=== PATIENT | male | born 1935 | race Caucasian/White ===

== ENCOUNTER → 2018-03-22 13:51 | Outpatient (CLI) | payer MEDICARE, OTHER, SELFPAY ==
[2018-03-22 14:25] LABS: Add Manual Diff / Slide Review NO; Basophils Percent Auto 1.1 % (0-2); Eosinophils Percent Auto 3.2 % (2-4); Hemoglobin 15.8 g/dL (13.5-17.5); Lymphocytes Percent Auto 27.4 % (25-40); Mean Corpuscular HGB Conc 34.3 % (30-36); Mean Corpuscular Hemoglobin 32.5 PG (26-34); Mean Corpuscular Volume 94.8 fL (80-100); Monocytes Percent Auto 9.5 % (3-14); Neutrophils Absolute Auto 3200 /uL (3000-5900); Neutrophils Percent Auto 58.8 % (50-75); Platelet Count 198 X10^3/uL (150-400); Red Blood Cell Count 4.85 X10^6/uL (4.5-5.9); Red Cell Distribution Width 13.9 % (11.6-14.8); White Blood Cell Count 5.5 X10^3/uL (4.5-11.0)
[2018-03-22 15:23] LABS: Alanine Aminotransferase 32 IU/L (21-72); Albumin 3.8 g/dL (3.5-5.0); Albumin Globulin Ratio 1.4 (1.0-2.8); Alkaline Phosphatase 75 U/L (38-126); Aspartate Aminotransferase 25 IU/L (17-59); Bilirubin Total 0.5 mg/dL (0.2-1.3); Blood Urea Nitrogen 16 mg/dL (9-20); Carbon Dioxide 29 mmol/L (22-32); Chloride 101 mmol/L (98-107); Estimated Glomerular Filt Rate > 60.0 mL/min (>60); Globulin 2.8 g/dL (1.7-4.1); Glucose 108 mg/dL (80-110); HEMOLYSIS < 15 (0-50); Potassium 4.4 mmol/L (3.4-5.1); Sodium 140 mmol/L (137-145); Total Protein 6.6 g/dL (6.3-8.2)
[2018-03-25 13:36] LABS: Erythropoietin 12.5 mIU/mL (2.6-18.5)
== END ==
PROVIDERS: Family Provider Family Medicine; PCP Family Medicine; Visit Provider Nurse Practitioner Gerontology
DX: D75.1 Secondary polycythemia (principal)
CPT/HCPCS: 36415; 80053; 82668; 85025

== ENCOUNTER → 2018-03-30 12:50 | Outpatient (CLI) | payer MEDICARE, OTHER, SELFPAY ==
[2018-03-30 13:34] LABS: 585 Gram Check PASS; Amount Collected in g 585 GRAM; Dizziness NO; Postdiastolic BP 85; Postsystolic BP 131; Prediastolic 86; Presystolic 141; Pulse 67; Site of phlebotomy LEFT AC; Swelling NO; Therapeutic Phleb Comment NO COMMENT; Zero Check Sebra Scale PASS
== END ==
PROVIDERS: Family Provider Family Medicine; PCP Family Medicine; Visit Provider Internal Medicine Hematology & Oncology
DX: D75.1 Secondary polycythemia (principal)
CPT/HCPCS: 99195

== ENCOUNTER → 2018-04-23 10:45 | Outpatient (CLI) | payer MEDICARE, OTHER, SELFPAY ==
[2018-04-23 11:10] LABS: Add Manual Diff / Slide Review NO; Basophils Percent Auto 0.8 % (0-2); Eosinophils Percent Auto 3.3 % (2-4); Hematocrit 44.8 % (41-53); Hemoglobin 15.4 g/dL (13.5-17.5); Lymphocytes Percent Auto 31.6 % (25-40); Mean Corpuscular HGB Conc 34.4 % (30-36); Mean Corpuscular Hemoglobin 32.4 PG (26-34); Mean Corpuscular Volume 94.4 fL (80-100); Monocytes Percent Auto 12.7 % (3-14); Neutrophils Absolute Auto 2700 /uL (3000-5900); Neutrophils Percent Auto 51.6 % (50-75); Platelet Count 217 X10^3/uL (150-400); Red Blood Cell Count 4.75 X10^6/uL (4.5-5.9); Red Cell Distribution Width 13.6 % (11.6-14.8); White Blood Cell Count 5.2 X10^3/uL (4.5-11.0)
--- NOTE | 2018-04-23 13:23 | PC.NURSE ---
Pre visit labs stable. Next MD appt on 04/26
== END ==
PROVIDERS: Family Provider Family Medicine; PCP Family Medicine; Visit Provider Internal Medicine Hematology & Oncology
DX: C61 Malignant neoplasm of prostate (principal)
CPT/HCPCS: 36415; 85025

== ENCOUNTER → 2018-05-28 09:52 | Outpatient (CLI) | payer MEDICARE, OTHER, SELFPAY ==
[2018-05-28 10:23] LABS: 585 Gram Check PASS; Prediastolic 93; Presystolic 158; Pulse 65; Temperature 65; Zero Check Sebra Scale PASS
[2018-05-28 10:24] LABS: Amount Collected in g 585 GRAM; Dizziness NO; Postdiastolic BP 91; Postsystolic BP 132; Site of phlebotomy LEFT AC; Swelling NO; Therapeutic Phleb Comment NO COMMENT
== END ==
PROVIDERS: PCP Family Medicine; Visit Provider Nurse Practitioner Gerontology
DX: D75.1 Secondary polycythemia (principal)
CPT/HCPCS: 99195

== ENCOUNTER → 2018-06-17 14:19 | Outpatient (CLI) | payer MEDICARE, OTHER, SELFPAY ==
[2018-06-17 14:58] LABS: Add Manual Diff / Slide Review NO; Basophils Percent Auto 0.7 % (0-2); Eosinophils Percent Auto 2.3 % (2-4); Hematocrit 42.5 % (41-53); Hemoglobin 14.1 g/dL (13.5-17.5); Lymphocytes Percent Auto 27.2 % (25-40); Mean Corpuscular HGB Conc 33.2 % (30-36); Mean Corpuscular Volume 93.3 fL (80-100); Monocytes Percent Auto 9.4 % (3-14); Neutrophils Absolute Auto 3300 /uL (1500-7000); Neutrophils Percent Auto 60.4 % (50-75); Platelet Count 226 X10^3/uL (150-400); Red Blood Cell Count 4.56 X10^6/uL (4.5-5.9); Red Cell Distribution Width 13.4 % (11.6-14.8); White Blood Cell Count 5.4 X10^3/uL (4.5-11.0)
[2018-06-17 15:24] LABS: Lactate Dehydrogenase 480 U/L (313-618)
[2018-06-17 15:56] LABS: Carcinoembryonic Antigen 1.6 ng/mL (0.1-3.0)
[2018-06-17 16:08] LABS: Prostate Specific Antigen < 0.064 ng/mL (0.10-4.00)
== END ==
PROVIDERS: Family Provider Family Medicine; PCP Family Medicine; Visit Provider Nurse Practitioner Gerontology
DX: D75.1 Secondary polycythemia (principal); C91.11 Chronic lymphocytic leukemia of B-cell type in remission; Z85.46 Personal history of malignant neoplasm of prostate; Z85.038 Personal history of other malignant neoplasm of large intestine; Z14.8 Genetic carrier of other disease
CPT/HCPCS: 36415; 82378; 83615; 84153; 84403; 85025

== ENCOUNTER → 2018-07-20 12:42 | Outpatient (CLI) | payer MEDICARE, OTHER, SELFPAY ==
[2018-07-20 13:14] LABS: 585 Gram Check PASS; Amount Collected in g 585 GRAM; Postdiastolic BP 85; Postsystolic BP 134; Prediastolic 149; Pulse 75; Site of phlebotomy RIGHT AC; Temperature 88; Zero Check Sebra Scale PASS
[2018-07-20 13:15] LABS: Dizziness NO; Swelling NO; Therapeutic Phleb Comment NO COMMENT
== END ==
PROVIDERS: Family Provider Family Medicine; PCP Family Medicine; Visit Provider Internal Medicine Hematology & Oncology
DX: D75.1 Secondary polycythemia (principal)
CPT/HCPCS: 36415; 99195

== ENCOUNTER → 2018-09-08 16:00 | Outpatient (CLI) | payer MEDICARE, OTHER, SELFPAY | PROVIDERS: Family Provider Family Medicine; PCP Family Medicine; Visit Provider Internal Medicine Hematology & Oncology | DX: D75.1 Secondary polycythemia (principal) | CPT/HCPCS: 36415; 80053; 82378; 85025 ==

== ENCOUNTER → 2018-11-09 15:11 | Outpatient (CLI) | payer MEDICARE, OTHER, SELFPAY ==
[2018-11-09 16:17] LABS: Add Manual Diff / Slide Review NO; Basophils Absolute Auto 0 /uL (0-100); Basophils Percent Auto 0.7 % (0-2); Eosinophils Absolute Auto 200 /uL (0-450); Hematocrit 41.1 % (41-53); Hemoglobin 13.7 g/dL (13.5-17.5); Lymphocytes Absolute Auto 1600 /uL (1100-4500); Lymphocytes Percent Auto 35.3 % (25-40); Mean Corpuscular HGB Conc 33.3 % (30-36); Mean Corpuscular Hemoglobin 28.1 PG (26-34); Mean Corpuscular Volume 84.5 fL (80-100); Monocytes Absolute Auto 600 /uL (0-900); Monocytes Percent Auto 13.5 % (3-14); Neutrophils Absolute Auto 2100 /uL (1500-7000); Neutrophils Percent Auto 46.5 % (50-75); Platelet Count 230 X10^3/uL (150-400); Red Blood Cell Count 4.87 X10^6/uL (4.5-5.9); Red Cell Distribution Width 16.1 % (11.6-14.8); White Blood Cell Count 4.5 X10^3/uL (4.5-11.0)
[2018-11-09 16:43] LABS: Alanine Aminotransferase 30 IU/L (21-72); Albumin 3.9 g/dL (3.5-5.0); Albumin Globulin Ratio 1.4 (1.0-2.8); Alkaline Phosphatase 76 U/L (38-126); Aspartate Aminotransferase 28 IU/L (17-59); BUN Creatinine Ratio 17.5 (6-22); Bilirubin Total 0.6 mg/dL (0.2-1.3); Blood Urea Nitrogen 14 mg/dL (9-20); Calcium 9.5 mg/dL (8.4-10.2); Carbon Dioxide 28 mmol/L (22-32); Chloride 101 mmol/L (98-107); Cholesterol 178 mg/dL (140-199); Estimated Glomerular Filt Rate > 60.0 mL/min (>60); Globulin 2.8 g/dL (1.7-4.1); Glucose 76 mg/dL (80-110); HDL Cholesterol 66 mg/dL (40-60); HEMOLYSIS < 15 (0-50); LDL Cholesterol Calculated 97 mg/dL (<100); Potassium 4.3 mmol/L (3.4-5.1); Sodium 137 mmol/L (137-145); Total Protein 6.7 g/dL (6.3-8.2); Triglycerides 73 mg/dL (35-150)
[2018-11-09 17:14] LABS: Thyroid Stimulating Hormone 1.99 uIU/mL (0.47-4.68)
== END ==
PROVIDERS: Family Provider Family Medicine; PCP Family Medicine; Visit Provider Family Medicine
DX: D64.9 Anemia, unspecified (principal); R53.83 Other fatigue; Z51.81 Encounter for therapeutic drug level monitoring
CPT/HCPCS: 36415; 80053; 80061; 84443; 85025

== ENCOUNTER → 2018-11-15 16:58 | Outpatient (CLI) | payer MEDICARE, OTHER, SELFPAY ==
--- NOTE | 2018-11-15 17:02 | DI.MRI.S_ITS ---
PROCEDURE: MR HEAD/BRAIN WO CON INDICATIONS: Gait abnormality,Bilateral hand tremor, fatigue TECHNIQUE: Non-contrast axial T1 spin echo, axial T2 fast spin echo, sagittal and axial FLAIR, coronal T2 fast spin echo, axial gradient echo, axial diffusion and ADC through the brain. COMPARISON: None. FINDINGS: Image quality: Excellent. CSF spaces: Ventricles appear symmetric in size and shape. Basal cisterns are patent. No extra-axial fluid collections. Brain: No intracranial bleeds or mass effects. There is cerebral volume loss for age. There are relatively prominent periventricular and deep white matter chronic small vessel ischemic changes. Brainstem appears normal. Diffusion-weighted images show no acute ischemic insults. No chronic ischemic insults. Normal intravascular flow voids are present. Skull and face: Calvarial bone marrow is normal in signal. Orbits are normal. Note is made of bilateral lens replacements. Sinuses: Mild to moderate fluid can be seen within the left mastoid air cells. No significant abnormal right mastoid air cell fluid can be seen. No significant paranasal sinus disease is seen. IMPRESSION: Relatively prominent chronic small vessel ischemic change is seen. Age-appropriate brain parenchymal volume loss is seen. No findings of acute or subacute infarction can be seen. Dictated by: Ernesto Jiang M.D. on 11/15/2018 at 17:27 Approved by: Ernesto Jiang M.D. on 11/15/2018 at 17:28
== END ==
PROVIDERS: PCP Family Medicine; Visit Provider Family Medicine
DX: R25.1 Tremor, unspecified (principal); R26.9 Unspecified abnormalities of gait and mobility; R53.83 Other fatigue
CPT/HCPCS: 70551

== ENCOUNTER → 2018-12-31 10:49 | Outpatient (CLI) | payer MEDICARE, OTHER, SELFPAY ==
[2018-12-31 11:14] LABS: Add Manual Diff / Slide Review NO; Basophils Absolute Auto 0 /uL (0-100); Basophils Percent Auto 1.2 % (0-2); Eosinophils Absolute Auto 100 /uL (0-450); Eosinophils Percent Auto 3.1 % (2-4); Hematocrit 44.2 % (41-53); Hemoglobin 14.6 g/dL (13.5-17.5); Lymphocytes Absolute Auto 1400 /uL (1100-4500); Mean Corpuscular HGB Conc 33.1 % (30-36); Mean Corpuscular Hemoglobin 28.4 PG (26-34); Mean Corpuscular Volume 85.9 fL (80-100); Monocytes Absolute Auto 600 /uL (0-900); Monocytes Percent Auto 14.5 % (3-14); Neutrophils Absolute Auto 2000 /uL (1500-7000); Neutrophils Percent Auto 47.2 % (50-75); Platelet Count 214 X10^3/uL (150-400); Red Blood Cell Count 5.14 X10^6/uL (4.5-5.9); White Blood Cell Count 4.1 X10^3/uL (4.5-11.0)
[2018-12-31 11:31] LABS: Alanine Aminotransferase 23 IU/L (21-72); Albumin 4.2 g/dL (3.5-5.0); Albumin Globulin Ratio 1.3 (1.0-2.8); Alkaline Phosphatase 72 U/L (38-126); Aspartate Aminotransferase 29 IU/L (17-59); BUN Creatinine Ratio 15.7 (6-22); Bilirubin Total 0.7 mg/dL (0.2-1.3); Blood Urea Nitrogen 11 mg/dL (9-20); Calcium 9.3 mg/dL (8.4-10.2); Carbon Dioxide 29 mmol/L (22-32); Chloride 102 mmol/L (98-107); Estimated Glomerular Filt Rate > 60.0 mL/min (>60); Globulin 3.2 g/dL (1.7-4.1); Glucose 80 mg/dL (80-110); HEMOLYSIS < 15 (0-50); Potassium 4.2 mmol/L (3.4-5.1); Sodium 138 mmol/L (137-145); Total Protein 7.4 g/dL (6.3-8.2)
[2018-12-31 12:00] LABS: HEMOLYSIS < 15 (0-50); Iron 70 ug/dL (49-181)
[2018-12-31 12:02] LABS: Carcinoembryonic Antigen 2.1 ng/mL (0.1-3.0)
[2018-12-31 12:06] LABS: Ferritin 11.2 ng/mL (17.9-464)
[2018-12-31 12:11] LABS: Percent Iron Saturation 17 % (20-50); Total Iron Binding Capacity 423 ug/dL (261-462); Transferrin 334 mg/dL (206-381)
== END ==
PROVIDERS: PCP Family Medicine; Visit Provider Internal Medicine Hematology & Oncology
DX: C91.90 Lymphoid leukemia, unspecified not having achieved remission (principal)
CPT/HCPCS: 36415; 80053; 82378; 82728; 83540; 83550; 85025

== ENCOUNTER 2019-01-18 15:30 | Outpatient (RCR) | payer MEDICARE, OTHER, SELFPAY ==
--- NOTE | 2018-12-13 10:32 | ST.OPIE ---
Provider Information Visit Care Team Role Provider Type Thao Preciado DO Attending Provider Physician Primary Care Provider Specialty: Family Practice Address: [address] [place] [address], [id number] Email: [email or web address] Speech-Language Pathology Initial Evaluation NETWORK ASSOCIATE Clinical Swallow Evaluation Start: 12/08/18 18:12 Freq: Status: Active Protocol: Document 12/07/18 18:15 DEE (Rec: 12/08/18 18:41 DEE [email or web address]) Clinical Swallow Evaluation Session Time Visit Start Time 15:30 Visit Stop Time 16:20 Total Visit Minutes 50 Visit Information Visit Number Initial Evaluation Plan of Care Dates 12/07/18 - 03/09/19 Insurance Information Medicare Referral Referring Physician Dr. Preciado Reason for Referral Dysphagia, Dysphonia; Tx recommended by NETWORK ASSOCIATE during swallow screening Setting Assessment Location Outpatient Care Visit Type Note Type Initial Evaluation Next Note Type Next Note Type Treatment Note Patient Information Identification Type Name ID Card History 83-yr-old male with complaints of coughing with swallowing ( solids greater than liquids) for ~1 yr, voice changes and increased mumbling (per spouse report) over the last 6 -9 mos with no obvious etiology. The pt attended an [facility] Community Swallow Screening and was recommended by attending NETWORK ASSOCIATE for swallow and voice evaluations and treatment. The pt has an extensive history of multiple cancers. Medical records indicate a referral to Neurology is in place. Subjective Observations The pt arrived on time and provided case history. He stated that to manage dysphagia symptoms he slows down when he eats, and this seems to help a great deal. He noted during the evaluation that dry crumbly textures tend to give him the most trouble. Evaluation Liquids Trialed Thin Solids Trialed Puree Mechanical Soft Regular Administration Type Cup Single Sip Cup Consecutive Sips Self-Feeding Oral Impairment WFL Oral Strategies Upright at 90 degrees Oral Phase Comments Oral Peripheral Exam: Mild- moderate lingual tremor noted with movement. Mildly reduced lingual strenth observed. Pt has complete, natural dentition in excellent condition for age. All features were symmetrical. Soft palate elevation upon phonation. ROM and coordination of structures WNL . Oral Phase: WFL Pharyngeal Impairment Mildly Impaired Pharyngeal Strategies Sitting Upright (90 deg) Small Bites and Sips Pharyngeal Phase Comments Throat clearing x1 with applesauce; mild throat clearing and strong cough observed with soft cookie. No overt s/sx of aspiration with thin liquid and with peaches. Findings Dysphagia Type Mild Pharyngeal Dysphagia Rehabilitation Potential Good Impressions Pt presents with mild pharyngeal dysphagia characterized by occasional throat clearing with variety of textures and strong cough with dry, crumbly textures. Pt did report after evaluation that dry crumbly textures such as nuts frequently produce coughing. These symptoms indicate reduced airway protection likely resulting from impaired strength, coordination and/or ROM of swallow musculature. The pt also exhibits Parkinsonian-like symptoms including tremors, reduced facial expression, and quiet, monotone voice. Referral to Neurology is in place, per medical records, which is also recommended by this NETWORK ASSOCIATE. If neurological impairment is present, it also likely contributes to response time/ ability of musculature impacting swallow function and safety. Diet Recommendations Liquids Order Thin Diet Order Regular Medication Recommendations As Tolerated Comments Avoid dry, crumbly textures. Aspiration Precautions Recommended Precautions Upright at 90 Degrees Small Bites/Sips Additional Precautions Moisten foods; avoid dry, crumbly textures. Treatment Plan Placement Recommendations after Home Discharge Outpatient Therapy Appropriate for Therapy Yes Therapy Recommendations Ongoing assessment and education/training in aspiration risks/precautions, compensatory swallow strategies, diet modifications to reduce aspiration risk, and swallow exercises to increase strength, coordination and ROM of swallow musculature to increase airway protection and decrease aspiration risk and discomfort with swallow. Dysphagia Goals The pt will use compensatory swallow strategies independently in 90% of opportunities to reduce risk of aspiration. The pt will verbalized understanding of and independently employ modifications to diet texture as needed (e.g., add moisture to dry foods) in 90% of opportunities to reduce riskof aspiration and increase comfort with oral intake. The pt will perform swallow exercises with min v/v cues and 90% accuracy to increase strength, coordination and ROM of swallow musculature to increase airway protection and decrease aspiration risk. NETWORK ASSOCIATE Follow Up 1x/wk for 6 weeks; Voice evaluation + tx as indicated. Referrals/Other Recommended Referrals Neurology
--- NOTE | 2018-12-14 17:27 | ST.OPIE ---
Provider Information Visit Care Team Role Provider Type Thao Preciado DO Attending Provider Physician Primary Care Provider Specialty: Family Practice Address: [address] [place] [address], [id number] Email: [email or web address] Speech-Language Pathology Initial Evaluation NEW CAR SALESPERSON Clinical Swallow Evaluation Start: 12/08/18 18:12 Freq: Status: Active Protocol: Document 12/07/18 18:15 DEE (Rec: 12/08/18 18:41 DEE [email or web address]) Clinical Swallow Evaluation Session Time Visit Start Time 15:30 Visit Stop Time 16:20 Total Visit Minutes 50 Visit Information Visit Number Initial Evaluation Plan of Care Dates 12/07/18 - 03/09/19 Insurance Information Medicare Referral Referring Physician Dr. Preciado Reason for Referral Dysphagia, Dysphonia; Tx recommended by NEW CAR SALESPERSON during swallow screening Setting Assessment Location Outpatient Care Visit Type Note Type Initial Evaluation Next Note Type Next Note Type Treatment Note Patient Information Identification Type Name ID Card History 83-yr-old male with complaints of coughing with swallowing ( solids greater than liquids) for ~1 yr, voice changes and increased mumbling (per spouse report) over the last 6 -9 mos with no obvious etiology. The pt attended an [facility] Community Swallow Screening and was recommended by attending NEW CAR SALESPERSON for swallow and voice evaluations and treatment. The pt has an extensive history of multiple cancers. Medical records indicate a referral to Neurology is in place. Subjective Observations The pt arrived on time and provided case history. He stated that to manage dysphagia symptoms he slows down when he eats, and this seems to help a great deal. He noted during the evaluation that dry crumbly textures tend to give him the most trouble. Evaluation Liquids Trialed Thin Solids Trialed Puree Mechanical Soft Regular Administration Type Cup Single Sip Cup Consecutive Sips Self-Feeding Oral Impairment WFL Oral Strategies Upright at 90 degrees Oral Phase Comments Oral Peripheral Exam: Mild- moderate lingual tremor noted with movement. Mildly reduced lingual strenth observed. Pt has complete, natural dentition in excellent condition for age. All features were symmetrical. Soft palate elevation upon phonation. ROM and coordination of structures WNL . Oral Phase: WFL Pharyngeal Impairment Mildly Impaired Pharyngeal Strategies Sitting Upright (90 deg) Small Bites and Sips Pharyngeal Phase Comments Throat clearing x1 with applesauce; mild throat clearing and strong cough observed with soft cookie. No overt s/sx of aspiration with thin liquid and with peaches. Findings Dysphagia Type Mild Pharyngeal Dysphagia Rehabilitation Potential Good Impressions Pt presents with mild pharyngeal dysphagia characterized by occasional throat clearing with variety of textures and strong cough with dry, crumbly textures. Pt did report after evaluation that dry crumbly textures such as nuts frequently produce coughing. These symptoms indicate reduced airway protection likely resulting from impaired strength, coordination and/or ROM of swallow musculature. The pt also exhibits Parkinsonian-like symptoms including tremors, reduced facial expression, and quiet, monotone voice. Referral to Neurology is in place, per medical records, which is also recommended by this NEW CAR SALESPERSON. If neurological impairment is present, it also likely contributes to response time/ ability of musculature impacting swallow function and safety. Diet Recommendations Liquids Order Thin Diet Order Regular Medication Recommendations As Tolerated Comments Avoid dry, crumbly textures. Aspiration Precautions Recommended Precautions Upright at 90 Degrees Small Bites/Sips Additional Precautions Moisten foods; avoid dry, crumbly textures. Treatment Plan Placement Recommendations after Home Discharge Outpatient Therapy Appropriate for Therapy Yes Therapy Recommendations Ongoing assessment and education/training in aspiration risks/precautions, compensatory swallow strategies, diet modifications to reduce aspiration risk, and swallow exercises to increase strength, coordination and ROM of swallow musculature to increase airway protection and decrease aspiration risk and discomfort with swallow. Dysphagia Goals The pt will use compensatory swallow strategies independently in 90% of opportunities to reduce risk of aspiration. The pt will verbalized understanding of and independently employ modifications to diet texture as needed (e.g., add moisture to dry foods) in 90% of opportunities to reduce riskof aspiration and increase comfort with oral intake. The pt will perform swallow exercises with min v/v cues and 90% accuracy to increase strength, coordination and ROM of swallow musculature to increase airway protection and decrease aspiration risk. NEW CAR SALESPERSON Follow Up 1x/wk for 6 weeks; Voice evaluation + tx as indicated. Referrals/Other Recommended Referrals Neurology NEW CAR SALESPERSON Voice Resonance Evaluation Start: 12/14/18 16:31 Freq: Status: Active Protocol: Document 12/14/18 16:31 DEE (Rec: 12/14/18 16:57 DEE [email or web address]) Voice and Resonance Assessment Visit Information Visit Number 1 Plan of Care Dates 12/07/18 - 03/09/19 Insurance Information Medicare Next Note Type Next Note Type Treatment Note Referral Reason for Referral Reduced vocal loudness Setting Setting Outpatient Care Patient History General Information 83-yr-old male with complaints of coughing with swallowing ( solids greater than liquids) for ~1 yr, voice changes and increased mumbling (per spouse report) over the last 6 -9 mos with no obvious etiology. The pt attended an [facility] Community Swallow Screening and was recommended by attending NEW CAR SALESPERSON for swallow and voice evaluations and treatment. The pt has an extensive history of multiple cancers. Medical records indicate a referral to Neurology is in place. 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 Inconsistent vocal stability perceived over duration of task. Jitter/Shimmer Norms: Jitter (Less than or equal to 1.040% - Frequency) Norms: Shimmer (Less than or equal to 3.810% - Amplitude) Jitter WNL Shimmer WNL Breath Support Breath Support At Rest Mixed Breath Support Sustained Phonation Mixed Breath Support Conversation Mixed Breath Support Conversation Comment No SOB observed. Reduced vocal loudness/strength Speaks on Room Air Yes Voice Pitch Range Norms: Women (100-300 Hz) Men (70-250 Hz) Fundamental Frequency Norms: Women (Mean: 225 Hz; Range: 155-334 Hz) Men ( Mean: 128 Hz; Range: 85-196 Hz) Voice Pitch Normal Voice Loudness Mildly Soft/Quiet Voice Phonatory-based Quality Breathy Weak Fundamental Frequency 167 Intensity Avg 65 dB in conversation ( Normal = 65-75 dB) Paradoxical Vocal Fold Movement No Indications Resonance Nasal Resonance Normal Therapeutic Techniques Therapy Tactics Increase Loudness Findings Findings Mild-Moderate Impairment Voice/Resonance Assessment Assessment Pt presents with mild-moderate vocal impairment characterized by breathiness and reduced vocal loudness, impacting his ability to be heard and understood by others , particularly his who is hard of hearing. Remi is able to increase vocal loudness to WNL over a 10-sec trial of sustained phonation. His speech is 100% intelligible to this listener who has unimpaired hearing. He would benefit from voice therapy targeting vocal loudness, which will increase breath support for both speech and swallow as well as speech intelligibility for a greater variety of conversation partners. Prognosis Rehabilitation Potential Excellent - Recommendations Treatment Recommended Yes Treatment Frequency/Duration 1x/wk for ~8 wks Placement Recommendation Home Therapy Recommendations Complete voice evaluation. Train pt in exercises to improve vocal quality, increase vocal loudness and speech intelligibility. Short Term Goals The pt will sustain phonation for 20 sec with an average of 70 dB or greater x3 trials to increase breath support for voice and swallow. The pt will perform pitch range exercises independently in 80% of opportunities to increase hyolaryngeal elevation for improved voice and swallow. The pt will read sentences of moderate length with average loudness >67 dB across 20 sentences to increase vocal loudness and speech intelligibility for conversational tasks. Shelter Goals The pt will produce avg conversational loudness of 67 dB or greater across 10 minutes of conversation. The pt will demonstrate consistent and independent compliance with HEP to improve vocal quality and speech intelligibility for functional conversational tasks. The pt will report greater satisfaction with voice and improved ability to communicate with others to improve/maintain relationships and quality of life. Patient/Caregiver Education Patient/Family Education Described results of evaluation Patient Understanding
--- NOTE | 2018-12-14 17:27 | ST.OPTN ---
Care Team Visit Care Team Role Provider Type Thao Preciado DO Attending Provider Physician Primary Care Provider Address: [address] [place] [address], [id number] SUPERVISOR SUNGLASSES Treatment Note SUPERVISOR SUNGLASSES Treatment Note Start: 12/14/18 16:31 Freq: Status: Active Protocol: Document 12/14/18 16:31 DEE (Rec: 12/14/18 16:57 DEE [email or web address]) Speech Pathology Treatment Note Session Time Visit Start Time 15:30 Visit Stop Time 16:20 Total Visit Minutes 50 Visit Information Visit Number 07/08 Plan of Care Dates 12/07/18 - 03/09/19 Insurance Information Medicare Setting Treatment Setting Outpatient Care Visit Type Note Type Treatment Note Next Note Type Next Note Type Treatment Note General Information General Information 83-yr-old male with complaints of coughing with swallowing ( solids greater than liquids) for ~1 yr, voice changes and increased mumbling (per spouse report) over the last 6 -9 mos with no obvious etiology. The pt attended an [facility] Community Swallow Screening and was recommended by attending SUPERVISOR SUNGLASSES for swallow and voice evaluations and treatment. The pt has an extensive history of multiple cancers. Medical records indicate a referral to Neurology is in place. Subjective Observations/Patient Presentation Pt arrived on time and reported completing swallow exercises (Alem, base of tongue) x20 reps 2x/day and improved swallow, including ability to eat dry cookies without coughing and reduced residual/sticking sensation in throat. He expressed desire to strengthen his voice. His , who is hard of hearing, complains that he mumbles, which he doesn't feel he does. However, he agreed that his voice has gotten weaker over the last ~1.5 yrs. 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 About 1.5 yrs ago he stopped exercising regularly d/t getting winded very easily and tiring out quickly. Only this week has he attempted to re-initiate regular exercise and would like to increase his breath support for this. Chief Complaint(s) Speech Swallowing Voice Rehab Expectation/Goals: Patient Goals Improve swallow, strengthen voice Patient Knowledge/Awareness of SUPERVISOR SUNGLASSES Role Excellent in Treatment Objective Short Term Goals Dysphagia: 1. The pt will use compensatory swallow strategies independently in 90 % of opportunities to reduce risk of aspiration. 2. The pt will verbalized understanding of and independently employ modifications to diet texture as needed (e.g., add moisture to dry foods) in 90% of opportunities to reduce riskof aspiration and increase comfort with oral intake. Voice: 1. The pt will sustain phonation for 20 sec with an average of 70 dB or greater x3 trials to increase breath support for voice and swallow. 2. The pt will perform pitch range exercises independently in 80% of opportunities to increase hyolaryngeal elevation for improved voice and swallow. 3. The pt will read sentences of moderate length with average loudness >67 dB across 20 sentences to increase vocal loudness and speech intelligibility for conversational tasks. [facility] Goals Dysphagia: 1. The pt will tolerate regular diet texture and thin liquids without overt s/sx of aspiration. 2. The pt will demonstrate consistent compliance with HEP to meet/maintain goals of tx. Voice: 1. The pt will produce avg conversational loudness of 67 dB or greater across 10 minutes of conversation. 2.The pt will demonstrate consistent and independent compliance with HEP to improve vocal quality and speech intelligibility for functional conversational tasks. 3. The pt will report greater satisfaction with voice and improved ability to communicate with others to improve/maintain relationships and quality of life. Treatment Activities Pt completed Alem maneuver independently with significant lingual protrusion. Trained pt in Davey, effortful swallow, sustained phonation, and vocal pitch exercises (the latter two with increased vocal loudness). Initiated voice evaluation. Educated pt RE LSVT-Loud therapy. Remi is currently his 's primary caregiver, which prohibits him from participating in such an intensive therapy program. Written information was provided for his review, as this is a treatment that may benefit him at another time when his schedule may allow. Assessment Patient Response to Treatment Excellent Rehab Potential Excellent Impairments Identified Dysphagia Speech Intelligibility Vocal Quality Other Additional Impairments Identified Essential Tremor Progress Towards Goals Excellent Progress Assessment of Overall Progress Improving Assessment of Improvement Remi reports notable improvement in swallow comfort and ability, which has allowed him to resume eating some foods which he had recently been avoiding. He is compliant with HEP and quickly learned new exercises introduced today. He presents with reduced vocal loudness and would benefit from exercises to increase breath support for speech and swallow. Reviewed with Patient Goals Progress Being Made Home Exercise Program Patient/Caregiver Understanding Excellent Plan Treatment Emphasis Next Session Complete voice evaluation and continue voice exercise training. Therapeutic Contents Client Education Home Exercise Program Intelligibility Swallowing/Feeding Voice Training Provided Patient/Caregiver Instruction Home Exercise Program Plan of Care Questions/Concerns Therapy Recommendations Continue with Current Program
--- NOTE | 2018-12-28 17:04 | ST.OPIE ---
Provider Information Visit Care Team Role Provider Type Thao Preciado DO Attending Provider Physician Primary Care Provider Specialty: Family Practice Address: [address] [place] [address], [id number] Email: [email or web address] Speech-Language Pathology Initial Evaluation ONLINE JOURNALIST Clinical Swallow Evaluation Start: 12/08/18 18:12 Freq: Status: Active Protocol: Document 12/07/18 18:15 DEE (Rec: 12/08/18 18:41 DEE [email or web address]) Clinical Swallow Evaluation Session Time Visit Start Time 15:30 Visit Stop Time 16:20 Total Visit Minutes 50 Visit Information Visit Number Initial Evaluation Plan of Care Dates 12/07/18 - 03/09/19 Insurance Information Medicare Referral Referring Physician Dr. Preciado Reason for Referral Dysphagia, Dysphonia; Tx recommended by ONLINE JOURNALIST during swallow screening Setting Assessment Location Outpatient Care Visit Type Note Type Initial Evaluation Next Note Type Next Note Type Treatment Note Patient Information Identification Type Name ID Card History 83-yr-old male with complaints of coughing with swallowing ( solids greater than liquids) for ~1 yr, voice changes and increased mumbling (per spouse report) over the last 6 -9 mos with no obvious etiology. The pt attended an [facility] Swallow Screening and was recommended by attending ONLINE JOURNALIST for swallow and voice evaluations and treatment. The pt has an extensive history of multiple cancers. Medical records indicate a referral to Neurology is in place. Subjective Observations The pt arrived on time and provided case history. He stated that to manage dysphagia symptoms he slows down when he eats, and this seems to help a great deal. He noted during the evaluation that dry crumbly textures tend to give him the most trouble. Evaluation Liquids Trialed Thin Solids Trialed Puree Mechanical Soft Regular Administration Type Cup Single Sip Cup Consecutive Sips Self-Feeding Oral Impairment WFL Oral Strategies Upright at 90 degrees Oral Phase Comments Oral Peripheral Exam: Mild- moderate lingual tremor noted with movement. Mildly reduced lingual strenth observed. Pt has complete, natural dentition in excellent condition for age. All features were symmetrical. Soft palate elevation upon phonation. ROM and coordination of structures WNL . Oral Phase: WFL Pharyngeal Impairment Mildly Impaired Pharyngeal Strategies Sitting Upright (90 deg) Small Bites and Sips Pharyngeal Phase Comments Throat clearing x1 with applesauce; mild throat clearing and strong cough observed with soft cookie. No overt s/sx of aspiration with thin liquid and with peaches. Findings Dysphagia Type Mild Pharyngeal Dysphagia Rehabilitation Potential Good Impressions Pt presents with mild pharyngeal dysphagia characterized by occasional throat clearing with variety of textures and strong cough with dry, crumbly textures. Pt did report after evaluation that dry crumbly textures such as nuts frequently produce coughing. These symptoms indicate reduced airway protection likely resulting from impaired strength, coordination and/or ROM of swallow musculature. The pt also exhibits Parkinsonian-like symptoms including tremors, reduced facial expression, and quiet, monotone voice. Referral to Neurology is in place, per medical records, which is also recommended by this ONLINE JOURNALIST. If neurological impairment is present, it also likely contributes to response time/ ability of musculature impacting swallow function and safety. Diet Recommendations Liquids Order Thin Diet Order Regular Medication Recommendations As Tolerated Comments Avoid dry, crumbly textures. Aspiration Precautions Recommended Precautions Upright at 90 Degrees Small Bites/Sips Additional Precautions Moisten foods; avoid dry, crumbly textures. Treatment Plan Placement Recommendations after Home Discharge Outpatient Therapy Appropriate for Therapy Yes Therapy Recommendations Ongoing assessment and education/training in aspiration risks/precautions, compensatory swallow strategies, diet modifications to reduce aspiration risk, and swallow exercises to increase strength, coordination and ROM of swallow musculature to increase airway protection and decrease aspiration risk and discomfort with swallow. Dysphagia Goals The pt will use compensatory swallow strategies independently in 90% of opportunities to reduce risk of aspiration. The pt will verbalized understanding of and independently employ modifications to diet texture as needed (e.g., add moisture to dry foods) in 90% of opportunities to reduce riskof aspiration and increase comfort with oral intake. The pt will perform swallow exercises with min v/v cues and 90% accuracy to increase strength, coordination and ROM of swallow musculature to increase airway protection and decrease aspiration risk. ONLINE JOURNALIST Follow Up 1x/wk for 6 weeks; Voice evaluation + tx as indicated. Referrals/Other Recommended Referrals Neurology ONLINE JOURNALIST Voice Resonance Evaluation Start: 12/14/18 16:31 Freq: Status: Active Protocol: Document 12/28/18 15:54 DEE (Rec: 12/28/18 17:03 DEE [email or web address]) Voice and Resonance Assessment Visit Information Visit Number 3 Plan of Care Dates 12/07/18 - 03/09/19 Insurance Information Medicare Next Note Type Next Note Type Treatment Note Referral Referring Physician Dr. Preciado Setting Setting Outpatient Care - Laryngeal Performance S/Z Ratio S/Z Ratio WNL (0.4071; 23/57 sec) Functional for Speech Yes Reduced Laryngeal Function Relative to No Respiration Voice Handicap Index Function Subtotal 8 WFL Physical Subtotal 20 Moderate-Severe Emotional Subtotal 4 WFL Total Score 32 Severity Moderate (31-60) VHI Comments Some responses impacted by spouse's hearing impairment CAPE-V Overall Severity 59% Moderate-Severe Roughness 21% Mild Breathiness 8% Minimal Strain 0% WNL Pitch 33% Mild-Moderate (monotone) Loudness 65% Moderate-Severe (reduced; 58-65 dB in conversation) Normal Resonance? Yes Additional Features Pitch Instability Other Features Observed Reduced facial expression, unwavering eye contact Maximum Phonation Time MPT Norms: Women (15-25) Men (25-35) Loudness (50-60 dB); Speaking Rate: Oral Reading of Sentences (190 Words Per Minute); Oral Reading of Paragraphs (160-170 WPM); Speaking Rate in Conversation (150-250 WPM) Maximum Phonation Time 35.3 sec @ 57 dB Maximum Phonation Time Adequate for Speech Unstable Pitch Maximum Phonation Time Comments Reduced to 28.4 sec @ 65 dB Jitter/Shimmer Norms: Jitter (Less than or equal to 1.040% - Frequency) Norms: Shimmer (Less than or equal to 3.810% - Amplitude) Jitter 0.96% (WFL) during MPT task Shimmer 4.53% (impaired) during MPT task Pitch [place] Pitch [place] WNL Pitch [place] Comments 104-326 Hz - Recommendations Short Term Goals Dysphagia: 1. The pt will use compensatory swallow strategies independently in 90 % of opportunities to reduce risk of aspiration. 2. The pt will verbalized understanding of and independently employ modifications to diet texture as needed (e.g., add moisture to dry foods) in 90% of opportunities to reduce riskof aspiration and increase comfort with oral intake. Voice: 1. The pt will sustain phonation for 20 sec with an average of 70 dB or greater x3 trials to increase breath support for voice and swallow. 2. The pt will perform pitch range exercises independently in 80% of opportunities to increase hyolaryngeal elevation for improved voice and swallow. 3. The pt will read sentences of moderate length with average loudness >67 dB across 20 sentences to increase vocal loudness and speech intelligibility for conversational tasks. Shift Superintendent Goals Dysphagia: 1. The pt will tolerate regular diet texture and thin liquids without overt s/sx of aspiration. 2. The pt will demonstrate consistent compliance with HEP to meet/maintain goals of tx. Voice: 1. The pt will produce avg conversational loudness of 67 dB or greater across 10 minutes of conversation. 2.The pt will demonstrate consistent and independent compliance with HEP to improve vocal quality and speech intelligibility for functional conversational tasks. 3. The pt will report greater satisfaction with voice and improved ability to communicate with others to improve/maintain relationships and quality of life. Vocally Abusive Behavior Behavior Rating Alcohol Consumption Frequently [place] Talking Never Arguing (peers/siblings/other) Infrequently Athletic Activity Yelling Never Mouth Breathing Occasionally Caffeine Use Occasionally Calling from Distance Infrequently Cheerleading Participation Never Coughing/Sneezing Loudly Never Crying Never Use of Dairy Products Always Environmental Irritant Exposure Not currently. 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 Use of Inhalants Never Laughing Hard/Abusively Occasionally Singing Abusively Never Participation In Plays Never Smoking Never Excessive Talking Never Making Animal /Toy Noises Never Yelling/Screaming Never
--- NOTE | 2018-12-28 17:04 | ST.OPTN ---
Care Team Visit Care Team Role Provider Type Thao Preciado DO Attending Provider Physician Primary Care Provider Address: [address] [place] [address], [id number] MEAT INSPECTOR Treatment Note MEAT INSPECTOR Treatment Note Start: 12/14/18 16:31 Freq: Status: Active Protocol: Document 12/28/18 15:54 DEE (Rec: 12/28/18 17:03 DEE [email or web address]) Speech Pathology Treatment Note Session Time Visit Start Time 15:32 Visit Stop Time 16:16 Total Visit Minutes 46 Visit Information Visit Number 09/05 Plan of Care Dates 12/07/18 - 03/09/19 Insurance Information Medicare Setting Treatment Setting Outpatient Care Visit Type Note Type Treatment Note Next Note Type Next Note Type Treatment Note General Information General Information 83-yr-old male with complaints of coughing with swallowing ( solids greater than liquids) for ~1 yr, voice changes and increased mumbling (per spouse report) over the last 6 -9 mos with no obvious etiology. The pt attended an [facility] Swallow Screening and was recommended by attending MEAT INSPECTOR for swallow and voice evaluations and treatment. The pt has an extensive history of multiple cancers. Medical records indicate a referral to Neurology is in place. Subjective Observations/Patient Presentation The pt arrived on time. He reported much improvement with swallow and that his has commented on less frequent coughing. He is able to eat dry, crumbly foods with less frequency of difficulty and has been compliant with swallow exercises. He reported less compliance with voice exercises d/t forgetting about them. Chief Complaint(s) Swallowing Voice Rehab Expectation/Goals: Patient Goals Improve swallow and vocal quality Patient Knowledge/Awareness of MEAT INSPECTOR Role Excellent in Treatment Objective Short Term Goals Dysphagia: 1. The pt will use compensatory swallow strategies independently in 90 % of opportunities to reduce risk of aspiration. 2. The pt will verbalized understanding of and independently employ modifications to diet texture as needed (e.g., add moisture to dry foods) in 90% of opportunities to reduce riskof aspiration and increase comfort with oral intake. Voice: 1. The pt will sustain phonation for 20 sec with an average of 70 dB or greater x3 trials to increase breath support for voice and swallow. 2. The pt will perform pitch range exercises independently in 80% of opportunities to increase hyolaryngeal elevation for improved voice and swallow. 3. The pt will read sentences of moderate length with average loudness >67 dB across 20 sentences to increase vocal loudness and speech intelligibility for conversational tasks. Instrumentation Technician Goals Dysphagia: 1. The pt will tolerate regular diet texture and thin liquids without overt s/sx of aspiration. 2. The pt will demonstrate consistent compliance with HEP to meet/maintain goals of tx. Voice: 1. The pt will produce avg conversational loudness of 67 dB or greater across 10 minutes of conversation. 2.The pt will demonstrate consistent and independent compliance with HEP to improve vocal quality and speech intelligibility for functional conversational tasks. 3. The pt will report greater satisfaction with voice and improved ability to communicate with others to improve/maintain relationships and quality of life. Treatment Activities Voice analysis was continued in today's session. See Voice Assessment Note for details. Re-educated pt on HEP tasks for voice. Encouraged him to continue swallow exercises, which he verbalized intending to do. Assessment Patient Response to Treatment Excellent Rehab Potential Good Impairments Identified Dysarthria Vocal Quality Progress Towards Goals Excellent Progress Comment Progressing well with swallow Assessment of Overall Progress Improving Assessment of Improvement Much improvement reported by pt with regard to swallow. He has been compliant with exercises x2/day. Pt continues with reduced vocal loudness impacting his ability to be heard and understood by others, particularly his who is [place]. He exhibited much improved MPT following completion of s/z ratio task; will reinforce this with increased loudness. Per VHI, greatest impact is on pt's physical efforts to make himself heard. He reports vocal fatigue late in the day with aphonic episodes in speech and with HEP tasks. Reviewed with Patient Goals Progress Being Made Home Exercise Program Patient/Caregiver Understanding Excellent Plan Treatment Emphasis Next Session Voice exercises Therapeutic Contents Client Education Home Exercise Program Intelligibility Swallowing/Feeding Voice Training Provided Patient/Caregiver Instruction Home Exercise Program Plan of Care Questions/Concerns Therapy Recommendations Continue with Current Program
--- NOTE | 2019-01-04 16:44 | ST.OPTN ---
Care Team Visit Care Team Role Provider Type Thao Preciado DO Attending Provider Physician Primary Care Provider Address: [address] [place] [address], [id number] METAL OR WOOD BLOCKER Treatment Note METAL OR WOOD BLOCKER Treatment Note Start: 12/14/18 16:31 Freq: Status: Active Protocol: Document 01/04/19 16:38 DEE (Rec: 01/04/19 16:44 DEE [email or web address]) Speech Pathology Treatment Note Session Time Visit Start Time 15:30 Visit Stop Time 16:15 Total Visit Minutes 45 Visit Information Visit Number 10/06 Plan of Care Dates 12/07/18 - 03/09/19 Insurance Information Medicare Setting Treatment Setting Outpatient Care Visit Type Note Type Treatment Note Next Note Type Next Note Type Treatment Note General Information General Information 83-yr-old male with complaints of coughing with swallowing ( solids greater than liquids) for ~1 yr, voice changes and increased mumbling (per spouse report) over the last 6 -9 mos with no obvious etiology. The pt attended an [facility] Swallow Screening and was recommended by attending METAL OR WOOD BLOCKER for swallow and voice evaluations and treatment. The pt has an extensive history of multiple cancers. Medical records indicate a referral to Neurology is in place. Subjective Observations/Patient Presentation The pt arrived on time. No new complaints. Chief Complaint(s) Swallowing Voice Rehab Expectation/Goals: Patient Goals Improve swallow and vocal quality Patient Knowledge/Awareness of METAL OR WOOD BLOCKER Role Excellent in Treatment Objective Short Term Goals Dysphagia: 1. The pt will use compensatory swallow strategies independently in 90 % of opportunities to reduce risk of aspiration. 2. The pt will verbalized understanding of and independently employ modifications to diet texture as needed (e.g., add moisture to dry foods) in 90% of opportunities to reduce riskof aspiration and increase comfort with oral intake. Voice: 1. The pt will sustain phonation for 20 sec with an average of 70 dB or greater x3 trials to increase breath support for voice and swallow. 2. The pt will perform pitch range exercises independently in 80% of opportunities to increase hyolaryngeal elevation for improved voice and swallow. 3. The pt will read sentences of moderate length with average loudness at 70 dB or greater across 20 sentences to increase vocal loudness and speech intelligibility for conversational tasks. Detention Goals Dysphagia: 1. The pt will tolerate regular diet texture and thin liquids without overt s/sx of aspiration. 2. The pt will demonstrate consistent compliance with HEP to meet/maintain goals of tx. Voice: 1. The pt will produce avg conversational loudness of 70 dB or greater across 10 minutes of conversation. 2.The pt will demonstrate consistent and independent compliance with HEP to improve vocal quality and speech intelligibility for functional conversational tasks. 3. The pt will report greater satisfaction with voice and improved ability to communicate with others to improve/maintain relationships and quality of life. Treatment Activities Continued training pt in voice exercises. Pt verbalized understanding. Education provided RE communicating with people with hearing loss in order to increase the pt's speech intelligibility with his who is hard of hearing. Educated also on subsystems of voice, particularly breath support for speech and loudness. Pt verbalized understanding. Initiated development of functional phrases list for therapeutic tasks. Pt generated 8 sentences he says to his most/every day. Reading of functional phrases: Avg 72 dB Conversation: Avg 66 dB Skilled feedback provided. Assessment Patient Response to Treatment Excellent Rehab Potential Good Impairments Identified Dysarthria Vocal Quality Progress Towards Goals Excellent Progress Comment Progressing well with swallow Assessment of Overall Progress Improving Assessment of Improvement Much improvement reported by pt with regard to swallow. He has been compliant with exercises x2/day. Pt continues with reduced vocal loudness impacting his ability to be heard and understood by others, particularly his who is [place]. He exhibited much improved MPT following completion of s/z ratio task; will reinforce this with increased loudness. Per VHI, greatest impact is on pt's physical efforts to make himself heard. He reports vocal fatigue late in the day with aphonic episodes in speech and with HEP tasks. Reviewed with Patient Goals Progress Being Made Home Exercise Program Patient/Caregiver Understanding Excellent Plan Treatment Emphasis Next Session Voice exercises Therapeutic Contents Client Education Home Exercise Program Intelligibility Swallowing/Feeding Voice Training Provided Patient/Caregiver Instruction Home Exercise Program Plan of Care Questions/Concerns Therapy Recommendations Continue with Current Program
--- NOTE | 2019-01-11 18:15 | ST.OPTN ---
Care Team Visit Care Team Role Provider Type Thao Preciado DO Attending Provider Physician Primary Care Provider Address: [address] [place] [address], [id number] CHEMICAL PROCESS EQUIPMENT OPERATOR Treatment Note CHEMICAL PROCESS EQUIPMENT OPERATOR Treatment Note Start: 12/14/18 16:31 Freq: Status: Active Protocol: Document 01/11/19 17:56 DEE (Rec: 01/11/19 18:15 DEE [email or web address]) Speech Pathology Treatment Note Session Time Visit Start Time 15:35 Visit Stop Time 16:20 Total Visit Minutes 45 Visit Information Visit Number 11/05 Plan of Care Dates 12/07/18 - 03/09/19 Insurance Information Medicare Setting Treatment Setting Outpatient Care Visit Type Note Type Treatment Note Next Note Type Next Note Type Treatment Note General Information General Information 83-yr-old male with complaints of coughing with swallowing ( solids greater than liquids) for ~1 yr, voice changes and increased mumbling (per spouse report) over the last 6 -9 mos with no obvious etiology. The pt attended an [facility] Swallow Screening and was recommended by attending CHEMICAL PROCESS EQUIPMENT OPERATOR for swallow and voice evaluations and treatment. The pt has an extensive history of multiple cancers. Medical records indicate a referral to Neurology is in place. Subjective Observations/Patient Presentation The pt arrived on time. No new complaints. Reported mild discomfort with throat clearing after eating fish coated with Pank[place] today at lunch. Otherwise, no swallow complaints. Pt reported increasing intensity of swallow exercises and ability to now eat foods he was not previously able to eat, most significantly dry and crumbly foods. He reported increased awareness of vocal loudness and carryover of increased loudness in conversations with especially. Chief Complaint(s) Swallowing Voice Rehab Expectation/Goals: Patient Goals Improve swallow and vocal quality Patient Knowledge/Awareness of CHEMICAL PROCESS EQUIPMENT OPERATOR Role Excellent in Treatment Objective Short Term Goals Dysphagia: 1. The pt will use compensatory swallow strategies independently in 90 % of opportunities to reduce risk of aspiration. GOAL MET 2. The pt will verbalized understanding of and independently employ modifications to diet texture as needed (e.g., add moisture to dry foods) in 90% of opportunities to reduce riskof aspiration and increase comfort with oral intake. GOAL MET Voice: 1. The pt will sustain phonation for 20 sec with an average of 70 dB or greater x3 trials to increase breath support for voice and swallow. 2. The pt will perform pitch range exercises independently in 80% of opportunities to increase hyolaryngeal elevation for improved voice and swallow. 3. The pt will read sentences of moderate length with average loudness at 70 dB or greater across 20 sentences to increase vocal loudness and speech intelligibility for conversational tasks. Mcc Goals Dysphagia: 1. The pt will tolerate regular diet texture and thin liquids without overt s/sx of aspiration. GOAL MET 2. The pt will demonstrate consistent compliance with HEP to meet/maintain goals of tx. GOAL MET Voice: 1. The pt will produce avg conversational loudness of 70 dB or greater across 10 minutes of conversation. 2.The pt will demonstrate consistent and independent compliance with HEP to improve vocal quality and speech intelligibility for functional conversational tasks. 3. The pt will report greater satisfaction with voice and improved ability to communicate with others to improve/maintain relationships and quality of life. Treatment Activities Assessed pt's swallow function /safety with trials of thin liquid, diced fruit and dry jia cracker. Pt tolerated all without overt s/sx of aspiration and no complaints of problems or discomfort. Goals for dysphagia are met. Pt performed sustained phonation, MPT=30.5 with intermittent hoarseness and occasional pitch breaks; avg loudness 74 dB. Skilled feedback and training provided targeting laryngeal relaxation and increased breath support to reduce hoarseness and maintain constant phonation. Pt performed yawn/sigh followed by sustained phonation with improved vocal quality with mod verbal feedback and instruction from CHEMICAL PROCESS EQUIPMENT OPERATOR. Pt read grandfather passage x2 targeting loudness and articulation he felt would be adequate for his to hear and understand him. Avg loudness was 69 dB with both trials. Pt perceived first trial as loud enough for but not adequately enunciated. Improved enunciation demonstrated on 2nd trial. Assessment Patient Response to Treatment Excellent Rehab Potential Good Impairments Identified Dysarthria Vocal Quality Progress Towards Goals Excellent Progress Comment Progressing well with swallow Assessment of Overall Progress Improving Assessment of Improvement Dysphagia goals met. Pt safely tolerating regular texture, thin liquids. Pt continues to make good progress with vocal exercises and is increasing awareness of loudness of voice and increasing loudness in structured tasks. Decline in loudness in conversational speech as compared to structured tasks, but also improving. Recommend pt read aloud to his in order to calibrate self to necessary loudness and articulatory effort to increase likelihood of carryover. Pt in agreement. Reviewed with Patient Goals Progress Being Made Home Exercise Program Patient/Caregiver Understanding Excellent Plan Treatment Emphasis Next Session Voice exercises Therapeutic Contents Client Education Home Exercise Program Intelligibility Swallowing/Feeding Voice Training Provided Patient/Caregiver Instruction Home Exercise Program Plan of Care Questions/Concerns Therapy Recommendations Continue with Current Program
--- NOTE | 2019-01-18 17:16 | ST.OPDS ---
Care Team Visit Care Team Role Provider Type Thao Preciado DO Attending Provider Physician Primary Care Provider Address: [address] [place] [address], [id number] HOT ROLL LAMINATOR Treatment Note HOT ROLL LAMINATOR Treatment Note Start: 12/14/18 16:31 Freq: Status: Active Protocol: Document 01/18/19 15:37 DEE (Rec: 01/18/19 17:16 DEE [email or web address]) Speech Pathology Treatment Note Session Time Visit Start Time 15:35 Visit Stop Time 16:20 Total Visit Minutes 45 Visit Information Visit Number 11/05 Plan of Care Dates 12/07/18 - 03/09/19 Insurance Information Medicare Setting Treatment Setting Outpatient Care Visit Type Note Type Discharge Summary Next Note Type Next Note Type Treatment Note General Information General Information 83-yr-old male with complaints of coughing with swallowing ( solids greater than liquids) for ~1 yr, voice changes and increased mumbling (per spouse report) over the last 6 -9 mos with no obvious etiology. The pt attended an [facility] Swallow Screening and was recommended by attending HOT ROLL LAMINATOR for swallow and voice evaluations and treatment. The pt has an extensive history of multiple cancers. Medical records indicate a referral to Neurology is in place. Subjective Observations/Patient Presentation The pt arrived on time. No new complaints. He reported consistent increased safety and comfort with swallow and tolerance of regular texture and thin liquids. He also reported good progress with increasing loudness in conversations, particularly with his , and feeling that increased loudness is beginning to become habitual. I have to tools. I just need to keep using them until it becomes habit. He expressed readiness for discharge from skilled intervention. Chief Complaint(s) Swallowing Voice Rehab Expectation/Goals: Patient Goals Improve swallow and vocal quality Patient Knowledge/Awareness of HOT ROLL LAMINATOR Role Excellent in Treatment Objective Short Term Goals Dysphagia: 1. The pt will use compensatory swallow strategies independently in 90 % of opportunities to reduce risk of aspiration. GOAL MET 2. The pt will verbalized understanding of and independently employ modifications to diet texture as needed (e.g., add moisture to dry foods) in 90% of opportunities to reduce riskof aspiration and increase comfort with oral intake. GOAL MET Voice: 1. The pt will sustain phonation for 20 sec with an average of 70 dB or greater x3 trials to increase breath support for voice and swallow. GOAL MET 2. The pt will perform pitch range exercises independently in 80% of opportunities to increase hyolaryngeal elevation for improved voice and swallow. GOAL MET 3. The pt will read sentences of moderate length with average loudness at 70 dB or greater across 20 sentences to increase vocal loudness and speech intelligibility for conversational tasks. GOAL MET Bait Man Goals Dysphagia: 1. The pt will tolerate regular diet texture and thin liquids without overt s/sx of aspiration. GOAL MET 2. The pt will demonstrate consistent compliance with HEP to meet/maintain goals of tx. GOAL MET Voice: 1. The pt will produce avg conversational loudness of 70 dB or greater across 10 minutes of conversation. GOAL NOT MET: 66 dB across 5 min conversation 2.The pt will demonstrate consistent and independent compliance with HEP to improve vocal quality and speech intelligibility for functional conversational tasks. GOAL MET 3. The pt will report greater satisfaction with voice and improved ability to communicate with others to improve/maintain relationships and quality of life. GOAL MET Treatment Activities Pt completed vocal exercises. MPT = 32.42 sec (exceeding normal limits) @ avg 78 dB. Sustained phonation for 20 sec or greater x3 trials. Pitch range: 116-352 Hz (WNL). Pt read poems of short and moderate length maintaining averages of 71-72 dB across 3 poems. Average conversational loudness = 66 dB, increased to 70 with verbal prompt but not sustained. Pt completed VHI perceptual rating scale: Overall Score: 23 Minimal Impact (decreased from 32 Mild Impact at SOC); Functional Subscale: 7 Minimal Impact (decreased from 8 [Min -Mild] Impact at SOC); Physical Subscale: 14 Mild Impact (decreased from 20 [Mod -Severe] at SOC); and Emotional Subscale: 2 Minimal (decreased from 4 [Minimal Impact] at SOC). Assessed pt's vocal quality via CAPE-V: Overall Severity: 39% Mild-Mod (59% Mod at SOC); Roughness: 12% Mild (21% mild at SOC); Breathiness: 7% Mild (8% Mild at SOC); Strain: 0% (0% at SOC); Pitch: 22% Mild ( 33% Mild-Mod at SOC); Loudness : 24% Mild (33% Mild-Mod at SOC). Assessment Patient Response to Treatment Excellent Rehab Potential Good Impairments Identified Dysarthria Vocal Quality Progress Towards Goals Excellent Progress Comment Progressing well with swallow Assessment of Overall Progress Improving Assessment of Improvement The pt has made excellent progress over the course of treatment and has been very compliant and consistent with his HEP. He has met all dysphagia goals and all but one voice goal. He demonstrates and verbalizes understanding of treatment tasks and is able to perform all independently. Given his excellent compliance during treatment and his motivation, it is anticipated he will continue with HEP and maintain or continue to improve function after discharge. The pt states that he feels equipped to continue to use/ improve vocal loudness to be better heard and understood by others and to be discharged from skilled intervention at this time. HOT ROLL LAMINATOR is in agreement . Reviewed with Patient Goals Progress Being Made Home Exercise Program Patient/Caregiver Understanding Excellent Plan Treatment Emphasis Next Session Voice exercises Therapeutic Contents Client Education Home Exercise Program Intelligibility Swallowing/Feeding Voice Training Provided Patient/Caregiver Instruction Home Exercise Program Plan of Care Questions/Concerns Therapy Recommendations Continue with Current Program Discharge to Home Exercise Program
== END 2019-01-20 10:15 | disposition home or self-care (01) ==
LOC: SP 15:30
PROVIDERS: PCP Family Medicine; Visit Provider Family Medicine
DX: R13.10 Dysphagia, unspecified (principal)
CPT/HCPCS: 92507; 92520; 92524; 92526; 92610

== ENCOUNTER → 2019-05-12 14:10 | Outpatient (CLI) | payer MEDICARE, OTHER, SELFPAY ==
[2019-05-12 16:14] LABS: Vitamin B12 Reflex MMA if <400 560 pg/mL (239-931)
== END ==
PROVIDERS: Family Provider Family Medicine; PCP Family Medicine; Visit Provider Psychiatry & Neurology Neurology
DX: R13.10 Dysphagia, unspecified (principal); G20 Parkinson's disease
CPT/HCPCS: 36415; 82607; 83519; 86255

== ENCOUNTER 2019-07-21 10:00 | Outpatient (RCR) | payer MEDICARE, OTHER, SELFPAY ==
--- NOTE | 2019-06-27 16:05 | PT.OIE ---
Current Diagnoses Parkinson's disease (06/27/19) Other abnormalities of gait and mobility (06/27/19) Past Medical History (Last Reviewed 11/05/18 @ 18:13 by Thao Preciado DO) Cataracts, bilateral (Resolved ~2009) Chickenpox (Resolved) CLL (chronic lymphocytic leukemia) (Resolved 2004) Colon polyps (Resolved 2011) Colorectal cancer (Resolved ~01/2012) Diverticular disease (Chronic 2014) Erythrocytosis (Chronic) GERD (gastroesophageal reflux disease) (Chronic) Hearing loss (Chronic Unknown) Hemorrhoids (Chronic 2014) History of nephrolithiasis (Resolved ~1996) Hyperlipemia (Chronic) Hyperlipemia (Chronic) Lymphoma (Deleted 2004) Malaria (Resolved ~1939) Measles (Resolved) Meningitis (Resolved) Mumps (Resolved 1951) Obstructive sleep apnea (Chronic ~01/2016) Osteoarthritis (Chronic) Polio (Resolved 1951) Prostate cancer (Resolved ~2003) PTSD (post-traumatic stress disorder) (Chronic 1967) Rotator cuff tear, right (Resolved ~2008) Skin cancer (Resolved) Urinary incontinence (Chronic 2008) Past Surgical History (Last Reviewed 03/23/18 @ 11:52 by Thao Preciado DO) History of tonsillectomy Hx of biopsy (Resolved ~2004) Hx of cataract surgery (Resolved 2009) Hx of colectomy (Resolved ~01/2012) Hx of rotator cuff surgery (Resolved 02/2009) Status post radical cystoprostatectomy (2003) Visit Care Team Role Provider Type Thao Preciado DO Family Provider Physician Primary Care Provider Specialty: Family Practice Address: [address] [place] [address], [address], [id number] Email: [email or web address] Keri Jaramillo MD Attending Provider Non-Staff Specialty: Neurology Address: [address] [place] [address], [id number] Email: Physical Therapy Initial Evaluation PT-OP-A Visit Information Start: 06/27/19 08:13 Freq: Status: Active Protocol: Document 06/27/19 10:00 AMB (Rec: 06/27/19 14:27 AMB [email or web address]) Out-Patient Physical Therapy Visit Information Visit Information Visit Type Initial Evaluation Visit Start Time 10:00 Visit Stop Time 11:00 Total Visit Minutes 60 Visit Number 1 PT-OP-B Current Condition Start: 06/27/19 08:13 Freq: Status: Active Protocol: Document 06/27/19 10:00 AMB (Rec: 06/27/19 14:27 AMB [email or web address]) Current Condition History of Current Condition Onset Date 3 years ago Current Complaints recent Parkinson's diagnosis History of Current Condition Bill states he was diagnosed with essential tremor about 3 years ago. He noticed a year ago that it was getting more and more difficult to swallow, type, and handwrite letters. A few months ago he saw a neurologist for the first time and was diagnosed with Parkinson's and has been taking carbidopa/levodopa and noticed a significant improvement in symptoms. He states that it still requires concentration to grape picker his feet and swing his arms with gait, and that he still tries to avoid handwriting and typing due to the tremor and micrographia. He is right hand dominant and is unsure what hand the tremor started in, but from observation it is currently worse on the right. He has previously seen speech therapy for his swallow . 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 He is concerned about making time for a lot of exercises due to taking care of his , although he has made time for his swallow exercises. They live in a 2 story home with bedrooms upstairs, 2 steps to enter. Prior Functional Status Baseline Function- ADL's Independent Baseline Function- Mobility Independent Current Functional Impairments (Reported) Functional Limitations- ADL's Difficulty dressing (buttons) diffiulty writing and typing. Functional Limitations- Mobility/Gait Takes concentration to grape picker feet, slow gait, pt denies any falls in last year. Personal Factors Other Personal Factors That May Effect Personal history of Agent Therapy/Recovery [place] exposure. Previous history of colon, prostate, skin cancer and lymphoma. Pt denies chemotherapy for any of those. 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 PTSD from [place]. PT-OP-D Balance Start: 06/27/19 08:13 Freq: Status: Active Protocol: Document 06/27/19 10:00 AMB (Rec: 06/27/19 15:26 AMB [email or web address]) Balance Tests Semi-Tandem Standing Semi-Tandem Standing Balance 30 sec + increased ankle sway with head turn but no LOB Other Other Balance Tests Performed NBOS- 20 sec plus with EC- ankle sway increased in beginning but then found balance PT-OP-E Functional Tests Start: 06/27/19 08:13 Freq: Status: Active Protocol: Document 06/27/19 10:00 AMB (Rec: 06/27/19 14:31 AMB [email or web address]) Functional Tests 6 Minute Walk Test Distance 1112 Device Used none Comments lack of armswing 10 Meter Walk Test Distance 7 sec fast, 8 sec self selected pace Device Used none Five Times Sit to Stand Test Score 15 seconds Comments light use of UEs, chair in private room PT-OP-G Mobility & Gait Start: 06/27/19 08:13 Freq: Status: Active Protocol: Document 06/27/19 10:00 AMB (Rec: 06/27/19 15:26 AMB [email or web address]) OP Mobility Evaluation Transfers Sit to Stand Generally prefers to use UE support OP Gait Assessment Comments Gait Comments Decreased trunk rotation, lack of arm swing, shortened step length PT-OP-H Neuro Start: 06/27/19 08:13 Freq: Status: Active Protocol: Document 06/27/19 10:00 AMB (Rec: 06/27/19 15:26 AMB [email or web address]) Coordination Evaluation Upper Extremity Tests Right Pronation/Supination Test Normal Performance Lower Extremity Tests Foot Tapping Test Normal Performance PT-OP-J Posture/Palpation/Skin Start: 06/27/19 08:13 Freq: Status: Active Protocol: Document 06/27/19 10:00 AMB (Rec: 06/27/19 15:26 AMB [email or web address]) Posture Evaluation Comments Posture Comments hips flexed and flat lumbar spine in standing. Posterior pelvic tilt and forward shoulder posture in seated. PT-OP-K Range of Motion Start: 06/27/19 08:13 Freq: Status: Active Protocol: Document 06/27/19 10:00 AMB (Rec: 06/27/19 15:26 AMB [email or web address]) Shoulder Goniometric Range of Motion Shoulder Right Active Testing Position Standing Flexion 115 Left Active Testing Position Standing Flexion 130 PT-OP-Q Treatments Start: 06/27/19 08:13 Freq: Status: Active Protocol: Document 06/27/19 10:00 AMB (Rec: 06/27/19 16:05 AMB [email or web address]) Gait Training Gait Activity 1 Device Used none Level of Assistance SBA Surface smooth/firm Distance/Duration 8 min Treatment Focus trunk rotation, foot clearance PT-OP-T Assessment and Plan Start: 06/27/19 08:13 Freq: Status: Active Protocol: Document 06/27/19 10:00 AMB (Rec: 06/27/19 16:05 AMB [email or web address]) Physical Therapy Assessment Rehab Potential Rehabilitation Potential Excellent Evaluation Complexity Number of Personal Factors/Comorbidities 3 or More Number of Body Systems Impaired 4 or More Clinical Presentation at Evaluation Stable Impairments Impairments Functional Activities,Gait, Posture,ROM,Transfers Goals Two Impairment Fine motor ability Short Term Goal (STG) Remi will decrease the time it takes him to button and unbutton his wrist cuff button from 17 seconds to 13 seconds or less. STG Duration 2 weeks Nursing Home Goal (LTG) Remi will type an email in less than 5 minutes with decreased incidence of double chun hitting. LTG Duration 4 weeks One Impairment Gait Short Term Goal (STG) Remi will improve his 10MWT fast speed from 1.42m/s to 2m/ s. STG Duration 2 weeks Nursing Home Goal (LTG) Remi will improve his 6MWT from 1112 to 1381 feet with good arm swing and foot clearance. LTG Duration 4 weeks Assessment Summary Assessment Remi attends physical therapy with a recent Parkinson's disease diagnosis with bradykinesia, R handed resting tremor, and shuffling gait. His 6 minute walk test, 10 meter walk test, and 5x sit to stand test were all below age /gender norms. He has also stopped writing and typing, and has difficulty donning clothes, reaching above his head, and buttoning buttons. He will benefit from [facility] physical therapy so that he can begin an exercise program and work to progressivley challenge his gait, fine motor , and functional activities. Physical Therapy Plan Frequency and Duration Frequency of Treatment 4x/Week Duration of Treatment 4 weeks Plan of Care Start Date 06/27/19 Plan of Care End Date 07/25/19 Therapeutic Interventions Therapeutic Interventions Balance Training,Gait Training ,Home Exercise Program,Manual Therapy,Neuromuscular Re- education,Self-Care/Home Management,Therapeutic Activities,Therapeutic Exercises Next Visit Focus/Plan Next Note Type Treatment Note Next Visit Plan Begin [facility] therapy, review functional activities chart
--- NOTE | 2019-06-27 16:07 | PT.OPPOC ---
Current Diagnoses Parkinson's disease (06/27/19) Other abnormalities of gait and mobility (06/27/19) Visit Care Team Role Provider Type Thao Preciado DO Family Provider Physician Primary Care Provider Specialty: Family Practice Address: [address] [place] [address], [facility] [address], [place], [address] Email: [email or web address] Keri Jaramillo MD Attending Provider Non-Staff Specialty: Neurology Address: [address] [place] [address], [phone] Email: Plan Of Care PT-OP-T Assessment and Plan Start: 06/27/19 08:13 Freq: Status: Active Protocol: Document 06/27/19 10:00 AMB (Rec: 06/27/19 16:05 AMB [email or web address]) Physical Therapy Assessment Rehab Potential Rehabilitation Potential Excellent Evaluation Complexity Number of Personal Factors/Comorbidities 3 or More Number of Body Systems Impaired 4 or More Clinical Presentation at Evaluation Stable Impairments Impairments Functional Activities,Gait, Posture,ROM,Transfers Goals Two Impairment Fine motor ability Short Term Goal (STG) Remi will decrease the time it takes him to button and unbutton his wrist cuff button from 17 seconds to 13 seconds or less. STG Duration 2 weeks Nursing Home Goal (LTG) Remi will type an email in less than 5 minutes with decreased incidence of double chun hitting. LTG Duration 4 weeks One Impairment Gait Short Term Goal (STG) Remi will improve his 10MWT fast speed from 1.42m/s to 2m/ s. STG Duration 2 weeks Nursing Home Goal (LTG) Remi will improve his 6MWT from 1112 to 1381 feet with good arm swing and foot clearance. LTG Duration 4 weeks Assessment Summary Assessment Remi attends physical therapy with a recent Parkinson's disease diagnosis with bradykinesia, R handed resting tremor, and shuffling gait. His 6 minute walk test, 10 meter walk test, and 5x sit to stand test were all below age /gender norms. He has also stopped writing and typing, and has difficulty donning clothes, reaching above his head, and buttoning buttons. He will benefit from [facility] physical therapy so that he can begin an exercise program and work to progressively challenge his gait, fine motor , and functional activities. Physical Therapy Plan Frequency and Duration Frequency of Treatment 4x/Week Duration of Treatment 4 weeks Plan of Care Start Date 06/27/19 Plan of Care End Date 07/25/19 Therapeutic Interventions Therapeutic Interventions Balance Training,Gait Training ,Home Exercise Program,Manual Therapy,Neuromuscular Re- education,Self-Care/Home Management,Therapeutic Activities,Therapeutic Exercises Next Visit Focus/Plan Next Note Type Treatment Note Next Visit Plan Begin [facility] therapy, review functional activities chart Plan of Care Dates Plan of Care Start Date 06/27/19 Plan of Care End Date 07/25/19
--- NOTE | 2019-06-28 12:29 | PT.OTN ---
Current Diagnoses Parkinson's disease (06/28/19) Other abnormalities of gait and mobility (06/28/19) Physical Therapy Treatment Note PT-OP-A Visit Information Start: 06/27/19 08:13 Freq: Status: Active Protocol: Document 06/28/19 10:00 AMB (Rec: 06/28/19 12:29 AMB [email or web address]) Out-Patient Physical Therapy Visit Information Visit Information Visit Type Treatment Note Visit Start Time 10:00 Visit Stop Time 11:00 Total Visit Minutes 60 Visit Number 2 PT-OP-B Current Condition Start: 06/27/19 08:13 Freq: Status: Active Protocol: Document 06/27/19 10:00 AMB (Rec: 06/27/19 14:27 AMB [email or web address]) Current Condition History of Current Condition Onset Date 3 years ago Current Complaints recent Parkinson's diagnosis History of Current Condition Bill states he was diagnosed with essential tremor about 3 years ago. He noticed a year ago that it was getting more and more difficult to swallow, type, and handwrite letters. A few months ago he saw a neurologist for the first time and was diagnosed with Parkinson's and has been taking carbidopa/levodopa and noticed a significant improvement in symptoms. 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 He is right hand dominant and is unsure what hand the tremor started in, but from observation it is currently worse on the right. He has previously seen speech therapy for his swallow . 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 He is concerned about making time for a lot of exercises due to taking care of his , although he has made time for his swallow exercises. They live in a 2 story home with bedrooms upstairs, 2 steps to enter. Prior Functional Status Baseline Function- ADL's Independent Baseline Function- Mobility Independent Current Functional Impairments (Reported) Functional Limitations- ADL's Difficulty dressing (buttons) diffiulty writing and typing. 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 Personal Factors Other Personal Factors That May Effect Personal history of Agent Therapy/Recovery [place] exposure. Previous history of colon, prostate, skin cancer and lymphoma. Pt denies chemotherapy for any of those. 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 PTSD from [place]. PT-OP-C Subjective Start: 06/27/19 08:13 Freq: Status: Active Protocol: Document 06/28/19 10:00 AMB (Rec: 06/28/19 12:29 AMB [email or web address]) OP-PT Subjective Patient Comments Patient Comments Pt states he is doing well, he returns with his functional activity sheet filled out. PT-OP-D Balance Start: 06/27/19 08:13 Freq: Status: Active Protocol: Document 06/27/19 10:00 AMB (Rec: 06/27/19 15:26 AMB [email or web address]) Balance Tests Semi-Tandem Standing Semi-Tandem Standing Balance 30 sec + increased ankle sway with head turn but no LOB Other Other Balance Tests Performed NBOS- 20 sec plus with EC- ankle sway increased in beginning but then found balance PT-OP-E Functional Tests Start: 06/27/19 08:13 Freq: Status: Active Protocol: Document 06/27/19 10:00 AMB (Rec: 06/27/19 14:31 AMB [email or web address]) Functional Tests 6 Minute Walk Test Distance 1112 Device Used none Comments lack of armswing 10 Meter Walk Test Distance 7 sec fast, 8 sec self selected pace Device Used none Five Times Sit to Stand Test Score 15 seconds Comments light use of UEs, chair in private room PT-OP-G Mobility & Gait Start: 06/27/19 08:13 Freq: Status: Active Protocol: Document 06/27/19 10:00 AMB (Rec: 06/27/19 15:26 AMB [email or web address]) OP Mobility Evaluation Transfers Sit to Stand Generally prefers to use UE support OP Gait Assessment Comments Gait Comments Decreased trunk rotation, lack of arm swing, shortened step length PT-OP-H Neuro Start: 06/27/19 08:13 Freq: Status: Active Protocol: Document 06/27/19 10:00 AMB (Rec: 06/27/19 15:26 AMB [email or web address]) Coordination Evaluation Upper Extremity Tests Right Pronation/Supination Test Normal Performance Lower Extremity Tests Foot Tapping Test Normal Performance PT-OP-J Posture/Palpation/Skin Start: 06/27/19 08:13 Freq: Status: Active Protocol: Document 06/27/19 10:00 AMB (Rec: 06/27/19 15:26 AMB [email or web address]) Posture Evaluation Comments Posture Comments hips flexed and flat lumbar spine in standing. Posterior pelvic tilt and forward shoulder posture in seated. PT-OP-K Range of Motion Start: 06/27/19 08:13 Freq: Status: Active Protocol: Document 06/27/19 10:00 AMB (Rec: 06/27/19 15:26 AMB [email or web address]) Shoulder Goniometric Range of Motion Shoulder Right Active Testing Position Standing Flexion 115 Left Active Testing Position Standing Flexion 130 PT-OP-Q Treatments Start: 06/27/19 08:13 Freq: Status: Active Protocol: Document 06/28/19 10:00 AMB (Rec: 06/28/19 12:29 AMB [email or web address]) Therapeutic Exercises Standing Exercises 6 Standing Exercise Name sit to stand Reps/Minutes 10 Comments 20 mat table, no UE support 5 Standing Exercise Name Rock and reach sideways Reps/Minutes 10 Comments modified 4 Standing Exercise Name Rock and reach forward Reps/Minutes 10 3 Standing Exercise Name Backward step Reps/Minutes 10 Comments with UE support 2 Standing Exercise Name Sidestep Reps/Minutes 10 Comments no Ue support 1 Standing Exercise Name Forward step Reps/Minutes 10 Comments with UE support Therapeutic Activity Therapeutic Activity 2 Name typing Comments pt tends to hit the wrong chun, and then keep finger on the chun too long, gets frustrated 1 Name handwriting Comments focus on BIG, with using wrist , forearm support, finger flicks Gait Training Gait Activity 1 Device Used none Level of Assistance SBA Surface smooth/firm Distance/Duration 5 min Treatment Focus trunk rotation, foot clearance Comments better arm swing today PT-OP-T Assessment and Plan Start: 06/27/19 08:13 Freq: Status: Active Protocol: Document 06/28/19 10:00 AMB (Rec: 06/28/19 12:29 AMB [email or web address]) Physical Therapy Assessment Assessment Summary Assessment Remi attneds PT with good fine motor goals and did well with exercises, did have him have UE support for first stepping exercises, but then did well without UE support. Did report fatigue, but tolerated well, shoulder stiffness was the biggest limiting factor today. Physical Therapy Plan Next Visit Focus/Plan Next Note Type Treatment Note Next Visit Plan Follow up on typing ( finger fine motor/coordination), continue teaching exercises.
--- NOTE | 2019-06-30 13:38 | PT.OTN ---
Current Diagnoses Parkinson's disease (06/30/19) Other abnormalities of gait and mobility (06/30/19) Physical Therapy Treatment Note PT-OP-A Visit Information Start: 06/27/19 08:13 Freq: Status: Active Protocol: Document 06/30/19 09:59 AMB (Rec: 06/30/19 10:53 AMB [email or web address]) Out-Patient Physical Therapy Visit Information Visit Information Visit Type Treatment Note Visit Start Time 10:00 Visit Stop Time 11:00 Total Visit Minutes 60 Visit Number 3 PT-OP-B Current Condition Start: 06/27/19 08:13 Freq: Status: Active Protocol: Document 06/27/19 10:00 AMB (Rec: 06/27/19 14:27 AMB [email or web address]) Current Condition History of Current Condition Onset Date 3 years ago Current Complaints recent Parkinson's diagnosis History of Current Condition Bill states he was diagnosed with essential tremor about 3 years ago. He noticed a year ago that it was getting more and more difficult to swallow, type, and handwrite letters. A few months ago he saw a neurologist for the first time and was diagnosed with Parkinson's and has been taking carbidopa/levodopa and noticed a significant improvement in symptoms. 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 He is right hand dominant and is unsure what hand the tremor started in, but from observation it is currently worse on the right. He has previously seen speech therapy for his swallow . 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 He is concerned about making time for a lot of exercises due to taking care of his , although he has made time for his swallow exercises. They live in a 2 story home with bedrooms upstairs, 2 steps to enter. Prior Functional Status Baseline Function- ADL's Independent Baseline Function- Mobility Independent Current Functional Impairments (Reported) Functional Limitations- ADL's Difficulty dressing (buttons) diffiulty writing and typing. Functional Limitations- Mobility/Gait Takes concentration to last picker feet, slow gait, pt denies any falls in last year. Personal Factors Other Personal Factors That May Effect Personal history of Agent Therapy/Recovery [place] exposure. Previous history of colon, prostate, skin cancer and lymphoma. Pt denies chemotherapy for any of those. 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 PTSD from [place]. PT-OP-C Subjective Start: 06/27/19 08:13 Freq: Status: Active Protocol: Document 06/30/19 09:59 AMB (Rec: 06/30/19 10:53 AMB [email or web address]) OP-PT Subjective Patient Comments Patient Comments Pt states he did well with his homework. PT-OP-D Balance Start: 06/27/19 08:13 Freq: Status: Active Protocol: Document 06/27/19 10:00 AMB (Rec: 06/27/19 15:26 AMB [email or web address]) Balance Tests Semi-Tandem Standing Semi-Tandem Standing Balance 30 sec + increased ankle sway with head turn but no LOB Other Other Balance Tests Performed NBOS- 20 sec plus with EC- ankle sway increased in beginning but then found balance PT-OP-E Functional Tests Start: 06/27/19 08:13 Freq: Status: Active Protocol: Document 06/27/19 10:00 AMB (Rec: 06/27/19 14:31 AMB [email or web address]) Functional Tests 6 Minute Walk Test Distance 1112 Device Used none Comments lack of armswing 10 Meter Walk Test Distance 7 sec fast, 8 sec self selected pace Device Used none Five Times Sit to Stand Test Score 15 seconds Comments light use of UEs, chair in private room PT-OP-G Mobility & Gait Start: 06/27/19 08:13 Freq: Status: Active Protocol: Document 06/27/19 10:00 AMB (Rec: 06/27/19 15:26 AMB [email or web address]) OP Mobility Evaluation Transfers Sit to Stand Generally prefers to use UE support OP Gait Assessment Comments Gait Comments Decreased trunk rotation, lack of arm swing, shortened step length PT-OP-H Neuro Start: 06/27/19 08:13 Freq: Status: Active Protocol: Document 06/27/19 10:00 AMB (Rec: 06/27/19 15:26 AMB [email or web address]) Coordination Evaluation Upper Extremity Tests Right Pronation/Supination Test Normal Performance Lower Extremity Tests Foot Tapping Test Normal Performance PT-OP-J Posture/Palpation/Skin Start: 06/27/19 08:13 Freq: Status: Active Protocol: Document 06/27/19 10:00 AMB (Rec: 06/27/19 15:26 AMB [email or web address]) Posture Evaluation Comments Posture Comments hips flexed and flat lumbar spine in standing. Posterior pelvic tilt and forward shoulder posture in seated. PT-OP-K Range of Motion Start: 06/27/19 08:13 Freq: Status: Active Protocol: Document 06/27/19 10:00 AMB (Rec: 06/27/19 15:26 AMB [email or web address]) Shoulder Goniometric Range of Motion Shoulder Right Active Testing Position Standing Flexion 115 Left Active Testing Position Standing Flexion 130 PT-OP-Q Treatments Start: 06/27/19 08:13 Freq: Status: Active Protocol: Document 06/30/19 10:00 AMB (Rec: 06/30/19 13:37 AMB [email or web address]) Therapeutic Exercises Sitting Exercises 2 Sitting Exercise Name side to side Reps/Minutes 8 1 Sitting Exercise Name floor to ceiling Reps/Minutes 8 Standing Exercises 6 Standing Exercise Name sit to stand Reps/Minutes 10 Comments 20 mat table, no UE support 5 Standing Exercise Name Rock and reach sideways Reps/Minutes 10 Comments no UE support 4 Standing Exercise Name Rock and reach forward Reps/Minutes 10 3 Standing Exercise Name Backward step Reps/Minutes 10 Comments no UE support 2 Standing Exercise Name Sidestep Reps/Minutes 10 Comments no Ue support 1 Standing Exercise Name Forward step Reps/Minutes 10 Comments with UE support Therapeutic Activity Therapeutic Activity 4 Name cuff buttoning Reps/Minutes 10 3 Name screw tightening/loosening Comments to promote fine motor coordination Gait Training Gait Activity 1 Device Used none Level of Assistance SBA Surface smooth/firm Distance/Duration 5 min Treatment Focus trunk rotation, foot clearance Comments better arm swing today PT-OP-T Assessment and Plan Start: 06/27/19 08:13 Freq: Status: Active Protocol: Document 06/30/19 10:00 AMB (Rec: 06/30/19 13:37 AMB [email or web address]) Physical Therapy Assessment Assessment Summary Assessment Pt did well without UE support with his exercises today. Buttoning continues to be challenging. Physical Therapy Plan Frequency and Duration Frequency of Treatment 4x/Week Duration of Treatment 4 weeks Plan of Care Start Date 06/27/19 Plan of Care End Date 07/25/19 Therapeutic Interventions Therapeutic Interventions Balance Training,Gait Training ,Home Exercise Program,Manual Therapy,Neuromuscular Re- education,Self-Care/Home Management,Therapeutic Activities,Therapeutic Exercises Next Visit Focus/Plan Next Note Type Treatment Note Next Visit Plan Follow up on typing ( finger fine motor/coordination), continue teaching exercises.
--- NOTE | 2019-07-01 12:22 | PT.OTN ---
Current Diagnoses Parkinson's disease (07/01/19) Other abnormalities of gait and mobility (07/01/19) Physical Therapy Treatment Note PT-OP-A Visit Information Start: 06/27/19 08:13 Freq: Status: Active Protocol: Document 07/01/19 10:00 AMB (Rec: 07/03/19 12:22 AMB [email or web address]) Out-Patient Physical Therapy Visit Information Visit Information Visit Type Treatment Note Visit Start Time 10:00 Visit Stop Time 11:00 Total Visit Minutes 60 Visit Number 4 PT-OP-B Current Condition Start: 06/27/19 08:13 Freq: Status: Active Protocol: Document 06/27/19 10:00 AMB (Rec: 06/27/19 14:27 AMB [email or web address]) Current Condition History of Current Condition Onset Date 3 years ago Current Complaints recent Parkinson's diagnosis History of Current Condition Bill states he was diagnosed with essential tremor about 3 years ago. He noticed a year ago that it was getting more and more difficult to swallow, type, and handwrite letters. A few months ago he saw a neurologist for the first time and was diagnosed with Parkinson's and has been taking carbidopa/levodopa and noticed a significant improvement in symptoms. 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 He is right hand dominant and is unsure what hand the tremor started in, but from observation it is currently worse on the right. He has previously seen speech therapy for his swallow . 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 He is concerned about making time for a lot of exercises due to taking care of his , although he has made time for his swallow exercises. They live in a 2 story home with bedrooms upstairs, 2 steps to enter. Prior Functional Status Baseline Function- ADL's Independent Baseline Function- Mobility Independent Current Functional Impairments (Reported) Functional Limitations- ADL's Difficulty dressing (buttons) diffiulty writing and typing. 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 Personal Factors Other Personal Factors That May Effect Personal history of Agent Therapy/Recovery [place] exposure. Previous history of colon, prostate, skin cancer and lymphoma. Pt denies chemotherapy for any of those. 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 PTSD from [place]. PT-OP-C Subjective Start: 06/27/19 08:13 Freq: Status: Active Protocol: Document 07/01/19 10:00 AMB (Rec: 07/03/19 12:22 AMB [email or web address]) OP-PT Subjective Patient Comments Patient Comments Pt states buttoning and handwriting are getting easier . He has been practicing his signature. PT-OP-D Balance Start: 06/27/19 08:13 Freq: Status: Active Protocol: Document 06/27/19 10:00 AMB (Rec: 06/27/19 15:26 AMB [email or web address]) Balance Tests Semi-Tandem Standing Semi-Tandem Standing Balance 30 sec + increased ankle sway with head turn but no LOB Other Other Balance Tests Performed NBOS- 20 sec plus with EC- ankle sway increased in beginning but then found balance PT-OP-E Functional Tests Start: 06/27/19 08:13 Freq: Status: Active Protocol: Document 06/27/19 10:00 AMB (Rec: 06/27/19 14:31 AMB [email or web address]) Functional Tests 6 Minute Walk Test Distance 1112 Device Used none Comments lack of armswing 10 Meter Walk Test Distance 7 sec fast, 8 sec self selected pace Device Used none Five Times Sit to Stand Test Score 15 seconds Comments light use of UEs, chair in private room PT-OP-G Mobility & Gait Start: 06/27/19 08:13 Freq: Status: Active Protocol: Document 06/27/19 10:00 AMB (Rec: 06/27/19 15:26 AMB [email or web address]) OP Mobility Evaluation Transfers Sit to Stand Generally prefers to use UE support OP Gait Assessment Comments Gait Comments Decreased trunk rotation, lack of arm swing, shortened step length PT-OP-H Neuro Start: 06/27/19 08:13 Freq: Status: Active Protocol: Document 06/27/19 10:00 AMB (Rec: 06/27/19 15:26 AMB [email or web address]) Coordination Evaluation Upper Extremity Tests Right Pronation/Supination Test Normal Performance Lower Extremity Tests Foot Tapping Test Normal Performance PT-OP-J Posture/Palpation/Skin Start: 06/27/19 08:13 Freq: Status: Active Protocol: Document 06/27/19 10:00 AMB (Rec: 06/27/19 15:26 AMB [email or web address]) Posture Evaluation Comments Posture Comments hips flexed and flat lumbar spine in standing. Posterior pelvic tilt and forward shoulder posture in seated. PT-OP-K Range of Motion Start: 06/27/19 08:13 Freq: Status: Active Protocol: Document 06/27/19 10:00 AMB (Rec: 06/27/19 15:26 AMB [email or web address]) Shoulder Goniometric Range of Motion Shoulder Right Active Testing Position Standing Flexion 115 Left Active Testing Position Standing Flexion 130 PT-OP-Q Treatments Start: 06/27/19 08:13 Freq: Status: Active Protocol: Document 07/01/19 10:00 AMB (Rec: 07/03/19 12:22 AMB [email or web address]) Therapeutic Exercises Sitting Exercises 2 Sitting Exercise Name side to side Reps/Minutes 8 1 Sitting Exercise Name floor to ceiling Reps/Minutes 8 Standing Exercises 6 Standing Exercise Name sit to stand Reps/Minutes 10 Comments 20 mat table, no UE support 5 Standing Exercise Name Rock and reach sideways Reps/Minutes 10 Comments no UE support 4 Standing Exercise Name Rock and reach forward Reps/Minutes 10 3 Standing Exercise Name Backward step Reps/Minutes 10 Comments no UE support 2 Standing Exercise Name Sidestep Reps/Minutes 10 Comments no Ue support 1 Standing Exercise Name Forward step Reps/Minutes 10 Comments with UE support Therapeutic Activity Therapeutic Activity 4 Name cuff buttoning Reps/Minutes 10 1 Name handwriting Comments focus on BIG, with using wrist , forearm support, finger flicks Gait Training Gait Activity 1 Device Used none Level of Assistance SBA Surface smooth/firm Distance/Duration 10 min Treatment Focus trunk rotation, foot clearance Comments with distraction of conversation- pt with good retention of BIG walking. Tends to shuffle the most when walking with his .- working on heel toe walking when walking slow. PT-OP-T Assessment and Plan Start: 06/27/19 08:13 Freq: Status: Active Protocol: Document 07/01/19 10:00 AMB (Rec: 07/03/19 12:22 AMB [email or web address]) Physical Therapy Assessment Assessment Summary Assessment Bill did well with exercises today, less need for cueing for maximal amplitude. Physical Therapy Plan Next Visit Focus/Plan Next Note Type Treatment Note Next Visit Plan Continue to progress fine motor coordination, advance balance/strength/ ROM challenge of BIG exercises as tolerated.
--- NOTE | 2019-07-04 16:23 | PT.OTN ---
Current Diagnoses Parkinson's disease (07/04/19) Other abnormalities of gait and mobility (07/04/19) Physical Therapy Treatment Note PT-OP-A Visit Information Start: 06/27/19 08:13 Freq: Status: Active Protocol: Document 07/04/19 10:00 AMB (Rec: 07/04/19 16:23 AMB [email or web address]) Out-Patient Physical Therapy Visit Information Visit Information Visit Type Treatment Note Visit Start Time 10:00 Visit Stop Time 11:00 Total Visit Minutes 60 Visit Number 5 PT-OP-B Current Condition Start: 06/27/19 08:13 Freq: Status: Active Protocol: Document 06/27/19 10:00 AMB (Rec: 06/27/19 14:27 AMB [email or web address]) Current Condition History of Current Condition Onset Date 3 years ago Current Complaints recent Parkinson's diagnosis History of Current Condition Bill states he was diagnosed with essential tremor about 3 years ago. He noticed a year ago that it was getting more and more difficult to swallow, type, and handwrite letters. A few months ago he saw a neurologist for the first time and was diagnosed with Parkinson's and has been taking carbidopa/levodopa and noticed a significant improvement in symptoms. He states that it still requires concentration to pecan picker his feet and swing his arms with gait, and that he still tries to avoid handwriting and typing due to the tremor and micrographia. He is right hand dominant and is unsure what hand the tremor started in, but from observation it is currently worse on the right. He has previously seen speech therapy for his swallow . 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 He is concerned about making time for a lot of exercises due to taking care of his , although he has made time for his swallow exercises. They live in a 2 story home with bedrooms upstairs, 2 steps to enter. Prior Functional Status Baseline Function- ADL's Independent Baseline Function- Mobility Independent Current Functional Impairments (Reported) Functional Limitations- ADL's Difficulty dressing (buttons) diffiulty writing and typing. Functional Limitations- Mobility/Gait Takes concentration to pecan picker feet, slow gait, pt denies any falls in last year. 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 Previous history of colon, prostate, skin cancer and lymphoma. Pt denies chemotherapy for any of those. 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 PTSD from [place]. PT-OP-C Subjective Start: 06/27/19 08:13 Freq: Status: Active Protocol: Document 07/04/19 10:00 AMB (Rec: 07/04/19 16:23 AMB [email or web address]) OP-PT Subjective Patient Comments Patient Comments Pt is pretty low energy today. He states he had a busy weekend, but not especially busy with anything in particular. PT-OP-D Balance Start: 06/27/19 08:13 Freq: Status: Active Protocol: Document 06/27/19 10:00 AMB (Rec: 06/27/19 15:26 AMB [email or web address]) Balance Tests Semi-Tandem Standing Semi-Tandem Standing Balance 30 sec + increased ankle sway with head turn but no LOB Other Other Balance Tests Performed NBOS- 20 sec plus with EC- ankle sway increased in beginning but then found balance PT-OP-E Functional Tests Start: 06/27/19 08:13 Freq: Status: Active Protocol: Document 06/27/19 10:00 AMB (Rec: 06/27/19 14:31 AMB [email or web address]) Functional Tests 6 Minute Walk Test Distance 1112 Device Used none Comments lack of armswing 10 Meter Walk Test Distance 7 sec fast, 8 sec self selected pace Device Used none Five Times Sit to Stand Test Score 15 seconds Comments light use of UEs, chair in private room PT-OP-G Mobility & Gait Start: 06/27/19 08:13 Freq: Status: Active Protocol: Document 06/27/19 10:00 AMB (Rec: 06/27/19 15:26 AMB [email or web address]) OP Mobility Evaluation Transfers Sit to Stand Generally prefers to use UE support OP Gait Assessment Comments Gait Comments Decreased trunk rotation, lack of arm swing, shortened step length PT-OP-H Neuro Start: 06/27/19 08:13 Freq: Status: Active Protocol: Document 06/27/19 10:00 AMB (Rec: 06/27/19 15:26 AMB [email or web address]) Coordination Evaluation Upper Extremity Tests Right Pronation/Supination Test Normal Performance Lower Extremity Tests Foot Tapping Test Normal Performance PT-OP-J Posture/Palpation/Skin Start: 06/27/19 08:13 Freq: Status: Active Protocol: Document 06/27/19 10:00 AMB (Rec: 06/27/19 15:26 AMB [email or web address]) Posture Evaluation Comments Posture Comments hips flexed and flat lumbar spine in standing. Posterior pelvic tilt and forward shoulder posture in seated. PT-OP-K Range of Motion Start: 06/27/19 08:13 Freq: Status: Active Protocol: Document 06/27/19 10:00 AMB (Rec: 06/27/19 15:26 AMB [email or web address]) Shoulder Goniometric Range of Motion Shoulder Right Active Testing Position Standing Flexion 115 Left Active Testing Position Standing Flexion 130 PT-OP-Q Treatments Start: 06/27/19 08:13 Freq: Status: Active Protocol: Document 07/04/19 10:00 AMB (Rec: 07/04/19 16:23 AMB [email or web address]) Therapeutic Exercises Sitting Exercises 2 Sitting Exercise Name side to side Reps/Minutes 8 Comments vc to straighten back leg 1 Sitting Exercise Name floor to ceiling Reps/Minutes 8 Standing Exercises 6 Standing Exercise Name sit to stand Reps/Minutes 10 Comments blue airex mat, 20 mat table, no UE support 5 Standing Exercise Name Rock and reach sideways Reps/Minutes 10 Comments no UE support 4 Standing Exercise Name Rock and reach forward Reps/Minutes 10 3 Standing Exercise Name Backward step Reps/Minutes 10 Comments no UE support 2 Standing Exercise Name Sidestep Reps/Minutes 10 Comments no Ue support 1 Standing Exercise Name Forward step Reps/Minutes 10 Comments with UE support Therapeutic Activity Therapeutic Activity 4 Name cuff buttoning Reps/Minutes 10 Comments vc big push 1 Name handwriting Comments focus on BIG, with using wrist , forearm support, finger flicks Gait Training Gait Activity 1 Device Used none Level of Assistance SBA Surface smooth/firm Distance/Duration 10 min Treatment Focus trunk rotation, foot clearance Comments with distraction of conversation- pt with good retention of BIG walking. Tends to shuffle the most when walking with his .- working on heel toe walking when walking slow. PT-OP-T Assessment and Plan Start: 06/27/19 08:13 Freq: Status: Active Protocol: Document 07/04/19 10:00 AMB (Rec: 07/04/19 16:23 AMB [email or web address]) Physical Therapy Assessment Assessment Summary Assessment Bill did well today, so plan to progress to alternating exercises tomorrow. Could consider weights but will have to consider shoulder pain with that. Physical Therapy Plan Frequency and Duration Frequency of Treatment 4x/Week Duration of Treatment 4 weeks Plan of Care Start Date 06/27/19 Plan of Care End Date 07/25/19 Therapeutic Interventions Therapeutic Interventions Balance Training,Gait Training ,Home Exercise Program,Manual Therapy,Neuromuscular Re- education,Self-Care/Home Management,Therapeutic Activities,Therapeutic Exercises Next Visit Focus/Plan Next Note Type Treatment Note Next Visit Plan Continue to progress fine motor coordination, advance balance/strength/ ROM challenge of BIG exercises as tolerated.
--- NOTE | 2019-07-05 16:33 | PT.OTN ---
Current Diagnoses Parkinson's disease (07/05/19) Other abnormalities of gait and mobility (07/05/19) Physical Therapy Treatment Note PT-OP-A Visit Information Start: 06/27/19 08:13 Freq: Status: Active Protocol: Document 07/05/19 10:00 AMB (Rec: 07/05/19 15:51 AMB [email or web address]) Out-Patient Physical Therapy Visit Information Visit Information Visit Type Treatment Note Visit Start Time 10:00 Visit Stop Time 11:00 Total Visit Minutes 60 Visit Number 6 PT-OP-B Current Condition Start: 06/27/19 08:13 Freq: Status: Active Protocol: Document 06/27/19 10:00 AMB (Rec: 06/27/19 14:27 AMB [email or web address]) Current Condition History of Current Condition Onset Date 3 years ago Current Complaints recent Parkinson's diagnosis History of Current Condition Bill states he was diagnosed with essential tremor about 3 years ago. He noticed a year ago that it was getting more and more difficult to swallow, type, and handwrite letters. A few months ago he saw a neurologist for the first time and was diagnosed with Parkinson's and has been taking carbidopa/levodopa and noticed a significant improvement in symptoms. He states that it still requires concentration to brick picker his feet and swing his arms with gait, and that he still tries to avoid handwriting and typing due to the tremor and micrographia. He is right hand dominant and is unsure what hand the tremor started in, but from observation it is currently worse on the right. He has previously seen speech therapy for his swallow . 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 He is concerned about making time for a lot of exercises due to taking care of his , although he has made time for his swallow exercises. They live in a 2 story home with bedrooms upstairs, 2 steps to enter. Prior Functional Status Baseline Function- ADL's Independent Baseline Function- Mobility Independent Current Functional Impairments (Reported) Functional Limitations- ADL's Difficulty dressing (buttons) diffiulty writing and typing. Functional Limitations- Mobility/Gait Takes concentration to brick picker feet, slow gait, pt denies any falls in last year. Personal Factors Other Personal Factors That May Effect Personal history of Agent Therapy/Recovery [place] exposure. Previous history of colon, prostate, skin cancer and lymphoma. Pt denies chemotherapy for any of those. 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 PTSD from [place]. PT-OP-C Subjective Start: 06/27/19 08:13 Freq: Status: Active Protocol: Document 07/05/19 10:00 AMB (Rec: 07/05/19 15:51 AMB [email or web address]) OP-PT Subjective Patient Comments Patient Comments Pt is feeling better today. He has been able to do his exercises, but has noticed that he takes a lot of steps when turning in the kitchen as opposed to turning quickly like he used to. PT-OP-D Balance Start: 06/27/19 08:13 Freq: Status: Active Protocol: Document 06/27/19 10:00 AMB (Rec: 06/27/19 15:26 AMB [email or web address]) Balance Tests Semi-Tandem Standing Semi-Tandem Standing Balance 30 sec + increased ankle sway with head turn but no LOB Other Other Balance Tests Performed NBOS- 20 sec plus with EC- ankle sway increased in beginning but then found balance PT-OP-E Functional Tests Start: 06/27/19 08:13 Freq: Status: Active Protocol: Document 06/27/19 10:00 AMB (Rec: 06/27/19 14:31 AMB [email or web address]) Functional Tests 6 Minute Walk Test Distance 1112 Device Used none Comments lack of armswing 10 Meter Walk Test Distance 7 sec fast, 8 sec self selected pace Device Used none Five Times Sit to Stand Test Score 15 seconds Comments light use of UEs, chair in private room PT-OP-G Mobility & Gait Start: 06/27/19 08:13 Freq: Status: Active Protocol: Document 06/27/19 10:00 AMB (Rec: 06/27/19 15:26 AMB [email or web address]) OP Mobility Evaluation Transfers Sit to Stand Generally prefers to use UE support OP Gait Assessment Comments Gait Comments Decreased trunk rotation, lack of arm swing, shortened step length PT-OP-H Neuro Start: 06/27/19 08:13 Freq: Status: Active Protocol: Document 06/27/19 10:00 AMB (Rec: 06/27/19 15:26 AMB [email or web address]) Coordination Evaluation Upper Extremity Tests Right Pronation/Supination Test Normal Performance Lower Extremity Tests Foot Tapping Test Normal Performance PT-OP-J Posture/Palpation/Skin Start: 06/27/19 08:13 Freq: Status: Active Protocol: Document 06/27/19 10:00 AMB (Rec: 06/27/19 15:26 AMB [email or web address]) Posture Evaluation Comments Posture Comments hips flexed and flat lumbar spine in standing. Posterior pelvic tilt and forward shoulder posture in seated. PT-OP-K Range of Motion Start: 06/27/19 08:13 Freq: Status: Active Protocol: Document 06/27/19 10:00 AMB (Rec: 06/27/19 15:26 AMB [email or web address]) Shoulder Goniometric Range of Motion Shoulder Right Active Testing Position Standing Flexion 115 Left Active Testing Position Standing Flexion 130 PT-OP-Q Treatments Start: 06/27/19 08:13 Freq: Status: Active Protocol: Document 07/05/19 10:00 AMB (Rec: 07/05/19 15:51 AMB [email or web address]) Therapeutic Exercises Sitting Exercises 2 Sitting Exercise Name side to side Reps/Minutes 8 Comments vc to straighten back leg 1 Sitting Exercise Name floor to ceiling Reps/Minutes 8 Standing Exercises 6 Standing Exercise Name sit to stand Reps/Minutes 10 Comments blue airex mat, 20 mat table, no UE support 5 Standing Exercise Name Rock and reach sideways Reps/Minutes 12 Comments no UE support 4 Standing Exercise Name Rock and reach forward Reps/Minutes 12 3 Standing Exercise Name Backward step Reps/Minutes 10 Comments no UE support, alternating 2 Standing Exercise Name Sidestep Reps/Minutes 10 Comments no Ue support, alternating 1 Standing Exercise Name Forward step Reps/Minutes 10 Comments with UE support, alternating Therapeutic Activity Therapeutic Activity 4 Name cuff buttoning Reps/Minutes 10 Comments vc big push 1 Name handwriting Comments focus on BIG, with using wrist , forearm support, finger flicks. Signature and concentric circles Gait Training Gait Activity 3 Description stairs Device Used 1 rail Distance/Duration 2 flights ascend and descend Comments alternating steps 2 Description walking with turning Device Used none Comments worked on pivot turn and taking less steps to turn. Pt wears slippers on hardwood floor, so was concerned about slipping at home with pivot turn. 1 Device Used none Level of Assistance SBA Surface smooth/firm Distance/Duration 10 min Treatment Focus trunk rotation, foot clearance Comments with distraction of conversation- pt with good retention of BIG walking. Tends to shuffle the most when walking with his .- working on heel toe walking when walking slow. PT-OP-T Assessment and Plan Start: 06/27/19 08:13 Freq: Status: Active Protocol: Document 07/05/19 16:29 AMB (Rec: 07/05/19 16:30 AMB [email or web address]) Physical Therapy Assessment Assessment Summary Assessment Bill is doing well with fine motor, walking with turns is more challenging. Physical Therapy Plan Next Visit Focus/Plan Next Note Type Treatment Note Next Visit Plan Continue to progress fine motor coordination, advance balance/strength/ ROM challenge of BIG exercises as tolerated.
--- NOTE | 2019-07-06 16:45 | PT.OTN ---
Current Diagnoses Parkinson's disease (07/06/19) Other abnormalities of gait and mobility (07/06/19) Physical Therapy Treatment Note PT-OP-A Visit Information Start: 06/27/19 08:13 Freq: Status: Active Protocol: Document 07/06/19 10:00 AMB (Rec: 07/06/19 16:45 AMB [email or web address]) Out-Patient Physical Therapy Visit Information Visit Information Visit Type Treatment Note Visit Start Time 10:00 Visit Stop Time 11:00 Total Visit Minutes 60 Visit Number 7 PT-OP-B Current Condition Start: 06/27/19 08:13 Freq: Status: Active Protocol: Document 06/27/19 10:00 AMB (Rec: 06/27/19 14:27 AMB [email or web address]) Current Condition History of Current Condition Onset Date 3 years ago Current Complaints recent Parkinson's diagnosis History of Current Condition Bill states he was diagnosed with essential tremor about 3 years ago. He noticed a year ago that it was getting more and more difficult to swallow, type, and handwrite letters. A few months ago he saw a neurologist for the first time and was diagnosed with Parkinson's and has been taking carbidopa/levodopa and noticed a significant improvement in symptoms. He states that it still requires concentration to olive picker his feet and swing his arms with gait, and that he still tries to avoid handwriting and typing due to the tremor and micrographia. He is right hand dominant and is unsure what hand the tremor started in, but from observation it is currently worse on the right. He has previously seen speech therapy for his swallow . 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 He is concerned about making time for a lot of exercises due to taking care of his , although he has made time for his swallow exercises. They live in a 2 story home with bedrooms upstairs, 2 steps to enter. Prior Functional Status Baseline Function- ADL's Independent Baseline Function- Mobility Independent Current Functional Impairments (Reported) Functional Limitations- ADL's Difficulty dressing (buttons) diffiulty writing and typing. Functional Limitations- Mobility/Gait Takes concentration to olive picker feet, slow gait, pt denies any falls in last year. 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 Previous history of colon, prostate, skin cancer and lymphoma. Pt denies chemotherapy for any of those. 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 PTSD from [place]. PT-OP-C Subjective Start: 06/27/19 08:13 Freq: Status: Active Protocol: Document 07/06/19 10:00 AMB (Rec: 07/06/19 16:45 AMB [email or web address]) OP-PT Subjective Patient Comments Patient Comments Pt continues to be tired but did well today with gait activities, feels awkward with turns but did them well. PT-OP-D Balance Start: 06/27/19 08:13 Freq: Status: Active Protocol: Document 06/27/19 10:00 AMB (Rec: 06/27/19 15:26 AMB [email or web address]) Balance Tests Semi-Tandem Standing Semi-Tandem Standing Balance 30 sec + increased ankle sway with head turn but no LOB Other Other Balance Tests Performed NBOS- 20 sec plus with EC- ankle sway increased in beginning but then found balance PT-OP-E Functional Tests Start: 06/27/19 08:13 Freq: Status: Active Protocol: Document 06/27/19 10:00 AMB (Rec: 06/27/19 14:31 AMB [email or web address]) Functional Tests 6 Minute Walk Test Distance 1112 Device Used none Comments lack of armswing 10 Meter Walk Test Distance 7 sec fast, 8 sec self selected pace Device Used none Five Times Sit to Stand Test Score 15 seconds Comments light use of UEs, chair in private room PT-OP-G Mobility & Gait Start: 06/27/19 08:13 Freq: Status: Active Protocol: Document 06/27/19 10:00 AMB (Rec: 06/27/19 15:26 AMB [email or web address]) OP Mobility Evaluation Transfers Sit to Stand Generally prefers to use UE support OP Gait Assessment Comments Gait Comments Decreased trunk rotation, lack of arm swing, shortened step length PT-OP-H Neuro Start: 06/27/19 08:13 Freq: Status: Active Protocol: Document 06/27/19 10:00 AMB (Rec: 06/27/19 15:26 AMB [email or web address]) Coordination Evaluation Upper Extremity Tests Right Pronation/Supination Test Normal Performance Lower Extremity Tests Foot Tapping Test Normal Performance PT-OP-J Posture/Palpation/Skin Start: 06/27/19 08:13 Freq: Status: Active Protocol: Document 06/27/19 10:00 AMB (Rec: 06/27/19 15:26 AMB [email or web address]) Posture Evaluation Comments Posture Comments hips flexed and flat lumbar spine in standing. Posterior pelvic tilt and forward shoulder posture in seated. PT-OP-K Range of Motion Start: 06/27/19 08:13 Freq: Status: Active Protocol: Document 06/27/19 10:00 AMB (Rec: 06/27/19 15:26 AMB [email or web address]) Shoulder Goniometric Range of Motion Shoulder Right Active Testing Position Standing Flexion 115 Left Active Testing Position Standing Flexion 130 PT-OP-Q Treatments Start: 06/27/19 08:13 Freq: Status: Active Protocol: Document 07/06/19 10:00 AMB (Rec: 07/06/19 16:45 AMB [email or web address]) Therapeutic Exercises Sitting Exercises 2 Sitting Exercise Name side to side Reps/Minutes 8 Comments vc to straighten back leg 1 Sitting Exercise Name floor to ceiling Reps/Minutes 8 Standing Exercises 6 Standing Exercise Name sit to stand Reps/Minutes 10 Comments blue airex mat, 20 mat table, no UE support 5 Standing Exercise Name Rock and reach sideways Reps/Minutes 12 Comments no UE support 4 Standing Exercise Name Rock and reach forward Reps/Minutes 12 3 Standing Exercise Name Backward step Reps/Minutes 10 Comments no UE support, alternating 2 Standing Exercise Name Sidestep Reps/Minutes 10 Comments no Ue support, alternating 1 Standing Exercise Name Forward step Reps/Minutes 10 Comments with UE support, alternating Gait Training Gait Activity 2 Description walking with turning Device Used none Comments worked on pivot turn and taking less steps to turn. Also increased to walking around cones and over hurdles. 1 Device Used none Level of Assistance SBA Surface smooth/firm Distance/Duration 5 min Treatment Focus trunk rotation, foot clearance Comments with distraction of conversation- pt with good retention of BIG walking. Tends to shuffle the most when walking with his .- working on heel toe walking when walking slow. PT-OP-T Assessment and Plan Start: 06/27/19 08:13 Freq: Status: Active Protocol: Document 07/06/19 10:00 AMB (Rec: 07/06/19 16:45 AMB [email or web address]) Physical Therapy Assessment Assessment Summary Assessment Continue to encourage big walking when able to, walking with his reinforces shuffling gait pattern. Physical Therapy Plan Next Visit Focus/Plan Next Note Type Treatment Note Next Visit Plan Continue to progress fine motor coordination, advance balance/strength/ ROM challenge of BIG exercises as tolerated.
--- NOTE | 2019-07-07 12:00 | PT.OPPN ---
Current Diagnoses Parkinson's disease (07/11/19) Other abnormalities of gait and mobility (07/11/19) Physical Therapy Progress Note PT-OP-A Visit Information Start: 06/27/19 08:13 Freq: Status: Active Protocol: Document 07/07/19 10:00 AMB (Rec: 07/10/19 12:25 AMB [email or web address]) Out-Patient Physical Therapy Visit Information Visit Information Visit Type Progress Note Visit Start Time 10:00 Visit Stop Time 11:00 Total Visit Minutes 60 Visit Number 8 PT-OP-B Current Condition Start: 06/27/19 08:13 Freq: Status: Active Protocol: Document 06/27/19 10:00 AMB (Rec: 06/27/19 14:27 AMB [email or web address]) Current Condition History of Current Condition Onset Date 3 years ago Current Complaints recent Parkinson's diagnosis History of Current Condition Bill states he was diagnosed with essential tremor about 3 years ago. He noticed a year ago that it was getting more and more difficult to swallow, type, and handwrite letters. A few months ago he saw a neurologist for the first time and was diagnosed with Parkinson's and has been taking carbidopa/levodopa and noticed a significant improvement in symptoms. He states that it still requires concentration to hand picker his feet and swing his arms with gait, and that he still tries to avoid handwriting and typing due to the tremor and micrographia. He is right hand dominant and is unsure what hand the tremor started in, but from observation it is currently worse on the right. He has previously seen speech therapy for his swallow . 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 He is concerned about making time for a lot of exercises due to taking care of his , although he has made time for his swallow exercises. They live in a 2 story home with bedrooms upstairs, 2 steps to enter. Prior Functional Status Baseline Function- ADL's Independent Baseline Function- Mobility Independent Current Functional Impairments (Reported) Functional Limitations- ADL's Difficulty dressing (buttons) diffiulty writing and typing. Functional Limitations- Mobility/Gait Takes concentration to hand picker feet, slow gait, pt denies any falls in last year. 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 Previous history of colon, prostate, skin cancer and lymphoma. Pt denies chemotherapy for any of those. 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 PTSD from [place]. PT-OP-C Subjective Start: 06/27/19 08:13 Freq: Status: Active Protocol: Document 07/07/19 10:00 AMB (Rec: 07/10/19 12:25 AMB [email or web address]) OP-PT Subjective Patient Comments Patient Comments Overall Remi is noticing his walking improving. He feels that his gardening is difficult more due to decreased energy level than anything else. PT-OP-D Balance Start: 06/27/19 08:13 Freq: Status: Active Protocol: Document 06/27/19 10:00 AMB (Rec: 06/27/19 15:26 AMB [email or web address]) Balance Tests Semi-Tandem Standing Semi-Tandem Standing Balance 30 sec + increased ankle sway with head turn but no LOB Other Other Balance Tests Performed NBOS- 20 sec plus with EC- ankle sway increased in beginning but then found balance PT-OP-E Functional Tests Start: 06/27/19 08:13 Freq: Status: Active Protocol: Document 07/07/19 10:00 AMB (Rec: 07/12/19 07:19 AMB [email or web address]) Functional Tests 6 Minute Walk Test Distance 1573 Device Used none 10 Meter Walk Test Distance 5 sec fast, 6 sec self selected pace Five Times Sit to Stand Test Score 14 sec Comments no UE PT-OP-G Mobility & Gait Start: 06/27/19 08:13 Freq: Status: Active Protocol: Document 06/27/19 10:00 AMB (Rec: 06/27/19 15:26 AMB [email or web address]) OP Mobility Evaluation Transfers Sit to Stand Generally prefers to use UE support OP Gait Assessment Comments Gait Comments Decreased trunk rotation, lack of arm swing, shortened step length PT-OP-H Neuro Start: 06/27/19 08:13 Freq: Status: Active Protocol: Document 06/27/19 10:00 AMB (Rec: 06/27/19 15:26 AMB [email or web address]) Coordination Evaluation Upper Extremity Tests Right Pronation/Supination Test Normal Performance Lower Extremity Tests Foot Tapping Test Normal Performance PT-OP-J Posture/Palpation/Skin Start: 06/27/19 08:13 Freq: Status: Active Protocol: Document 06/27/19 10:00 AMB (Rec: 06/27/19 15:26 AMB [email or web address]) Posture Evaluation Comments Posture Comments hips flexed and flat lumbar spine in standing. Posterior pelvic tilt and forward shoulder posture in seated. PT-OP-K Range of Motion Start: 06/27/19 08:13 Freq: Status: Active Protocol: Document 06/27/19 10:00 AMB (Rec: 06/27/19 15:26 AMB [email or web address]) Shoulder Goniometric Range of Motion Shoulder Measured in Degrees Right Active Testing Position Standing Flexion 115 Left Active Testing Position Standing Flexion 130 PT-OP-T Assessment and Plan Start: 06/27/19 08:13 Freq: Status: Active Protocol: Document 07/07/19 10:00 AMB (Rec: 07/10/19 12:25 AMB [email or web address]) Physical Therapy Assessment Goals Two Impairment Fine motor ability Short Term Goal (STG) Remi will decrease the time it takes him to button and unbutton his wrist cuff button from 17 seconds to 13 seconds or less. STG Duration 2 weeks Snf Goal (LTG) Remi will type an email in less than 5 minutes with decreased incidence of double chun hitting. LTG Duration 4 weeks One Impairment Gait Short Term Goal (STG) Remi will improve his 10MWT fast speed from 1.42m/s to 2m/ s. STG Duration 2 weeks Study Director Goal (LTG) Remi will improve his 6MWT from 1112 to 1381 feet with good arm swing and foot clearance. LTG Duration MET Assessment Summary Assessment Remi improved his 6 minute walk test considerably today. He showed good big walking, and good arm swing throughout, with slight decrease due to fatigue last 1-2 minutes. Physical Therapy Plan Next Visit Focus/Plan Next Note Type Treatment Note Next Visit Plan Continue to progress fine motor coordination, advance balance/strength/ ROM challenge of BIG exercises as tolerated.
--- NOTE | 2019-07-07 12:25 | PT.OTN ---
Current Diagnoses Parkinson's disease (07/07/19) Other abnormalities of gait and mobility (07/07/19) Physical Therapy Treatment Note PT-OP-A Visit Information Start: 06/27/19 08:13 Freq: Status: Active Protocol: Document 07/07/19 10:00 AMB (Rec: 07/10/19 12:25 AMB [email or web address]) Out-Patient Physical Therapy Visit Information Visit Information Visit Type Progress Note Visit Start Time 10:00 Visit Stop Time 11:00 Total Visit Minutes 60 Visit Number 8 PT-OP-B Current Condition Start: 06/27/19 08:13 Freq: Status: Active Protocol: Document 06/27/19 10:00 AMB (Rec: 06/27/19 14:27 AMB [email or web address]) Current Condition History of Current Condition Onset Date 3 years ago Current Complaints recent Parkinson's diagnosis History of Current Condition Bill states he was diagnosed with essential tremor about 3 years ago. He noticed a year ago that it was getting more and more difficult to swallow, type, and handwrite letters. A few months ago he saw a neurologist for the first time and was diagnosed with Parkinson's and has been taking carbidopa/levodopa and noticed a significant improvement in symptoms. He states that it still requires concentration to vegetable picker his feet and swing his arms with gait, and that he still tries to avoid handwriting and typing due to the tremor and micrographia. He is right hand dominant and is unsure what hand the tremor started in, but from observation it is currently worse on the right. He has previously seen speech therapy for his swallow . 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 He is concerned about making time for a lot of exercises due to taking care of his , although he has made time for his swallow exercises. They live in a 2 story home with bedrooms upstairs, 2 steps to enter. Prior Functional Status Baseline Function- ADL's Independent Baseline Function- Mobility Independent Current Functional Impairments (Reported) Functional Limitations- ADL's Difficulty dressing (buttons) diffiulty writing and typing. Functional Limitations- Mobility/Gait Takes concentration to vegetable picker feet, slow gait, pt denies any falls in last year. 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 Previous history of colon, prostate, skin cancer and lymphoma. Pt denies chemotherapy for any of those. 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 PTSD from [place]. PT-OP-C Subjective Start: 06/27/19 08:13 Freq: Status: Active Protocol: Document 07/07/19 10:00 AMB (Rec: 07/10/19 12:25 AMB [email or web address]) OP-PT Subjective Patient Comments Patient Comments Overall Remi is noticing his walking improving. He feels that his gardening is difficult more due to decreased energy level than anything else. PT-OP-D Balance Start: 06/27/19 08:13 Freq: Status: Active Protocol: Document 06/27/19 10:00 AMB (Rec: 06/27/19 15:26 AMB [email or web address]) Balance Tests Semi-Tandem Standing Semi-Tandem Standing Balance 30 sec + increased ankle sway with head turn but no LOB Other Other Balance Tests Performed NBOS- 20 sec plus with EC- ankle sway increased in beginning but then found balance PT-OP-E Functional Tests Start: 06/27/19 08:13 Freq: Status: Active Protocol: Document 06/27/19 10:00 AMB (Rec: 06/27/19 14:31 AMB [email or web address]) Functional Tests 6 Minute Walk Test Distance 1112 Device Used none Comments lack of armswing 10 Meter Walk Test Distance 7 sec fast, 8 sec self selected pace Device Used none Five Times Sit to Stand Test Score 15 seconds Comments light use of UEs, chair in private room PT-OP-G Mobility & Gait Start: 06/27/19 08:13 Freq: Status: Active Protocol: Document 06/27/19 10:00 AMB (Rec: 06/27/19 15:26 AMB [email or web address]) OP Mobility Evaluation Transfers Sit to Stand Generally prefers to use UE support OP Gait Assessment Comments Gait Comments Decreased trunk rotation, lack of arm swing, shortened step length PT-OP-H Neuro Start: 06/27/19 08:13 Freq: Status: Active Protocol: Document 06/27/19 10:00 AMB (Rec: 06/27/19 15:26 AMB [email or web address]) Coordination Evaluation Upper Extremity Tests Right Pronation/Supination Test Normal Performance Lower Extremity Tests Foot Tapping Test Normal Performance PT-OP-J Posture/Palpation/Skin Start: 06/27/19 08:13 Freq: Status: Active Protocol: Document 06/27/19 10:00 AMB (Rec: 06/27/19 15:26 AMB [email or web address]) Posture Evaluation Comments Posture Comments hips flexed and flat lumbar spine in standing. Posterior pelvic tilt and forward shoulder posture in seated. PT-OP-K Range of Motion Start: 06/27/19 08:13 Freq: Status: Active Protocol: Document 06/27/19 10:00 AMB (Rec: 06/27/19 15:26 AMB [email or web address]) Shoulder Goniometric Range of Motion Shoulder Right Active Testing Position Standing Flexion 115 Left Active Testing Position Standing Flexion 130 PT-OP-Q Treatments Start: 06/27/19 08:13 Freq: Status: Active Protocol: Document 07/07/19 10:00 AMB (Rec: 07/10/19 12:25 AMB [email or web address]) Therapeutic Exercises Sitting Exercises 2 Sitting Exercise Name side to side Reps/Minutes 8 Comments vc to straighten back leg 1 Sitting Exercise Name floor to ceiling Reps/Minutes 8 Standing Exercises 6 Standing Exercise Name sit to stand Reps/Minutes 10 5 Standing Exercise Name Rock and reach sideways Reps/Minutes 12 Comments no UE support 4 Standing Exercise Name Rock and reach forward Reps/Minutes 12 3 Standing Exercise Name Backward step Reps/Minutes 10 Comments no UE support, alternating 2 Standing Exercise Name Sidestep Reps/Minutes 10 Comments no Ue support, alternating 1 Standing Exercise Name Forward step Reps/Minutes 10 Comments with UE support, alternating Therapeutic Activity Therapeutic Activity 4 Name cuff buttoning Reps/Minutes 10 Comments vc big push Gait Training Gait Activity 2 Description walking with turning Device Used none Comments worked on pivot turn and taking less steps to turn. Also increased to walking around cones and over hurdles. 1 Device Used none Level of Assistance SBA Surface smooth/firm Distance/Duration 6 min Treatment Focus trunk rotation, foot clearance Comments Tends to shuffle the most when walking with his .- working on heel toe walking when walking slow. PT-OP-T Assessment and Plan Start: 06/27/19 08:13 Freq: Status: Active Protocol: Document 07/07/19 10:00 AMB (Rec: 07/10/19 12:25 AMB [email or web address]) Physical Therapy Assessment Goals Two Impairment Fine motor ability Short Term Goal (STG) Bill will decrease the time it takes him to button and unbutton his wrist cuff button from 17 seconds to 13 seconds or less. STG Duration 2 weeks Chcf Goal (LTG) Remi will type an email in less than 5 minutes with decreased incidence of double chun hitting. LTG Duration 4 weeks One Impairment Gait Short Term Goal (STG) Remi will improve his 10MWT fast speed from 1.42m/s to 2m/ s. STG Duration 2 weeks Chcf Goal (LTG) Remi will improve his 6MWT from 1112 to 1381 feet with good arm swing and foot clearance. LTG Duration MET Assessment Summary Assessment Remi improved his 6 minute walk test considerably today. He showed good big walking, and good arm swing throughout, with slight decrease due to fatigue last 1-2 minutes. Physical Therapy Plan Next Visit Focus/Plan Next Note Type Treatment Note Next Visit Plan Continue to progress fine motor coordination, advance balance/strength/ ROM challenge of BIG exercises as tolerated.
--- NOTE | 2019-07-11 12:00 | PT.OTN ---
Current Diagnoses Parkinson's disease (07/11/19) Other abnormalities of gait and mobility (07/11/19) Physical Therapy Treatment Note PT-OP-A Visit Information Start: 06/27/19 08:13 Freq: Status: Active Protocol: Document 07/11/19 10:00 AMB (Rec: 07/12/19 07:30 AMB [email or web address]) Out-Patient Physical Therapy Visit Information Visit Information Visit Type Treatment Note Visit Note 07/08 Visit Start Time 10:00 Visit Stop Time 11:00 Total Visit Minutes 60 Visit Number 9 PT-OP-B Current Condition Start: 06/27/19 08:13 Freq: Status: Active Protocol: Document 06/27/19 10:00 AMB (Rec: 06/27/19 14:27 AMB [email or web address]) Current Condition History of Current Condition Onset Date 3 years ago Current Complaints recent Parkinson's diagnosis History of Current Condition Bill states he was diagnosed with essential tremor about 3 years ago. He noticed a year ago that it was getting more and more difficult to swallow, type, and handwrite letters. A few months ago he saw a neurologist for the first time and was diagnosed with Parkinson's and has been taking carbidopa/levodopa and noticed a significant improvement in symptoms. He states that it still requires concentration to citrus picker his feet and swing his arms with gait, and that he still tries to avoid handwriting and typing due to the tremor and micrographia. He is right hand dominant and is unsure what hand the tremor started in, but from observation it is currently worse on the right. He has previously seen speech therapy for his swallow . 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 He is concerned about making time for a lot of exercises due to taking care of his , although he has made time for his swallow exercises. They live in a 2 story home with bedrooms upstairs, 2 steps to enter. Prior Functional Status Baseline Function- ADL's Independent Baseline Function- Mobility Independent Current Functional Impairments (Reported) Functional Limitations- ADL's Difficulty dressing (buttons) diffiulty writing and typing. Functional Limitations- Mobility/Gait Takes concentration to citrus picker feet, slow gait, pt denies any falls in last year. 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 Previous history of colon, prostate, skin cancer and lymphoma. Pt denies chemotherapy for any of those. 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 PTSD from [place]. PT-OP-C Subjective Start: 06/27/19 08:13 Freq: Status: Active Protocol: Document 07/11/19 10:00 AMB (Rec: 07/12/19 07:54 AMB [id number]) OP-PT Subjective Patient Comments Patient Comments Remi was busy over the weekend with his . PT-OP-D Balance Start: 06/27/19 08:13 Freq: Status: Active Protocol: Document 06/27/19 10:00 AMB (Rec: 06/27/19 15:26 AMB [email or web address]) Balance Tests Semi-Tandem Standing Semi-Tandem Standing Balance 30 sec + increased ankle sway with head turn but no LOB Other Other Balance Tests Performed NBOS- 20 sec plus with EC- ankle sway increased in beginning but then found balance PT-OP-E Functional Tests Start: 06/27/19 08:13 Freq: Status: Active Protocol: Document 07/07/19 10:00 AMB (Rec: 07/12/19 07:19 AMB [email or web address]) Functional Tests 6 Minute Walk Test Distance 1573 Device Used none 10 Meter Walk Test Distance 5 sec fast, 6 sec self selected pace Five Times Sit to Stand Test Score 14 sec Comments no UE PT-OP-G Mobility & Gait Start: 06/27/19 08:13 Freq: Status: Active Protocol: Document 06/27/19 10:00 AMB (Rec: 06/27/19 15:26 AMB [email or web address]) OP Mobility Evaluation Transfers Sit to Stand Generally prefers to use UE support OP Gait Assessment Comments Gait Comments Decreased trunk rotation, lack of arm swing, shortened step length PT-OP-H Neuro Start: 06/27/19 08:13 Freq: Status: Active Protocol: Document 06/27/19 10:00 AMB (Rec: 06/27/19 15:26 AMB [email or web address]) Coordination Evaluation Upper Extremity Tests Right Pronation/Supination Test Normal Performance Lower Extremity Tests Foot Tapping Test Normal Performance PT-OP-J Posture/Palpation/Skin Start: 06/27/19 08:13 Freq: Status: Active Protocol: Document 06/27/19 10:00 AMB (Rec: 06/27/19 15:26 AMB [email or web address]) Posture Evaluation Comments Posture Comments hips flexed and flat lumbar spine in standing. Posterior pelvic tilt and forward shoulder posture in seated. PT-OP-K Range of Motion Start: 06/27/19 08:13 Freq: Status: Active Protocol: Document 06/27/19 10:00 AMB (Rec: 06/27/19 15:26 AMB [email or web address]) Shoulder Goniometric Range of Motion Shoulder Right Active Testing Position Standing Flexion 115 Left Active Testing Position Standing Flexion 130 PT-OP-Q Treatments Start: 06/27/19 08:13 Freq: Status: Active Protocol: Document 07/11/19 10:00 AMB (Rec: 07/12/19 07:54 AMB [id number]) Therapeutic Exercises Sitting Exercises 2 Sitting Exercise Name side to side Resistance 1# wrist weight Reps/Minutes 8 Comments vc to straighten back leg 1 Sitting Exercise Name floor to ceiling Reps/Minutes 8 Standing Exercises 6 Standing Exercise Name sit to stand Reps/Minutes 10 Comments blue airex mat, 20 mat table 5 Standing Exercise Name Rock and reach sideways Reps/Minutes 12 Comments no UE support 4 Standing Exercise Name Rock and reach forward Reps/Minutes 12 3 Standing Exercise Name Backward step Reps/Minutes 10 Comments no UE support, alternating 2 Standing Exercise Name Sidestep Resistance 1# wrist weight Reps/Minutes 10 Comments no Ue support, alternating 1 Standing Exercise Name Forward step Resistance 1# wrist weight Reps/Minutes 10 Comments with UE support, alternating Therapeutic Activity Therapeutic Activity 3 Name typing Reps/Minutes 10 min Comments with rest breaks for finger flicks, hand stretches Gait Training Gait Activity 3 Description stairs Device Used 1 rail Distance/Duration 4, 6 stairs Comments alternating steps 1 Device Used none Level of Assistance SBA Surface smooth/firm Distance/Duration 6 min Treatment Focus trunk rotation, foot clearance Comments Tends to shuffle the most when walking with his .- working on heel toe walking when walking slow. PT-OP-T Assessment and Plan Start: 06/27/19 08:13 Freq: Status: Active Protocol: Document 07/11/19 10:00 AMB (Rec: 07/12/19 07:54 AMB [id number]) Physical Therapy Assessment Assessment Summary Assessment Bill did better with typing today, with a better keyboard. Instructed him to continue practice, as it will be more difficult to get back to if he avoids it. Physical Therapy Plan Next Visit Focus/Plan Next Note Type Treatment Note Next Visit Plan Continue to progress fine motor coordination, advance balance/strength/ ROM challenge of BIG exercises as tolerated.
--- NOTE | 2019-07-12 13:24 | PT.OTN ---
Current Diagnoses Parkinson's disease (07/12/19) Other abnormalities of gait and mobility (07/12/19) Physical Therapy Treatment Note PT-OP-A Visit Information Start: 06/27/19 08:13 Freq: Status: Active Protocol: Document 07/12/19 10:00 AMB (Rec: 07/12/19 12:24 AMB [email or web address]) Out-Patient Physical Therapy Visit Information Visit Information Visit Type Treatment Note Visit Note 08/08 Visit Start Time 10:00 Visit Stop Time 11:00 Total Visit Minutes 60 Visit Number 10 PT-OP-B Current Condition Start: 06/27/19 08:13 Freq: Status: Active Protocol: Document 06/27/19 10:00 AMB (Rec: 06/27/19 14:27 AMB [email or web address]) Current Condition History of Current Condition Onset Date 3 years ago Current Complaints recent Parkinson's diagnosis History of Current Condition Bill states he was diagnosed with essential tremor about 3 years ago. He noticed a year ago that it was getting more and more difficult to swallow, type, and handwrite letters. A few months ago he saw a neurologist for the first time and was diagnosed with Parkinson's and has been taking carbidopa/levodopa and noticed a significant improvement in symptoms. He states that it still requires concentration to pear picker his feet and swing his arms with gait, and that he still tries to avoid handwriting and typing due to the tremor and micrographia. He is right hand dominant and is unsure what hand the tremor started in, but from observation it is currently worse on the right. He has previously seen speech therapy for his swallow . 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 He is concerned about making time for a lot of exercises due to taking care of his , although he has made time for his swallow exercises. They live in a 2 story home with bedrooms upstairs, 2 steps to enter. Prior Functional Status Baseline Function- ADL's Independent Baseline Function- Mobility Independent Current Functional Impairments (Reported) Functional Limitations- ADL's Difficulty dressing (buttons) diffiulty writing and typing. Functional Limitations- Mobility/Gait Takes concentration to pear picker feet, slow gait, pt denies any falls in last year. 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 Previous history of colon, prostate, skin cancer and lymphoma. Pt denies chemotherapy for any of those. 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 PTSD from [place]. PT-OP-C Subjective Start: 06/27/19 08:13 Freq: Status: Active Protocol: Document 07/12/19 10:00 AMB (Rec: 07/12/19 12:24 AMB [id number]) OP-PT Subjective Patient Comments Patient Comments Remi reports no problem walking through the parking lot today it had about 1/2 of snow. PT-OP-D Balance Start: 06/27/19 08:13 Freq: Status: Active Protocol: Document 06/27/19 10:00 AMB (Rec: 06/27/19 15:26 AMB [email or web address]) Balance Tests Semi-Tandem Standing Semi-Tandem Standing Balance 30 sec + increased ankle sway with head turn but no LOB Other Other Balance Tests Performed NBOS- 20 sec plus with EC- ankle sway increased in beginning but then found balance PT-OP-E Functional Tests Start: 06/27/19 08:13 Freq: Status: Active Protocol: Document 07/07/19 10:00 AMB (Rec: 07/12/19 07:19 AMB [email or web address]) Functional Tests 6 Minute Walk Test Distance 1573 Device Used none 10 Meter Walk Test Distance 5 sec fast, 6 sec self selected pace Five Times Sit to Stand Test Score 14 sec Comments no UE PT-OP-G Mobility & Gait Start: 06/27/19 08:13 Freq: Status: Active Protocol: Document 06/27/19 10:00 AMB (Rec: 06/27/19 15:26 AMB [email or web address]) OP Mobility Evaluation Transfers Sit to Stand Generally prefers to use UE support OP Gait Assessment Comments Gait Comments Decreased trunk rotation, lack of arm swing, shortened step length PT-OP-H Neuro Start: 06/27/19 08:13 Freq: Status: Active Protocol: Document 06/27/19 10:00 AMB (Rec: 06/27/19 15:26 AMB [email or web address]) Coordination Evaluation Upper Extremity Tests Right Pronation/Supination Test Normal Performance Lower Extremity Tests Foot Tapping Test Normal Performance PT-OP-J Posture/Palpation/Skin Start: 06/27/19 08:13 Freq: Status: Active Protocol: Document 06/27/19 10:00 AMB (Rec: 06/27/19 15:26 AMB [email or web address]) Posture Evaluation Comments Posture Comments hips flexed and flat lumbar spine in standing. Posterior pelvic tilt and forward shoulder posture in seated. PT-OP-K Range of Motion Start: 06/27/19 08:13 Freq: Status: Active Protocol: Document 06/27/19 10:00 AMB (Rec: 06/27/19 15:26 AMB [email or web address]) Shoulder Goniometric Range of Motion Shoulder Right Active Testing Position Standing Flexion 115 Left Active Testing Position Standing Flexion 130 PT-OP-Q Treatments Start: 06/27/19 08:13 Freq: Status: Active Protocol: Document 07/12/19 10:00 AMB (Rec: 07/12/19 13:23 AMB [email or web address]) Therapeutic Exercises Sitting Exercises 2 Sitting Exercise Name side to side Resistance 1# wrist weight Reps/Minutes 8 Comments vc to straighten back leg 1 Sitting Exercise Name floor to ceiling Reps/Minutes 8 Standing Exercises 6 Standing Exercise Name sit to stand Reps/Minutes 10 Comments blue airex mat, 20 mat table 5 Standing Exercise Name Rock and reach sideways Reps/Minutes 12 Comments no UE support 4 Standing Exercise Name Rock and reach forward Resistance 1# wrist weight Reps/Minutes 12 3 Standing Exercise Name Backward step Resistance 1# wrist weight Reps/Minutes 10 Comments no UE support, alternating 2 Standing Exercise Name Sidestep Resistance 1# wrist weight Reps/Minutes 10 Comments no Ue support, alternating 1 Standing Exercise Name Forward step Resistance 1# wrist weight Reps/Minutes 10 Comments with UE support, alternating Therapeutic Activity Therapeutic Activity 2 Name signing name, writing long hand Comments Towards end of sentence, micrographia, but otherwise very legible. Gait Training Gait Activity 2 Description walking with turning Device Used none Comments worked on pivot turn and taking less steps to turn. Also increased to walking around cones and over hurdles. 1 Device Used none Level of Assistance SBA Surface smooth/firm Distance/Duration 6 min Treatment Focus trunk rotation, foot clearance Comments Tends to shuffle the most when walking with his .- working on heel toe walking when walking slow. PT-OP-T Assessment and Plan Start: 06/27/19 08:13 Freq: Status: Active Protocol: Document 07/12/19 10:00 AMB (Rec: 07/12/19 12:24 AMB [id number]) Physical Therapy Assessment Assessment Summary Assessment Bill did well with writing today, walking over uneven terrain (hurdles) went well. Physical Therapy Plan Next Visit Focus/Plan Next Note Type Treatment Note Next Visit Plan Continue to progress fine motor coordination, advance balance/strength/ ROM challenge of BIG exercises as tolerated.
--- NOTE | 2019-07-14 13:29 | PT.OTN ---
Current Diagnoses Parkinson's disease (07/14/19) Other abnormalities of gait and mobility (07/14/19) Physical Therapy Treatment Note PT-OP-A Visit Information Start: 06/27/19 08:13 Freq: Status: Active Protocol: Document 07/14/19 11:00 AMB (Rec: 07/14/19 13:28 AMB [email or web address]) Out-Patient Physical Therapy Visit Information Visit Information Visit Type Treatment Note Visit Note 09/05 Visit Start Time 11:00 Visit Stop Time 12:00 Total Visit Minutes 60 Visit Number 11 PT-OP-B Current Condition Start: 06/27/19 08:13 Freq: Status: Active Protocol: Document 06/27/19 10:00 AMB (Rec: 06/27/19 14:27 AMB [email or web address]) Current Condition History of Current Condition Onset Date 3 years ago Current Complaints recent Parkinson's diagnosis History of Current Condition Bill states he was diagnosed with essential tremor about 3 years ago. He noticed a year ago that it was getting more and more difficult to swallow, type, and handwrite letters. A few months ago he saw a neurologist for the first time and was diagnosed with Parkinson's and has been taking carbidopa/levodopa and noticed a significant improvement in symptoms. 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 He is right hand dominant and is unsure what hand the tremor started in, but from observation it is currently worse on the right. He has previously seen speech therapy for his swallow . 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 He is concerned about making time for a lot of exercises due to taking care of his , although he has made time for his swallow exercises. They live in a 2 story home with bedrooms upstairs, 2 steps to enter. Prior Functional Status Baseline Function- ADL's Independent Baseline Function- Mobility Independent Current Functional Impairments (Reported) Functional Limitations- ADL's Difficulty dressing (buttons) diffiulty writing and typing. 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 Personal Factors Other Personal Factors That May Effect Personal history of Agent Therapy/Recovery [place] exposure. Previous history of colon, prostate, skin cancer and lymphoma. Pt denies chemotherapy for any of those. 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 PTSD from [place]. PT-OP-C Subjective Start: 06/27/19 08:13 Freq: Status: Active Protocol: Document 07/14/19 11:00 AMB (Rec: 07/14/19 13:28 AMB [email or web address]) OP-PT Subjective Patient Comments Patient Comments Remi partially shoveled his driveway yesterday, said he did ok with that, fatigue isn' t too bad today. PT-OP-D Balance Start: 06/27/19 08:13 Freq: Status: Active Protocol: Document 06/27/19 10:00 AMB (Rec: 06/27/19 15:26 AMB [email or web address]) Balance Tests Semi-Tandem Standing Semi-Tandem Standing Balance 30 sec + increased ankle sway with head turn but no LOB Other Other Balance Tests Performed NBOS- 20 sec plus with EC- ankle sway increased in beginning but then found balance PT-OP-E Functional Tests Start: 06/27/19 08:13 Freq: Status: Active Protocol: Document 07/07/19 10:00 AMB (Rec: 07/12/19 07:19 AMB [email or web address]) Functional Tests 6 Minute Walk Test Distance 1573 Device Used none 10 Meter Walk Test Distance 5 sec fast, 6 sec self selected pace Five Times Sit to Stand Test Score 14 sec Comments no UE PT-OP-G Mobility & Gait Start: 06/27/19 08:13 Freq: Status: Active Protocol: Document 06/27/19 10:00 AMB (Rec: 06/27/19 15:26 AMB [email or web address]) OP Mobility Evaluation Transfers Sit to Stand Generally prefers to use UE support OP Gait Assessment Comments Gait Comments Decreased trunk rotation, lack of arm swing, shortened step length PT-OP-H Neuro Start: 06/27/19 08:13 Freq: Status: Active Protocol: Document 06/27/19 10:00 AMB (Rec: 06/27/19 15:26 AMB [email or web address]) Coordination Evaluation Upper Extremity Tests Right Pronation/Supination Test Normal Performance Lower Extremity Tests Foot Tapping Test Normal Performance PT-OP-J Posture/Palpation/Skin Start: 06/27/19 08:13 Freq: Status: Active Protocol: Document 06/27/19 10:00 AMB (Rec: 06/27/19 15:26 AMB [email or web address]) Posture Evaluation Comments Posture Comments hips flexed and flat lumbar spine in standing. Posterior pelvic tilt and forward shoulder posture in seated. PT-OP-K Range of Motion Start: 06/27/19 08:13 Freq: Status: Active Protocol: Document 06/27/19 10:00 AMB (Rec: 06/27/19 15:26 AMB [email or web address]) Shoulder Goniometric Range of Motion Shoulder Right Active Testing Position Standing Flexion 115 Left Active Testing Position Standing Flexion 130 PT-OP-Q Treatments Start: 06/27/19 08:13 Freq: Status: Active Protocol: Document 07/14/19 11:00 AMB (Rec: 07/14/19 13:28 AMB [email or web address]) Therapeutic Exercises Sitting Exercises 2 Sitting Exercise Name side to side Resistance 1# wrist weight Reps/Minutes 8 Comments vc to straighten back leg 1 Sitting Exercise Name floor to ceiling Reps/Minutes 8 Standing Exercises 5 Standing Exercise Name Rock and reach sideways Reps/Minutes 12 Comments no UE support 4 Standing Exercise Name Rock and reach forward Resistance 1# wrist weight Reps/Minutes 12 Comments on blue mat for uneven 3 Standing Exercise Name Backward step Resistance 1# wrist weight Reps/Minutes 10 Comments on blue mat for uneven 2 Standing Exercise Name Sidestep Resistance 1# wrist weight Reps/Minutes 10 Comments on blue mat for uneven 1 Standing Exercise Name Forward step Resistance 1# wrist weight Reps/Minutes 10 Comments on blue mat for uneven Therapeutic Activity Therapeutic Activity 4 Name cuff buttoning Reps/Minutes 10 Comments vc big push 1 Name lifting weight overhead Reps/Minutes 3# on uneven surface Comments Shuttle balance and blue foam to make reaching overhead to put dishes away more challenging Gait Training Gait Activity 5 Description walking over hurdles, foam Comments emphasize hip flex/knees up 1 Device Used none Level of Assistance SBA Surface smooth/firm Distance/Duration 6 min Treatment Focus trunk rotation, foot clearance Comments Counting backwards by 7s from 100 did show decreased arm swing. PT-OP-T Assessment and Plan Start: 06/27/19 08:13 Freq: Status: Active Protocol: Document 07/14/19 11:00 AMB (Rec: 07/14/19 13:28 AMB [email or web address]) Physical Therapy Assessment Assessment Summary Assessment Still challenged by buttoning, unbuttoning cuffs- intermittent success. Uneven terrain challenges going well, pt more challenged by math than conversation, and BIG walking did decline. Physical Therapy Plan Next Visit Focus/Plan Next Note Type Treatment Note Next Visit Plan Continue to progress fine motor coordination, advance balance/strength/ ROM challenge of BIG exercises as tolerated.
--- NOTE | 2019-07-15 15:14 | PT.OTN ---
Current Diagnoses Parkinson's disease (07/15/19) Other abnormalities of gait and mobility (07/15/19) Physical Therapy Treatment Note PT-OP-A Visit Information Start: 06/27/19 08:13 Freq: Status: Active Protocol: Document 07/15/19 11:00 AMB (Rec: 07/15/19 15:11 AMB [email or web address]) Out-Patient Physical Therapy Visit Information Visit Information Visit Type Treatment Note Visit Note 10/06 Visit Start Time 11:00 Visit Stop Time 12:00 Total Visit Minutes 60 Visit Number 12 PT-OP-B Current Condition Start: 06/27/19 08:13 Freq: Status: Active Protocol: Document 06/27/19 10:00 AMB (Rec: 06/27/19 14:27 AMB [email or web address]) Current Condition History of Current Condition Onset Date 3 years ago Current Complaints recent Parkinson's diagnosis History of Current Condition Bill states he was diagnosed with essential tremor about 3 years ago. He noticed a year ago that it was getting more and more difficult to swallow, type, and handwrite letters. A few months ago he saw a neurologist for the first time and was diagnosed with Parkinson's and has been taking carbidopa/levodopa and noticed a significant improvement in symptoms. 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 He is right hand dominant and is unsure what hand the tremor started in, but from observation it is currently worse on the right. He has previously seen speech therapy for his swallow . 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 He is concerned about making time for a lot of exercises due to taking care of his , although he has made time for his swallow exercises. They live in a 2 story home with bedrooms upstairs, 2 steps to enter. Prior Functional Status Baseline Function- ADL's Independent Baseline Function- Mobility Independent Current Functional Impairments (Reported) Functional Limitations- ADL's Difficulty dressing (buttons) diffiulty writing and typing. 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 Previous history of colon, prostate, skin cancer and lymphoma. Pt denies chemotherapy for any of those. 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 PTSD from [place]. PT-OP-C Subjective Start: 06/27/19 08:13 Freq: Status: Active Protocol: Document 07/15/19 11:00 AMB (Rec: 07/15/19 15:11 AMB [email or web address]) OP-PT Subjective Patient Comments Patient Comments Remi is fatigued again today. PT-OP-D Balance Start: 06/27/19 08:13 Freq: Status: Active Protocol: Document 06/27/19 10:00 AMB (Rec: 06/27/19 15:26 AMB [email or web address]) Balance Tests Semi-Tandem Standing Semi-Tandem Standing Balance 30 sec + increased ankle sway with head turn but no LOB Other Other Balance Tests Performed NBOS- 20 sec plus with EC- ankle sway increased in beginning but then found balance PT-OP-E Functional Tests Start: 06/27/19 08:13 Freq: Status: Active Protocol: Document 07/07/19 10:00 AMB (Rec: 07/12/19 07:19 AMB [email or web address]) Functional Tests 6 Minute Walk Test Distance 1573 Device Used none 10 Meter Walk Test Distance 5 sec fast, 6 sec self selected pace Five Times Sit to Stand Test Score 14 sec Comments no UE PT-OP-G Mobility & Gait Start: 06/27/19 08:13 Freq: Status: Active Protocol: Document 06/27/19 10:00 AMB (Rec: 06/27/19 15:26 AMB [email or web address]) OP Mobility Evaluation Transfers Sit to Stand Generally prefers to use UE support OP Gait Assessment Comments Gait Comments Decreased trunk rotation, lack of arm swing, shortened step length PT-OP-H Neuro Start: 06/27/19 08:13 Freq: Status: Active Protocol: Document 06/27/19 10:00 AMB (Rec: 06/27/19 15:26 AMB [email or web address]) Coordination Evaluation Upper Extremity Tests Right Pronation/Supination Test Normal Performance Lower Extremity Tests Foot Tapping Test Normal Performance PT-OP-J Posture/Palpation/Skin Start: 06/27/19 08:13 Freq: Status: Active Protocol: Document 06/27/19 10:00 AMB (Rec: 06/27/19 15:26 AMB [email or web address]) Posture Evaluation Comments Posture Comments hips flexed and flat lumbar spine in standing. Posterior pelvic tilt and forward shoulder posture in seated. PT-OP-K Range of Motion Start: 06/27/19 08:13 Freq: Status: Active Protocol: Document 06/27/19 10:00 AMB (Rec: 06/27/19 15:26 AMB [email or web address]) Shoulder Goniometric Range of Motion Shoulder Right Active Testing Position Standing Flexion 115 Left Active Testing Position Standing Flexion 130 PT-OP-Q Treatments Start: 06/27/19 08:13 Freq: Status: Active Protocol: Document 07/15/19 11:00 AMB (Rec: 07/15/19 15:11 AMB [email or web address]) Therapeutic Exercises Sitting Exercises 2 Sitting Exercise Name side to side Reps/Minutes 8 Comments vc to straighten back leg 1 Sitting Exercise Name floor to ceiling Reps/Minutes 8 Standing Exercises 6 Standing Exercise Name sit to stand Reps/Minutes 10 Comments blue mat, 20 table 5 Standing Exercise Name Rock and reach sideways Reps/Minutes 12 ea Comments no UE support 4 Standing Exercise Name Rock and reach forward Resistance 1# wrist weight Reps/Minutes 12 ea Comments on blue mat for uneven 3 Standing Exercise Name Backward step Resistance 1# wrist weight Reps/Minutes 10 ea Comments on blue mat for uneven 2 Standing Exercise Name Sidestep Resistance 1# wrist weight Reps/Minutes 10 ea Comments on blue mat for uneven 1 Standing Exercise Name Forward step Resistance 1# wrist weight Reps/Minutes 10 ea Comments on blue mat for uneven Therapeutic Activity Therapeutic Activity 4 Name cuff buttoning Reps/Minutes 10 Comments vc big push 2 Name signing name, writing long hand Comments Writing check- some micrographia, encouraged stopping and restarting at least once 1 Name lifting weight overhead Reps/Minutes 3# on uneven surface Comments Shuttle balance and blue foam to make reaching overhead to put dishes away more challenging Gait Training Gait Activity 1 Device Used none Level of Assistance SBA Surface smooth/firm Distance/Duration 6 min Treatment Focus trunk rotation, foot clearance Comments Counting backwards by 3s from 100 did show decreased arm swing. PT-OP-T Assessment and Plan Start: 06/27/19 08:13 Freq: Status: Active Protocol: Document 07/15/19 11:00 AMB (Rec: 07/15/19 15:11 AMB [email or web address]) Physical Therapy Assessment Goals Two Impairment Fine motor ability Short Term Goal (STG) Remi will decrease the time it takes him to button and unbutton his wrist cuff button from 17 seconds to 13 seconds or less. STG Duration 2 weeks Skilled Nursing Goal (LTG) Remi will type an email in less than 5 minutes with decreased incidence of double chun hitting. LTG Duration 4 weeks One Impairment Gait Short Term Goal (STG) Remi will improve his 10MWT fast speed from 1.42m/s to 2m/ s. STG Duration 2 weeks Theater Education Teacher Goal (LTG) Remi will improve his 6MWT from 1112 to 1381 feet with good arm swing and foot clearance. LTG Duration MET Assessment Summary Assessment Remi did well with walking with cognitive challenge today . Continued micrographia with extended writing. Physical Therapy Plan Next Visit Focus/Plan Next Note Type Treatment Note Next Visit Plan Continue to progress fine motor coordination, advance balance/strength/ ROM challenge of BIG exercises as tolerated.
--- NOTE | 2019-07-18 15:28 | PT.OTN ---
Current Diagnoses Parkinson's disease (07/18/19) Other abnormalities of gait and mobility (07/18/19) Physical Therapy Treatment Note PT-OP-A Visit Information Start: 06/27/19 08:13 Freq: Status: Active Protocol: Document 07/18/19 10:00 AMB (Rec: 07/18/19 14:39 AMB [id number]) Out-Patient Physical Therapy Visit Information Visit Information Visit Type Treatment Note Visit Note 11/05 Visit Start Time 10:00 Visit Stop Time 11:00 Total Visit Minutes 60 Visit Number 13 PT-OP-B Current Condition Start: 06/27/19 08:13 Freq: Status: Active Protocol: Document 06/27/19 10:00 AMB (Rec: 06/27/19 14:27 AMB [email or web address]) Current Condition History of Current Condition Onset Date 3 years ago Current Complaints recent Parkinson's diagnosis History of Current Condition Bill states he was diagnosed with essential tremor about 3 years ago. He noticed a year ago that it was getting more and more difficult to swallow, type, and handwrite letters. A few months ago he saw a neurologist for the first time and was diagnosed with Parkinson's and has been taking carbidopa/levodopa and noticed a significant improvement in symptoms. He states that it still requires concentration to order picker/assembler his feet and swing his arms with gait, and that he still tries to avoid handwriting and typing due to the tremor and micrographia. He is right hand dominant and is unsure what hand the tremor started in, but from observation it is currently worse on the right. He has previously seen speech therapy for his swallow . 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 He is concerned about making time for a lot of exercises due to taking care of his , although he has made time for his swallow exercises. They live in a 2 story home with bedrooms upstairs, 2 steps to enter. Prior Functional Status Baseline Function- ADL's Independent Baseline Function- Mobility Independent Current Functional Impairments (Reported) Functional Limitations- ADL's Difficulty dressing (buttons) diffiulty writing and typing. Functional Limitations- Mobility/Gait Takes concentration to order picker/assembler feet, slow gait, pt denies any falls in last year. 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 Previous history of colon, prostate, skin cancer and lymphoma. Pt denies chemotherapy for any of those. 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 PTSD from [place]. PT-OP-C Subjective Start: 06/27/19 08:13 Freq: Status: Active Protocol: Document 07/18/19 11:00 AMB (Rec: 07/18/19 15:28 AMB [email or web address]) OP-PT Subjective Patient Comments Patient Comments Pt reports he is fatigued again today, but overall feels like PT has been really helpful. PT-OP-D Balance Start: 06/27/19 08:13 Freq: Status: Active Protocol: Document 06/27/19 10:00 AMB (Rec: 06/27/19 15:26 AMB [email or web address]) Balance Tests Semi-Tandem Standing Semi-Tandem Standing Balance 30 sec + increased ankle sway with head turn but no LOB Other Other Balance Tests Performed NBOS- 20 sec plus with EC- ankle sway increased in beginning but then found balance PT-OP-E Functional Tests Start: 06/27/19 08:13 Freq: Status: Active Protocol: Document 07/07/19 10:00 AMB (Rec: 07/12/19 07:19 AMB [email or web address]) Functional Tests 6 Minute Walk Test Distance 1573 Device Used none 10 Meter Walk Test Distance 5 sec fast, 6 sec self selected pace Five Times Sit to Stand Test Score 14 sec Comments no UE PT-OP-G Mobility & Gait Start: 06/27/19 08:13 Freq: Status: Active Protocol: Document 06/27/19 10:00 AMB (Rec: 06/27/19 15:26 AMB [email or web address]) OP Mobility Evaluation Transfers Sit to Stand Generally prefers to use UE support OP Gait Assessment Comments Gait Comments Decreased trunk rotation, lack of arm swing, shortened step length PT-OP-H Neuro Start: 06/27/19 08:13 Freq: Status: Active Protocol: Document 06/27/19 10:00 AMB (Rec: 06/27/19 15:26 AMB [email or web address]) Coordination Evaluation Upper Extremity Tests Right Pronation/Supination Test Normal Performance Lower Extremity Tests Foot Tapping Test Normal Performance PT-OP-J Posture/Palpation/Skin Start: 06/27/19 08:13 Freq: Status: Active Protocol: Document 06/27/19 10:00 AMB (Rec: 06/27/19 15:26 AMB [email or web address]) Posture Evaluation Comments Posture Comments hips flexed and flat lumbar spine in standing. Posterior pelvic tilt and forward shoulder posture in seated. PT-OP-K Range of Motion Start: 06/27/19 08:13 Freq: Status: Active Protocol: Document 06/27/19 10:00 AMB (Rec: 06/27/19 15:26 AMB [email or web address]) Shoulder Goniometric Range of Motion Shoulder Right Active Testing Position Standing Flexion 115 Left Active Testing Position Standing Flexion 130 PT-OP-Q Treatments Start: 06/27/19 08:13 Freq: Status: Active Protocol: Document 07/18/19 11:00 AMB (Rec: 07/18/19 15:28 AMB [email or web address]) Therapeutic Exercises Sitting Exercises 2 Sitting Exercise Name side to side Reps/Minutes 8 Comments vc to straighten back leg 1 Sitting Exercise Name floor to ceiling Reps/Minutes 8 Standing Exercises 6 Standing Exercise Name sit to stand Reps/Minutes 10 Comments blue mat, 20 table 5 Standing Exercise Name Rock and reach sideways Reps/Minutes 12 ea Comments no UE support 4 Standing Exercise Name Rock and reach forward Resistance 1# wrist weight Reps/Minutes 12 ea Comments on blue mat for uneven 3 Standing Exercise Name Backward step Resistance 1# wrist weight Reps/Minutes 10 ea Comments on blue mat for uneven 2 Standing Exercise Name Sidestep Resistance 1# wrist weight Reps/Minutes 10 ea Comments on blue mat for uneven 1 Standing Exercise Name Forward step Resistance 1# wrist weight Reps/Minutes 10 ea Comments on blue mat for uneven Therapeutic Activity Therapeutic Activity 4 Name cuff buttoning Reps/Minutes 5 Comments vc big push 2 Name signing name, writing long hand Comments smaller lines today, good first two reps, then micrographia at end of last name 1 Name walk and reach with pivot turn Comments cone and then 4# weight to cabinet x3 Gait Training Gait Activity 2 Description walking with turning Device Used none Comments worked on pivot turn and taking less steps to turn. Also increased to walking around cones and over hurdles. 1 Device Used none Level of Assistance SBA Surface smooth/firm Distance/Duration 6 min Treatment Focus trunk rotation, foot clearance Comments Counting backwards by 3s from 100 did show decreased arm swing. PT-OP-T Assessment and Plan Start: 06/27/19 08:13 Freq: Status: Active Protocol: Document 07/18/19 10:00 AMB (Rec: 07/18/19 14:39 AMB [id number]) Physical Therapy Assessment Assessment Summary Assessment Pt was able to button and unbutton both cuffs in 33 seconds and then 20 seconds. Pt did well with gait with cognitive distraction, and putting walking and reaching together. Physical Therapy Plan Next Visit Focus/Plan Next Note Type Treatment Note Next Visit Plan Continue to progress fine motor coordination, advance balance/strength/ ROM challenge of BIG exercises as tolerated.
--- NOTE | 2019-07-19 12:12 | PT.OTN ---
Current Diagnoses Parkinson's disease (07/19/19) Other abnormalities of gait and mobility (07/19/19) Physical Therapy Treatment Note PT-OP-A Visit Information Start: 06/27/19 08:13 Freq: Status: Active Protocol: Document 07/19/19 10:00 AMB (Rec: 07/19/19 11:19 AMB [email or web address]) Out-Patient Physical Therapy Visit Information Visit Information Visit Type Treatment Note Visit Note 12/06 Visit Start Time 10:00 Visit Stop Time 11:00 Total Visit Minutes 60 Visit Number 14 PT-OP-B Current Condition Start: 06/27/19 08:13 Freq: Status: Active Protocol: Document 06/27/19 10:00 AMB (Rec: 06/27/19 14:27 AMB [email or web address]) Current Condition History of Current Condition Onset Date 3 years ago Current Complaints recent Parkinson's diagnosis History of Current Condition Bill states he was diagnosed with essential tremor about 3 years ago. He noticed a year ago that it was getting more and more difficult to swallow, type, and handwrite letters. A few months ago he saw a neurologist for the first time and was diagnosed with Parkinson's and has been taking carbidopa/levodopa and noticed a significant improvement in symptoms. He states that it still requires concentration to roll picker his feet and swing his arms with gait, and that he still tries to avoid handwriting and typing due to the tremor and micrographia. He is right hand dominant and is unsure what hand the tremor started in, but from observation it is currently worse on the right. He has previously seen speech therapy for his swallow . 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 He is concerned about making time for a lot of exercises due to taking care of his , although he has made time for his swallow exercises. They live in a 2 story home with bedrooms upstairs, 2 steps to enter. Prior Functional Status Baseline Function- ADL's Independent Baseline Function- Mobility Independent Current Functional Impairments (Reported) Functional Limitations- ADL's Difficulty dressing (buttons) diffiulty writing and typing. Functional Limitations- Mobility/Gait Takes concentration to roll picker feet, slow gait, pt denies any falls in last year. 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 Previous history of colon, prostate, skin cancer and lymphoma. Pt denies chemotherapy for any of those. 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 PTSD from [place]. PT-OP-C Subjective Start: 06/27/19 08:13 Freq: Status: Active Protocol: Document 07/19/19 10:00 AMB (Rec: 07/19/19 12:10 AMB [id number]) OP-PT Subjective Patient Comments Patient Comments Pt reports he is fatigued today, exercises yesterday went fine. PT-OP-D Balance Start: 06/27/19 08:13 Freq: Status: Active Protocol: Document 06/27/19 10:00 AMB (Rec: 06/27/19 15:26 AMB [email or web address]) Balance Tests Semi-Tandem Standing Semi-Tandem Standing Balance 30 sec + increased ankle sway with head turn but no LOB Other Other Balance Tests Performed NBOS- 20 sec plus with EC- ankle sway increased in beginning but then found balance PT-OP-E Functional Tests Start: 06/27/19 08:13 Freq: Status: Active Protocol: Document 07/07/19 10:00 AMB (Rec: 07/12/19 07:19 AMB [email or web address]) Functional Tests 6 Minute Walk Test Distance 1573 Device Used none 10 Meter Walk Test Distance 5 sec fast, 6 sec self selected pace Five Times Sit to Stand Test Score 14 sec Comments no UE PT-OP-G Mobility & Gait Start: 06/27/19 08:13 Freq: Status: Active Protocol: Document 06/27/19 10:00 AMB (Rec: 06/27/19 15:26 AMB [email or web address]) OP Mobility Evaluation Transfers Sit to Stand Generally prefers to use UE support OP Gait Assessment Comments Gait Comments Decreased trunk rotation, lack of arm swing, shortened step length PT-OP-H Neuro Start: 06/27/19 08:13 Freq: Status: Active Protocol: Document 06/27/19 10:00 AMB (Rec: 06/27/19 15:26 AMB [email or web address]) Coordination Evaluation Upper Extremity Tests Right Pronation/Supination Test Normal Performance Lower Extremity Tests Foot Tapping Test Normal Performance PT-OP-J Posture/Palpation/Skin Start: 06/27/19 08:13 Freq: Status: Active Protocol: Document 06/27/19 10:00 AMB (Rec: 06/27/19 15:26 AMB [email or web address]) Posture Evaluation Comments Posture Comments hips flexed and flat lumbar spine in standing. Posterior pelvic tilt and forward shoulder posture in seated. PT-OP-K Range of Motion Start: 06/27/19 08:13 Freq: Status: Active Protocol: Document 06/27/19 10:00 AMB (Rec: 06/27/19 15:26 AMB [email or web address]) Shoulder Goniometric Range of Motion Shoulder Right Active Testing Position Standing Flexion 115 Left Active Testing Position Standing Flexion 130 PT-OP-Q Treatments Start: 06/27/19 08:13 Freq: Status: Active Protocol: Document 07/19/19 10:00 AMB (Rec: 07/19/19 12:10 AMB [id number]) Therapeutic Exercises Sitting Exercises 2 Sitting Exercise Name side to side Reps/Minutes 8 Comments vc to straighten back leg 1 Sitting Exercise Name floor to ceiling Reps/Minutes 8 Standing Exercises 6 Standing Exercise Name sit to stand Reps/Minutes 10 Comments blue mat, airex on top 20 table 5 Standing Exercise Name Rock and reach sideways Equipment Used 1# wrist weights Reps/Minutes 12 ea Comments no UE support 4 Standing Exercise Name Rock and reach forward Resistance 1# wrist weight Reps/Minutes 12 ea Comments on blue mat for uneven 3 Standing Exercise Name Backward step Resistance 1# wrist weight Reps/Minutes 10 ea Comments on blue mat for uneven 2 Standing Exercise Name Sidestep Resistance 1# wrist weight Reps/Minutes 10 ea Comments on blue mat for uneven 1 Standing Exercise Name Forward step Resistance 1# wrist weight Reps/Minutes 10 ea Comments on blue mat for uneven Therapeutic Activity Therapeutic Activity 4 Name cuff buttoning Reps/Minutes 5 Comments vc big push 1 Name walk and reach with pivot turn Comments cone and then 4# weight to cabinet x3 Gait Training Gait Activity 1 Device Used none Level of Assistance SBA Surface smooth/firm Distance/Duration 6 min Treatment Focus trunk rotation, foot clearance Comments Naming foods by ABCs- difficult but maintained good arm swing PT-OP-T Assessment and Plan Start: 06/27/19 08:13 Freq: Status: Active Protocol: Document 07/19/19 10:00 AMB (Rec: 07/19/19 12:10 AMB [id number]) Physical Therapy Assessment Assessment Summary Assessment Pt with more difficulty with cuff buttoning today. Walking with naming food was much more difficult than counting, but able to maintain BIG walking fairly well. Physical Therapy Plan Next Visit Focus/Plan Next Note Type Treatment Note Next Visit Plan Continue to progress fine motor coordination, advance balance/strength/ ROM challenge of BIG exercises as tolerated.
--- NOTE | 2019-07-20 14:53 | PT.OTN ---
Current Diagnoses Parkinson's disease (07/20/19) Other abnormalities of gait and mobility (07/20/19) Physical Therapy Treatment Note PT-OP-A Visit Information Start: 06/27/19 08:13 Freq: Status: Active Protocol: Document 07/20/19 10:00 AMB (Rec: 07/20/19 11:14 AMB [email or web address]) Out-Patient Physical Therapy Visit Information Visit Information Visit Type Treatment Note Visit Note 01/05 Visit Start Time 10:00 Visit Stop Time 11:00 Total Visit Minutes 60 Visit Number 15 PT-OP-B Current Condition Start: 06/27/19 08:13 Freq: Status: Active Protocol: Document 06/27/19 10:00 AMB (Rec: 06/27/19 14:27 AMB [email or web address]) Current Condition History of Current Condition Onset Date 3 years ago Current Complaints recent Parkinson's diagnosis History of Current Condition Bill states he was diagnosed with essential tremor about 3 years ago. He noticed a year ago that it was getting more and more difficult to swallow, type, and handwrite letters. A few months ago he saw a neurologist for the first time and was diagnosed with Parkinson's and has been taking carbidopa/levodopa and noticed a significant improvement in symptoms. He states that it still requires concentration to picker packer his feet and swing his arms with gait, and that he still tries to avoid handwriting and typing due to the tremor and micrographia. He is right hand dominant and is unsure what hand the tremor started in, but from observation it is currently worse on the right. He has previously seen speech therapy for his swallow . 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 He is concerned about making time for a lot of exercises due to taking care of his , although he has made time for his swallow exercises. They live in a 2 story home with bedrooms upstairs, 2 steps to enter. Prior Functional Status Baseline Function- ADL's Independent Baseline Function- Mobility Independent Current Functional Impairments (Reported) Functional Limitations- ADL's Difficulty dressing (buttons) diffiulty writing and typing. Functional Limitations- Mobility/Gait Takes concentration to picker packer feet, slow gait, pt denies any falls in last year. 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 Previous history of colon, prostate, skin cancer and lymphoma. Pt denies chemotherapy for any of those. 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 PTSD from [place]. PT-OP-C Subjective Start: 06/27/19 08:13 Freq: Status: Active Protocol: Document 07/20/19 10:00 AMB (Rec: 07/20/19 11:14 AMB [email or web address]) OP-PT Subjective Patient Comments Patient Comments Pt states he is ready for d/c tomorrow. Has been noticing significant changes with walking and handwriting. PT-OP-D Balance Start: 06/27/19 08:13 Freq: Status: Active Protocol: Document 06/27/19 10:00 AMB (Rec: 06/27/19 15:26 AMB [email or web address]) Balance Tests Semi-Tandem Standing Semi-Tandem Standing Balance 30 sec + increased ankle sway with head turn but no LOB Other Other Balance Tests Performed NBOS- 20 sec plus with EC- ankle sway increased in beginning but then found balance PT-OP-E Functional Tests Start: 06/27/19 08:13 Freq: Status: Active Protocol: Document 07/20/19 10:00 AMB (Rec: 07/20/19 11:11 AMB [email or web address]) Functional Tests 6 Minute Walk Test Distance 1443 Device Used none 10 Meter Walk Test Distance 5, 6 seconds for fast and then self selected speed Five Times Sit to Stand Test Score 12.5 sec no UE PT-OP-G Mobility & Gait Start: 06/27/19 08:13 Freq: Status: Active Protocol: Document 06/27/19 10:00 AMB (Rec: 06/27/19 15:26 AMB [email or web address]) OP Mobility Evaluation Transfers Sit to Stand Generally prefers to use UE support OP Gait Assessment Comments Gait Comments Decreased trunk rotation, lack of arm swing, shortened step length PT-OP-H Neuro Start: 06/27/19 08:13 Freq: Status: Active Protocol: Document 06/27/19 10:00 AMB (Rec: 06/27/19 15:26 AMB [email or web address]) Coordination Evaluation Upper Extremity Tests Right Pronation/Supination Test Normal Performance Lower Extremity Tests Foot Tapping Test Normal Performance PT-OP-J Posture/Palpation/Skin Start: 06/27/19 08:13 Freq: Status: Active Protocol: Document 06/27/19 10:00 AMB (Rec: 06/27/19 15:26 AMB [email or web address]) Posture Evaluation Comments Posture Comments hips flexed and flat lumbar spine in standing. Posterior pelvic tilt and forward shoulder posture in seated. PT-OP-K Range of Motion Start: 06/27/19 08:13 Freq: Status: Active Protocol: Document 06/27/19 10:00 AMB (Rec: 06/27/19 15:26 AMB [email or web address]) Shoulder Goniometric Range of Motion Shoulder Right Active Testing Position Standing Flexion 115 Left Active Testing Position Standing Flexion 130 PT-OP-Q Treatments Start: 06/27/19 08:13 Freq: Status: Active Protocol: Document 07/20/19 10:00 AMB (Rec: 07/20/19 14:53 AMB [email or web address]) Therapeutic Exercises Sitting Exercises 2 Sitting Exercise Name side to side Reps/Minutes 8 Comments vc to straighten back leg 1 Sitting Exercise Name floor to ceiling Reps/Minutes 8 Standing Exercises 6 Standing Exercise Name sit to stand Reps/Minutes 10 Comments blue mat, airex on top 20 table 5 Standing Exercise Name Rock and reach sideways Equipment Used 1# wrist weights Reps/Minutes 12 ea Comments no UE support 4 Standing Exercise Name Rock and reach forward Resistance 1# wrist weight Reps/Minutes 12 ea Comments on blue mat for uneven 3 Standing Exercise Name Backward step Resistance 1# wrist weight Reps/Minutes 10 ea Comments on blue mat for uneven 2 Standing Exercise Name Sidestep Resistance 1# wrist weight Reps/Minutes 10 ea Comments on blue mat for uneven 1 Standing Exercise Name Forward step Resistance 1# wrist weight Reps/Minutes 10 ea Comments on blue mat for uneven Gait Training Gait Activity 2 Description walking with turning Device Used none Comments worked on pivot turn and taking less steps to turn. Also increased to walking around cones and over hurdles. 1 Device Used none Level of Assistance SBA Surface smooth/firm Distance/Duration 6 min Treatment Focus trunk rotation, foot clearance PT-OP-T Assessment and Plan Start: 06/27/19 08:13 Freq: Status: Active Protocol: Document 07/20/19 10:00 AMB (Rec: 07/20/19 14:53 AMB [email or web address]) Physical Therapy Assessment Assessment Summary Assessment Pt imporved with 5x sit to stand. 6MWT decreased a little bit since midterm, but overall improved since eval. Physical Therapy Plan Next Visit Focus/Plan Next Note Type Treatment Note Next Visit Plan Continue to progress fine motor coordination, advance balance/strength/ ROM challenge of BIG exercises as tolerated.
--- NOTE | 2019-07-21 16:00 | PT.OTN ---
Current Diagnoses Parkinson's disease (07/21/19) Other abnormalities of gait and mobility (07/21/19) Physical Therapy Treatment Note PT-OP-A Visit Information Start: 06/27/19 08:13 Freq: Status: Active Protocol: Document 07/21/19 10:00 AMB (Rec: 07/21/19 12:58 AMB [email or web address]) Out-Patient Physical Therapy Visit Information Visit Information Visit Type Discharge Summary Visit Note 02/05 Visit Start Time 10:00 Visit Stop Time 11:00 Total Visit Minutes 60 Visit Number 16 PT-OP-B Current Condition Start: 06/27/19 08:13 Freq: Status: Active Protocol: Document 06/27/19 10:00 AMB (Rec: 06/27/19 14:27 AMB [email or web address]) Current Condition History of Current Condition Onset Date 3 years ago Current Complaints recent Parkinson's diagnosis History of Current Condition Bill states he was diagnosed with essential tremor about 3 years ago. He noticed a year ago that it was getting more and more difficult to swallow, type, and handwrite letters. A few months ago he saw a neurologist for the first time and was diagnosed with Parkinson's and has been taking carbidopa/levodopa and noticed a significant improvement in symptoms. 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 He is right hand dominant and is unsure what hand the tremor started in, but from observation it is currently worse on the right. He has previously seen speech therapy for his swallow . 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 He is concerned about making time for a lot of exercises due to taking care of his , although he has made time for his swallow exercises. They live in a 2 story home with bedrooms upstairs, 2 steps to enter. Prior Functional Status Baseline Function- ADL's Independent Baseline Function- Mobility Independent Current Functional Impairments (Reported) Functional Limitations- ADL's Difficulty dressing (buttons) diffiulty writing and typing. 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 Personal Factors Other Personal Factors That May Effect Personal history of Agent Therapy/Recovery [place] exposure. Previous history of colon, prostate, skin cancer and lymphoma. Pt denies chemotherapy for any of those. 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 PTSD from [place]. PT-OP-C Subjective Start: 06/27/19 08:13 Freq: Status: Active Protocol: Document 07/21/19 10:00 AMB (Rec: 07/21/19 12:58 AMB [email or web address]) OP-PT Subjective Patient Comments Patient Comments Pt is ready for d/c. He states he does not have any more questions. PT-OP-D Balance Start: 06/27/19 08:13 Freq: Status: Active Protocol: Document 06/27/19 10:00 AMB (Rec: 06/27/19 15:26 AMB [email or web address]) Balance Tests Semi-Tandem Standing Semi-Tandem Standing Balance 30 sec + increased ankle sway with head turn but no LOB Other Other Balance Tests Performed NBOS- 20 sec plus with EC- ankle sway increased in beginning but then found balance PT-OP-E Functional Tests Start: 06/27/19 08:13 Freq: Status: Active Protocol: Document 07/20/19 10:00 AMB (Rec: 07/20/19 11:11 AMB [email or web address]) Functional Tests 6 Minute Walk Test Distance 1443 Device Used none 10 Meter Walk Test Distance 5, 6 seconds for fast and then self selected speed Five Times Sit to Stand Test Score 12.5 sec no UE PT-OP-G Mobility & Gait Start: 06/27/19 08:13 Freq: Status: Active Protocol: Document 06/27/19 10:00 AMB (Rec: 06/27/19 15:26 AMB [email or web address]) OP Mobility Evaluation Transfers Sit to Stand Generally prefers to use UE support OP Gait Assessment Comments Gait Comments Decreased trunk rotation, lack of arm swing, shortened step length PT-OP-H Neuro Start: 06/27/19 08:13 Freq: Status: Active Protocol: Document 06/27/19 10:00 AMB (Rec: 06/27/19 15:26 AMB [email or web address]) Coordination Evaluation Upper Extremity Tests Right Pronation/Supination Test Normal Performance Lower Extremity Tests Foot Tapping Test Normal Performance PT-OP-J Posture/Palpation/Skin Start: 06/27/19 08:13 Freq: Status: Active Protocol: Document 06/27/19 10:00 AMB (Rec: 06/27/19 15:26 AMB [email or web address]) Posture Evaluation Comments Posture Comments hips flexed and flat lumbar spine in standing. Posterior pelvic tilt and forward shoulder posture in seated. PT-OP-K Range of Motion Start: 06/27/19 08:13 Freq: Status: Active Protocol: Document 06/27/19 10:00 AMB (Rec: 06/27/19 15:26 AMB [email or web address]) Shoulder Goniometric Range of Motion Shoulder Right Active Testing Position Standing Flexion 115 Left Active Testing Position Standing Flexion 130 PT-OP-Q Treatments Start: 06/27/19 08:13 Freq: Status: Active Protocol: Document 07/21/19 10:00 AMB (Rec: 07/22/19 08:15 AMB [id number]) Therapeutic Exercises Sitting Exercises 2 Sitting Exercise Name side to side Reps/Minutes 8 Comments vc to straighten back leg 1 Sitting Exercise Name floor to ceiling Reps/Minutes 8 Standing Exercises 6 Standing Exercise Name sit to stand Reps/Minutes 10 Comments blue mat, airex on top 20 table 5 Standing Exercise Name Rock and reach sideways Reps/Minutes 12 ea Comments no UE support 4 Standing Exercise Name Rock and reach forward Reps/Minutes 12 ea Comments on blue mat for uneven 3 Standing Exercise Name Backward step Reps/Minutes 10 ea Comments on blue mat for uneven 2 Standing Exercise Name Sidestep Reps/Minutes 10 ea Comments on blue mat for uneven 1 Standing Exercise Name Forward step Reps/Minutes 10 ea Comments on blue mat for uneven Therapeutic Activity Therapeutic Activity 4 Name cuff buttoning Reps/Minutes 5 Comments vc big push Gait Training Gait Activity 1 Device Used none Level of Assistance SBA Surface smooth/firm Distance/Duration 6 min Treatment Focus trunk rotation, foot clearance Comments conversation- ascend and descend 2 flights of stairs PT-OP-T Assessment and Plan Start: 06/27/19 08:13 Freq: Status: Active Protocol: Document 07/21/19 10:00 AMB (Rec: 07/21/19 12:58 AMB [email or web address]) Physical Therapy Assessment Goals Two Impairment Fine motor ability Short Term Goal (STG) Remi will decrease the time it takes him to button and unbutton his wrist cuff button from 17 seconds to 13 seconds or less. STG Duration Intermittent- sometimes able to sometimes not Genetics Teacher Goal (LTG) Remi will type an email in less than 5 minutes with decreased incidence of double chun hitting. LTG Duration NOT MET One Impairment Gait Short Term Goal (STG) Remi will improve his 10MWT fast speed from 1.42m/s to 2m/ s. STG Duration MET Genetics Teacher Goal (LTG) Remi will improve his 6MWT from 1112 to 1381 feet with good arm swing and foot clearance. LTG Duration MET Assessment Summary Assessment Overall Remi has shown good improvement with his gait and handwriting. Typing remains challenging. Buttoning his cuff can be quick or slow depending on the day. He should be able to continue to progress with his exercise routine that he has been very consistent with. He has shown statistically significant improvement in his gait speed. Physical Therapy Plan Discharge Physical Therapy Discharge Reasons Goals Met Discharge Comments Remi has finished his [employer] program
== END 2019-07-25 09:38 ==
LOC: PHYS 10:00
PROVIDERS: Family Provider Family Medicine; PCP Family Medicine; Visit Provider Psychiatry & Neurology Neurology
DX: G20 Parkinson's disease (principal); R26.89 Other abnormalities of gait and mobility
CPT/HCPCS: 97110; 97116; 97161; 97530

== ENCOUNTER → 2019-08-08 10:40 | Outpatient (CLI) | payer MEDICARE, OTHER, SELFPAY ==
--- NOTE | 2019-08-08 11:58 | DI.CT.S_ITS ---
PROCEDURE: CT SOFT TISSUE NECK W CON INDICATIONS: worsening ymphadenopathy, CLL history TECHNIQUE: After the administration of intravenous contrast, 3.0 mm axial sections acquired from the sella to the aortic arch. Additional oblique axial 3.0 mm sections acquired through the pharynx. 3 mm thick coronal and sagittal reformats were generated. For radiation dose reduction, the following was used: automated exposure control. COMPARISON: None. FINDINGS: Image quality: Excellent. Lymph nodes: No enlarged lymph nodes seen throughout the neck. Vessels: Visualized vasculature appears patent. Neck spaces: The oropharynx, nasopharynx, and pharynx demonstrate no mucosal lesions. The vocal cords, false vocal cords, pyriform sinuses, epiglottis, vallecula, and tongue base all appear normal. Extramucosal spaces appear unremarkable. Glands: The parotid and submandibular glands appear normal. Thyroid gland contains a 1.4 cm hypoattenuating nodule in the right lobe. Miscellaneous: Visualized brain and orbits appear normal. Lung apices appear clear. Superficial soft tissues appear normal. Bones: No suspicious bony lesions. Spine degenerative disc disease and facet arthropathy. Visualized sinuses and mastoids appear unremarkable. IMPRESSION: 1. No lymphadenopathy based on size criteria. 2. No mucosal based masses. 3. 1.4 cm right thyroid nodule. Recommend thyroid ultrasound for definitive characterization. Dictated by: Pat Vargas MD, PhD on 08/08/2019 at 13:22 Approved by: Pat Vargas MD, PhD on 08/08/2019 at 13:25
--- NOTE | 2019-08-08 11:58 | DI.CT.S_ITS ---
PROCEDURE: CT CHEST ABD PEL W CON INDICATIONS: worsening ymphadenopathy, CLL history TECHNIQUE: After the administration of oral and intravenous contrast, 5 mm thick sections acquired from the lung apices to the symphysis. 5 mm coronal and sagittal reformats were performed, with additional 7 mm coronal MIP reformats through the lungs. For radiation dose reduction, the following was used: automated exposure control, adjustment of mA and/or kV according to patient size. COMPARISON: [facility], , CT THORAX/ABDOMEN/PELVIS WITH CONTRAST, 08/22/2004, 11:11. [facility], , CT THORAX/ABDOMEN/PELVIS WITH CONTRAST, 08/27/2005, 12:38. [facility], [place], THORAX WITH CONTRAST, 07/07/2016, 15:23. FINDINGS: Image quality: Excellent. CHEST: Lungs and pleura: Scattered subsegmental atelectasis and/or scarring. No focal consolidation. No pleural effusions or pneumothorax. Central and peripheral airways appear patent and normal in caliber. Mediastinum: Heart size is normal. No pericardial effusion. No mediastinal or hilar adenopathy by size criteria. Thoracic aorta and central pulmonary arteries are normal in size. Esophagus is normal in caliber. No hiatal hernia. Chest wall: No axillary or supraclavicular adenopathy by size criteria. Thyroid gland contains a subcentimeter hyperdense focus in the right lobe which is indeterminate and could be assessed with dedicated thyroid ultrasound. ABDOMEN: Solid organs: Subcapsular hepatic hypodensity measuring 3 mm image 56/6 is too small to characterize and indeterminate Gallbladder grossly unremarkable. Biliary system is non dilated. Pancreas enhances normally. Small hypodensity in the spleen measuring 4 mm on image 58/6 is indeterminate. No splenomegaly No adrenal nodules. Kidneys demonstrate normal size and enhancement, without hydronephrosis. Sub-5 mm presumed left renal cyst, too small to characterize accurately. Peritoneum and bowel: Bowel loops demonstrate normal wall thickness and caliber. Surgical bowel anastomosis present in the right colon. No free fluid or air. Nodes and vessels: No retroperitoneal or mesenteric adenopathy by size criteria. Aorta and inferior vena cava are normal in size. Miscellaneous: No ventral hernias. PELVIS: Genitourinary: Circumferential mild bladder wall thickening, which is age-indeterminate possibly acute or chronic cystitis. Surgical clips seen in the prostate bed. The rectum is grossly unremarkable. Miscellaneous: No inguinal hernias. Mildly enlarged right inguinal lymph node measuring 1.7 x 1.4 cm on image 122/6. No pathologically enlarged left lymphadenopathy identified. Elsewhere in the pelvis no pathologically enlarged lymph nodes seen. Bones: No suspicious bony lesions. No vertebral body compression fractures. Diffuse spondylosis and facet arthropathy. Diffuse osteopenia. IMPRESSION: Mildly enlarged right inguinal lymph node. Elsewhere, no pathologically enlarged lymphadenopathy seen in the chest abdomen and pelvis. Age-indeterminate circumferential bladder wall thickening, consider further evaluation with urinalysis to exclude acute cystitis. Colonic diverticulosis is seen without evidence of acute complication. Additional chronic and incidental findings as above. Dictated by: Erasmo Finnegan M.D. on 08/08/2019 at 15:28 Approved by: Erasmo Finnegan M.D. on 08/08/2019 at 15:53
== END ==
PROVIDERS: Family Provider Family Medicine; PCP Internal Medicine; Referring Provider Internal Medicine Hematology & Oncology; Visit Provider Internal Medicine Hematology & Oncology
DX: C91.10 Chronic lymphocytic leukemia of B-cell type not having achieved remission (principal); R59.0 Localized enlarged lymph nodes; K57.90 Diverticulosis of intestine, part unspecified, without perforation or abscess without bleeding; E04.1 Nontoxic single thyroid nodule; Z98.0 Intestinal bypass and anastomosis status
CPT/HCPCS: 70491; 71260; 74177; Q9967

== ENCOUNTER 2019-09-05 09:50 | Day surgery (SDC) | payer MEDICARE, OTHER, SELFPAY ==
[2019-09-01 12:46] VITALS: BMI 25.7
[2019-09-05] VITALS (8 sets, daily range): BP systolic 99–148; BP diastolic 66–88; PULSE 64–75; RESP 12–16; TEMP 36.2–36.9; O2SAT 97–100; BMI 24.3
--- NOTE | 2019-09-05 | PATH_ITS ---
[facility] Accession Number: [id number] . 01 Material submitted: . PART A: lymph node - RIGHT GROIN LYMPH NODES PART B: groin - RIGHT GROIN LYMPH NODE . 01 Clinical history: . Lymphocytosis and a long history of untreated CLL . 01 Diagnosis: A, B) LYMPH NODES, RIGHT GROIN, EXCISIONAL BIOPSIES: . Benign lymph nodes and adipose tissue with no evidence of involvement by non-Hodgkin or Hodgkin lymphoma ALISON 09/09/2019 1708 Local . 01 Comment: Flow cytometric evaluation performed on a separate portion of the right groin lymph node biopsy submitted in RPMI also identified no immunophenotypically-abnormal lymphoid population ([id number]). . 01 Electronically signed: . Lacie Lopez MD, Pathologist NPI- [id number] . 01 Gross description: . (A) Received in formalin, labeled right groin lymph nodes, are two pieces of adipose tissue (piece #1-3.5 x 2.5 x 1.0 cm; piece #2-3.3 x 2.6 x 1.0 cm). Each piece is received sliced exposing a lymph node (2.0 x 1.7 x 1.0 cm and 1.0 x 0.9 x 0.9 cm, respectively). Each is inked blue, serially sectioned, and entirely submitted in cassettes A1-A4 and A5-A8, respectively. (B) Received in B Plus Fix, labeled right groin lymph node, is a piece of an apparent lymph node (0.6 x 0.6 x 0.5 cm). The apparent resection margin is inked blue. Bisected and entirely submitted in cassette B1. . Per the requisition, also received are two containers with RPMI, which were sent to flow cytometry for analysis. ([id number]) /MRV 09/07/2019 1406 Local . 01 Microscopic: . H/E-stained sections of blocks A1-A8 and B1 reveal portions of benign-appearing lymph node tissue in blocks A1, A2, A7, and B1; very small foci of benign-appearing lymphoid tissue in block A6; and histologically unremarkable adipose tissue in blocks A1-A8. Where present, the lymph node tissue does not appear enlarged, and the patrick architecture remains intact. A few small, well-circumscribed germinal centers are identified in secondary follicles, and other probable primary follicles are also present. No atypical Hodgkin-like cell population is identified. No foci of incipient or geographic necrosis are seen. . IMMUNOHISTOCHEMISTRY: . Given the patient's reported history of lymphocytosis and long-standing history of untreated CLL, select immunohistochemical studies* were performed on block A1 for further exclusion of a B-cell non-Hodgkin lymphoma, with accompanying positive and negative controls. The lymphocytes are a relatively even-mixture of Pax5+ B-cells and CD3+/CD5+ T-cells, with the B-cells predominantly populating the scattered primary and secondary follicles. There is no aberrant coexpression of CD5, CD43, bcl-6, or cyclin D1 on the B-cells. Scattered small germinal centers are appropriately positive for bcl-6, negative for bcl-2, and have relatively high He-58-ymqeuqo proliferative rates. The Zf-86-wclfris proliferative rate among the lymphocytes outside of the germinal centers is very low, approximately 2%. A small subset of IgD+ B-cells are seen in the mantle zone regions and primary follicles. Immunostains for kappa and lambda light chains highlight a small subset of plasma cells in the background, which are polytypic with a kappa:lambda ratio of 1-2:1. . * Technical note: These tests and their performance characteristics have been determined by [employer]. They have not been cleared or approved by the U.S. Food and Drug Administration. The FDA has determined that such clearance or approval is not necessary. These tests are used for clinical purposes, and should not be regarded as investigational or for research. . 01 Pathologist provided ICD-10: R59.9 . 01 CPT . 586003, T64838, Z60595 Performed at: 01 [facility] [address] [facility], [place], [place] [id number] MD Gustavo Arrieta MD Phone: [phone]
[2019-09-05] MEDS: LACTATED RINGERS 1,000 ML 42 ML IV (10:26)
--- NOTE | 2019-09-05 12:51 | PM.PREOP ---
Pre-operative Note Interval Note History & Physical reviewed/Exam performed by Physician: Yes Changes to H&P: No
--- NOTE | 2019-09-05 12:57 | SUR.PREOP ---
Updated patient regarding delay and updated in waiting area. Patient verbalizes understanding and family updated.
[2019-09-05] MEDS: CEFAZOLIN 2 GM/100 ML FROZ.PIGGY IV (13:18)
[2019-09-05] MEDS: BUPIVACAINE 0.5% W/ EPI (PF) 30 ML VIAL INJ (14:04)
--- NOTE | 2019-09-05 14:21 | SUR.OPER ---
Supine on padded OR bed, head on pillow, arms secured on padded arm boards at <90 degrees abduction, legs uncrossed, safety belt at thigh, tape over blanket over lower legs.
--- NOTE | 2019-09-05 14:32 | PM.OP.1 ---
Operative Date/Time/Diagnoses Date of procedure: 09/05/19 Time of procedure: 14:32 Pre-op diagnosis: Adenopathy both groins. History of untreated CLL Post-op diagnosis: same Procedure & Clinicians Procedure: right lymph node groin biopsies Same procedure as scheduled: Yes Indications: diagnostic Surgeon: Tony Cowart Click Yes if Unassisted: Yes Anesthesia Type: General Operative Notes Findings: enlarged but somewhat fatty replaced nodes right groin Closure Type: primary Specimen(s): other ( 2 lymph nodes removed.) Prosthetic devices, grafts, tissues, transplants, or devices: None Estimated Blood Loss (mL): 5 Procedure in detail: the patient was placed supine on the operating table and underwent general LMA anesthesia. He was prepped and draped in the usual fashion. Transverse incision was made overlying the palpable nodes . the incision was carried down to the level the nodes. There were from surrounding structures. Vessels were ligated with 3 0 Vicryl. The remainder of the dissection was accomplished with cautery. The nodes were removed and bisected. They appeared in part to be fatty replaced. There was some nodularity within the node. Specimens were submitted for flow cytometry, permanent section . air dry and alcohol immersed slides were also submitted. The space was closed with interrupted 3 0 Vicryl subcu was closed with interrupted 3 0 Vicryl. The skin was closed running 4 0 Vicryl subcuticular stitch and Steri-Strips. Dressing was applied and the patient was awakened extubated taken recovery room good condition. Complications: none Post-operative Condition: stable Disposition: PACU
--- NOTE | 2019-09-05 15:50 | SUR.PHASEII ---
brought in after picking up meds. Assisted pt to dress, site remains c/d/i. D/c instructions discussed to both. Both voiced an understanding. Yvette latia called and pt and his escorted from unit when pt ready to go and left in stable condition.
== END 2019-09-05 15:54 | disposition home or self-care (01) ==
PROVIDERS: PCP Internal Medicine; Referring Provider Specialist; Visit Provider Specialist
PROC: (CPT 38531; principal; 2019-09-05 11:15)
DX: R59.0 Localized enlarged lymph nodes (principal); Z85.72 Personal history of non-Hodgkin lymphomas; D45 Polycythemia vera; K21.9 Gastro-esophageal reflux disease without esophagitis; G47.33 Obstructive sleep apnea (adult) (pediatric)
CPT/HCPCS: 38531; J0690; J1100; J2250; J2405; J2704; J3010

== ENCOUNTER → 2020-08-28 10:18 | Outpatient (CLI) | payer MEDICARE, OTHER, SELFPAY ==
[2020-08-28 12:27] LABS: COVID19 -Nasal RAPID Negative (Negative)
== END ==
PROVIDERS: PCP Internal Medicine; Visit Provider Specialist
DX: Z20.822 Contact with and (suspected) exposure to COVID-19 (principal)
CPT/HCPCS: 87635; C9803

== ENCOUNTER 2020-08-29 08:09 | Day surgery (SDC) | payer MEDICARE, OTHER, SELFPAY ==
[2020-08-29] VITALS (8 sets, daily range): BP systolic 139–167; BP diastolic 75–101; PULSE 61–74; RESP 8–18; TEMP 36.2–36.8; O2SAT 97–100; BMI 22.9
[2020-08-29] MEDS: LACTATED RINGERS 1,000 ML 42 ML IV ×2 (09:02→11:35)
[2020-08-29] MEDS: ACETAMINOPHEN 325 MG TABLET 975 MG PO (09:40)
--- NOTE | 2020-08-29 09:49 | PM.PREOP ---
Pre-operative Note COVID-19 COVID-19 status: Negative Result date/Date tested (Pos, Neg/Pending): 08/28/20 Interval Note History & Physical reviewed/Exam performed by Physician: Yes Changes to H&P: No
[2020-08-29] MEDS: CEFAZOLIN 2 GM/100 ML FROZ.PIGGY IV (10:01)
--- NOTE | 2020-08-29 10:30 | SUR.OPER ---
Supine on padded OR bed, head on pillow, arms secured on padded arm boards at <90 degrees abduction, legs uncrossed, safety belt at thigh, tape over blanket over lower legs.
[2020-08-29] MEDS: BUPIVACAINE 0.5% (PF) VIAL 30 ML INJ (10:34)
--- NOTE | 2020-08-29 11:59 | P.OP_ITS ---
Operative Date/Time/Diagnoses Date of procedure: 08/29/20 Time of procedure: 11:59 Pre-op diagnosis: Right inguinal hernia reducible Post-op diagnosis: same (Indirect and direct components) Procedure & Clinicians Procedure: Repair right inguinal hernia with plug and patch technique Same procedure as scheduled: Yes Indications: Symptomatic right inguinal hernia. Rather large and difficult to reduce. Surgeon: Tony Cowart Click Yes if Unassisted: Yes Anesthesia Type: General Operative Notes Findings: Large indirect sac with a direct hernia. Closure Type: primary Specimen(s): none sent Prosthetic devices, grafts, tissues, transplants, or devices: Large plug and patch Estimated Blood Loss (mL): 5 Blood products transfused: none Procedure in detail: The patient was placed supine on the operating room table and underwent general LMA anesthesia. He was prepped and draped in the usual fashion. A transverse incision was made overlying the right internal ring and carried down to the level of the external oblique. The external oblique was opened parallel with its fibers through the external ring. The cord structures were elevated. The cremaster was opened proximally and search made for an molly rect sac. There was a very small lipoma of the cord that was removed. There was rather large hernia sac which was tripped open transected after it from cord structures. Pursestring of 2-0 silk was placed to close the defect created. This was placed the level the deep epigastric vessels. The hernia sac was then also tied. Distal portion was removed and the stump allowed to retract. A large plug was placed to the defect created by this hernia and tacked into place with interrupted Ethibond suture. The cremaster was closed over it with a 3-0 Vicryl.. The floor was examined and was found to be somewhat weakened.. A patch was placed across the floor and tacked at the pubic tubercle, the posterior lamella of the anterior rectus sheath, the ilioinguinal ligament, and superior lateral to the cord. The opening was modified as necessary to prevent tight constriction of the cord. Sutures of 0 Tycron were used to secure the mesh. The external oblique was closed with a running 3 0 Polysorb. The subcu was closed with interrupted 3 0 Polysorb. The skin was closed with a running 4 0 Polysorb subcuticular stitch and Steri-Strips. Dressing was applied, the patient was awakened, and the patient was taken to the recovery area in good condition. Complications: none Post-operative Condition: stable Disposition: PACU Plan for aftercare: Follow-up in the office
--- NOTE | 2020-08-29 12:25 | SUR.PHASEII ---
Sitting up in bed, lunch given. Denies pain/nausea, tolerating PO intake well. Pleasant and appreciative.
--- NOTE | 2020-08-29 15:36 | SUR.PHASEII ---
1250 late entry Patient enjoying his lunch, pleasant and comfortable. Hand-off to Elise Mcneill RN - late note -- when the patient was admitted, he was tearful, talked about putting his into long-term care and how much he missed her and had so many changes to adjust to. After talking and interacting with him, he became happier, smiling, etc. At the time of hand-off, he was happy and appreciative for the food and care.
== END 2020-08-29 13:54 | disposition home or self-care (01) ==
PROVIDERS: PCP Internal Medicine; Referring Provider Internal Medicine; Visit Provider Specialist
PROC: (CPT 49505; principal; 2020-08-29 10:15)
DX: K40.90 Unilateral inguinal hernia, without obstruction or gangrene, not specified as recurrent (principal); K21.9 Gastro-esophageal reflux disease without esophagitis; E78.5 Hyperlipidemia, unspecified; G47.33 Obstructive sleep apnea (adult) (pediatric); D45 Polycythemia vera; G20 Parkinson's disease; F43.10 Post-traumatic stress disorder, unspecified
CPT/HCPCS: 49505; C1781; J0690; J1100; J2405; J2704; J3010

== ENCOUNTER → 2020-09-05 17:33 | Outpatient (CLI) | payer MEDICARE, OTHER, SELFPAY ==
[2020-09-05] MEDS: COVID-19 VACC, Ad26(JANSSEN)/PF 0.5 ML IM (17:37)
== END ==
PROVIDERS: PCP Internal Medicine; Visit Provider Internal Medicine
DX: Z23 Encounter for immunization (principal)
CPT/HCPCS: 0031A; 91303

== ENCOUNTER → 2021-11-06 09:19 | Outpatient (CLI) | payer MEDICARE, OTHER, SELFPAY ==
[2021-11-06 11:04] LABS: COVID19 -Nasal RAPID Negative (Negative)
== END ==
PROVIDERS: PCP Internal Medicine; Visit Provider Nurse Practitioner Family
DX: Z20.822 Contact with and (suspected) exposure to COVID-19 (principal)
CPT/HCPCS: 87635

== ENCOUNTER → 2021-12-24 16:27 | Outpatient (CLI) | payer MEDICARE, OTHER, SELFPAY ==
[2021-12-24 17:15] LABS: Add Manual Diff / Slide Review NO; Basophils Absolute Auto 0 /uL (0-100); Basophils Percent Auto 0.5 % (0-2); Eosinophils Absolute Auto 200 /uL (0-450); Eosinophils Percent Auto 4.1 % (2-4); Hematocrit 45.8 % (41-53); Hemoglobin 15.7 g/dL (13.5-17.5); Lymphocytes Absolute Auto 1400 /uL (1100-4500); Lymphocytes Percent Auto 31.4 % (25-40); Mean Corpuscular HGB Conc 34.4 % (30-36); Mean Corpuscular Hemoglobin 33.1 PG (26-34); Mean Corpuscular Volume 96.2 fL (80-100); Monocytes Absolute Auto 400 /uL (0-900); Monocytes Percent Auto 9.7 % (3-14); Neutrophils Absolute Auto 2500 /uL (1500-7000); Neutrophils Percent Auto 54.3 % (50-75); Platelet Count 225 X10^3/uL (150-400); Red Blood Cell Count 4.76 X10^6/uL (4.5-5.9); Red Cell Distribution Width 13.2 % (11.6-14.8); White Blood Cell Count 4.5 X10^3/uL (4.5-11.0)
[2021-12-24 17:27] LABS: Alanine Aminotransferase 16 IU/L (<50); Albumin 4.2 g/dL (3.5-5.0); Albumin Globulin Ratio 1.4 (1.0-2.8); Alkaline Phosphatase 79 U/L (38-126); Aspartate Aminotransferase 32 IU/L (17-59); BUN Creatinine Ratio 16.7 (6-22); Bilirubin Total 0.6 mg/dL (0.2-1.3); Blood Urea Nitrogen 12 mg/dL (9-20); Calcium 8.9 mg/dL (8.4-10.2); Carbon Dioxide 29 mmol/L (22-32); Chloride 102 mmol/L (98-107); Estimated Glomerular Filt Rate > 60 mL/min (>60); Glucose 76 mg/dL (80-110); HEMOLYSIS < 15 (0-50); Potassium 4.4 mmol/L (3.4-5.1); Sodium 134 mmol/L (137-145); Total Protein 7.2 g/dL (6.3-8.2)
[2021-12-24 17:57] LABS: Carcinoembryonic Antigen 2.6 ng/mL (0.1-3.0)
[2021-12-24 18:00] LABS: Prostate Specific Antigen < 0.064 ng/mL (0.10-4.00)
== END ==
PROVIDERS: PCP Internal Medicine; Referring Provider Internal Medicine; Visit Provider Internal Medicine
DX: C61 Malignant neoplasm of prostate (principal); I10 Essential (primary) hypertension; D45 Polycythemia vera
CPT/HCPCS: 36415; 80053; 82378; 84153; 85025

== ENCOUNTER 2022-07-31 11:30 | Outpatient (RCR) | payer MEDICARE, OTHER, SELFPAY ==
--- NOTE | 2022-07-01 13:10 | ST.OPIE ---
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 Quiroga Reason for Referral LOUD for Parkinson's Setting Setting Outpatient Care Patient History Patient History Bill is an 87-year-old male who received a diagnosis of Parkinson's Disease about 4 years ago. He received speech therapy for swallowing difficulties prior to receiving diagnosis of PD. Pt stated his is living at [facility] and he visits her twice a day. He added he is currently living alone in an apartment and has limited social contact at this time. 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 He indicated interest in astronomy, geometry, physics, and history. Previously, pt engaged in a variety of hobbies, including leatherworking, gardening, and building, but stated he does not currently have any hobbies . He is working on selling his house at this time and is busy between that and visiting his . Hearing Hearing Level Hearing Aids Auditory History Pt has significant hearing loss and wears bilateral hearing aids. He stated he hears pretty well with hearing aids, though has difficulty in noisy environments. 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 Oral Motor Assessment Source: [place] [employer] (RYAN). Oral-Motor Eval Completed Yes Oral-Motor Assessment Structures were symmetrical at rest and in motion. Limited ROM in sequencing of smile/ pucker movement, but otherwise tongue, lips, and jaw strength were WNL. Dentition present and WNL; pt stated he has a few implants. Structure and function of oral mechanism appears WNL for the purposes of speech and swallowing. Subjective Subjective Pt arrived on time and ambulated to therapy room independently. He agreed to participate in LOUD assessment , though indicated home practice may be challenging given current demands on time/ schedule. - Laryngeal Performance S/Z Ratio S/Z Ratio 0.49 Voice Handicap Index Function Subtotal 7 Physical Subtotal 8 Emotional Subtotal 1 Total Score 16 Severity Mild (0-30) Maximum Phonation Time MPT Norms: Women (15-25) Men (25-35) Loudness (50-60 dB); Speaking Rate: Oral Reading of Sentences (190 Words Per Minute); Oral Reading of Paragraphs (160-170 WPM); Speaking Rate in Conversation (150-250 WPM) Maximum Phonation Time Avg. 26.6 seconds at avg. 77. 5dB Maximum Phonation Time Adequate for Speech Maximum Phonation Time Comments MPT avg. 26.6 seconds (Range: 11-40.1 seconds), avg. volume 77.5dB (Range: 76-78dB). Pt read with avg. loudness of 76dB and conversational loudness was at 75dB. Pitch Ideal Pitch Ideal WNL Pitch Ideal Comments High pitch avg. 295.5Hz (Range : 288-300Hz) and low pitch avg . 105.75Hz (Range: 101-112Hz) with avg. loudness of 78.25dB (Range: 76-81dB) for high pitch and 74.25dB (Range: 70- 76dB) for low pitch. Voice Pitch Range Norms: Women (100-300 Hz) Men (70-250 Hz) Fundamental Frequency Norms: Women (Mean: 225 Hz; Range: 155-334 Hz) Men ( Mean: 128 Hz; Range: 85-196 Hz) Voice Pitch Normal Voice Loudness Mildly Soft/Quiet Voice Phonatory-based Quality Tremor Resonance Nasal Resonance Normal Oral Resonance Normal Findings Findings Mild Impairment Voice/Resonance Assessment Assessment Pt presents with mild vocal instability and mildly reduced loudness secondary to Parkinson's Disease. His primary concern is stuttering behavior that is confusing his and reduced volume that impacts others' ability to hear him. Recommend speech therapy to increase loudness and intelligibility when communicating wants and needs, especially in emergency situations. Prognosis Rehabilitation Potential Excellent - Recommendations Treatment Recommended Yes Treatment Frequency/Duration LOUD program is 4x per week for 4 weeks of intensive therapy Short Term Goals 1. Pt will demonstrate loudness WNL across a variety of communication settings, whether background noise is present or not. 2. Pt will demonstrate improved vocal quality to increase intelligibility and flow of conversation. Senior Living Goals Pt will demonstrate vocal quality and loudness WNL when compared to same age and circumstance peers upon completion of LOUD program. Patient/Caregiver Education Patient/Family Education Described results of evaluation,Patient Understanding,Patient Demonstration,Patient Needs More Info
--- NOTE | 2022-07-01 13:10 | ST.OPPOC ---
Physical, Occupational & Speech Therapy At [facility] Visit Care Team Role Provider Type Larry Roth MD Family Provider Physician Primary Care Provider Address: [address] [place] [address], [address], [place], [address] Dayday Quiroga MD Attending Provider Non-Staff Referring Provider Address: [address] [place] [address], [id number] Speech Pathology Plan of Care Plan of Care Dates 07/01/2022 - 08/26/[address] Quiroga Patient History Bill is an 87-year-old male who received a diagnosis of Parkinson's Disease about 4 years ago. He received speech therapy for swallowing difficulties prior to receiving diagnosis of PD. Pt stated his is living at [facility] and he visits her twice a day. He added he is currently living alone in an apartment and has limited social contact at this time. 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 He indicated interest in astronomy, geometry, physics, and history. Previously, pt engaged in a variety of hobbies, including leatherworking, gardening, and building, but stated he does not currently have any hobbies. He is working on selling his house at this time and is busy between that and visiting his . Voice/Resonance Findings Mild Impairment Voice/Resonance Assessment Pt presents with mild vocal instability and mildly reduced loudness secondary to Parkinson's Disease. His primary concern is stuttering behavior that is confusing his and reduced volume that impacts others' ability to hear him. Recommend speech therapy to increase loudness and intelligibility when communicating wants and needs, especially in emergency situations. Voice/Resonance Prognosis Excellent Voice/Resonance Yes Recommendations Voice/Resonance Treatment LOUD program is 4x per week for 4 weeks of Frequency intensive therapy Therapy Recommendations Complete voice evaluation. Train pt in exercises to improve vocal quality, increase vocal loudness and speech intelligibility. Solid Recommendations Regular Additional Precautions Moisten foods; avoid dry, crumbly textures. Recommended Referrals Neurology Short Term Goals 1. Pt will demonstrate loudness WNL across a variety of communication settings, whether background noise is present or not. 2. Pt will demonstrate improved vocal quality to increase intelligibility and flow of conversation. 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 Comment: Electronically Signed by: RABIA Jensen 07/01/22 3913 If you are in agreement with this Plan of Care, please return a signed and dated copy. I have reviewed this Plan of Care and certify that the skilled therapy services above are required to meet the patient?s needs. Physician Signature Date Printed Name and Credentials Clinical Instructor Signature Printed Name and Credentials
--- NOTE | 2022-07-07 13:55 | ST.OPTN ---
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 Treatment Note Start: 07/07/22 13:22 Freq: Status: Active Protocol: Document 07/07/22 13:24 ZS (Rec: 07/07/22 13:30 ZS [id number]) Speech Pathology Treatment Note Session Time Visit Start Time 11:30 Visit Stop Time 12:30 Total Visit Minutes 60 Visit Information Visit Number 1 Plan of Care Dates 07/01/2022 - 08/26/2022 Insurance Information Medicare Setting Treatment Setting Outpatient Care Visit Type Note Type Treatment Note Next Note Type Next Note Type Treatment Note General Information Patient History Remi is an 87-year-old male who received a diagnosis of Parkinson's Disease about 4 years ago. He received speech therapy for swallowing difficulties prior to receiving diagnosis of PD. Pt stated his is living at [facility] and he visits her twice a day. He added he is currently living alone in an apartment and has limited social contact at this time. 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 He indicated interest in astronomy, geometry, physics, and history. Previously, pt engaged in a variety of hobbies, including leather-working, gardening, and building, but stated he does not currently have any hobbies . He is working on selling his house at this time and is busy between that and visiting his . Subjective Identification Type Name Identification Reconciled With Medical Record Observations/Patient Presentation Bill arrived on time and ambulated to therapy room independently. He agreed to participate in all therapy activities. Chief Complaint(s) Voice Objective Short Term Goals 1. Pt will demonstrate loudness WNL across a variety of communication settings, whether background noise is present or not. 2. Pt will demonstrate improved vocal quality to increase intelligibility and flow of conversation. [facility] Goals Pt will demonstrate vocal quality and loudness WNL when compared to same age and circumstance peers upon completion of LOUD program. Treatment Activities Completed LOUD exercises: sustained ah, high and low pitch exercises, functional phrases, and reading words/ phrases. Pt had generated additional functional phrases and these were added to typed list. Discussed HEP and provided handouts for home practice. Assessment Patient Response to Treatment Excellent Rehab Potential Excellent Impairments Identified Voice Progress Towards Goals Good Progress Assessment of Overall Progress Improving Assessment of Improvement Sustained ah avg. loudness 82dB (Range: 76-85dB) sustained for an avg 20.91 seconds (Range: 18.8 - 24.1). Provided education regarding maintaining loudness and length of phonation time. Max. pitch avg. 257.6Hz (Range: 245 - 325Hz) with loudness avg . 81.3dB (Range: 80-82dB). Min . pitch avg. 115.7Hz (Range: 110 - 131Hz) with loudness avg . 79.1dB (Range: 78-81dB). Pt read functional phrases with avg. 80.6dB loudness (Range: 79-82dB) and read words/ phrases with avg. 80.8dB loudness (Range: 78-83dB). He benefitted from verbal feedback following trial and verbal model of loud voice. Additionally, pt benefitted from hearing playback of voice to hear volume difference. Reviewed with Patient Goals,Progress Being Made,Home Exercise Program Patient/Caregiver Understanding Excellent Plan Amount of Therapy Recommended 1-2 Months Frequency of Treatment Four Times a Week Length of Session 60 Minutes Therapeutic Contents Home Exercise Program,Voice Training Provided Patient/Caregiver Instruction Home Exercise Program,Plan of Care,Questions/Concerns Therapy Recommendations Continue with Current Program
--- NOTE | 2022-07-08 12:27 | ST.OPTN ---
Visit Care Team Role Provider Type Larry Roth MD Family Provider Physician Primary Care Provider Address: [address] [place] [address], [address], [place], [address] Dayday Quiroga MD Attending Provider Non-Staff Referring Provider Address: [facility] [place], [address] RN X RAY Treatment Note RN X RAY Treatment Note Start: 07/07/22 13:22 Freq: Status: Active Protocol: Document 07/08/22 12:22 ZS (Rec: 07/08/22 12:27 ZS [id number]) Speech Pathology Treatment Note Session Time Visit Start Time 11:30 Visit Stop Time 12:20 Total Visit Minutes 50 Visit Information Visit Number 2 Plan of Care Dates 07/01/2022 - 08/26/2022 Insurance Information Medicare Setting Treatment Setting Outpatient Care Visit Type Note Type Treatment Note Next Note Type Next Note Type Treatment Note General Information Patient History Remi is an 87-year-old male who received a diagnosis of Parkinson's Disease about 4 years ago. He received speech therapy for swallowing difficulties prior to receiving diagnosis of PD. Pt stated his is living at [facility] and he visits her twice a day. He added he is currently living alone in an apartment and has limited social contact at this time. 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 He indicated interest in astronomy, geometry, physics, and history. Previously, pt engaged in a variety of hobbies, including leather-working, gardening, and building, but stated he does not currently have any hobbies . He is working on selling his house at this time and is busy between that and visiting his . Subjective Identification Type Name Identification Reconciled With Medical Record Observations/Patient Presentation Remi arrived on time and ambulated to therapy room independently. He agreed to participate in all therapy activities. Remi reported completing HEP and returned with worksheet and times for each trial recorded. Chief Complaint(s) Voice Objective Short Term Goals 1. Pt will demonstrate loudness WNL across a variety of communication settings, whether background noise is present or not. 2. Pt will demonstrate improved vocal quality to increase intelligibility and flow of conversation. [facility] Goals Pt will demonstrate vocal quality and loudness WNL when compared to same age and circumstance peers upon completion of LOUD program. Treatment Activities Completed LOUD exercises: sustained ah, high and low pitch exercises, functional phrases, and reading words/ phrases. Pt had generated additional functional phrases and these were added to typed list. Discussed HEP and provided handouts for home practice. Assessment Patient Response to Treatment Excellent Rehab Potential Excellent Impairments Identified Voice Progress Towards Goals Good Progress Assessment of Overall Progress Improving Assessment of Improvement Sustained ah avg. loudness 83.4dB (Range: 76-85dB) sustained for an avg 25.9 seconds (Range: 22.1-32.6). Provided education regarding maintaining loudness and length of phonation time. Max. pitch avg. 325.7Hz (Range: 320-335Hz) with loudness avg. 83.5dB (Range: 82-85dB). Min. pitch avg. 116.3Hz (Range: 110 - 124Hz) with loudness avg. 83.6dB (Range: 82-85dB). Pt read functional phrases with avg. 81.8dB loudness (Range: 80-84dB) and read words/ phrases with avg. 82.6dB loudness (Range: 81-84dB). He benefitted from verbal feedback following trial and verbal model of loud voice. Additionally, pt benefitted from hearing playback of voice to hear volume difference. Increase in volume across all tasks in addition to increase in max pitch. Pt observed to decrease volume in conversational speech, with volume around 75dB. Pt reported high effort required to maintain loudness throughout exercises. Reviewed with Patient Goals,Progress Being Made,Home Exercise Program Patient/Caregiver Understanding Excellent Plan Amount of Therapy Recommended 1-2 Months Frequency of Treatment Four Times a Week Length of Session 60 Minutes Therapeutic Contents Home Exercise Program,Voice Training Provided Patient/Caregiver Instruction Home Exercise Program,Plan of Care,Questions/Concerns Therapy Recommendations Continue with Current Program
--- NOTE | 2022-07-09 12:32 | ST.OPTN ---
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 Treatment Note Start: 07/07/22 13:22 Freq: Status: Active Protocol: Document 07/09/22 12:24 ZS (Rec: 07/09/22 12:32 ZS [id number]) Speech Pathology Treatment Note Session Time Visit Start Time 11:30 Visit Stop Time 12:30 Total Visit Minutes 60 Visit Information Visit Number 3 Plan of Care Dates 07/01/2022 - 08/26/2022 Insurance Information Medicare Setting Treatment Setting Outpatient Care Visit Type Note Type Treatment Note Next Note Type Next Note Type Treatment Note General Information Patient History Remi is an 87-year-old male who received a diagnosis of Parkinson's Disease about 4 years ago. He received speech therapy for swallowing difficulties prior to receiving diagnosis of PD. Pt stated his is living at [facility] and he visits her twice a day. He added he is currently living alone in an apartment and has limited social contact at this time. 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 He indicated interest in astronomy, geometry, physics, and history. Previously, pt engaged in a variety of hobbies, including leather-working, gardening, and building, but stated he does not currently have any hobbies . He is working on selling his house at this time and is busy between that and visiting his . Subjective Identification Type Name Identification Reconciled With Medical Record Observations/Patient Presentation Remi arrived on time and ambulated to therapy room independently. He agreed to participate in all therapy activities. Remi reported completing HEP and returned with worksheet and times for each trial recorded. Chief Complaint(s) Voice Objective Short Term Goals 1. Pt will demonstrate loudness WNL across a variety of communication settings, whether background noise is present or not. 2. Pt will demonstrate improved vocal quality to increase intelligibility and flow of conversation. Shelter Goals Pt will demonstrate vocal quality and loudness WNL when compared to same age and circumstance peers upon completion of LOUD program. Treatment Activities Completed LOUD exercises: sustained ah, high and low pitch exercises, functional phrases, and reading words/ phrases. Pt had generated additional functional phrases and these were added to typed list. Discussed HEP and provided handouts for home practice. Assessment Patient Response to Treatment Excellent Rehab Potential Excellent Impairments Identified Voice Progress Towards Goals Good Progress Assessment of Overall Progress Improving Assessment of Improvement Sustained ah avg. loudness 85.2dB (Range: 83-87dB) sustained for an avg 21.3 seconds (Range: 18.4-23.7). Provided education regarding maintaining loudness and length of phonation time. Max. pitch avg. 324Hz (Range: 309- 337Hz) with loudness avg. 84. 8dB (Range: 83-86dB). Min. pitch avg. 110.9Hz (Range: 108 - 119Hz) with loudness avg. 83.5dB (Range: 82-85dB). Pt read functional phrases with avg. 83.6dB loudness (Range: 81-86dB) and read words/ phrases with avg. 83.3dB loudness (Range: 82-84dB). He benefitted from verbal feedback following trial and verbal model of loud voice. Additionally, pt benefitted from hearing playback of voice to hear volume difference. Increase in volume across all tasks in addition to increase in max pitch. Pt observed to decrease volume in conversational speech, with volume around 76dB. Pt reported high effort required to maintain loudness throughout exercises. Significant increase in volume today, which likely contributed to reduced MPT. Pt has demonstrated consistent increase in volume across last 3 sessions. Reviewed with Patient Goals,Progress Being Made,Home Exercise Program Patient/Caregiver Understanding Excellent Plan Amount of Therapy Recommended 1-2 Months Frequency of Treatment Four Times a Week Length of Session 60 Minutes Therapeutic Contents Home Exercise Program,Voice Training Provided Patient/Caregiver Instruction Home Exercise Program,Plan of Care,Questions/Concerns Therapy Recommendations Continue with Current Program
--- NOTE | 2022-07-10 12:46 | ST.OPTN ---
Visit Care Team Role Provider Type Larry Roth MD Family Provider Physician Primary Care Provider Address: [address] [place] [address], [address], [place], [address] Dayday Quiroga MD Attending Provider Non-Staff Referring Provider Address: [facility] [place], [address] ELECTROMECHANICAL ENGINEER Treatment Note ELECTROMECHANICAL ENGINEER Treatment Note Start: 07/07/22 13:22 Freq: Status: Active Protocol: Document 07/10/22 12:25 ZS (Rec: 07/10/22 12:46 ZS [id number]) Speech Pathology Treatment Note Session Time Visit Start Time 11:30 Visit Stop Time 12:20 Total Visit Minutes 50 Visit Information Visit Number 4 Plan of Care Dates 07/01/2022 - 08/26/2022 Insurance Information Medicare Setting Treatment Setting Outpatient Care Visit Type Note Type Treatment Note Next Note Type Next Note Type Treatment Note General Information Patient History Remi is an 87-year-old male who received a diagnosis of Parkinson's Disease about 4 years ago. He received speech therapy for swallowing difficulties prior to receiving diagnosis of PD. Pt stated his is living at [facility] and he visits her twice a day. He added he is currently living alone in an apartment and has limited social contact at this time. 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 He indicated interest in astronomy, geometry, physics, and history. Previously, pt engaged in a variety of hobbies, including leather-working, gardening, and building, but stated he does not currently have any hobbies . He is working on selling his house at this time and is busy between that and visiting his . Subjective Identification Type Name Identification Reconciled With Medical Record Observations/Patient Presentation eRmi arrived on time and ambulated to therapy room independently. He agreed to participate in all therapy activities. Remi reported completing HEP and returned with worksheet and times for each trial recorded. Chief Complaint(s) Voice Objective Short Term Goals 1. Pt will demonstrate loudness WNL across a variety of communication settings, whether background noise is present or not. 2. Pt will demonstrate improved vocal quality to increase intelligibility and flow of conversation. Fdc Goals Pt will demonstrate vocal quality and loudness WNL when compared to same age and circumstance peers upon completion of LOUD program. Treatment Activities Completed LOUD exercises: sustained ah, high and low pitch exercises, functional phrases, and reading words/ phrases. Discussed HEP and provided handouts for home practice. Assessment Patient Response to Treatment Excellent Rehab Potential Excellent Impairments Identified Voice Progress Towards Goals Good Progress Assessment of Overall Progress Improving Assessment of Improvement Sustained ah avg. loudness 85.5dB (Range: 85-87dB) sustained for an avg 24.4 seconds (Range: 21.7-30.3). Provided education regarding maintaining loudness and length of phonation time. Max. pitch avg. 336.4Hz (Range: 325-348Hz) with loudness avg. 85.3dB (Range: 83-87dB). Min. pitch avg. 114.1Hz (Range: 103 - 120Hz) with loudness avg. 83.9dB (Range: 82-85dB). Pt read functional phrases with avg. 85.2dB loudness (Range: 83-86dB) and read words/ phrases with avg. 84.8dB loudness (Range: 84-86dB). He benefitted from verbal feedback following trial and verbal model of loud voice. Increase in volume across all tasks in addition to increase in max pitch. Pt observed to decrease volume in conversational speech, with volume around 75dB. Pt reported high effort required to maintain loudness throughout exercises. Volume consistent with performance in previous session today, though increase noted in MPT. Pt has demonstrated consistent increase in volume across last 4 sessions. Reviewed with Patient Goals,Progress Being Made,Home Exercise Program Patient/Caregiver Understanding Excellent Plan Amount of Therapy Recommended 1-2 Months Frequency of Treatment Four Times a Week Length of Session 60 Minutes Therapeutic Contents Home Exercise Program,Voice Training Provided Patient/Caregiver Instruction Home Exercise Program,Plan of Care,Questions/Concerns Therapy Recommendations Continue with Current Program
--- NOTE | 2022-07-14 14:26 | ST.OPTN ---
Visit Care Team Role Provider Type Larry Roth MD Family Provider Physician Primary Care Provider Address: [address] [place] [address], [address], [place], [address] Dayday Quiroga MD Attending Provider Non-Staff Referring Provider Address: [facility] [place], [address] PROJECT MANAGEMENT INSTRUCTOR Treatment Note PROJECT MANAGEMENT INSTRUCTOR Treatment Note Start: 07/07/22 13:22 Freq: Status: Active Protocol: Document 07/14/22 14:21 ZS (Rec: 07/14/22 14:26 ZS [id number]) Speech Pathology Treatment Note Session Time Visit Start Time 13:30 Visit Stop Time 14:20 Total Visit Minutes 50 Visit Information Visit Number 5 Plan of Care Dates 07/01/2022 - 08/26/2022 Insurance Information Medicare Setting Treatment Setting Outpatient Care Visit Type Note Type Treatment Note Next Note Type Next Note Type Treatment Note General Information Patient History Remi is an 87-year-old male who received a diagnosis of Parkinson's Disease about 4 years ago. He received speech therapy for swallowing difficulties prior to receiving diagnosis of PD. Pt stated his is living at [facility] and he visits her twice a day. He added he is currently living alone in an apartment and has limited social contact at this time. 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 He indicated interest in astronomy, geometry, physics, and history. Previously, pt engaged in a variety of hobbies, including leather-working, gardening, and building, but stated he does not currently have any hobbies . He is working on selling his house at this time and is busy between that and visiting his . Subjective Identification Type Name Identification Reconciled With Medical Record Observations/Patient Presentation Remi arrived on time and ambulated to therapy room independently. He agreed to participate in all therapy activities. Remi reported he did not complete HEP over the weekend as he was exhausted. Chief Complaint(s) Voice Objective Short Term Goals 1. Pt will demonstrate loudness WNL across a variety of communication settings, whether background noise is present or not. 2. Pt will demonstrate improved vocal quality to increase intelligibility and flow of conversation. Psychology Tech Goals Pt will demonstrate vocal quality and loudness WNL when compared to same age and circumstance peers upon completion of LOUD program. Treatment Activities Completed LOUD exercises: sustained ah, high and low pitch exercises, functional phrases, and reading sentences . Discussed HEP and provided handouts for home practice. Assessment Patient Response to Treatment Excellent Rehab Potential Excellent Impairments Identified Voice Progress Towards Goals Good Progress Assessment of Overall Progress Improving Assessment of Improvement Sustained ah avg. loudness 84.9dB (Range: 82-87dB) sustained for an avg 17.84 seconds (Range: 13.2-23.7 seconds). Provided education regarding maintaining loudness and length of phonation time. Max. pitch avg. 340.9Hz ( Range: 332-348Hz) with loudness avg. 82.9dB (Range: 82-84dB). Min. pitch avg. 106. 2Hz (Range: 102-112Hz) with loudness avg. 82.4dB (Range: 81-84dB). Pt read functional phrases with avg. 82.2dB loudness (Range: 80-83dB) and read sentences with avg. 80. 2dB loudness (Range: 79-82dB). He benefitted from verbal feedback following trial and verbal model of loud voice. Decrease in volume across all tasks in addition to decrease in MPT, likely due to lapse in HEP over the weekend and increased fatigue reported by pt today. Pt observed to decrease volume in conversational speech, with volume around 75dB. Pt reported high effort required to maintain loudness throughout exercises. Reviewed with Patient Goals,Progress Being Made,Home Exercise Program Patient/Caregiver Understanding Excellent Plan Amount of Therapy Recommended 1-2 Months Frequency of Treatment Four Times a Week Length of Session 60 Minutes Therapeutic Contents Home Exercise Program,Voice Training Provided Patient/Caregiver Instruction Home Exercise Program,Plan of Care,Questions/Concerns Therapy Recommendations Continue with Current Program
--- NOTE | 2022-07-15 12:27 | ST.OPTN ---
Visit Care Team Role Provider Type Larry Roth MD Family Provider Physician Primary Care Provider Address: [address] [place] [address], [address], [place], [address] Dayday Quiroga MD Attending Provider Non-Staff Referring Provider Address: [facility] [place], [address] GENERAL PURCHASING AGENT Treatment Note GENERAL PURCHASING AGENT Treatment Note Start: 07/07/22 13:22 Freq: Status: Active Protocol: Document 07/15/22 12:21 ZS (Rec: 07/15/22 12:27 ZS [id number]) Speech Pathology Treatment Note Session Time Visit Start Time 11:30 Visit Stop Time 12:20 Total Visit Minutes 50 Visit Information Visit Number 6 Plan of Care Dates 07/01/2022 - 08/26/2022 Insurance Information Medicare Setting Treatment Setting Outpatient Care Visit Type Note Type Treatment Note Next Note Type Next Note Type Treatment Note General Information Patient History Remi is an 87-year-old male who received a diagnosis of Parkinson's Disease about 4 years ago. He received speech therapy for swallowing difficulties prior to receiving diagnosis of PD. Pt stated his is living at [facility] and he visits her twice a day. He added he is currently living alone in an apartment and has limited social contact at this time. 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 He indicated interest in astronomy, geometry, physics, and history. Previously, pt engaged in a variety of hobbies, including leather-working, gardening, and building, but stated he does not currently have any hobbies . He is working on selling his house at this time and is busy between that and visiting his . Subjective Identification Type Name Identification Reconciled With Medical Record Observations/Patient Presentation Remi arrived on time and ambulated to therapy room independently. He agreed to participate in all therapy activities. Remi reported he completed HEP and was less fatigued. Chief Complaint(s) Voice Objective Short Term Goals 1. Pt will demonstrate loudness WNL across a variety of communication settings, whether background noise is present or not. 2. Pt will demonstrate improved vocal quality to increase intelligibility and flow of conversation. Fpc Goals Pt will demonstrate vocal quality and loudness WNL when compared to same age and circumstance peers upon completion of LOUD program. Treatment Activities Completed LOUD exercises: sustained ah, high and low pitch exercises, functional phrases, and reading sentences . Discussed HEP and provided handouts for home practice. Assessment Patient Response to Treatment Excellent Rehab Potential Excellent Impairments Identified Voice Progress Towards Goals Good Progress Assessment of Overall Progress Improving Assessment of Improvement Sustained ah avg. loudness 84.1dB (Range: 82-86dB) sustained for an avg 22.73 seconds (Range: 18.3-27.8 seconds). Provided education regarding maintaining loudness and length of phonation time. Max. pitch avg. 331.3Hz ( Range: 320-342Hz) with loudness avg. 82.1dB (Range: 81-83dB). Min. pitch avg. 102. 3Hz (Range: 99-108Hz) with loudness avg. 80.2dB (Range: 78-83dB). Pt read functional phrases with avg. 82.8dB loudness (Range: 80-85dB) and read sentences with avg. 80. 6dB loudness (Range: 79-81dB). He benefitted from verbal feedback following trial and verbal model of loud voice. Patient maintained volume across all tasks and demonstrated increased duration of MPT. Provided education regarding breath support and sustained phonation and pt expressed understanding. Pt observed to decrease volume in conversational speech, with volume around 75dB. Pt reported reduced effort required to maintain loudness throughout exercises than in previous sessions. Reviewed with Patient Goals,Progress Being Made,Home Exercise Program Patient/Caregiver Understanding Excellent Plan Amount of Therapy Recommended 1-2 Months Frequency of Treatment Four Times a Week Length of Session 60 Minutes Therapeutic Contents Home Exercise Program,Voice Training Provided Patient/Caregiver Instruction Home Exercise Program,Plan of Care,Questions/Concerns Therapy Recommendations Continue with Current Program
--- NOTE | 2022-07-16 12:32 | ST.OPTN ---
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 SYSTEM INSTALLER Treatment Note SECURITY SYSTEM INSTALLER Treatment Note Start: 07/07/22 13:22 Freq: Status: Active Protocol: Document 07/16/22 12:26 ZS (Rec: 07/16/22 12:32 ZS [id number]) Speech Pathology Treatment Note Session Time Visit Start Time 11:30 Visit Stop Time 12:20 Total Visit Minutes 50 Visit Information Visit Number 7 Plan of Care Dates 07/01/2022 - 08/26/2022 Insurance Information Medicare Setting Treatment Setting Outpatient Care Visit Type Note Type Treatment Note Next Note Type Next Note Type Treatment Note General Information Patient History Remi is an 87-year-old male who received a diagnosis of Parkinson's Disease about 4 years ago. He received speech therapy for swallowing difficulties prior to receiving diagnosis of PD. Pt stated his is living at [facility] and he visits her twice a day. He added he is currently living alone in an apartment and has limited social contact at this time. 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 He indicated interest in astronomy, geometry, physics, and history. Previously, pt engaged in a variety of hobbies, including leather working, gardening, and building, but stated he does not currently have any hobbies . He is working on selling his house at this time and is busy between that and visiting his . Subjective Identification Type Name Identification Reconciled With Medical Record Observations/Patient Presentation Remi arrived on time and ambulated to therapy room independently. He agreed to participate in all therapy activities. Remi reported he completed HEP and was less fatigued. Remi added he used his loud voice with minimal effort in dinner conversation last night and has noticed he is using his loud voice more consistently in conversation with his . Chief Complaint(s) Voice Objective Short Term Goals 1. Pt will demonstrate loudness WNL across a variety of communication settings, whether background noise is present or not. 2. Pt will demonstrate improved vocal quality to increase intelligibility and flow of conversation. Jail Goals Pt will demonstrate vocal quality and loudness WNL when compared to same age and circumstance peers upon completion of LOUD program. Treatment Activities Completed LOUD exercises: sustained ah, high and low pitch exercises, functional phrases, and reading sentences . Discussed HEP and provided handouts for home practice. Assessment Patient Response to Treatment Excellent Rehab Potential Excellent Impairments Identified Voice Progress Towards Goals Good Progress Assessment of Overall Progress Improving Assessment of Improvement Sustained ah avg. loudness 83.5dB (Range: 82-85dB) sustained for an avg 20.49 seconds (Range: 17.2-23.8 seconds). Provided education regarding maintaining loudness and length of phonation time. Max. pitch avg. 333.1 Hz ( Range: 327-341Hz) with loudness avg. 82.5dB (Range: 82-83dB). Min. pitch avg. 104. 0Hz (Range: 101-107 Hz) with loudness avg. 81.7dB (Range: 79-83dB). Pt read functional phrases with avg. 84.4dB loudness (Range: 83-85dB) and read sentences with avg. 79. 7dB loudness (Range: 79-81dB). He benefitted from verbal feedback following trial and verbal model of loud voice. Patient maintained volume across all tasks and demonstrated increased volume in reading of functional phrases. Decreased volume noted in sentence reading, though new reading material was presented today, which may contribute to reduced volume. Provided education regarding breath support and sustained phonation and pt expressed understanding. Pt observed to decrease volume in conversational speech, with volume around 76dB, though this increased since previous session. Pt reported reduced effort required to maintain loudness throughout exercises than in previous sessions. Reviewed with Patient Goals,Progress Being Made,Home Exercise Program Patient/Caregiver Understanding Excellent Plan Amount of Therapy Recommended 1-2 Months Frequency of Treatment Four Times a Week Length of Session 60 Minutes Therapeutic Contents Home Exercise Program,Voice Training Provided Patient/Caregiver Instruction Home Exercise Program,Plan of Care,Questions/Concerns Therapy Recommendations Continue with Current Program
--- NOTE | 2022-07-18 14:29 | ST.OPTN ---
Visit Care Team Role Provider Type Larry Roth MD Family Provider Physician Primary Care Provider Address: [address] [place] [address], [address], [place], [address] Dayday Quiroga MD Attending Provider Non-Staff Referring Provider Address: [facility] [place], [address] MANAGER INSTRUMENTATION Treatment Note MANAGER INSTRUMENTATION Treatment Note Start: 07/07/22 13:22 Freq: Status: Active Protocol: Document 07/18/22 13:24 (Rec: 07/18/22 13:39 [id number]) Speech Pathology Treatment Note Session Time Visit Start Time 11:30 Visit Stop Time 12:20 Total Visit Minutes 50 Visit Information Visit Number 8 Plan of Care Dates 07/01/2022 - 08/26/2022 Insurance Information Medicare Setting Treatment Setting Outpatient Care Visit Type Note Type Treatment Note Next Note Type Next Note Type Treatment Note General Information Patient History Remi is an 87-year-old male who received a diagnosis of Parkinson's Disease about 4 years ago. He received speech therapy for swallowing difficulties prior to receiving diagnosis of PD. Pt stated his is living at [facility] and he visits her twice a day. He added he is currently living alone in an apartment and has limited social contact at this time. 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 He indicated interest in astronomy, geometry, physics, and history. Previously, pt engaged in a variety of hobbies, including leather working, gardening, and building, but stated he does not currently have any hobbies . He is working on selling his house at this time and is busy between that and visiting his . Subjective Identification Type Name Identification Reconciled With Medical Record Observations/Patient Presentation Remi arrived on time and ambulated to therapy room independently. He agreed to participate in all therapy activities. Remi reported he completed HEP. During the session, Remi reported feeling more tired than previous sessions and yawned frequently . Remi reported increased automaticity and ease of using his loud voice outside of the clinic. He reported that at a noisy dinner yesterday, he got along quite well and was not asked to repeat himself. Chief Complaint(s) Voice Objective Short Term Goals 1. Pt will demonstrate loudness WNL across a variety of communication settings, whether background noise is present or not. 2. Pt will demonstrate improved vocal quality to increase intelligibility and flow of conversation. Outside Machinist Goals Pt will demonstrate vocal quality and loudness WNL when compared to same age and circumstance peers upon completion of LOUD program. Treatment Activities Completed LOUD exercises: sustained ah, high and low pitch exercises, functional phrases, and reading sentences . Discussed HEP and provided handouts for home practice. Assessment Patient Response to Treatment Excellent Rehab Potential Excellent Impairments Identified Voice Progress Towards Goals Good Progress Assessment of Overall Progress Improving Assessment of Improvement Sustained ah avg. loudness 84.9dB (Range: 81-86dB) sustained for an avg 19.44 seconds (Range: 15.6-23 seconds). Provided education regarding maintaining loudness and length of phonation time. Max. pitch avg. 329.7 Hz ( Range: 318-344Hz) with loudness avg. 81.7dB (Range: 80-85dB). Min. pitch avg. 108. 6 Hz (Range: 93-118 Hz) with loudness avg. 82.3dB (Range: 78-84dB). Pt read functional phrases with avg. 83.6dB loudness (Range: 81-84dB) and read sentences with avg. 79. 2dB loudness (Range: 78-80dB). He benefitted from verbal feedback following trial to maintain/increase his volume. Compared to the previous session, patient demonstrated decreased volume across all tasks, possibly due to fatigue . New reading material were presented today, which may have also contributed to reduced volume during the sentence-reading task. Provided education regarding breath support and sustained phonation and pt expressed understanding. Pt was advised to begin sentence-reading tasks with a familiar functional phrase (e.g., [employer]) in his loud voice to facilitate volume carry- over during home practice. Reviewed with Patient Goals,Progress Being Made,Home Exercise Program Patient/Caregiver Understanding Excellent Plan Amount of Therapy Recommended 1-2 Months Frequency of Treatment Four Times a Week Length of Session 60 Minutes Therapeutic Contents Home Exercise Program,Voice Training Provided Patient/Caregiver Instruction Home Exercise Program,Plan of Care,Questions/Concerns Therapy Recommendations Continue with Current Program
--- NOTE | 2022-07-21 16:27 | ST.OPTN ---
Visit Care Team Role Provider Type Larry Roth MD Family Provider Physician Primary Care Provider Address: [address] [place] [address], [address], [place], [address] Dayday Quiroga MD Attending Provider Non-Staff Referring Provider Address: [facility] [place], [address] SAP DIRECTOR Treatment Note SAP DIRECTOR Treatment Note Start: 07/07/22 13:22 Freq: Status: Active Protocol: Document 07/21/22 16:21 ZS (Rec: 07/21/22 16:27 ZS [id number]) Speech Pathology Treatment Note Session Time Visit Start Time 13:30 Visit Stop Time 14:20 Total Visit Minutes 50 Visit Information Visit Number 9 Plan of Care Dates 07/01/2022 - 08/26/2022 Insurance Information Medicare Setting Treatment Setting Outpatient Care Visit Type Note Type Treatment Note Next Note Type Next Note Type Treatment Note General Information Patient History eRmi is an 87-year-old male who received a diagnosis of Parkinson's Disease about 4 years ago. He received speech therapy for swallowing difficulties prior to receiving diagnosis of PD. Pt stated his is living at [facility] and he visits her twice a day. He added he is currently living alone in an apartment and has limited social contact at this time. 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 He indicated interest in astronomy, geometry, physics, and history. Previously, pt engaged in a variety of hobbies, including leather working, gardening, and building, but stated he does not currently have any hobbies . He is working on selling his house at this time and is busy between that and visiting his . Subjective Identification Type Name Identification Reconciled With Medical Record Observations/Patient Presentation Remi arrived on time and ambulated to therapy room independently. He agreed to participate in all therapy activities. Remi reported he was inconsistent with completion of HEP over the weekend. Remi reported he had two dinners over the weekend in noisy restaurants and while hearing his conversational partners was challenging, he found it required less effort than expected to maintain a loud voice. He added his conversational partners had no trouble hearing him. Chief Complaint(s) Voice Objective Short Term Goals 1. Pt will demonstrate loudness WNL across a variety of communication settings, whether background noise is present or not. 2. Pt will demonstrate improved vocal quality to increase intelligibility and flow of conversation. Chemical Preparer Goals Pt will demonstrate vocal quality and loudness WNL when compared to same age and circumstance peers upon completion of LOUD program. Treatment Activities Completed LOUD exercises: sustained ah, high and low pitch exercises, functional phrases, and reading paragraphs. Discussed HEP and provided handouts for home practice. Assessment Patient Response to Treatment Excellent Rehab Potential Excellent Impairments Identified Voice Progress Towards Goals Good Progress Assessment of Overall Progress Improving Assessment of Improvement Sustained ah avg. loudness 84.7dB (Range: 84-86dB) sustained for an avg 22.51 seconds (Range: 19.2 - 27.4 seconds). Provided education regarding maintaining loudness and length of phonation time. Max. pitch avg. 323.5 Hz ( Range: 310-331Hz) with loudness avg. 82.2dB (Range: 80-84dB). Min. pitch avg. 112 Hz (Range: 99-120 Hz) with loudness avg. 83.1dB (Range: 79-85dB). Pt read functional phrases with avg. 84.2dB loudness (Range: 83-85dB) and read paragraphs with avg. 80. 1dB loudness (Range: 78-81dB). He benefitted from verbal feedback following trial to maintain/increase his volume. Compared to the previous session, patient demonstrated increased volume across all tasks. He benefitted from cues to relax shoulders, open mouth wide, and take a deep breath for increased duration of MPT. Reviewed with Patient Goals,Progress Being Made,Home Exercise Program Patient/Caregiver Understanding Excellent Plan Amount of Therapy Recommended 1-2 Months Frequency of Treatment Four Times a Week Length of Session 60 Minutes Therapeutic Contents Home Exercise Program,Voice Training Provided Patient/Caregiver Instruction Home Exercise Program,Plan of Care,Questions/Concerns Therapy Recommendations Continue with Current Program
--- NOTE | 2022-07-22 14:52 | ST.OPTN ---
Visit Care Team Role Provider Type Larry Roth MD Family Provider Physician Primary Care Provider Address: [address] [place] [address], [address], [place], [address] Dayday Quiroga MD Attending Provider Non-Staff Referring Provider Address: [facility] [place], [address] SENIOR QUALITATIVE RESEARCHER Treatment Note SENIOR QUALITATIVE RESEARCHER Treatment Note Start: 07/07/22 13:22 Freq: Status: Active Protocol: Document 07/22/22 14:45 ZS (Rec: 07/22/22 14:51 ZS [id number]) Speech Pathology Treatment Note Session Time Visit Start Time 11:30 Visit Stop Time 12:30 Total Visit Minutes 60 Visit Information Visit Number 10 Plan of Care Dates 07/01/2022 - 08/26/2022 Insurance Information Medicare Setting Treatment Setting Outpatient Care Visit Type Note Type Progress Note Next Note Type Next Note Type Treatment Note General Information Patient History Remi is an 87-year-old male who received a diagnosis of Parkinson's Disease about 4 years ago. He received speech therapy for swallowing difficulties prior to receiving diagnosis of PD. Pt stated his is living at [facility] and he visits her twice a day. He added he is currently living alone in an apartment and has limited social contact at this time. 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 He indicated interest in astronomy, geometry, physics, and history. Previously, pt engaged in a variety of hobbies, including leather working, gardening, and building, but stated he does not currently have any hobbies . He is working on selling his house at this time and is busy between that and visiting his . Subjective Identification Type Name Identification Reconciled With Medical Record Observations/Patient Presentation Bill arrived on time and ambulated to therapy room independently. He agreed to participate in all therapy activities. Chief Complaint(s) Voice Objective Short Term Goals 1. Pt will demonstrate loudness WNL across a variety of communication settings, whether background noise is present or not. 2. Pt will demonstrate improved vocal quality to increase intelligibility and flow of conversation. Mcc Goals Pt will demonstrate vocal quality and loudness WNL when compared to same age and circumstance peers upon completion of LOUD program. Treatment Activities Completed LOUD exercises: sustained ah, high and low pitch exercises, functional phrases, and reading paragraphs. Discussed HEP and provided handouts for home practice. Assessment Patient Response to Treatment Excellent Rehab Potential Excellent Impairments Identified Voice Progress Towards Goals Excellent Progress Assessment of Overall Progress Improving Assessment of Improvement Sustained ah avg. loudness 85.2dB (Range: 83-87dB) sustained for an avg 20.96 seconds (Range: 18.8-23.3 seconds). Provided education regarding maintaining loudness and length of phonation time. Max. pitch avg. 349.8 Hz ( Range: 342-357Hz) with loudness avg. 84.3dB (Range: 84-85dB). Min. pitch avg. 104. 5 Hz (Range: 100-116 Hz) with loudness avg. 84dB (Range: 82- 86dB). Pt read functional phrases with avg. 84.7dB loudness (Range: 83-86dB) and read paragraphs with avg. 78dB loudness (Range: 77-80dB). He benefitted from verbal feedback following trial to maintain/increase his volume. Compared to the previous session, patient demonstrated increased volume across all tasks, with exception of paragraph reading. He benefitted from cues to relax shoulders, open mouth wide, and take a deep breath for increased duration of MPT. Decrease noted in length of MPT and volume in paragraph reading, which is likely due to increased volume in MPT and increased length of material in paragraph reading. Increase noted in conversational loudness, with avg. loudness of 76dB observed. Pt has demonstrated consistent improvement in volume each week and has reported increased volume with decreased effort across other settings as well. Recommend continued speech therapy in LOUD program for continued improvement in pt's ability to communicate wants and needs, especially in emergency situations. Reviewed with Patient Goals,Progress Being Made,Home Exercise Program Patient/Caregiver Understanding Excellent Plan Amount of Therapy Recommended 1-2 Months Frequency of Treatment Four Times a Week Length of Session 60 Minutes Therapeutic Contents Home Exercise Program,Voice Training Provided Patient/Caregiver Instruction Home Exercise Program,Plan of Care,Questions/Concerns Therapy Recommendations Continue with Current Program
--- NOTE | 2022-07-22 14:52 | ST.OPPOC ---
Physical, Occupational & Speech Therapy At [facility] Visit Care Team Role Provider Type Larry Roth MD Family Provider Physician Primary Care Provider Address: [address] [place] [address], [address], [place], [address] Dayday Quiroga MD Attending Provider Non-Staff Referring Provider Address: [address] [place] [address], [id number] Speech Pathology Plan of Care Plan of Care Dates 07/01/2022 - 08/26/[address] Quiroga Patient History Bill is an 87-year-old male who received a diagnosis of Parkinson's Disease about 4 years ago. He received speech therapy for swallowing difficulties prior to receiving diagnosis of PD. Pt stated his is living at [facility] and he visits her twice a day. He added he is currently living alone in an apartment and has limited social contact at this time. 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 He indicated interest in astronomy, geometry, physics, and history. Previously, pt engaged in a variety of hobbies, including leather working, gardening, and building, but stated he does not currently have any hobbies. He is working on selling his house at this time and is busy between that and visiting his . Impairments Identified Voice Progress Towards Goals Excellent Progress Voice/Resonance Findings Mild Impairment Voice/Resonance Assessment Pt presents with mild vocal instability and mildly reduced loudness secondary to Parkinson's Disease. His primary concern is stuttering behavior that is confusing his and reduced volume that impacts others' ability to hear him. Recommend speech therapy to increase loudness and intelligibility when communicating wants and needs, especially in emergency situations. Voice/Resonance Prognosis Excellent Voice/Resonance Yes Recommendations Voice/Resonance Treatment LOUD program is 4x per week for 4 weeks of Frequency intensive therapy Therapy Recommendations Complete voice evaluation. Train pt in exercises to improve vocal quality, increase vocal loudness and speech intelligibility. Solid Recommendations Regular Additional Precautions Moisten foods; avoid dry, crumbly textures. Recommended Referrals Neurology Short Term Goals 1. Pt will demonstrate loudness WNL across a variety of communication settings, whether background noise is present or not. 2. Pt will demonstrate improved vocal quality to increase intelligibility and flow of conversation. Short Term Goals 1. Pt will demonstrate loudness WNL across a variety of communication settings, whether background noise is present or not. 2. Pt will demonstrate improved vocal quality to increase intelligibility and flow of conversation. Senior Care Goals Pt will demonstrate vocal quality and loudness WNL when compared to same age and circumstance peers upon completion of LOUD program. Comment: Electronically Signed by: RABIA Jensen 07/22/22 3651 If you are in agreement with this Plan of Care, please return a signed and dated copy. I have reviewed this Plan of Care and certify that the skilled therapy services above are required to meet the patient?s needs. Physician Signature Date Printed Name and Credentials Clinical Instructor Signature Printed Name and Credentials
--- NOTE | 2022-07-23 12:22 | ST.OPTN ---
Visit Care Team Role Provider Type Larry Roth MD Family Provider Physician Primary Care Provider Address: [address] [place] [address], [address], [place], [address] Dayday Quiroga MD Attending Provider Non-Staff Referring Provider Address: [facility] [place], [address] EXTERNAL RELATIONS MANAGER Treatment Note EXTERNAL RELATIONS MANAGER Treatment Note Start: 07/07/22 13:22 Freq: Status: Active Protocol: Document 07/23/22 12:13 ZS (Rec: 07/23/22 12:21 ZS [id number]) Speech Pathology Treatment Note Session Time Visit Start Time 11:30 Visit Stop Time 12:15 Total Visit Minutes 45 Visit Information Visit Number 11 Plan of Care Dates 07/01/2022 - 08/26/2022 Insurance Information Medicare Setting Treatment Setting Outpatient Care Visit Type Note Type Treatment Note Next Note Type Next Note Type Treatment Note General Information Patient History Remi is an 87-year-old male who received a diagnosis of Parkinson's Disease about 4 years ago. He received speech therapy for swallowing difficulties prior to receiving diagnosis of PD. Pt stated his is living at [facility] and he visits her twice a day. He added he is currently living alone in an apartment and has limited social contact at this time. 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 He indicated interest in astronomy, geometry, physics, and history. Previously, pt engaged in a variety of hobbies, including leather working, gardening, and building, but stated he does not currently have any hobbies . He is working on selling his house at this time and is busy between that and visiting his . Subjective Identification Type Name Identification Reconciled With Medical Record Observations/Patient Presentation Remi arrived on time and ambulated to therapy room independently. He agreed to participate in all therapy activities. Remi reported completing deep breathing exercises to increase lung capacity for increased MPT. Chief Complaint(s) Voice Objective Short Term Goals 1. Pt will demonstrate loudness WNL across a variety of communication settings, whether background noise is present or not. 2. Pt will demonstrate improved vocal quality to increase intelligibility and flow of conversation. Retirement Goals Pt will demonstrate vocal quality and loudness WNL when compared to same age and circumstance peers upon completion of LOUD program. Treatment Activities Completed LOUD exercises: sustained ah, high and low pitch exercises, functional phrases, and reading paragraphs. Discussed HEP and provided handouts for home practice. Assessment Patient Response to Treatment Excellent Rehab Potential Excellent Impairments Identified Voice Progress Towards Goals Excellent Progress Assessment of Overall Progress Improving Assessment of Improvement Sustained ah avg. loudness 84.2dB (Range: 83-85dB) sustained for an avg 27.21 seconds (Range: 22.2-33 seconds). Provided education regarding maintaining loudness and length of phonation time. Max. pitch avg. 321.8 Hz ( Range: 316-328Hz) with loudness avg. 82.6dB (Range: 81-84dB). Min. pitch avg. 100. 1 Hz (Range: 98-103 Hz) with loudness avg. 82.9dB (Range: 81-86dB). Pt read functional phrases with avg. 84.5dB loudness (Range: 83-85dB) and read paragraphs with avg. 78. 3dB loudness (Range: 77-80dB). He benefitted from verbal feedback following trial to maintain/increase his volume. Compared to the previous session, patient demonstrated decreased volume across all tasks and decreased high pitch . Improved range noted in low pitch and pt maintained vocal quality with lower pitch. Significant increase noted in MPT, which is likely related to pt's deep breathing exercises. He benefitted from cues to relax shoulders, open mouth wide, and take a deep breath for increased duration of MPT. Decreased volume noted during paragraph reading, though pt was noted to maintain high volume in conversational speech as well. Reviewed with Patient Goals,Progress Being Made,Home Exercise Program Patient/Caregiver Understanding Excellent Plan Amount of Therapy Recommended 1-2 Months Frequency of Treatment Four Times a Week Length of Session 60 Minutes Therapeutic Contents Home Exercise Program,Voice Training Provided Patient/Caregiver Instruction Home Exercise Program,Plan of Care,Questions/Concerns Therapy Recommendations Continue with Current Program
--- NOTE | 2022-07-24 12:42 | ST.OPTN ---
Visit Care Team Role Provider Type Larry Roth MD Family Provider Physician Primary Care Provider Address: [address] [place] [address], [address], [place], [address] Dayday Quiroga MD Attending Provider Non-Staff Referring Provider Address: [facility] [place], [address] SURVEILLANCE SENSOR OPERATOR Treatment Note SURVEILLANCE SENSOR OPERATOR Treatment Note Start: 07/07/22 13:22 Freq: Status: Active Protocol: Document 07/24/22 12:28 (Rec: 07/24/22 12:39 [id number]) Speech Pathology Treatment Note Session Time Visit Start Time 11:30 Visit Stop Time 12:20 Total Visit Minutes 45 Visit Information Visit Number 12 Plan of Care Dates 07/01/2022 - 08/26/2022 Insurance Information Medicare Setting Treatment Setting Outpatient Care Visit Type Note Type Treatment Note Next Note Type Next Note Type Treatment Note General Information Patient History Remi is an 87-year-old male who received a diagnosis of Parkinson's Disease about 4 years ago. He received speech therapy for swallowing difficulties prior to receiving diagnosis of PD. Pt stated his is living at [facility] and he visits her twice a day. He added he is currently living alone in an apartment and has limited social contact at this time. 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 He indicated interest in astronomy, geometry, physics, and history. Previously, pt engaged in a variety of hobbies, including leather working, gardening, and building, but stated he does not currently have any hobbies . He is working on selling his house at this time and is busy between that and visiting his . Subjective Identification Type Name Identification Reconciled With Medical Record Observations/Patient Presentation Bill arrived on time and ambulated to therapy room independently. He agreed to participate in all therapy activities. He reported feeling tired and that today wouldn't be as loud. Chief Complaint(s) Voice Objective Short Term Goals 1. Pt will demonstrate loudness WNL across a variety of communication settings, whether background noise is present or not. 2. Pt will demonstrate improved vocal quality to increase intelligibility and flow of conversation. Note Teller Goals Pt will demonstrate vocal quality and loudness WNL when compared to same age and circumstance peers upon completion of LOUD program. Treatment Activities Completed LOUD exercises: sustained ah, high and low pitch exercises, functional phrases, and reading paragraphs. Discussed HEP and provided handouts for home practice. Assessment Patient Response to Treatment Excellent Rehab Potential Excellent Impairments Identified Voice Progress Towards Goals Excellent Progress Assessment of Overall Progress Improving Assessment of Improvement Sustained ah avg. loudness 83.5dB (Range: 81-85dB) sustained for an avg 26.78 seconds (Range: 21.3-32.6 seconds). Provided education regarding maintaining loudness and length of phonation time. Max. pitch avg. 324.6 Hz ( Range: 314-331Hz) with loudness avg. 82dB (Range: 81- 84dB). Min. pitch avg. 102.8 Hz (Range: 98-110 Hz) with loudness avg. 81.3dB (Range: 78-85dB). Pt read functional phrases with avg. 84dB loudness (Range: 81-86dB) and read paragraphs with avg. 77. 2dB loudness (Range: 76-78dB). He benefitted from verbal feedback following trial to maintain/increase his volume. Compared to the previous session, patient demonstrated decreased performance for sustained ah, sustained low pitch, and paragraph reading. He demonstrated improvements in achieving, on average, a sustained higher pitch. Pt maintained vocal quality with both higher and lower pitch. Decreased volume noted during paragraph reading, potentially due to difficulty scanning during reading, though pt was noted to maintain high volume in conversational speech as well. Reviewed with Patient Goals,Progress Being Made,Home Exercise Program Patient/Caregiver Understanding Excellent Plan Amount of Therapy Recommended 1-2 Months Frequency of Treatment Four Times a Week Length of Session 60 Minutes Therapeutic Contents Home Exercise Program,Voice Training Provided Patient/Caregiver Instruction Home Exercise Program,Plan of Care,Questions/Concerns Therapy Recommendations Continue with Current Program
--- NOTE | 2022-07-28 12:29 | ST.OPTN ---
Visit Care Team Role Provider Type Larry Roth MD Family Provider Physician Primary Care Provider Address: [address] [place] [address], [address], [place], [address] Dayday Quiroga MD Attending Provider Non-Staff Referring Provider Address: [facility] [place], [address] ENGINEERING OPERATIONS LEADER Treatment Note ENGINEERING OPERATIONS LEADER Treatment Note Start: 07/07/22 13:22 Freq: Status: Active Protocol: Document 07/28/22 12:22 ZS (Rec: 07/28/22 12:29 ZS [id number]) Speech Pathology Treatment Note Session Time Visit Start Time 11:30 Visit Stop Time 12:20 Total Visit Minutes 50 Visit Information Visit Number 13 Plan of Care Dates 07/01/2022 - 08/26/2022 Insurance Information Medicare Setting Treatment Setting Outpatient Care Visit Type Note Type Treatment Note Next Note Type Next Note Type Treatment Note General Information Patient History Remi is an 87-year-old male who received a diagnosis of Parkinson's Disease about 4 years ago. He received speech therapy for swallowing difficulties prior to receiving diagnosis of PD. Pt stated his is living at [facility] and he visits her twice a day. He added he is currently living alone in an apartment and has limited social contact at this time. 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 He indicated interest in astronomy, geometry, physics, and history. Previously, pt engaged in a variety of hobbies, including leather-working, gardening, and building, but stated he does not currently have any hobbies . He is working on selling his house at this time and is busy between that and visiting his . Subjective Identification Type Name Identification Reconciled With Medical Record Observations/Patient Presentation Remi arrived on time and ambulated to therapy room independently. He agreed to participate in all therapy activities. He reported feeling tired and that he was not as consistent with HEP over the weekend as it was a bummer weekend because he was unable to visit his due to a COVID outbreak at her facility. Chief Complaint(s) Voice Objective Short Term Goals 1. Pt will demonstrate loudness WNL across a variety of communication settings, whether background noise is present or not. 2. Pt will demonstrate improved vocal quality to increase intelligibility and flow of conversation. Final Touch Up Painter Goals Pt will demonstrate vocal quality and loudness WNL when compared to same age and circumstance peers upon completion of LOUD program. Treatment Activities Completed LOUD exercises: sustained ah, high and low pitch exercises, functional phrases, and conversational speech. Discussed HEP and provided handouts for home practice and POC moving forward. Assessment Patient Response to Treatment Excellent Rehab Potential Excellent Impairments Identified Voice Progress Towards Goals Excellent Progress Assessment of Overall Progress Improving Assessment of Improvement Sustained ah avg. loudness 83.2dB (Range: 80-84dB) sustained for an avg 24.86 seconds (Range: 30.5-20.3 seconds). Provided education regarding maintaining loudness and length of phonation time. Max. pitch avg. 350.8 Hz ( Range: 341-362Hz) with loudness avg. 84dB (Range: 83- 85dB). Min. pitch avg. 107.3 Hz (Range: 103-113 Hz) with loudness avg. 81.4dB (Range: 79-84dB). Pt read functional phrases with avg. 84.3dB loudness (Range: 83-85dB) and maintained conversation with avg. 76.4dB loudness (Range: 75-80dB). He benefitted from verbal feedback following trial to maintain/increase his volume. Compared to the previous session, patient demonstrated decreased performance for volume across tasks. Increased high pitch noted today. Pt maintained appropriate conversational volume and reported low effort required for this. Discussed POC moving forward and will incorporate background noise into conversational task at next session. Pt expressed understanding and agreement with HEP. Reviewed with Patient Goals,Progress Being Made,Home Exercise Program Patient/Caregiver Understanding Excellent Plan Amount of Therapy Recommended 1-2 Months Frequency of Treatment Four Times a Week Length of Session 60 Minutes Therapeutic Contents Home Exercise Program,Voice Training Provided Patient/Caregiver Instruction Home Exercise Program,Plan of Care,Questions/Concerns Therapy Recommendations Continue with Current Program
--- NOTE | 2022-07-29 14:19 | ST.OPTN ---
Visit Care Team Role Provider Type Larry Roth MD Family Provider Physician Primary Care Provider Address: [address] [place] [address], [address], [place], [address] Dayday Quiroga MD Attending Provider Non-Staff Referring Provider Address: [facility] [place], [address] TRANSMISSION MECHANIC Treatment Note TRANSMISSION MECHANIC Treatment Note Start: 07/07/22 13:22 Freq: Status: Active Protocol: Document 07/29/22 14:13 ZS (Rec: 07/29/22 14:19 ZS [id number]) Speech Pathology Treatment Note Session Time Visit Start Time 11:30 Visit Stop Time 12:30 Total Visit Minutes 60 Visit Information Visit Number 14 Plan of Care Dates 07/01/2022 - 08/26/2022 Insurance Information Medicare Setting Treatment Setting Outpatient Care Visit Type Note Type Treatment Note Next Note Type Next Note Type Treatment Note General Information Patient History Remi is an 87-year-old male who received a diagnosis of Parkinson's Disease about 4 years ago. He received speech therapy for swallowing difficulties prior to receiving diagnosis of PD. Pt stated his is living at [facility] and he visits her twice a day. He added he is currently living alone in an apartment and has limited social contact at this time. 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 He indicated interest in astronomy, geometry, physics, and history. Previously, pt engaged in a variety of hobbies, including leather-working, gardening, and building, but stated he does not currently have any hobbies . He is working on selling his house at this time and is busy between that and visiting his . Subjective Identification Type Name Identification Reconciled With Medical Record Observations/Patient Presentation Bill arrived on time and ambulated to therapy room independently. He agreed to participate in all therapy activities. He reported not completing his HEP as he fell asleep when he got home. Chief Complaint(s) Voice Objective Short Term Goals 1. Pt will demonstrate loudness WNL across a variety of communication settings, whether background noise is present or not. 2. Pt will demonstrate improved vocal quality to increase intelligibility and flow of conversation. Detention Goals Pt will demonstrate vocal quality and loudness WNL when compared to same age and circumstance peers upon completion of LOUD program. Treatment Activities Completed LOUD exercises: sustained ah, high and low pitch exercises, functional phrases, and conversational speech. Discussed HEP and provided handouts for home practice and POC moving forward. Assessment Patient Response to Treatment Excellent Rehab Potential Excellent Impairments Identified Voice Progress Towards Goals Excellent Progress Assessment of Overall Progress Improving Assessment of Improvement Sustained ah avg. loudness 85.1dB (Range: 83-86dB) sustained for an avg 21.32 seconds (Range: 18.4-26.3 seconds). Provided education regarding maintaining loudness and length of phonation time. Max. pitch avg. 339.7 Hz ( Range: 317-354Hz) with loudness avg. 83.2dB (Range: 82-84dB). Min. pitch avg. 107. 5 Hz (Range: 104-113 Hz) with loudness avg. 82.5dB (Range: 81-84dB). Pt read functional phrases with avg. 85dB loudness (Range: 84-86dB) and maintained conversation with avg. 75.8dB loudness (Range: 75-78dB). Conversational loudness remained appropriate and 100% intelligible, as measured informally by this TRANSMISSION MECHANIC, when background noise was present. He benefitted from verbal feedback following trial to maintain/increase his volume. Compared to the previous session, patient demonstrated consistent performance across tasks with decrease in time for MPT and increase in volume. Discussed POC moving forward and will incorporate background noise into conversational task at next session. Pt expressed understanding and agreement with HEP. Reviewed with Patient Goals,Progress Being Made,Home Exercise Program Patient/Caregiver Understanding Excellent Plan Amount of Therapy Recommended 1-2 Months Frequency of Treatment Four Times a Week Length of Session 60 Minutes Therapeutic Contents Home Exercise Program,Voice Training Provided Patient/Caregiver Instruction Home Exercise Program,Plan of Care,Questions/Concerns Therapy Recommendations Continue with Current Program
--- NOTE | 2022-07-30 13:26 | ST.OPTN ---
Visit Care Team Role Provider Type Larry Roth MD Family Provider Physician Primary Care Provider Address: [address] [place] [address], [address], [place], [address] Dayday Quiroga MD Attending Provider Non-Staff Referring Provider Address: [facility] [place], [address] MOLD SETTER Treatment Note MOLD SETTER Treatment Note Start: 07/07/22 13:22 Freq: Status: Active Protocol: Document 07/30/22 13:21 ZS (Rec: 07/30/22 13:26 ZS [id number]) Speech Pathology Treatment Note Session Time Visit Start Time 11:30 Visit Stop Time 12:30 Total Visit Minutes 60 Visit Information Visit Number 15 Plan of Care Dates 07/01/2022 - 08/26/2022 Insurance Information Medicare Setting Treatment Setting Outpatient Care Visit Type Note Type Treatment Note Next Note Type Next Note Type Discharge Summary General Information Patient History Remi is an 87-year-old male who received a diagnosis of Parkinson's Disease about 4 years ago. He received speech therapy for swallowing difficulties prior to receiving diagnosis of PD. Pt stated his is living at [facility] and he visits her twice a day. He added he is currently living alone in an apartment and has limited social contact at this time. 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 He indicated interest in astronomy, geometry, physics, and history. Previously, pt engaged in a variety of hobbies, including leather-working, gardening, and building, but stated he does not currently have any hobbies . He is working on selling his house at this time and is busy between that and visiting his . Subjective Identification Type Name Identification Reconciled With Medical Record Observations/Patient Presentation Remi arrived on time and ambulated to therapy room independently. He agreed to participate in all therapy activities. He reported completing ah exercises before getting together with friends, but did not complete other HEP. Chief Complaint(s) Voice Objective Short Term Goals 1. Pt will demonstrate loudness WNL across a variety of communication settings, whether background noise is present or not. 2. Pt will demonstrate improved vocal quality to increase intelligibility and flow of conversation. Longterm Goals Pt will demonstrate vocal quality and loudness WNL when compared to same age and circumstance peers upon completion of LOUD program. Treatment Activities Completed LOUD exercises: sustained ah, high and low pitch exercises, functional phrases, and conversational speech. Discussed HEP and provided handouts for home practice and POC moving forward. Assessment Patient Response to Treatment Excellent Rehab Potential Excellent Impairments Identified Voice Progress Towards Goals Excellent Progress Assessment of Overall Progress Improving Assessment of Improvement Sustained ah avg. loudness 84dB (Range: 82-85dB) sustained for an avg 26.19 seconds (Range: 21.7-29.4 seconds). Provided education regarding maintaining loudness and length of phonation time. Max. pitch avg. 336.5 Hz ( Range: 328-344Hz) with loudness avg. 83.7dB (Range: 83-85dB). Min. pitch avg. 94.8 Hz (Range: 91-104 Hz) with loudness avg. 79.3dB (Range: 77-83dB). Pt read functional phrases with avg. 83.8dB loudness (Range: 82-86dB) and maintained conversation with avg. 75.6dB loudness (Range: 75-76dB). Conversational loudness remained appropriate and 100% intelligible, as measured informally by this MOLD SETTER, when background noise was present. He benefitted from verbal feedback following trial to maintain/increase his volume. Compared to the previous session, patient demonstrated consistent performance across tasks with increase in time for MPT and increase in volume. He reported no effort required to maintain loudness of 75-83dB and effort required for volume of 83-86dB. Discussed POC moving forward and will incorporate background noise into conversational task at next session. Pt expressed understanding and agreement with HEP. Reviewed with Patient Goals,Progress Being Made,Home Exercise Program Patient/Caregiver Understanding Excellent Plan Amount of Therapy Recommended 1-2 Months Frequency of Treatment Four Times a Week Length of Session 60 Minutes Therapeutic Contents Home Exercise Program,Voice Training Provided Patient/Caregiver Instruction Home Exercise Program,Plan of Care,Questions/Concerns Therapy Recommendations Continue with Current Program
--- NOTE | 2022-07-31 12:30 | ST.OPDS ---
Visit Care Team Role Provider Type Larry Roth MD Family Provider Physician Primary Care Provider Address: [address] [place] [address], [address], [place], [address] Dayday Quiroga MD Attending Provider Non-Staff Referring Provider Address: [facility] [place], [address] WIRE FRAME LAMP SHADE MAKER Treatment Note WIRE FRAME LAMP SHADE MAKER Treatment Note Start: 07/07/22 13:22 Freq: Status: Active Protocol: Document 07/31/22 12:18 (Rec: 07/31/22 12:33 [id number]) Speech Pathology Treatment Note Session Time Visit Start Time 11:30 Visit Stop Time 12:30 Total Visit Minutes 60 Visit Information Visit Number 15 Plan of Care Dates 07/01/2022 - 08/26/2022 Insurance Information Medicare Setting Treatment Setting Outpatient Care Visit Type Note Type Discharge Summary General Information Patient History Remi is an 87-year-old male who received a diagnosis of Parkinson's Disease about 4 years ago. He received speech therapy for swallowing difficulties prior to receiving diagnosis of PD. Pt stated his is living at [facility] and he visits her twice a day. He added he is currently living alone in an apartment and has limited social contact at this time. 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 He indicated interest in astronomy, geometry, physics, and history. Previously, pt engaged in a variety of hobbies, including leatherworking, gardening, and building, but stated he does not currently have any hobbies . He is working on selling his house at this time and is busy between that and visiting his . Subjective Identification Type Name Identification Reconciled With Medical Record Observations/Patient Presentation Remi arrived on time and ambulated to therapy room independently. He agreed to participate in all therapy activities. He reported completing HEP. Chief Complaint(s) Voice Objective Short Term Goals 1. Pt will demonstrate loudness WNL across a variety of communication settings, whether background noise is present or not. 2. Pt will demonstrate improved vocal quality to increase intelligibility and flow of conversation. Litharge Supervisor Goals Pt will demonstrate vocal quality and loudness WNL when compared to same age and circumstance peers upon completion of LOUD program. Treatment Activities Completed LOUD exercises: sustained ah, high and low pitch exercises, functional phrases, and conversational speech. Discussed HEP to sustain progress made during treatment. Commenced 4 week LOUD program and discharged. Assessment Patient Response to Treatment Excellent Rehab Potential Excellent Impairments Identified Voice Progress Towards Goals Excellent Progress Assessment of Overall Progress Rehabilitated Assessment of Improvement Sustained ah avg. loudness 84.25dB (Range: 83-86dB) sustained for an avg 23.65 seconds (Range: 20.6-29.9 seconds). He demonstrated improvements in avg. volume by a 7dB increase compared to initial eval. Max. pitch avg. 336 Hz (Range: 332-338Hz) with loudness avg. 82.5dB (Range: 82-83dB). Pt demonstrated improvements in high pitch avg . by 41Hz as compared to initial eval. Min. pitch avg. 103.5 Hz (Range: 100-106Hz) with loudness avg. 79dB (Range : 78-81dB). Pt demonstated improvements in low pitch avg. by 2Hz as compared to inital eval. Pt maintained conversation with avg. 73dB loudness (Range: 72-74dB). Pt max loudness ave. during reading 76.75dB (76-77dB). Conversational loudness remained appropriate and 100% intelligible, as measured informally by this WIRE FRAME LAMP SHADE MAKER, when background noise was present. Max ave. /s/ phonation time was 10.42 seconds (8.55-10.38s ). Max ave. /z/ phonation time was 27.2 seconds (24.73-28. 74s). Pt's s/z ratio was 0.38. His s/z ratio at time of evaluation was a 0.49, demonstrating progress from initial eval. Pt demonstrated and reported loudness WNL across a variety of communication settings, whether background noise was present or not. Pt demonstrated improved vocal quality which increased intelligibility and flow of conversation. Pt demonstrated vocal quality loudness WNL when compared to same age and circumstance peers at completed of LOUD program. Compared to the initial evaluation, the pt demonstrated improvement in increasing volume across all tasks and met all short term and senior living goals. Reviewed with Patient Goals,Progress Being Made,Home Exercise Program Patient/Caregiver Understanding Excellent Plan Amount of Therapy Recommended No Further Therapy Frequency of Treatment No Further Therapy Length of Session Other Therapeutic Contents Home Exercise Program,Voice Training Provided Patient/Caregiver Instruction Home Exercise Program,Plan of Care,Questions/Concerns Therapy Recommendations Discharge to Home Exercise Program,Discharge from Speech Therapy Reason for Discharge Met all goals.
== END 2022-08-08 08:53 ==
LOC: SP 11:30
PROVIDERS: Family Provider Internal Medicine; PCP Internal Medicine; Referring Provider Psychiatry & Neurology Neurology; Visit Provider Psychiatry & Neurology Neurology
DX: G20 Parkinson's disease (principal)
CPT/HCPCS: 92507; 92524

== ENCOUNTER → 2022-08-07 10:12 | Outpatient (CLI) | payer MEDICARE, OTHER, SELFPAY ==
--- NOTE | 2022-08-07 10:14 | DI.RAD.S_ITS ---
PROCEDURE: XR HAND RT MIN 3V INDICATIONS: Right hand pain TECHNIQUE: 3 views of the hand(s) acquired. COMPARISON: None. FINDINGS: Bones: No fractures or dislocations. Carpal bones are normally aligned. No suspicious bony lesions. Soft tissues: No suspicious soft tissue calcifications. IMPRESSION: No acute fracture. No osseous lesion. If symptoms and/or clinical suspicion for pathology persist, further assessment with repeat, or advanced imaging (e.g., CT, MRI, or bone scan) may be helpful for further assessment. Dictated by: Marti Gagnon M.D. on 08/07/2022 at 10:58 Transcribed by: ARVIN on 08/07/2022 at 10:58 Approved by: Marti Gagnon M.D. on 08/07/2022 at 16:28
== END ==
PROVIDERS: Family Provider Internal Medicine; PCP Internal Medicine; Referring Provider Nurse Practitioner Family; Visit Provider Nurse Practitioner Family
DX: S69.91XA Unspecified injury of right wrist, hand and finger(s), initial encounter (principal); X58.XXXA Exposure to other specified factors, initial encounter
CPT/HCPCS: 73130

== ENCOUNTER → 2022-09-06 10:59 | Outpatient (CLI) | payer MEDICARE, OTHER, SELFPAY ==
--- NOTE | 2022-09-06 11:04 | DI.RAD.S_ITS ---
PROCEDURE: XR SHOULDER LT MIN 2V INDICATIONS: Fall on left shoulder TECHNIQUE: 3 views of the shoulder were acquired. COMPARISON: [facility], , SHOULDER MINIMUM 2 VIEW LEFT, 08/20/2017, 7:55. FINDINGS: Bones: Nondisplaced fracture of the left distal clavicle. Degenerative changes of the left glenohumeral joint. Soft tissues: No suspicious soft tissue calcifications. IMPRESSION: Nondisplaced fracture of the left distal clavicle. Dictated by: Syd Miranda M.D. on 09/06/2022 at 10:45 Approved by: Syd Miranda M.D. on 09/06/2022 at 10:47
== END ==
PROVIDERS: Family Provider Internal Medicine; PCP Internal Medicine; Referring Provider Physician Assistant; Visit Provider Physician Assistant
DX: S42.035A Nondisplaced fracture of lateral end of left clavicle, initial encounter for closed fracture (principal); M25.512 Pain in left shoulder; W19.XXXA Unspecified fall, initial encounter
CPT/HCPCS: 73030

== ENCOUNTER 2023-04-10 07:44 | Observation (INO) | payer MEDICARE, OTHER, SELFPAY ==
[2023-04-10] VITALS (12 sets, daily range): BP systolic 113–184; BP diastolic 76–100; PULSE 68–99; RESP 14–21; TEMP 36.4–36.6; O2SAT 93–100; BMI 25.1
--- NOTE | 2023-04-10 07:48 | DI.CT.S_ITS ---
PROCEDURE: CT ANGIO HEAD AND NECK INDICATIONS: Left leg weak, dizzy TECHNIQUE: After the administration of intravenous contrast, 1 mm thick sections acquired from the aortic arch through the [place] of [place]. 3-dimensional zhrbofa-njhojanmy-moghcxcjkm (MIP) and/or volume rendering reformats were acquired of the central intracranial vasculature and neck separately. For radiation dose reduction, the following was used: automated exposure control, adjustment of mA and/or kV according to patient size. COMPARISON: None. FINDINGS: Image quality: Diagnostic. BRAIN: See separately dictated CT of the head HEAD CT ANGIOGRAPHY: Anterior circulation: Intracranial internal carotid arteries are normal in size and flow. Mild atherosclerotic vascular calcifications. The flow within the paired anterior cerebral arteries is normal and symmetric. The flow within the middle cerebral arteries is normal and symmetric. The anterior communicating artery is seen. No aneurysms are seen. Posterior circulation: Visualized portions of the vertebral arteries demonstrate normal caliber, and join to form a normal appearing basilar artery. Flow within the posterior cerebral arteries is normal and symmetric. No aneurysms are seen. NECK CT ANGIOGRAPHY: Carotid system: The great vessels demonstrate a conventional anatomy as they arise from the aortic arch. The origins of the common carotid arteries appear patent. The common carotid arteries demonstrate normal caliber and courses. The bifurcation regions are both widely patent. 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 The left internal carotid demonstrate normal calibers and courses. Posterior circulation: The origins of the vertebral arteries both appear widely patent. The more superior extracranial portions of both vertebral arteries also demonstrate normal courses and calibers. They join to form a normal appearing basilar artery. Soft tissues: Visualized neck soft tissues demonstrate no suspicious abnormalities. The thyroid is heterogeneous with a 1.2 cm nodule in the right lobe of the thyroid. Bones: No suspicious bony lesions. Visualized cervical spine appears normally aligned. Degenerative changes of the spine. IMPRESSION: 1. No intracranial large vessel occlusion or hemodynamically significant stenosis. 2. 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 3. Heterogeneous thyroid with 1.2 cm nodule in the right thyroid lobe. Nonurgent thyroid ultrasound could be obtained for further evaluation. Any quantitative measurements of stenosis were performed using NASCET criteria. Dictated by: Tommy Ramsay M.D. on 04/10/2023 at 8:18 Approved by: Tommy Ramsay M.D. on 04/10/2023 at 8:26
--- NOTE | 2023-04-10 07:48 | DI.CT.S_ITS ---
PROCEDURE: CT HEAD/BRAIN WO CON INDICATIONS: Left leg weak, dizzy, NOT TPA CANDIDATE TECHNIQUE: Noncontrast 4.5 mm thick angled axial sections acquired from the foramen magnum to the vertex, with coronal and sagittal reformats. For radiation dose reduction, the following was used: automated exposure control, adjustment of mA and/or kV according to patient size. COMPARISON: None. FINDINGS: Image quality: Excellent. CSF spaces: Basal cisterns are patent. No extra-axial fluid collections. The ventricles are symmetric in size and shape. Brain: No intracranial bleeds or masses. There is cerebral volume loss for age, with resultant ventricular and sulcal prominence. There are periventricular and deep white matter chronic small vessel ischemic changes. There is intracranial internal carotid artery atherosclerosis. Skull and face: Calvarium and visualized facial bones appear intact, without suspicious lesions. Bilateral lens replacements. Otherwise, the orbits are unremarkable. Sinuses: Visualized sinuses and mastoids are clear. IMPRESSION: 1. No acute intracranial abnormalities. 2. Age-related global volume loss and chronic microvascular ischemic changes. Dictated by: Tommy Ramsay M.D. on 04/10/2023 at 8:15 Approved by: Tommy Ramsay M.D. on 04/10/2023 at 8:17
--- NOTE | 2023-04-10 07:50 | ED_ITS ---
HPI - General Adult General Chief complaint: Weakness Stated complaint: Left leg weakness upon waking. Time Seen by Provider: 04/10/23 07:48 History of Present Illness HPI narrative: 87-year-old male nonsmoker with history of GERD, Parkinson's, CLL, colon cancer, prostate cancer presents by EMS from a local assisted living facility and a chief complaint of left leg weakness. He states that he had gone to sleep and what he describes as his normal state of health and upon waking this morning noticed that his left leg was dragging, this was just prior to his arrival here by EMS. He went to bed last evening at 9 or 10, last known normal 9 or 10 last night. He is not activated as a code stroke as he is not a tPA candidate and does not have elevated bearden's score suggesting the need for mechanical intervention. He does state that he had a ground level fall a few days ago and was seen at the walk-in clinic. He was noted to have an abrasion on his hand which was treated, no imaging was thought necessary. He denies any weakness at that time. He denies any back pain, fever or chills nor does he use blood thinners. He is had no loss of control of bowel or bladder Related Data Home Medications Medication Instructions Recorded Confirmed aspirin 81 mg tablet,delayed 81 mg DAILY 01/06/19 04/10/23 release (Aspir-) carbidopa 25 mg-levodopa 100 mg 1 tab PO TID 08/24/20 04/10/23 tablet carbidopa ER 50 mg-levodopa 200 mg 1 tab PO DAILY 08/24/20 04/10/23 tablet,extended release polyethylene glycol 3350 17 17 g PO DAILY 08/29/20 04/10/23 gram/dose oral powder (Miralax) brimonidine 0.025 % eye drops 1 drp ophthalmic (eye) DAILY 04/10/23 04/10/23 Previous Rx's Medication Instructions Recorded omeprazole 20 mg capsule,delayed 20 mg PO QDAY #90 caps 09/15/22 release ezetimibe 10 mg tablet (Zetia) 10 mg PO QDAY #90 tabs 12/04/22 cephalexin 250 mg capsule 250 mg PO TID #21 caps 04/06/23 Allergies Allergy/AdvReac Type Severity Reaction Status Date / Time enoxaparin [From LOVENOX] Allergy Unknown Major Verified 04/10/23 07:58 Bleed after bowel resection Sulfa (Sulfonamide Allergy Unknown Nose Verified 04/10/23 07:58 Antibiotics) turned [SULFA (SULFONAMIDE bright red ANTIBIOTICS)] Review of Systems Review of Systems Narrative: GENERAL: See HPI HEENT: Denies sinus pain, ear pain, sore throat, difficulty swallowing, dizziness. RESPIRATORY: Denies dyspnea, cough, wheezing, hemoptysis, sputum. CARDIOVASCULAR: Denies chest pain, palpitations, orthopnea, edema, GASTROINTESTINAL: Denies nausea, vomiting, abdominal pain, diarrhea, constipation, melena. : Denies dysuria, frequency, incontinence, hematuria, urinary retention. MUSCULOSKELETAL: denies weakness, joint pain, or bony pain SKIN: Denies rash, skin lesions, or other NEUROLOGIC: See HPI PSYCHIATRIC: No concerning psychosocial issues. 12 point review of systems is negative except for those stated above Patient History Medical History Head contusion Abrasion hand Laceration of right hand History of Anabel-Murguia virus infection Depression Right inguinal hernia Polycythemia vera Erythrocytosis Osteoarthritis Meningitis GERD (gastroesophageal reflux disease) Hyperlipemia History of nephrolithiasis (~1996) Obstructive sleep apnea (~01/2016) Rotator cuff tear, right (~2008) PTSD (post-traumatic stress disorder) (1967) Malaria (~1940) Cataracts, bilateral (~2009) Hearing loss (Unknown) Urinary incontinence (2008) Colon polyps (2011) Diverticular disease (2014) Hemorrhoids (2014) Skin cancer Lymphoma (2004) Colorectal cancer (~01/2012) Hyperlipemia CLL (chronic lymphocytic leukemia) (2004) Prostate cancer (~2003) Surgical History S/P inguinal hernia repair (08/29/20) Hx of biopsy (~2004) Hx of rotator cuff surgery (02/2009) Hx of cataract surgery (2009) Hx of colectomy (~01/2012) History of tonsillectomy Status post radical cystoprostatectomy (2003) Family History Father Cancer Mother Stroke Hypertension Daughter Breast cancer Social History marital status: household members: none occupational status: previously employed Smoking Status: Never smoker alcohol intake: current substance use type: does not use Smoking Status: Never smoker alcohol intake frequency: 0-2 drinks per day Substance Use Type: does not use Exam Narrative Exam Narrative: GENERAL: [87] year old patient appears stated age. Well-developed patient, in mild distress. GCS 15 HEAD: Atraumatic. Normocephalic. No obvious contusion, abrasion or laceration, no evidence of depressed skull fracture EYES: Pupils equal round and reactive. No hyphema Extraocular motions intact. No scleral icterus. No injection or drainage. ENT: Nose without bleeding, purulent drainage. Throat without erythema, tonsillar hypertrophy or exudate. Airway patent. NECK: Trachea midline. Non tender CARDIOVASCULAR: Regular rate and rhythm without murmurs, gallops, or rubs. RESPIRATORY: Clear to auscultation. Breath sounds equal bilaterally. No wheezes, rales, or rhonchi. GASTROINTESTINAL: Abdomen soft, non-tender, nondistended. EXTREMITIES: No edema or joint tenderness. Superficial abrasions to left hand, wrapped with dressing from prior visit BACK: Nontender without deformity or crepitance. No flank tenderness. NEURO: AOx3. SKIN: No rash or erythema of visible areas Initial Vital Signs Initial Vital Signs: Vital Signs Pulse Rate 86 04/10/23 07:49 Pulse Oximetry 96 04/10/23 07:49 Scores NIH Stroke Scale Level of Conciousness: Alert, keenly responsive Ask month/age: Answers both questions correctly. Open/close eyes, close hand: Performs both tasks correctly Best gaze horizontal: Normal Visual douglas: No visual loss Facial palsy: Normal symetrical movement Left arm drift: Drifts down, not to bed Right arm drift: No drift for full 10 sec Left leg drift: Drifts down, not to bed Right leg drift: No drift for full 5 sec Limb ataxia: Absent Sensory on face/arms/legs: Mild to moderate sensory loss, can tell touch Best language: No aphasia, normal Dysarthria: Normal Extinction or inattention: No abnormality Total NIH Stroke scale score: 3 Course Orders Ordered: Aspirin (Aspirin Ec 81 Mg Tablet) 81 mg PO DAILY INGRID Atorvastatin Calcium (Atorvastatin 20 Mg Tablet) 20 mg PO BEDTIME INGRID Last Admin: 04/10/23 21:07 Dose: 20 mg Documented By: Carbidopa/Levodopa (Carbidopa-Levodopa Er 50/200 Tablet) 1 each PO BEDTIME [facility] Last Admin: 04/10/23 21:08 Dose: 1 each Documented By: Carbidopa/Levodopa (Carbidopa-Levodopa 25/100 Tablet) 1 each PO 0600,1100,1600 INGRID Last Admin: 04/11/23 05:49 Dose: 1 each Documented By: Ezetimibe (Ezetimibe 10 Mg Tablet) 10 mg PO DAILY [facility] Last Admin: 04/10/23 14:29 Dose: 10 mg Documented By: MAME Naloxone HCl (Naloxone 0.4 Mg/Ml Vial) 0.2 mg IV Q2MIN PRN PRN Reason: Opiate Reversal Brimonidine [Lumify] (0.025 % Drops) 1 drop EYE-BOTH BEDTIME [facility] Last Admin: 04/10/23 21:10 Dose: Not Given Documented By: Pantoprazole Sodium (Pantoprazole Dr 20 Mg Tablet) 20 mg PO 0600 [facility] Last Admin: 04/11/23 05:49 Dose: 20 mg Documented By: Polyethylene Glycol (Polyethylene Glycol 3350 17 Gm Powd.Pack) 17 gm PO DAILY INGRID Discontinued Medications Carbidopa/Levodopa (Carbidopa-Levodopa Er 50/200 Tablet) 1 each PO DAILY INGRID Carbidopa/Levodopa (Carbidopa-Levodopa 25/100 Tablet) 1 each PO TID [facility] Last Admin: 04/10/23 14:29 Dose: 1 each Documented By: MAME Sodium Chloride (Normal Saline 0.9%) 500 mls @ 1,000 mls/hr IV BOLUS ONE Stop: 04/10/23 08:17 Last Infusion: 04/10/23 09:00 Dose: Infused Documented By: Admin: 04/10/23 08:15 Dose: 1,000 mls/hr Documented By: OMAR Vital Signs Vital signs: Vital Signs - 8 hr 04/10/23 07:49 04/10/23 07:51 04/10/23 08:09 Temperature 97.6 F Pulse Rate 86 81 73 Respiratory Rate 16 Blood Pressure 173/100 H Pulse Oximetry 96 95 93 Oxygen Delivery Method Room Air Room Air 04/10/23 08:11 04/10/23 08:11 04/10/23 08:30 Temperature Pulse Rate 71 70 Respiratory Rate 21 Blood Pressure 179/87 H Pulse Oximetry 98 97 Oxygen Delivery Method Room Air 04/10/23 08:31 04/10/23 08:31 Temperature Pulse Rate 69 Respiratory Rate 17 Blood Pressure 168/98 H Pulse Oximetry 97 Oxygen Delivery Method Room Air Medical Decision Making Lab Data 04/10/23 08:00 04/10/23 08:00 Labs: Lab Results 04/10/23 Range/Units 08:00 WBC 4.9 (4.5-11.0) X10^3/uL RBC 4.71 (4.5-5.9) X10^6/uL Hgb 15.1 (13.5-17.5) g/dL Hct 44.3 (41-53) % MCV 94.1 (80-100) fL MCH 32.1 (26-34) PG MCHC 34.1 (30-36) % RDW 13.8 (11.6-14.8) % Plt Count 184 (150-400) X10^3/uL Neut % (Auto) 56.3 (50-75) % Lymph % (Auto) 29.9 (25-40) % [place] % (Auto) 10.7 (3-14) % Eos % (Auto) 2.3 (2-4) % Baso % (Auto) 0.8 (0-2) % Neut # (Auto) 2800 (1388-5574) /uL Lymph # (Auto) 1500 (2658-1223) /uL [place] # (Auto) 500 (0-900) /uL Eos # (Auto) 100 (0-450) /uL Baso # (Auto) 0 (0-100) /uL Sodium 132 L (137-145) mmol/L Potassium 3.9 (3.4-5.1) mmol/L Chloride 100 (98-107) mmol/L Carbon Dioxide 27 (22-32) mmol/L BUN 10 (9-20) mg/dL Creatinine 0.67 (0.66-1.25) mg/dL Estimated GFR > 60 (>60) mL/min BUN/Creatinine Ratio 14.9 (6-22) Glucose 99 (80-110) mg/dL Calcium 9.2 (8.4-10.2) mg/dL Magnesium 2.0 (1.6-2.3) mg/dL Total Bilirubin 0.9 (0.2-1.3) mg/dL AST 26 (17-59) IU/L ALT 7 (<50) IU/L Alkaline Phosphatase 81 (38-126) U/L Total Creatine Kinase 53 L (55-170) U/L Troponin I < 0.012 (0.01-0.034) ng/mL Total Protein 6.6 (6.3-8.2) g/dL Albumin 3.7 (3.5-5.0) g/dL Globulin 2.9 (1.7-4.1) g/dL Albumin/Globulin Ratio 1.3 (1.0-2.8) Urine Dip Bedside Urine Glucose Negative Bedside Urine Bilirubin - Negative Bedside Urine Ketone - Negative Urine Specific [place] 1.01 Bedside Urine Occult Blood - Negative Bedside Urine pH 7.0 Bedside Urine Protein - Negative Bedside Urine Urobilinogen - Negative Bedside Urine Nitrite - Negative Bedside Urine Leukocytes - Negative Esterase Point of care testing: Urine Dip Bedside Urine Glucose Negative Bedside Urine Bilirubin - Negative Bedside Urine Ketone - Negative Urine Specific [place] 1.01 Bedside Urine Occult Blood - Negative Bedside Urine pH 7.0 Bedside Urine Protein - Negative Bedside Urine Urobilinogen - Negative Bedside Urine Nitrite - Negative Bedside Urine Leukocytes - Negative Esterase MDM Narrative Medical decision making narrative: 87 year old patient presents with left leg weakness noted upon waking Multiple etiologies for patient's symptoms considered including, but not limited to: [Stroke versus TIA versus spinal finding versus other] Prior Charts reviewed in our EMR Primary Historian: patient Labs reviewed and interpreted by myself: No significant abnormalities requiring specific or immediate intervention Imaging reviewed: CT of the head without intracranial hemorrhage. 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 Consultations: Discussed with /[facility] stroke. They have reviewed the patient's history and physical exam as well as imaging. There is no intervention necessary for the findings on the CT angiography, they recommend admission for typical stroke workup including an MRI of the brain but would also add a noncontrasted MRI of the spine to rule out any compressive issues in his neck. Also discussed with Dr. Isaac who is happy to admit on behalf of Dr. Roth Discharge Plan Departure Patient Disposition: Admitted As Inpatient Clinical Impression: Stroke Admit Date/Time: 04/10/23 09:13 Admit Provider: Romina Isaac
[2023-04-10 08:08] LABS: Add Manual Diff / Slide Review NO; Basophils Absolute Auto 0 /uL (0-100); Basophils Percent Auto 0.8 % (0-2); Eosinophils Absolute Auto 100 /uL (0-450); Eosinophils Percent Auto 2.3 % (2-4); Hematocrit 44.3 % (41-53); Hemoglobin 15.1 g/dL (13.5-17.5); Lymphocytes Absolute Auto 1500 /uL (1100-4500); Lymphocytes Percent Auto 29.9 % (25-40); Mean Corpuscular HGB Conc 34.1 % (30-36); Mean Corpuscular Hemoglobin 32.1 PG (26-34); Mean Corpuscular Volume 94.1 fL (80-100); Monocytes Absolute Auto 500 /uL (0-900); Monocytes Percent Auto 10.7 % (3-14); Neutrophils Absolute Auto 2800 /uL (1500-7000); Neutrophils Percent Auto 56.3 % (50-75); Platelet Count 184 X10^3/uL (150-400); Red Blood Cell Count 4.71 X10^6/uL (4.5-5.9); Red Cell Distribution Width 13.8 % (11.6-14.8); White Blood Cell Count 4.9 X10^3/uL (4.5-11.0)
[2023-04-10] MEDS: SODIUM CHLORIDE 0.9% 500 ML 1000 ML IV (08:15)
[2023-04-10 08:30] LABS: Alanine Aminotransferase 7 IU/L (<50); Albumin 3.7 g/dL (3.5-5.0); Albumin Globulin Ratio 1.3 (1.0-2.8); Alkaline Phosphatase 81 U/L (38-126); Aspartate Aminotransferase 26 IU/L (17-59); BUN Creatinine Ratio 14.9 (6-22); Bilirubin Total 0.9 mg/dL (0.2-1.3); Blood Urea Nitrogen 10 mg/dL (9-20); Calcium 9.2 mg/dL (8.4-10.2); Carbon Dioxide 27 mmol/L (22-32); Chloride 100 mmol/L (98-107); Creatine Kinase 53 U/L (55-170); Estimated Glomerular Filt Rate > 60 mL/min (>60); Globulin 2.9 g/dL (1.7-4.1); Glucose 99 mg/dL (80-110); HEMOLYSIS < 15 (0-50); Potassium 3.9 mmol/L (3.4-5.1); Sodium 132 mmol/L (137-145); Total Protein 6.6 g/dL (6.3-8.2)
[2023-04-10 08:40] LABS: Troponin I < 0.012 ng/mL (0.01-0.034)
--- NOTE | 2023-04-10 08:41 | PC.NURSE ---
Patient went to bed last night at 2130 feeling normal. This morning he woke up and experienced weakness when trying to ambulate to the bathroom. He states he had to hold onto the thomson to make it, which is not normal for him. See NIH assessment.
--- NOTE | 2023-04-10 09:10 | PC.NURSE ---
Patient was able to stand at bedside with minimal assistance getting out of bed. He feels a little dizzy when standing, and is having a difficult time lifting his left foot off the ground. Pt was able to take 3 steps to sit higher in the bed.
--- NOTE | 2023-04-10 09:22 | DI.ECHO.S_ITS ---
[place] [facility]---------+ [facility] +---------+ : : [address] : : : : [id number] : : : : Phone: [phone]+ Echocardiogram Report + + :Name: SOURAV ALLEN Study Date: 04/10/2023 Height: 70 in : :[facility] ReadingLocation: Weight: 175 lb : : Gender: Male BSA: 2.0 m2 : :: 1935 Age: 87 yrs BP: 171/89 mmHg: :Reason For Study: CVA : :Ordering Physician: YASMINE, : :ADRIANA Performed By: Mireya Pabon : :Referring: ADRIANA UNDERWOOD : + + Interpretation Summary The left ventricle is normal in size and wall thickness. Left ventricular systolic function appears normal without focal wall motion abnormalities. The ejection fraction is estimated to be 60-65%. Diastolic parameters suggest a relaxation abnormality of the left ventricle, consistent with probable normal filling pressures. The right ventricle is normal in size and function. Right ventricular systolic pressure is estimated to be 23 mmHg plus the clinically estimated CVP which cannot be estimated on this exam. The left atrial size is normal. There is no significant valvular heart disease. The aortic root is normal size. Procedure: A two-dimensional transthoracic echocardiogram with color flow and Doppler was performed. The study quality was technically adequate. Comparison is made with the echocardiogram of 11/12/2015. The patient was in sinus rhythm with heart rates between 58-71 bpm during the exam. Left Ventricle: The left ventricle is normal in size and wall thickness. Left ventricular systolic function appears normal without focal wall motion abnormalities. The ejection fraction is estimated to be 60-65%. Diastolic parameters suggest a relaxation abnormality of the left ventricle, consistent with probable normal filling pressures. Right Ventricle: The right ventricle is normal in size and function. Atria: The left atrial size is normal. Right atrial size is normal. There is no Doppler evidence for an interatrial shunt. Mitral Valve: The mitral valve leaflets appear mildly thickened, but open well. There is mild mitral annular calcification. There is trace mitral regurgitation. Aortic Valve: The aortic valve is mildly calcified. There is mild aortic valve sclerosis. There is no aortic valve stenosis. There is trace aortic regurgitation. Tricuspid Valve: The tricuspid valve is normal in structure and function. There is mild tricuspid regurgitation. Right ventricular systolic pressure is estimated to be 23 mmHg plus the clinically estimated CVP which cannot be estimated on this exam. Pulmonic Valve: The pulmonic valve is not well visualized. There is no pulmonic valvular regurgitation. There is no significant valvular heart disease. Great Vessels: The aortic root is normal size. The dimensions of the ascending aorta are normal. The inferior vena cava was not well visualized. Pericardium/ Pleura There is no pericardial effusion. There is no pleural effusion. MMode/2D Measurements & Calculations LVIDd: 4.2 cm LVOT diam: 2.0 cm LVIDs: 2.7 cm Ao root diam: 3.4 cm FS: 37.2 % asc Aorta Diam: 3.4 cm EPSS: 1.1 cm Ao Arch Diam (Prox Trans): 3.2 cm IVSd: 0.70 cm LVPWd: 0.71 cm LV schwartz. diameter/BSA (cm/m^2): 2.1 LV sys. diameter/BSA (cm/m^2): 1.3 LA A2 area: 20.7 cm2 RA long axis: 4.9 cm LA A4 area: 19.5 cm2 RA area: 11.2 cm2 LA length (vol): 5.9 cm RA vol: 21.7 ml LA vol: 58.3 ml RA : 11.0 ml/m2 LA vol index: 29.6 ml/m2 RVD1 (basal): 3.6 cm TAPSE: 2.3 cm Doppler Measurements & Calculations Ao V2 max: 136.0 cm/sec LVOT Max Sg: 107.1 cm/sec Ao V2 mean: 98.1 cm/sec LV V1 max P.6 mmHg Ao max P.4 mmHg LV V1 VTI: 24.5 cm Ao mean P.2 mmHg MICHAEL(I,D): 2.4 cm2 Ao V2 VTI: 31.0 cm MICHAEL(V,D): 2.4 cm2 sev ratio: 0.79 MICHAEL indexed to BSA (cm^2/m^2): 1.2 MV E max sg: 82.0 cm/sec TR max sg: 241.1 cm/sec MV A max sg: 101.5 cm/sec TR max P.2 mmHg MV E/A: 0.81 PA V2 max: 73.4 cm/sec Med Peak E' Sg: 6.3 cm/sec PA V2 mean: 50.0 cm/sec E/E' med: 12.9 PA mean P.1 mmHg Lat Peak E' Sg: 9.0 cm/sec PA pr(Accel): 29.3 mmHg E/E' lat: 9.1 E/e' average: 11.0 MV dec time: 0.24 sec SV(OT): 74.7 ml Reading Physician:12:50 PM
--- NOTE | 2023-04-10 09:22 | DI.MRI.S_ITS ---
PROCEDURE: MR HEAD/BRAIN WO CON INDICATIONS: CVA TECHNIQUE: Non-contrast axial T1 spin echo, axial T2 fast spin echo, sagittal and axial FLAIR, coronal T2 fast spin echo, axial gradient echo, axial diffusion and ADC through the brain. COMPARISON: [facility], , MR HEAD/BRAIN WO CON, 11/15/2018, 17:14. FINDINGS: Image quality: Excellent. CSF spaces: Ventricles appear symmetric in size and shape. Basal cisterns are patent. No extra-axial fluid collections. Brain: No intracranial bleeds or mass effects. There is cerebral volume loss for age. There are prominent periventricular and deep white matter chronic small vessel ischemic changes. Brainstem appears normal. Diffusion-weighted images show no acute ischemic insults. No chronic ischemic insults. Normal intravascular flow voids are present. Skull and face: Calvarial bone marrow is normal in signal. Orbits are normal. Sinuses: Paranasal sinuses are clear. Left mastoid effusion. Right mastoid air cells are clear. IMPRESSION: 1. No acute intracranial abnormalities. Specifically, no acute or subacute infarct. 2. Redemonstration of prominent chronic small vessel ischemic changes. Age-appropriate brain parenchymal volume loss. Dictated by: Tommy Ramsay M.D. on 04/10/2023 at 10:18 Approved by: Tommy Ramsay M.D. on 04/10/2023 at 10:21
--- NOTE | 2023-04-10 10:55 | DI.MRI.S_ITS ---
PROCEDURE: MR CERVICAL SPINE WO CON INDICATIONS: CVA, abnormalities neck CTA TECHNIQUE: Noncontrast sagittal T1 spin echo and T2 fast spin echo, sagittal STIR, foraminal oblique sagittal T2 fast spin echo, and axial gradient echo or T2 fast spin echo through the cervical spine. COMPARISON: [facility], MR, MR HEAD/BRAIN WO CON, 04/10/2023, 9:33. [facility], CT, CT ANGIO HEAD AND NECK, 04/10/2023, 8:01. FINDINGS: Image quality: This examination is limited by involuntary motion artifact. Alignment and Curvature: There is minimal retrolisthesis seen at C2-C3, C3-C4, and C4-C5. There is overall accentuated cervical lordosis. Bone Marrow: Marrow demonstrates normal overall signal. Spinal Cord: Visualized spinal cord has normal size and signal. No cerebellar tonsillar herniation. Paraspinous Soft Tissues: No paravertebral masses. Prevertebral soft tissues are normal in thickness. C2-C3: The disc height is well-preserved. Loss of disc signal is seen at this level. Mild disc osteophyte complex is seen, with a mild central disc protrusion. Mild facet joint hypertrophy is seen. There is moderate right-sided and at least moderate left-sided neural foraminal narrowing. Mild to moderate central canal narrowing is seen, with minimal mass effect upon the ventral spinal cord, as on series 4, image 17. C3-C4: At least moderate loss of disc height and disc signal can be seen at this level. Moderate generalized disc osteophyte complex is seen. There is a central disc osteophyte protrusion. At least moderate facet hypertrophy is seen. Moderate to severe bilateral neural foraminal narrowing is seen. Moderate to severe central canal narrowing is seen, with associated ventral cord flattening. C4-C5: Moderate loss of disc height is seen. Loss of disc signal is seen. At least moderate disc osteophyte complex is seen, which is eccentric to the left. At least moderate facet hypertrophy is seen. Moderate to severe bilateral neural foraminal narrowing can be seen, left worse than right. Moderate central canal narrowing is seen. There is associated mass effect upon the ventral spinal cord. C5-C6: At least moderate loss of disc height and disc signal can be seen. Moderate generalized disc osteophyte complex is seen. There is moderate right-sided and at least moderate left-sided facet hypertrophy. There is moderate to severe bilateral neural foraminal narrowing seen, left worse than right. Mild to moderate central canal narrowing is seen, with minimal mass effect upon the ventral spinal cord. C6-C7: At least moderate loss of disc height and disc signal can be seen at this level. Mild to moderate disc osteophyte complex is seen. Mild to moderate facet hypertrophy is seen at this level. There is moderate right-sided and [id number] left-sided neural foraminal narrowing. Minimal central canal narrowing is seen. C7-T1: Mild loss of disc height is seen. Loss of disc signal is seen. Mild to moderate disc osteophyte complex is seen. Moderate facet joint hypertrophy is seen. There is moderate right-sided and [id number] left-sided neural foraminal narrowing. No central canal narrowing is seen. IMPRESSION: Multiple levels of cervical spine degenerative change can be seen, which are overall worst at C3-C4 and C4-C5. Dictated by: Ernesto Jiang M.D. on 04/10/2023 at 14:58 Approved by: Ernesto Jiang M.D. on 04/10/2023 at 15:03
--- NOTE | 2023-04-10 13:28 | P.HP_ITS ---
History of Present Illness History of Present Illness Date Patient Seen: 04/10/23 Time Patient Seen: 13:28 Chief complaint: Left leg weakness upon waking. Narrative: Pt is an 87yo man with Parkinson's disease, GERD, CLL, hx of colon and prostate cancers who presented with left lower extremity weakness. The pt reports that he was in his usual state of health, ambulating without difficulty, last night. This morning when he woke and got out of bed, he had great difficulty moving both of his legs. His left side seemed worse than the left. He was able drag himself to get dressed by leaning heavily on his cane and holding onto the thomson. The weakness on the right improved, but the left did not. He states that it felt like his leg was cemented to the ground. Using his cane and the wall he was able to get to the front area at [facility] and ask for assistance. He was then brought to the ED for evaluation. His last known well was 9-10pm last night. The pt denies any other focal weakness, including in his upper extremities. He feels that his cognition, language, and speech are intact. He denies any facial droop. He was feeling lightheaded. He denies any recent chest pain, SOB, GI issues. He had previously been feeling well, and was taking his medications without any difficulty. He is currently under a lot of stress. His was living at [facility] and in January. His daughter currently has Stage IV colon cancer, and son-in-law has multiple myeloma. 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 Lab work was unrevealing. Stroke was contacted and did not recommend acute intervention, but inpatient work-up. [facility] Medical History Head contusion Abrasion hand Laceration of right hand History of Anabel-Murguia virus infection Depression Right inguinal hernia Polycythemia vera Erythrocytosis Osteoarthritis Meningitis GERD (gastroesophageal reflux disease) Hyperlipemia History of nephrolithiasis (~1996) Obstructive sleep apnea (~01/2016) Rotator cuff tear, right (~2008) PTSD (post-traumatic stress disorder) (1968) Malaria (~1940) Cataracts, bilateral (~2009) Hearing loss (Unknown) Urinary incontinence (2008) Colon polyps (2011) Diverticular disease (2014) Hemorrhoids (2014) Skin cancer Lymphoma (2005) Colorectal cancer (~01/2012) Hyperlipemia CLL (chronic lymphocytic leukemia) (2004) Prostate cancer (~2003) Surgical History S/P inguinal hernia repair (08/29/20) Hx of biopsy (~2004) Hx of rotator cuff surgery (02/2009) Hx of cataract surgery (2009) Hx of colectomy (~01/2012) History of tonsillectomy Status post radical cystoprostatectomy (2003) Family History Father Cancer Mother Stroke Hypertension Daughter Breast cancer Social History marital status: household members: none occupational status: previously employed Smoking Status: Never smoker alcohol intake: current substance use type: does not use Meds Home Medications and Allergies Home Medications Medication Instructions Recorded Confirmed Type aspirin 81 mg tablet,delayed 81 mg DAILY 01/06/19 04/10/23 History release (Aspir-) carbidopa 25 mg-levodopa 100 mg 1 tab PO TID 08/24/20 04/10/23 History tablet carbidopa ER 50 mg-levodopa 200 mg 1 tab PO DAILY 08/24/20 04/10/23 History tablet,extended release polyethylene glycol 3350 17 17 g PO DAILY 08/29/20 04/10/23 History gram/dose oral powder (Miralax) omeprazole 20 mg capsule,delayed 20 mg PO QDAY #90 caps 09/15/22 04/10/23 Rx release ezetimibe 10 mg tablet (Zetia) 10 mg PO QDAY #90 tabs 12/04/22 04/10/23 Rx cephalexin 250 mg capsule 250 mg PO TID #21 caps 04/06/23 04/10/23 Rx brimonidine 0.025 % eye drops 1 drp ophthalmic (eye) DAILY 04/10/23 04/10/23 History Allergies Allergy/AdvReac Type Severity Reaction Status Date / Time enoxaparin [From LOVENOX] Allergy Unknown Major Verified 04/10/23 07:58 Bleed after bowel resection Sulfa (Sulfonamide Allergy Unknown Nose Verified 04/10/23 07:58 Antibiotics) turned [SULFA (SULFONAMIDE bright red ANTIBIOTICS)] Exam Vital Signs (past 8 hours): - 04/10/23 07:49 04/10/23 07:51 04/10/23 08:09 Temperature 97.6 F Pulse Rate 86 81 73 Respiratory Rate 16 Blood Pressure 173/100 H Pulse Oximetry 96 95 93 Oxygen Delivery Method Room Air Room Air Oxygen Flow Rate 04/10/23 08:11 04/10/23 08:11 04/10/23 08:30 Temperature Pulse Rate 71 70 Respiratory Rate 21 Blood Pressure 179/87 H Pulse Oximetry 98 97 Oxygen Delivery Method Room Air Oxygen Flow Rate 04/10/23 08:31 04/10/23 08:31 04/10/23 09:00 Temperature Pulse Rate 69 71 Respiratory Rate 17 15 Blood Pressure 168/98 H Pulse Oximetry 97 98 Oxygen Delivery Method Room Air Room Air Oxygen Flow Rate 04/10/23 09:30 04/10/23 10:17 04/10/23 10:55 Temperature 97.9 F Pulse Rate 71 70 73 Respiratory Rate 14 18 19 Blood Pressure 171/89 H 184/93 H Pulse Oximetry 99 97 99 Oxygen Delivery Method Room Air Oxygen Flow Rate 0 Oxygen Delivery Method Room Air Oxygen Flow Rate 0 Narrative Exam Narrative: Gen: NAD, laying comfortably in bed, appears stated age Neck: no LAD, no JVD CV: RRR, no murmurs Resp: clear to auscultation bilaterally, no wheezes or crackles Abd: soft, nontender, nondistended, normoactive bowel sounds Ext: no edema Neuro: A&Ox3, CN II-XII intact however at rest with very mild droop right side of mouth, sensation intact UE and LE, 5/5 strength UE and LE, no pronator drift, gait not assessed, tremor present Objective Labs 04/10/23 08:00 04/10/23 08:00 Labs: Laboratory Results - last 24 hr 04/10/23 08:00 WBC 4.9 RBC 4.71 Hgb 15.1 Hct 44.3 MCV 94.1 MCH 32.1 MCHC 34.1 RDW 13.8 Plt Count 184 Neut % (Auto) 56.3 Lymph % (Auto) 29.9 [place] % (Auto) 10.7 Eos % (Auto) 2.3 Baso % (Auto) 0.8 Neut # (Auto) 2800 Lymph # (Auto) 1500 [place] # (Auto) 500 Eos # (Auto) 100 Baso # (Auto) 0 Sodium 132 L Potassium 3.9 Chloride 100 Carbon Dioxide 27 BUN 10 Creatinine 0.67 Estimated GFR > 60 BUN/Creatinine Ratio 14.9 Glucose 99 Calcium 9.2 Magnesium 2.0 Total Bilirubin 0.9 AST 26 ALT 7 Alkaline Phosphatase 81 Total Creatine Kinase 53 L Troponin I < 0.012 Total Protein 6.6 Albumin 3.7 Globulin 2.9 Albumin/Globulin Ratio 1.3 Assessment & Plan Assessment & Plan narrative: Pt is an 87yo man with Parkinson's disease, GERD, CLL, hx of colon and prostate cancers who presented with left lower extremity weakness. Concerning for CVA/TIA. Symptoms are already significantly improved, mild ongoing dizziness/lightheadedness. 1) TIA: No significant findings on CT/CTA/MRI. Does have aneurysmal dilation of portion of the carotid, however Stroke did not feel was related. Echo reassuring as well. - Start Atorvastatin. Pt is on Ezetimibe, but cannot recall any reaction to statin in the past. - PT consulted - Continue Aspirin, at direction of Stroke no Plavix recommended at this point - MRI neck ordered at direction of Stroke to ensure nothing externally causing aneurysmal dilation of carotid - Telemetry 2) Parkinson's disease: Stable - Continue Carbidopa-Levodopa 3) GERD: - Continue home Omeprazole FEN: General, speech consulted DVT ppx: SCDs. Has allergy to Enoxaparin Code: DNR Dispo: Pending PT evaluation, completion of neck MRI. Likely ready for d/c tomorrow. Quality VTE Deep Vein Thrombosis/Pulmonary Embolism Present on Admission: No
--- NOTE | 2023-04-10 13:55 | PT.IIE ---
Surgical History (Last Reviewed 04/06/23 @ 17:52 by Gerson Mathews DO) History of tonsillectomy Hx of biopsy (~2004) Hx of cataract surgery (2009) Hx of colectomy (~01/2012) Hx of rotator cuff surgery (02/2009) S/P inguinal hernia repair (08/29/20) Status post radical cystoprostatectomy (2003) Medical History (Last Reviewed 04/06/23 @ 17:52 by Gerson Mathews DO) Abrasion hand Cataracts, bilateral (~2009) CLL (chronic lymphocytic leukemia) (2004) Colon polyps (2011) Colorectal cancer (~01/2012) Depression Diverticular disease (2014) Erythrocytosis GERD (gastroesophageal reflux disease) Head contusion Hearing loss (Unknown) Hemorrhoids (2014) History of Anabel-Murguia virus infection History of nephrolithiasis (~1996) Hyperlipemia Hyperlipemia Laceration of right hand Lymphoma (2004) Malaria (~1939) Meningitis Obstructive sleep apnea (~01/2016) Osteoarthritis Polycythemia vera Prostate cancer (~2003) PTSD (post-traumatic stress disorder) (1967) Right inguinal hernia Rotator cuff tear, right (~2008) Skin cancer Urinary incontinence (2008) Physical Therapy Inpatient Evaluation/Re-Eval M1 PT/OT-IP Prior Functional Status Start: 04/10/23 15:35 Freq: NEEDED Status: Active Protocol: Document 04/10/23 13:55 AB (Rec: 04/10/23 15:47 AB [email or web address]) Medical Review Prior Functional Status Medical History Reviewed Yes Communication able to make needs known Mobility and Gait pt stated that he is modified independent with all mobilities and ambulation using a SPC for the past 6 months due to h/o falls. stated that he had >4 falls this year. Social History Household Members none Living Arrangements Other Number of Floors (Floors) 3 or More Floors Number of Stairs To Enter/Railing? Pt lives at [facility] independent living : 3rd floor apartment with an elevator Home Environment High Toilet,Walk in Shower, Elevator Home Equipment Front Wheel Walker,Four Wheel Walker,Straight Cane,Shower Seat with Backrest,Hand Held Shower,Grab Bars In Shower Additional Social History Comment has a 3WW M2 PT-IP Current Condition Start: 04/10/23 15:35 Freq: NEEDED Status: Active Protocol: Document 04/10/23 13:55 AB (Rec: 04/10/23 15:47 AB [email or web address]) Physical Therapy Current Condition Current Condition Evaluation Date 04/10/23 Treatment Diagnosis r/o CVA; difficulty in walking Onset Date 04/10/23 M3 PT-IP Subjective Start: 04/10/23 15:35 Freq: NEEDED Status: Active Protocol: Document 04/10/23 13:55 AB (Rec: 04/10/23 15:47 AB [email or web address]) Subjective Physical Therapy Visit Type Type Initial Evaluation Visit Start Time 13:55 Visit Stop Time 14:26 Total Visit Minutes 31 Number of CUT OUT WORKER Visits 0 Physical Therapy Visit Comments Patient Comments agreeable to do PT Therapy Pain Assessment Pain Present Pain Present Denied Pain M4 PT-IP Mobility and Gait Start: 04/10/23 15:35 Freq: NEEDED Status: Active Protocol: Document 04/10/23 13:55 AB (Rec: 04/10/23 15:47 AB [email or web address]) PT-Bed Mobility Assessment Supine to Sit Supine to Sit Minimal Assistance Sit to Supine Sit to Supine Standby Assistance PT-Transfer Assessment Sit to and From Stand Sit to and from Stand Contact Guard Assistance,1 Person Assistance,Use of Upper Extremities Equipment Transfer Assistive Device Gait Belt,Front Wheeled Walker Orthotic/Prosthetic Devices or Brace: No Comments Mobility Comments Pt agreed to do PT. BP: 144/83 completed supine to sit min A and cues. requires increase time to complete task. able to sit on EOB SBA. completed sit to stand CGA and ambulated in room ~ 40 ft using FWW CGA . presents with unsteady antalgic gait with decrease LE elevation and decrease stride length. pt sat back on EOB and requested to go back to bed. completed sit to supine SBA. positioned in bed. call light and table placed within reach. informed pt regarding use of FWW at this time for safety and agreed. Gait Assessment Gait Gait Assistance Required: Contact Guard Assist Distance (Feet) 40 Able to Maintain Weight Bearing Status Yes During Gait Assistive Devices Assistive Device Gait Belt,Front Wheeled Walker Orthotic/Prosthetic Devices or Brace: No Gait Deviations General Gait Pattern Antalgic,Decreased Stride Length,Decreased Feet Clearance Factors Limiting Gait Function Factors Limiting Gait Function Decreased Activity Tolerance, Decreased Strength,Difficulty Following Directions,Limited Range of Motion,Pain,Poor Balance,Poor Safety Awareness PT-Balance Assessment Sitting Balance and Reactions Static Sitting Balance Ability Good Dynamic Sitting Balance Ability Good Standing Balance and Reactions Static Standing Balance Ability Fair Dynamic Standing Balance Ability Fair Device Used FWW M5 PT-IP Objective Assessments Start: 04/10/23 15:35 Freq: NEEDED Status: Active Protocol: Document 04/10/23 13:55 AB (Rec: 04/10/23 15:47 AB [email or web address]) Orientation Orientation/Cognition Level of Alertness Alert Orientation Name,Age,Birthday,Month,Date, Year,Day of Week,Place, Situation Safety Awareness Decreased Safety Awareness Memory Description Short Term Impaired Gross Range of Motion Lower Extremity ROM Assessment Within Functional Limits Strength Lower Extremity Strength Assessment Within Functional Limits Hip 4-/5 Knee 4-/5 Muscle Tone Muscle Tone WNL Yes M6 PT-IP Treatment Start: 04/10/23 15:35 Freq: NEEDED Status: Active Protocol: Document 04/10/23 13:55 AB (Rec: 04/10/23 15:47 AB [email or web address]) Physical Therapy Treatment Education Education Provided Safety M7 PT-IP Assessment and Plan Start: 04/10/23 15:35 Freq: NEEDED Status: Active Protocol: Document 04/10/23 13:55 AB (Rec: 04/10/23 15:47 AB [email or web address]) PT Summary Assessment and Plan Potential Rehabilitation Potential Fair Status of Condition at Evaluation Stable Summary Impairments Pain,ROM,Strength,Balance, Coordination,Sensation,Tone, Cognition,Bed Mobility, Transfers,Gait,Activity Tolerance Assessment Summary pt presented to the ED for LLE weakness and now in the hospital to r/o CVA. pt currently requiring CGA to min A with mobility. recommending use of FWW at this time for safety. pt with h/o falls and is a high fall risk. pt also has dx of parkinson's disease contributing to current mobility level. pt will benefit from HHPT. Goals Bed Mobility Goal Independent Transfer Goal Independent,Front Wheeled Walker Gait Goal Independent,Front Wheel Walker Gait Distance 250 Other Goals improve transfers and ambulation using SPC 300 ft SBA Days to Meet Goals 10 Frequency of Treatment Frequency Of Treatment Once a Day Treatment Plan Physical Therapy Treatment Plan Bed Mobility Training,Transfer Training,Gait Training, Therapeutic Exercise,Balance Retraining,Discharge Planning, Hot or Cold Pack,Neuromuscular Re-ed,Coordination Retraining ,Manual Therapy Precautions Other Precautions falls Recommendations To Nursing Amount of Assist Needed 1 Person Assist Discharge Recommendations PT Discharge Recommendations Home with Assistance,Home Health Transportation Needs at Discharge Private Vehicle
[2023-04-10] MEDS: EZETIMIBE 10 MG TABLET PO (14:29)
[2023-04-10] MEDS: CARBIDOPA-LEVODOPA 25/100 TABLET 1 EACH PO (14:29)
[2023-04-10] MEDS: ATORVASTATIN 20 MG TABLET PO (21:07)
[2023-04-10] MEDS: CARBIDOPA-LEVODOPA ER 50/200 TABLET 1 EACH PO (21:08)
[2023-04-11 00:03] VITALS: BP 122/70; PULSE 70; RESP 17; TEMP 36.6; O2SAT 94
[2023-04-11 05:31] VITALS: BP 145/81; PULSE 68; RESP 17; TEMP 36.4; O2SAT 94
[2023-04-11] MEDS: PANTOPRAZOLE DR 20 MG TABLET PO (05:49)
[2023-04-11] MEDS: CARBIDOPA-LEVODOPA 25/100 TABLET 1 EACH PO (05:49)
[2023-04-11] MEDS: EZETIMIBE 10 MG TABLET PO (08:25)
[2023-04-11] MEDS: polyethylene glycoL 3350 17 GM POWD.PACK PO (08:26)
[2023-04-11] MEDS: ASPIRIN EC 81 MG TABLET PO (08:26)
[2023-04-11 08:29] VITALS: BP 126/84; PULSE 84; RESP 16; TEMP 36.3; O2SAT 94
--- NOTE | 2023-04-11 09:00 | PT.IPTN ---
Current Diagnoses Transient cerebral ischemic attack, unspecified (04/10/23) Physical Therapy Treatment Note M2 PT-IP Current Condition Start: 04/10/23 15:35 Freq: NEEDED Status: Active Protocol: Document 04/10/23 13:55 AB (Rec: 04/10/23 15:47 AB [email or web address]) Physical Therapy Current Condition Current Condition Evaluation Date 04/10/23 Treatment Diagnosis r/o CVA; difficulty in walking Onset Date 04/10/23 M3 PT-IP Subjective Start: 04/10/23 15:35 Freq: NEEDED Status: Active Protocol: Document 04/11/23 09:24 TS (Rec: 04/11/23 09:37 TS [id number]) Subjective Physical Therapy Visit Type Type Treatment Note Visit Start Time 09:00 Visit Stop Time 09:23 Total Visit Minutes 23 Number of HEAD COACH Visits 1 Physical Therapy Visit Comments Patient Comments Pt reports feeling better this morning, agreeable to do PT M4 PT-IP Mobility and Gait Start: 04/10/23 15:35 Freq: NEEDED Status: Active Protocol: Document 04/11/23 09:24 TS (Rec: 04/11/23 09:37 TS [id number]) PT-Bed Mobility Assessment Supine to Sit Supine to Sit Standby Assistance,Head of Bed Elevated Sit to Supine Sit to Supine Standby Assistance,Head of Bed Elevated Scooting Scooting to Edge of Bed Standby Assistance Scooting Up and Down in Bed Standby Assistance PT-Transfer Assessment Sit to and From Stand Sit to and from Stand Standby Assistance,1 Person Assistance,Use of Upper Extremities Equipment Transfer Assistive Device Gait Belt,Front Wheeled Walker Orthotic/Prosthetic Devices or Brace: No Comments Mobility Comments Pt found resting in bed, BP in supine 119/80, HR 81, SPo2 98 % prior to mobility. Supine to sit SBA with BUE support and HOB elevated 60D. He performed sit to stand SBA with FWW, demonstrates good carryover of sequencing. He ambulated ~150 ' CGA w/FWW, pt had decreased step lenght and height, had no buckling or LOB. Seated on bed pt performed knee flex/ext and sitting marches. Sit to supine into bed SBA, pt repositioned self in bed scooting to HOB SBA. He was left in bed with all needs met , bed alarm on, RN notified. Gait Assessment Gait Gait Assistance Required: Contact Guard Assist Distance (Feet) 150 Able to Maintain Weight Bearing Status Yes During Gait Assistive Devices Assistive Device Gait Belt,Front Wheeled Walker Orthotic/Prosthetic Devices or Brace: No Gait Deviations General Gait Pattern Antalgic,Decreased Stride Length,Decreased Feet Clearance Factors Limiting Gait Function Factors Limiting Gait Function Decreased Activity Tolerance, Decreased Strength,Difficulty Following Directions,Limited Range of Motion,Pain,Poor Balance,Poor Safety Awareness Comments Gait Comments See mobility comments PT-Balance Assessment Sitting Balance and Reactions Static Sitting Balance Ability Good Dynamic Sitting Balance Ability Good Standing Balance and Reactions Static Standing Balance Ability Fair Dynamic Standing Balance Ability Fair Device Used FWW M5 PT-IP Objective Assessments Start: 04/10/23 15:35 Freq: NEEDED Status: Active Protocol: Document 04/10/23 13:55 AB (Rec: 04/10/23 15:47 AB [email or web address]) Orientation Orientation/Cognition Level of Alertness Alert Orientation Name,Age,Birthday,Month,Date, Year,Day of Week,Place, Situation Safety Awareness Decreased Safety Awareness Memory Description Short Term Impaired Gross Range of Motion Lower Extremity ROM Assessment Within Functional Limits Strength Lower Extremity Strength Assessment Within Functional Limits Hip 4-/5 Knee 4-/5 Muscle Tone Muscle Tone WNL Yes M6 PT-IP Treatment Start: 04/10/23 15:35 Freq: NEEDED Status: Active Protocol: Document 04/11/23 09:24 TS (Rec: 04/11/23 09:37 TS [id number]) Physical Therapy Treatment Education Education Provided Safety M7 PT-IP Assessment and Plan Start: 04/10/23 15:35 Freq: NEEDED Status: Active Protocol: Document 04/11/23 09:24 TS (Rec: 04/11/23 09:37 TS [id number]) PT Summary Assessment and Plan Potential Rehabilitation Potential Fair Summary Impairments Pain,ROM,Strength,Balance, Coordination,Sensation,Tone, Cognition,Bed Mobility, Transfers,Gait,Activity Tolerance Progress Towards Goals Progressing Toward Goals Assessment Summary Remi is progressing well with is mobility. He is SBA for all bed mobility with HOB elevated. He performed sit to stand x2 SBA w/FWW, has no retroleaning or posterior LOB. He progressed his ambulation to ~150'CGA w/FWW, had no buckling or LOB. PT is recommending return home with assist. Pt has all DME needs and was educated on the importance of using a walker. Goals Bed Mobility Goal Independent Transfer Goal Independent,Front Wheeled Walker Gait Goal Independent,Front Wheel Walker Gait Distance 250 Other Goals improve transfers and ambulation using SPC 300 ft SBA Days to Meet Goals 10 Frequency of Treatment Frequency Of Treatment Once a Day Treatment Plan Physical Therapy Treatment Plan Bed Mobility Training,Transfer Training,Gait Training, Therapeutic Exercise,Balance Retraining,Discharge Planning, Hot or Cold Pack,Neuromuscular Re-ed,Coordination Retraining ,Manual Therapy Precautions Other Precautions falls Recommendations To Nursing Amount of Assist Needed Standby Assistance Discharge Recommendations PT Discharge Recommendations Home with Assistance,Home Health Transportation Needs at Discharge Private Vehicle
[2023-04-11 12:00] VITALS: BP 139/80; PULSE 74; RESP 18; TEMP 36.7; O2SAT 98
--- NOTE | 2023-04-11 12:41 | P.DS_ITS ---
History of Present Illness History of Present Illness Date Patient Seen: 04/11/23 Time Patient Seen: 12:45 Date of Onset of Symptoms: 04/11/23 Chief complaint: Left leg weakness upon waking. Narrative: See H and P dictated by Dr. Hernandez yesterday Discharge Providers Provider Date of admission: 04/10/23 09:13 Discharge Date: 04/11/23 Primary care physician: Larry Roth MD Consults: 04/10/23 10:55 Consult to Physical Therapy Evaluate & Treat Comment: Physician Instructions: Evaluate and Treat Discharge provider: Michael Green MD Summary Hospital Course Discharge Diagnosis: TIA Parkinson's disease GERD Thyroid nodule Hospital Course: TIA. Patient was admitted and rapidly recovered to normal evaluation and normal walking he feels like his left leg maybe very slightly worsened but overall feels like it is 95% back to normal. Patient had a negative MRI negative CTA although there is question of an aneurysm right extracranial internal carotid artery with small flap. Not felt to be significant in his presentation. Echo showed no abnormality. Tele was normal. Patient was initially started on atorvastatin because he could not remember why it was stopped but as he has been thinking about it he had apparently a liver issue with statins in the past. We discussed this. And we elected for increasing his aspirin to full dose 325 we are going to hold his statin and him and his primary care doctor can make a decision about statins isn't worth the risk of hepatitis or not and that can be discussed at follow-up. Otherwise patient is stable and seems to be doing well. Will be discharged home. Parkinson's disease. Stable throughout course. Continue usual medicines follow-up with Neurology and usual primary care GERD. No issue during admission. Thyroid nodule found on CT scan. May need ultrasound. Will primary care set that up as outpatient if they deem this is what they want to do. Exam Vital Signs (past 8 hours): - 04/11/23 05:31 04/11/23 08:29 04/11/23 12:00 Temperature 97.5 F L 97.4 F L 98.1 F Pulse Rate 68 84 74 Respiratory Rate 17 16 18 Blood Pressure 145/81 H 126/84 139/80 Pulse Oximetry 94 94 98 Oxygen Flow Rate 0 0 Oxygen Delivery Method Room Air Oxygen Flow Rate 0 Narrative Exam Narrative: Alert male in no acute distress Lungs are clear heart is regular rate and rhythm abdomen is soft positive bowel sounds nontender extremities without cyanosis clubbing edema. Motor is 5/5 lower extremities at least a testing in bed sensation is intact reflexes 2+ symmetric he is alert oriented Objective Labs 04/10/23 08:00 04/10/23 08:00 COUNTS INCLUDE 234 BEDS AT THE [facility] Medical History Head contusion Abrasion hand Laceration of right hand History of Anabel-Murguia virus infection Depression Right inguinal hernia Polycythemia vera Erythrocytosis Osteoarthritis Meningitis GERD (gastroesophageal reflux disease) Hyperlipemia History of nephrolithiasis (~1996) Obstructive sleep apnea (~01/2016) Rotator cuff tear, right (~2008) PTSD (post-traumatic stress disorder) (1967) Malaria (~1939) Cataracts, bilateral (~2009) Hearing loss (Unknown) Urinary incontinence (2008) Colon polyps (2011) Diverticular disease (2014) Hemorrhoids (2014) Skin cancer Lymphoma (2004) Colorectal cancer (~01/2012) Hyperlipemia CLL (chronic lymphocytic leukemia) (2004) Prostate cancer (~2003) Surgical History S/P inguinal hernia repair (08/29/20) Hx of biopsy (~2004) Hx of rotator cuff surgery (02/2009) Hx of cataract surgery (2009) Hx of colectomy (~01/2012) History of tonsillectomy Status post radical cystoprostatectomy (2003) Family History Father Cancer Mother Stroke Hypertension Daughter Breast cancer Social History marital status: household members: none occupational status: previously employed Smoking Status: Never smoker alcohol intake: current substance use type: does not use Discharge Assessment & Plan Assessment and Plan Assessment: Improved. Plan of Treatment: Discharge home Discharge Plan Discharge Plan Patient Disposition: Home Discharge orders & Medications Prescriptions: New aspirin 325 mg Tablet,Delayed Release (Dr/Ec) 325 mg PO DAILY Qty: 100 1RF Continued omeprazole 20 mg capsule,delayed release(DR/EC) 20 mg PO QDAY Qty: 90 3RF ezetimibe [Zetia] 10 mg tablet 10 mg PO QDAY Qty: 90 3RF carbidopa-levodopa 50-200 mg tablet extended release 1 tab PO DAILY carbidopa-levodopa 25-100 mg tablet 1 tab PO TID brimonidine 0.025 % Drops 1 drp ophthalmic (eye) DAILY Rx Instructions: 1 drop both eyes bedtime polyethylene glycol 3350 [Miralax] 17 gram/dose Powder 17 g PO DAILY Discontinued cephalexin 250 mg capsule 250 mg PO TID Qty: 21 0RF aspirin [Aspir-81] 81 mg Tablet,Delayed Release (Dr/Ec) 81 mg DAILY Follow up/Referrals: Larry Roth MD [Primary Care Provider] - 04/14/23 (Call Thursday for appointment Thursday primarily for wound check right arm) Discharge Health Status Multidrug resistant organism: No MDRO Diet/Activity/Treatments Diet: Diet as Tolerated Skin/Wound/Dressing Care Report to your healthcare provider any signs of infection, such as:: chills, fever, night sweats and increased pain Visit Report/Discharge Packet Stand Alone Forms: Patient Portal/API, Stroke Signs & Symptoms Discharge Data Primary Care Provider: Larry Roth Quality VTE Deep Vein Thrombosis/Pulmonary Embolism Present on Admission: No
--- NOTE | 2023-04-11 14:43 | CM.DANOTE ---
Initial DCP Assessment Note Pt is an 87 yo male, who has an independent apt at [facility], presented with weakness and was admitted for stroke r/o, sx resolved quickly. All scans normal, discharged back to [facility] with close outpatient follow up recommended. PCP: Larry Roth Payer: [facility]/ for Life Spoke w/patient and with patient's permission spoke with Ursula Wray, Mechanical Meter Tester at [facility]. Patient is A+Ox4 and able to complete all ADLs indp however has been falling more frequently at [facility]. Ursula and patient have discussed increasing patient's care and patient agreeable to this. Dr Green was kind enough to review and sign move in orders for [facility] assisted living services. These were faxed to Ursula at F [phone]. Patient recently experienced the of his and has a daughter with an advanced cancer on hospice. Patient plans to return to his ind apt today and denies needs from this EXTRACTING MACHINE OPERATOR. facility van to transport patient home. No barriers identified at this time to patient's safe discharge home to [facility], assisted services likely starting soon, close outpatient f/u recommended. XI Olguin Discharge Planning/Care Management CM Discharge Assessment Start: 04/11/23 14:40 Freq: Status: Active Protocol: Document 04/11/23 14:40 SHANNON (Rec: 04/11/23 14:43 SHANNON [id number]) Discharge Planning Assessment Assigned Football Scout XI Delgado DPOA/Assigned Designee Name Julia St, daughter (KATINA) Contact Information [phone] Advance Directives? Yes: Advance Directive:General POA Advance Directives on File Yes History Provided By Patient,Medical Record Prior Living Arrangements Apartment/Condo Comment Independent apt at [facility] Household Members none Type of transporation used prior to Relies on Others admit Facility Name Admitted From: [facility] Willing to Return to Facility? Yes Independent with ADL's Yes: Has been falling more frequently Is patient alert and oriented? Yes Needs Assistance With Meal Prep,Home Chores / Shopping Barriers to Discharge No Comment Return home to [facility] with escalation of care soon into assisted living Discharge Plan Home Transportation Arrangement Facility Van Referrals Initiated None needed
--- NOTE | 2023-04-11 16:03 | PC.NURSE ---
Discharge: Pt feels ready to d/c to home. He feels stronger and better than he did. Wound to rt dressing was changed. Has multiple skin tears to the RT wrist and between thumb and finger has a cut that was sutured. The sutures are clean and dry. Hand cleansed and was then rewrapped. He is to follow up further on thursday at the office. NIH was a 1, off for sl facial dropped. He is able to hold his lt leg up for 5 seconds. However when he is standing on it he reports it feels weak and like it could buckle on him. It did not but he was encouraged to call for assist whenever needed. He is taking his diet with out problems, no pain, He has a friend here who is giving him a ride home. Reviewed d/c packet, Pt is to take an aspirin when he gets home. Denied any concerns. Pt d/c to home via auto with friend.
== END 2023-04-11 15:05 | disposition home or self-care (01) ==
LOC: ED 08:02 → AC 09:17
PROVIDERS: Admitting Provider Family Medicine; Emergency Provider Emergency Medicine; Family Provider Internal Medicine; PCP Internal Medicine; Referring Provider Emergency Medicine; Visit Provider Family Medicine
DX: G45.9 Transient cerebral ischemic attack, unspecified (principal); G20.A1 Parkinson's disease without dyskinesia, without mention of fluctuations; K21.9 Gastro-esophageal reflux disease without esophagitis; R29.703 NIHSS score 3
CPT/HCPCS: 36415; 70450; 70496; 70498; 70551; 72141; 80053; 81003; 82550; 83735; 84484; 85025; 93005; 93306; 96360; 97116; 97161; 97530; 99222; 99285; G0378; Q9967

== ENCOUNTER → 2023-12-08 09:22 | Outpatient (CLI) | payer MEDICARE, OTHER, SELFPAY ==
[2023-04-10 12:07] VITALS: BMI 25.1
[2023-12-08 10:43] LABS: Add Manual Diff / Slide Review NO; Basophils Absolute Auto 0 /uL (0-100); Basophils Percent Auto 0.3 % (0-2); Eosinophils Absolute Auto 100 /uL (0-450); Eosinophils Percent Auto 2.2 % (2-4); Hematocrit 44.6 % (41-53); Hemoglobin 15.3 g/dL (13.5-17.5); Lymphocytes Absolute Auto 1600 /uL (1100-4500); Lymphocytes Percent Auto 24.5 % (25-40); Mean Corpuscular HGB Conc 34.3 % (30-36); Mean Corpuscular Hemoglobin 32.6 PG (26-34); Monocytes Absolute Auto 600 /uL (0-900); Monocytes Percent Auto 9.6 % (3-14); Neutrophils Absolute Auto 4000 /uL (1500-7000); Neutrophils Percent Auto 63.4 % (50-75); Platelet Count 202 X10^3/uL (150-400); Red Blood Cell Count 4.69 X10^6/uL (4.5-5.9); Red Cell Distribution Width 14.1 % (11.6-14.8); White Blood Cell Count 6.3 X10^3/uL (4.5-11.0)
[2023-12-08 11:11] LABS: Alanine Aminotransferase 10 IU/L (<50); Albumin 3.7 g/dL (3.5-5.0); Albumin Globulin Ratio 1.4 (1.0-2.8); Alkaline Phosphatase 73 U/L (38-126); Aspartate Aminotransferase 29 IU/L (17-59); BUN Creatinine Ratio 23.6 (6-22); Bilirubin Total 0.8 mg/dL (0.2-1.3); Blood Urea Nitrogen 17 mg/dL (9-20); Calcium 8.6 mg/dL (8.4-10.2); Carbon Dioxide 28 mmol/L (22-32); Chloride 104 mmol/L (98-107); Estimated Glomerular Filt Rate > 60 mL/min (>60); Globulin 2.6 g/dL (1.7-4.1); Glucose 75 mg/dL (80-110); HEMOLYSIS < 15 (0-50); Potassium 4.6 mmol/L (3.4-5.1); Sodium 134 mmol/L (137-145); Total Protein 6.3 g/dL (6.3-8.2)
[2023-12-08 11:42] LABS: Carcinoembryonic Antigen 2.8 ng/mL (0.1-3.0)
[2023-12-09 23:40] LABS: PSA Ultrasensitive <0.006 ng/mL (0.000-4.000)
== END ==
PROVIDERS: Family Provider Internal Medicine; PCP Internal Medicine; Referring Provider Internal Medicine; Visit Provider Internal Medicine
DX: C18.9 Malignant neoplasm of colon, unspecified (principal); C61 Malignant neoplasm of prostate; C91.10 Chronic lymphocytic leukemia of B-cell type not having achieved remission; G20.C Parkinsonism, unspecified
CPT/HCPCS: 36415; 80053; 82378; 84153; 85025

== ENCOUNTER → 2024-03-24 12:01 | Outpatient (CLI) | payer MEDICARE, OTHER, SELFPAY ==
[2023-04-10 12:07] VITALS: BMI 25.1
--- NOTE | 2024-03-24 12:02 | DI.RAD.S_ITS ---
PROCEDURE: XR HIP W PEL IF DONE STEVE MIN 4V INDICATIONS: hip pain TECHNIQUE: AP pelvis with lateral views of the right and left hips. COMPARISON: None. FINDINGS: Bones: No acute fractures or dislocations. Pelvic ring appears intact. No suspicious bony lesions. Moderate degenerative changes are seen in the hips bilaterally. Small ossification adjacent to the lateral acetabular rim is likely a labral ossification. Multilevel degenerative changes in the spine. Soft tissues: The visualized bowel gas pattern is normal. No suspicious soft tissue calcifications. Surgical clips project over the pelvis bilaterally. IMPRESSION: Moderate bilateral hip osteoarthrosis. Approved by: Wai Bryan M.D. on 03/24/2024 at 21:07
== END ==
PROVIDERS: Family Provider Internal Medicine; PCP Internal Medicine; Referring Provider Internal Medicine; Visit Provider Internal Medicine
DX: M16.0 Bilateral primary osteoarthritis of hip (principal)
CPT/HCPCS: 73522

== ENCOUNTER → 2024-05-30 08:30 | Outpatient (CLI) | payer MEDICARE, OTHER, SELFPAY ==
[2023-04-10 12:07] VITALS: BMI 25.1
[2024-05-30 09:23] LABS: Add Manual Diff / Slide Review NO; Basophils Absolute Auto 0 /uL (0-100); Basophils Percent Auto 0.4 % (0-2); Eosinophils Absolute Auto 100 /uL (0-450); Hematocrit 44.4 % (41-53); Hemoglobin 15.1 g/dL (13.5-17.5); Lymphocytes Absolute Auto 1500 /uL (1100-4500); Lymphocytes Percent Auto 24.9 % (25-40); Mean Corpuscular Hemoglobin 32.7 PG (26-34); Monocytes Absolute Auto 600 /uL (0-900); Monocytes Percent Auto 9.2 % (3-14); Neutrophils Absolute Auto 3800 /uL (1500-7000); Neutrophils Percent Auto 63.5 % (50-75); Platelet Count 202 X10^3/uL (150-400); Red Blood Cell Count 4.63 X10^6/uL (4.5-5.9); Red Cell Distribution Width 13.2 % (11.6-14.8)
[2024-05-30 09:36] LABS: Alanine Aminotransferase 10 IU/L (<50); Albumin 3.6 g/dL (3.5-5.0); Albumin Globulin Ratio 1.4 (1.0-2.8); Alkaline Phosphatase 66 U/L (38-126); Aspartate Aminotransferase 25 IU/L (17-59); BUN Creatinine Ratio 21.8 (6-22); Bilirubin Total 0.7 mg/dL (0.2-1.3); Blood Urea Nitrogen 17 mg/dL (9-20); Carbon Dioxide 27 mmol/L (22-32); Chloride 102 mmol/L (98-107); Estimated Glomerular Filt Rate > 60 mL/min (>60); Globulin 2.5 g/dL (1.7-4.1); Glucose 103 mg/dL (80-110); HEMOLYSIS < 15 (0-50); Potassium 4.1 mmol/L (3.4-5.1); Sodium 134 mmol/L (137-145); Total Protein 6.1 g/dL (6.3-8.2)
[2024-05-30 10:33] LABS: Erythrocyte Sedimentation Rate 2 MM/HR (0-15)
== END ==
PROVIDERS: Family Provider Internal Medicine; PCP Internal Medicine; Referring Provider Internal Medicine; Visit Provider Internal Medicine
DX: C91.10 Chronic lymphocytic leukemia of B-cell type not having achieved remission (principal); D45 Polycythemia vera; M19.90 Unspecified osteoarthritis, unspecified site
CPT/HCPCS: 36415; 80053; 85025; 85651

== ENCOUNTER 2024-12-19 00:50 | Emergency (ER) | payer MEDICARE, OTHER, SELFPAY ==
[2023-04-10 12:07] VITALS: BMI 25.1
[2024-12-19] VITALS (15 sets, daily range): BP systolic 93–120; BP diastolic 60–71; PULSE 64–92; RESP 9–23; TEMP 36.6; O2SAT 91–96; BMI 25.8
--- NOTE | 2024-12-19 01:46 | ED.FALL ---
HPI - Fall General Chief Complaint: Fall Stated Complaint: fall Time Seen by Provider: 12/19/24 01:38 Source: patient and EMS Mode of arrival: EMS History of Present Illness HPI Narrative: 89-year-old male with history of parkinsonism, got up out of bed too quickly, felt dizzy and fell, has had similar events when getting up or changing positions too quickly in the past, scraped his scalp on the wall on the way down, no loss of consciousness. No focal weakness to face arm or leg. No focal numbness to face arm or leg. No neck pain. No upper extremity paresthesias. No leg paresthesias. He denies chest pain, abdominal pain, nausea, vomiting, back or flank pain. Related Data Home Medications ?Medication ?Instructions ?Recorded ?Confirmed polyethylene glycol 3350 17 17 g PO DAILY 08/29/20 11/15/24 gram/dose oral powder (Miralax) brimonidine 0.025 % eye drops 1 drp ophthalmic (eye) DAILY 04/10/23 11/15/24 carbidopa 25 mg-levodopa 100 mg 1.5 tab PO TID 06/06/24 11/15/24 tablet carbidopa ER 50 mg-levodopa 200 mg 1 tab PO BEDTIME 06/06/24 11/15/24 tablet,extended release rasagiline 0.5 mg tablet 0.5 mg PO DAILY 06/06/24 11/15/24 Held on 09/12/24. Instructions: sleepiness fluorouracil 1 % topical solution 1 ml topical QID 11/15/24 11/15/24 Previous Rx's ?Medication ?Instructions ?Recorded omeprazole 20 mg capsule,delayed 20 mg PO QDAY #90 caps 09/02/23 release aspirin 325 mg tablet,delayed 325 mg PO DAILY #100 tabs 10/20/23 release ezetimibe 10 mg tablet (Zetia) 10 mg PO QDAY #90 tabs 11/11/23 Allergies Allergy/AdvReac Type Severity Reaction Status Date / Time enoxaparin (From LOVENOX) Allergy Unknown Major Verified 11/15/24 11:20 Bleed after bowel resection Sulfa (Sulfonamide Allergy Unknown Nose Verified 11/15/24 11:20 Antibiotics) (SULFA turned (SULFONAMIDE ANTIBIOTICS)) bright red Patient History Medical History (Updated 12/19/24 @ 03:56 by Domenico Diaz MD) Colon cancer Prostate cancer History of Anabel-Murguia virus infection Depression Right inguinal hernia Polycythemia vera Erythrocytosis Osteoarthritis Meningitis GERD (gastroesophageal reflux disease) Hyperlipemia History of nephrolithiasis (~1996) Obstructive sleep apnea (~01/2016) Rotator cuff tear, right (~2008) PTSD (post-traumatic stress disorder) (1967) Malaria (~194) Cataracts, bilateral (~2009) Hearing loss (Unknown) Urinary incontinence (2008) Colon polyps (2011) Diverticular disease (2014) Hemorrhoids (2014) Skin cancer Lymphoma (2005) Colorectal cancer (~01/2012) Hyperlipemia CLL (chronic lymphocytic leukemia) (2004) Prostate cancer (~2003) Surgical History S/P inguinal hernia repair (08/29/20) Hx of biopsy (~2004) Hx of rotator cuff surgery (02/2009) Hx of cataract surgery (2009) Hx of colectomy (~01/2012) History of tonsillectomy Status post radical cystoprostatectomy (2003) Family History Father Cancer Mother Stroke Hypertension Daughter Breast cancer Social History marital status: household members: none occupational status: previously employed Smoking Status: Never smoker alcohol intake: current substance use type: does not use Smoking Status: Never smoker alcohol intake frequency: 0-2 drinks per day Exam Narrative Exam Narrative: GENERAL: Well-developed patient, in mild distress. HEAD: Abrasions to the vertex and right side of the scalp, no suturable lacerations. No large hematoma, no crepitance. EYES: Pupils equal round and reactive. Extraocular motions intact. No scleral icterus. No injection or drainage. ENT: Nose without bleeding, purulent drainage. Throat without erythema, tonsillar hypertrophy or exudate. Airway patent. NECK: Trachea midline. Non tender CARDIOVASCULAR: Regular rate and rhythm without murmurs, gallops, or rubs. RESPIRATORY: Clear to auscultation. Breath sounds equal bilaterally. No wheezes, rales, or rhonchi. GASTROINTESTINAL: Abdomen soft, non-tender, nondistended. EXTREMITIES: No edema or joint tenderness. BACK: Nontender without deformity or crepitance. No flank tenderness. NEURO: AOx3. Motor functions grossly nonfocal. SKIN: No rash or erythema of visible areas Initial Vital Signs Initial Vital Signs: Vital Signs Pulse Rate 91 H 12/19/24 01:00 Respiratory Rate 23 12/19/24 01:00 Pulse Oximetry 94 12/19/24 01:00 Oxygen Delivery Method Room Air 12/19/24 01:00 Course Orders Ordered: Discontinued Medications Bacitracin (Bacitracin Oint 0.9 Gm Pckt) 1 applic TOP NOW ONE Stop: 12/19/24 03:54 Last Admin: 12/19/24 05:23 Dose: 1 applic Documented By: JERRY Diphtheria/Tetanus/Acell Pertussis (Tet,Diph,Pertuss(Acell),Vac/Pf 0.5 Ml Syringe) 0.5 ml IM .ONCE ONE Stop: 12/19/24 03:51 Last Admin: 12/19/24 05:23 Dose: 0.5 ml Documented By: JERRY Vital Signs Vital signs: Vital Signs - 8 hr 12/19/24 01:00 12/19/24 01:03 12/19/24 01:30 Temperature 97.8 F Pulse Rate 91 H 92 H 86 Respiratory Rate 23 16 11 L Blood Pressure 111/69 Pulse Oximetry 94 95 94 Oxygen Delivery Method Room Air Room Air Room Air 12/19/24 02:10 12/19/24 02:30 12/19/24 03:00 Temperature Pulse Rate 74 79 87 Respiratory Rate 18 19 Blood Pressure Pulse Oximetry 91 94 95 Oxygen Delivery Method Room Air Room Air Room Air 12/19/24 03:30 12/19/24 04:00 12/19/24 04:30 Temperature Pulse Rate 85 81 82 Respiratory Rate 11 L 17 11 L Blood Pressure Pulse Oximetry 94 95 95 Oxygen Delivery Method Room Air Room Air Room Air 12/19/24 05:00 12/19/24 05:30 12/19/24 05:40 Temperature Pulse Rate 86 86 90 Respiratory Rate 17 20 21 Blood Pressure Pulse Oximetry 96 95 96 Oxygen Delivery Method Room Air Room Air Room Air 12/19/24 05:40 Temperature Pulse Rate Respiratory Rate Blood Pressure 105/60 Pulse Oximetry Oxygen Delivery Method MDM - Fall MDM Narrative Medical decision making narrative: 89-year-old male with history of parkinsonism, believes he got up too quickly from bed to get up to go to pee, felt dizzy, as it has happened in the past, had ground level fall had laceration to top of head, not on blood thinner medications. CT head and cervical spine ordered. CT head noncontrast. Impressions: ?No acute intracranial abnormality. Hematoma right vertex without calvarial fracture. ? see tele radiology report. CT cervical spine. Impressions: ?Multilevel spondylotic changes of the cervical spine without acute traumatic injury. ? see tele radiology report Unclear date of last tetanus, willing to have update. IM Tdap ordered. Local wound cleansing to abrasions to scalp, antibiotic ointment applied dressings. Discharged home. Follow up with PCP advised for wound check. Return precautions discussed. Discharge Plan Departure Patient Disposition: Home Clinical Impression: Scalp abrasion, History of Parkinson's disease Activity Restrictions/Additional Instructions: History of parkinsonism, having gotten up too quickly out of bed to standing position, felt dizzy, had a fall, as has happened in the past, scraping scalp, no loss of consciousness. Abrasions to the vertex top of the head into the right side of the scalp. CT head no acute changes. CT cervical spine no neck injuries obvious. Local wound cleansing to the abrasions, antibiotic ointment applied. Continue your anti parkinsonism medications and other chronic regular medication, it current regimen doses. Recheck scalp wound with your regular doctor in the next couple of days. Return to this/nearest emergency department for any change worsening symptoms or any concerns prior. Prescriptions: No Action omeprazole 20 mg capsule,delayed release(DR/EC) 20 mg PO QDAY Qty: 90 3RF aspirin 325 mg tablet,delayed release (DR/EC) 325 mg PO DAILY Qty: 100 3RF ezetimibe [Zetia] 10 mg tablet 10 mg PO QDAY Qty: 90 3RF carbidopa-levodopa 50-200 mg tablet extended release 1 tab PO BEDTIME rasagiline 0.5 mg tablet 0.5 mg PO DAILY fluorouracil 1 % solution 1 ml topical QID Rx Instructions: 4X A DAY FOR 1 WEEK - 3 WEEKS OFF - THEN REPEATS carbidopa-levodopa 25-100 mg tablet 1.5 tab PO TID brimonidine 0.025 % Drops 1 drp ophthalmic (eye) DAILY Rx Instructions: 1 drop both eyes bedtime polyethylene glycol 3350 [Miralax] 17 gram/dose Powder 17 g PO DAILY Referrals: Larry Roth MD [Primary Care Provider, Internal Medicine] Stand Alone Forms: Patient Portal/API
--- NOTE | 2024-12-19 01:48 | DI.CT.S_ITS ---
PROCEDURE: CT HEAD/BRAIN WO CON INDICATIONS: fall, head trauma TECHNIQUE: Noncontrast 4.5 mm thick angled axial sections acquired from the foramen magnum to the vertex, with coronal and sagittal reformats. For radiation dose reduction, the following was used: automated exposure control, adjustment of mA and/or kV according to patient size. COMPARISON: [facility], CT, CT HEAD/BRAIN WO CON, 04/10/2023, 8:01. FINDINGS: Image quality: Diagnostic CSF spaces: Basal cisterns are patent. Lateral ventricles are symmetric. Volume: Vascular calcifications. Periventricular white matter disease is commonly seen with chronic microangiopathy. Volume loss is present. These findings are moderate Brain: No acute hemorrhage. No acute loss of blakely-white differentiation Craniofacial structures: Mild paranasal sinus mucosal thickening. Right scalp contusion. IMPRESSION: No acute intracranial abnormality. Right scalp contusion. No significant changes from the preliminary report Dictated by: Jorge Nam M.D. on 12/19/2024 at 7:36 Approved by: Jorge Nam M.D. on 12/19/2024 at 7:38
--- NOTE | 2024-12-19 01:49 | DI.CT.S_ITS ---
PROCEDURE: CT CERVICAL SPINE WO CON INDICATIONS: GLF, head injury TECHNIQUE: Noncontrast 3 mm thick sections acquired from the skull base to the T4 level. Sagittal and coronal reformats were then constructed. For radiation dose reduction, the following was used: automated exposure control, adjustment of mA and/or kV according to patient size. COMPARISON: Not available FINDINGS: Image quality: Diagnostic Bones: Trace retrolisthesis of C3 on C4 and C4 on C5 likely degenerative. Moderate spondylosis. Vertebral body heights are well maintained. No traumatic subluxation. Soft tissues: No apical pneumothorax. No significant prevertebral soft tissue swelling. IMPRESSION: No displaced fracture or traumatic subluxation. Moderate overall spondylosis. If there is high concern for further derangement, consider MRI evaluation. No significant changes from the preliminary report. Dictated by: Jorge Nam M.D. on 12/19/2024 at 7:38 Approved by: Jorge Nam M.D. on 12/19/2024 at 7:40
[2024-12-19] MEDS: BACITRACIN OINT 0.9 GM PCKT 1 APPLIC TOP (05:23)
[2024-12-19] MEDS: TET,DIPH,PERTUSS(ACELL),VAC/PF 0.5 ML SYRINGE IM (05:23)
== END 2024-12-19 07:10 | disposition home or self-care (01) ==
PROVIDERS: Emergency Provider Emergency Medicine; Family Provider Internal Medicine; PCP Internal Medicine
DX: S00.01XA Abrasion of scalp, initial encounter (principal); R42 Dizziness and giddiness; G20.C Parkinsonism, unspecified; W18.30XA Fall on same level, unspecified, initial encounter; Z23 Encounter for immunization
CPT/HCPCS: 70450; 72125; 90471; 99283; 99284; 90715

== ENCOUNTER → 2025-03-14 11:23 | Outpatient (CLI) | payer MEDICARE, OTHER, SELFPAY ==
[2023-04-10 12:07] VITALS: BMI 25.1
[2025-03-14 11:41] LABS: Add Manual Diff / Slide Review NO; Hematocrit 43.8 % (41-53); Hemoglobin 15.0 g/dL (13.5-17.5); Lymphocytes Absolute Auto 1400 /uL (1100-4500); Mean Corpuscular HGB Conc 34.2 % (30-36); Mean Corpuscular Hemoglobin 32.2 PG (26-34); Mean Corpuscular Volume 94.1 fL (80-100); Platelet Count 201 X10^3/uL (150-400)
[2025-03-14 12:01] LABS: Alanine Aminotransferase 8 IU/L (<50); Albumin 3.9 g/dL (3.5-5.0); Albumin Globulin Ratio 1.4 (1.0-2.8); Alkaline Phosphatase 88 U/L (38-126); Blood Urea Nitrogen 16 mg/dL (9-20); Calcium 9.1 mg/dL (8.4-10.2); Carbon Dioxide 26 mmol/L (22-32); Chloride 101 mmol/L (98-107); Estimated Glomerular Filt Rate > 60 mL/min (>60); Globulin 2.8 g/dL (1.7-4.1); Glucose 85 mg/dL (70-99); HEMOLYSIS < 15 (0-50); Potassium 4.5 mmol/L (3.4-5.1); Sodium 134 mmol/L (137-145); Total Protein 6.7 g/dL (6.3-8.2)
[2025-03-14 12:30] LABS: Carcinoembryonic Antigen 3.6 ng/mL (0.1-3.0)
== END ==
PROVIDERS: Family Provider Internal Medicine; PCP Internal Medicine; Referring Provider Internal Medicine; Visit Provider Internal Medicine
DX: C91.10 Chronic lymphocytic leukemia of B-cell type not having achieved remission (principal); C18.9 Malignant neoplasm of colon, unspecified; D45 Polycythemia vera; G20.B2 Parkinson's disease with dyskinesia, with fluctuations; Z15.01 Genetic susceptibility to malignant neoplasm of breast; Z15.09 Genetic susceptibility to other malignant neoplasm
CPT/HCPCS: 36415; 80053; 82378; 85025

== ENCOUNTER → 2025-03-17 10:02 | Outpatient (CLI) | payer MEDICARE, OTHER, SELFPAY ==
[2023-04-10 12:07] VITALS: BMI 25.1
--- NOTE | 2025-03-17 10:03 | DI.CT.S_ITS ---
PROCEDURE: CT CHEST ABD PEL W CON INDICATIONS: elevated CEA, hx colon cancer TECHNIQUE: After the administration of intravenous contrast, 5 mm thick sections acquired from the lung apices to the symphysis. 5 mm coronal and sagittal reformats were performed, with additional 7 mm MIP reformats through the lungs. For radiation dose reduction, the following was used: automated exposure control, adjustment of mA and/or kV according to patient size. COMPARISON: [facility], CT, CT CHEST ABD PEL W CON, 08/08/2019, 11:38. FINDINGS: Image quality: Excellent. CHEST: Lower Neck: No enlarged lymph nodes. Thyroid: Stable nodule in the right thyroid lobe posteriorly, therefore benign. Axillae: No enlarged lymph nodes. Chest Wall: Unremarkable. Lungs and Pleura: No pneumothorax or pleural effusions. No consolidation or suspicious nodules. Heart: Heart size is normal. No pericardial effusion. Thoracic Vessels: The aorta and pulmonary arteries demonstrate normal size. Mediastinum and Maria Luz: No enlarged lymph nodes. Esophagus: No wall thickening. No hiatal hernia. ABDOMEN: Liver: No solid mass. Gallbladder: No radiopaque gallstones or wall thickening. Biliary ducts: No biliary dilation. Pancreas: No ductal dilation. Spleen: There is a new 1.2 cm hypoenhancing lesion in the posterior region, statistically most likely cyst or hemangioma. Adrenal Glands: No adrenal nodules. Kidneys and Ureters: No hydronephrosis. No solid mass. No complex renal cystic lesion which requires follow up. Stomach and Bowel: Normal colonic caliber, without significant wall thickening. Peritoneum: No abnormal intraperitoneal fluid. No free air. Ventral Wall: No significant ventral hernia. Abdominal Nodes: No retroperitoneal or mesenteric adenopathy by size criteria. Vessels: Stable ectasia of the abdominal aorta. PELVIS: Pelvic Organs: Status post prostatectomy and lymph node dissection. Bladder: No bladder wall thickening, accounting for underdistention. Pelvic Nodes: Stable mildly enlarged inguinal nodes. Miscellaneous: No inguinal hernias are seen. Bones: No aggressive osseous abnormality. IMPRESSION: No suspicious focal lesion to suggest tumor recurrence or metastasis in the chest, abdomen and pelvis. Dictated by: Miguel Hickman M.D. on 03/19/2025 at 14:44 Approved by: Miguel Hickman M.D. on 03/19/2025 at 14:55
== END ==
LOC: CT 10:03
PROVIDERS: Family Provider Internal Medicine; PCP Internal Medicine; Referring Provider Internal Medicine; Visit Provider Internal Medicine
DX: D73.9 Disease of spleen, unspecified (principal); I77.811 Abdominal aortic ectasia; R97.0 Elevated carcinoembryonic antigen [CEA]; Z85.038 Personal history of other malignant neoplasm of large intestine
CPT/HCPCS: 71260; 74177; Q9967

== ENCOUNTER 2025-06-06 08:00 | Inpatient (IN) | payer MEDICARE, OTHER, SELFPAY ==
[2023-04-10 12:07] VITALS: BMI 25.1
[2025-06-06] VITALS (10 sets, daily range): BP systolic 131–164; BP diastolic 52–92; PULSE 66–90; RESP 16–24; TEMP 36.1–37.6; O2SAT 93–98; BMI 24.9
--- NOTE | 2025-06-06 08:01 | ED_ITS ---
HPI - Neuro Symptoms/Deficit General Chief Complaint: Neuro Symptoms/Deficit Stated Complaint: Neuro Time Seen by Provider: 06/06/25 08:24 History of Present Illness HPI Narrative: Patient brought in by EMS from assisted living at [facility]. Last well known 9:00 p.m. last night. Blood sugar 116. Patient is DNR DNI with comfort measures only. Patient has right-sided weakness. No prior history of stroke. Has history of chronic lymphocytic leukemia. Prostate cancer skin cancer ophthalmology neoplasm in remission. Patient is awake alert oriented x3. Has clear speech. Does have right-sided weakness. This is new. Patient has history of Parkinson's. 8:10 a.m.. I spoke with daughter, Noelle, she is in [place]. Phone number [phone]. She is [id number]. Patient is DNR DNI with comfort measures only however he is decisional if endovascular procedure needed. She has 2 sisters that she is contacting that live in the [facility]. Primary care Dr. Roth Related Data Home Medications ?Medication ?Instructions ?Recorded ?Confirmed polyethylene glycol 3350 17 17 g PO DAILY 08/29/20 gram/dose oral powder (Miralax) carbidopa 25 mg-levodopa 100 mg 1.5 tab PO TID 4 04/14/25 tablet carbidopa ER 50 mg-levodopa 200 mg 1 tab PO BEDTIME 04/14/25 tablet,extended release brimonidine 0.025 % eye drops 1 drp ophthalmic (eye) D AILY 03/14/25 04/14/25 Previous Rx's ?Medication ?Instructions ?Recorded omeprazole 20 mg capsule,delayed 20 mg PO QDAY #90 cap s 09/02/23 release aspirin 325 mg tablet,delayed 325 mg PO DAILY #100 tab s 10/20/23 release ezetimibe 10 mg tablet (Zetia) 10 mg PO QDAY #90 tabs 11/11/23 Allergies Allergy/AdvReac Type Severity Reaction Status Date / Time enoxaparin (From LOVENOX) Allergy Unknown Major Verified 04/14/25 16:29 Bleed after bowel resection Sulfa (Sulfonamide Allergy Unknown Nose Verified 04/14/25 16:29 Antibiotics) (SULFA turned (SULFONAMIDE ANTIBIOTICS)) bright red Review of Systems Review of Systems Narrative: GENERAL: Negative chills, fatigue, malaise, fever, sweats. HEENT: Negative sinus pain, ear pain, sore throat RESPIRATORY: Negative dyspnea, cough CARDIOVASCULAR: Negative chest pain, palpitations GASTROINTESTINAL: Negative vomiting, nausea, abdominal pain : Negative dysuria, frequency, hematuria MUSCULOSKELETAL: Negative muscle or bony pain SKIN: Negative rash, skin lesions NEUROLOGIC: Positive lip droop positive weakness, negative numbness ROS Unobtainable: All systems reviewed & are unremarkable except as noted in HPI and below Patient History Medical History Colon cancer Prostate cancer History of Anabel-Murguia virus infection Depression Right inguinal hernia Polycythemia vera Erythrocytosis Osteoarthritis Meningitis GERD (gastroesophageal reflux disease) Hyperlipemia History of nephrolithiasis (~1996) Obstructive sleep apnea (~01/2016) Rotator cuff tear, right (~2008) PTSD (post-traumatic stress disorder) (1967) Malaria (~1939) Cataracts, bilateral (~2009) Hearing loss (Unknown) Urinary incontinence (2008) Colon polyps (2011) Diverticular disease (2014) Hemorrhoids (2014) Skin cancer Lymphoma (2004) Colorectal cancer (~01/2012) Hyperlipemia CLL (chronic lymphocytic leukemia) (2004) Prostate cancer (~2003) Surgical History S/P inguinal hernia repair (08/29/20) Hx of biopsy (~2004) Hx of rotator cuff surgery (02/2009) Hx of cataract surgery (2009) Hx of colectomy (~01/2012) History of tonsillectomy Status post radical cystoprostatectomy (2003) Family History Father Cancer Mother Stroke Hypertension Daughter Breast cancer Social History marital status: household members: none occupational status: previously employed alcohol intake: current substance use type: does not use alcohol intake frequency: 0-2 drinks per day Exam Narrative Exam Narrative: GENERAL: in no distress, not toxic not dyspneic HEAD: Normocephalic. EYES: Pupils equal round ENT: Mucous membranes moist. NECK: Trachea midline. CARDIOVASCULAR: Regular rate and rhythm RESPIRATORY: Clear to auscultation. Breath sounds equal bilaterally. No wheezes, rales, or rhonchi. GASTROINTESTINAL: Abdomen soft, BACK: No flank tenderness. EXTREMITIES: No gross deformities. NEURO: AOx3. Clear speech, there is left lip droop tongue deviation to the right and left leg weakness. 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 Open/close eyes, close hand: Performs both tasks correctly Best gaze horizontal: Normal Visual douglas: No visual loss Facial palsy: Minor paralysis, flattened nasolabial fold, asymmetry on smiling Left arm drift: No drift for full 10 sec Right arm drift: No drift for full 10 sec Left leg drift: Drifts down, not to bed Right leg drift: No drift for full 5 sec Limb ataxia: Absent Sensory on face/arms/legs: Normal, no sensory loss Best language: No aphasia, normal Dysarthria: Normal Extinction or inattention: No abnormality Total NIH Stroke scale score: 2 Course Orders Ordered: ED Orders 06/06/25 07:45 Complete Blood Count AUTO DIFF Stat Comprehensive Metabolic Panel Stat PTT Partial Thromboplastin G[place]alo Stat Prothrombin Time INR Stat 06/06/25 07:[address] angio head and neck Stat EKG-12 Lead Stat 06/06/25 08:52 XR chest 1V Stat 06/06/25 09:15 Blood Culture Stat Acetaminophen (Acetaminophen 325 Mg Tablet) 650 mg PO Q6H PRN PRN Reason: Fever/Mild Pain (1-3) Aspirin (Aspirin Ec 325 Mg Tablet) 325 mg PO DAILY INGRID Carbidopa/Levodopa (Carbidopa-Levodopa Er 50/200 Tablet) 1 each PO BEDTIME INGRID Carbidopa/Levodopa (Carbidopa-Levodopa 25/100 Tablet) 1.5 each PO TID INGRID Clopidogrel Bisulfate (Clopidogrel 75 Mg Tablet) 75 mg PO DAILY INGRID Ezetimibe (Ezetimibe 10 Mg Tablet) 10 mg PO QDAY INGRID Sodium Chloride (Normal Saline 0.9%) 1,000 mls @ 75 mls/hr IV CONT INGRID Stop: 06/07/25 07:00 Ceftriaxone Sodium 1,000 mg/ (Sodium Chloride) 100 mls @ 200 mls/hr IV Q24H [facility] Stop: 06/11/25 09:59 Doxycycline Hyclate 100 mg/ (Sodium Chloride) 100 mls @ 100 mls/hr IV Q12H [facility] Stop: 06/11/25 09:59 Naloxone HCl (Naloxone 0.4 Mg/Ml Vial) 0.2 mg IV Q2MIN PRN PRN Reason: Opiate Reversal Non-Formulary Medication (Omeprazole) 20 mg PO QDAY [facility] Polyethylene Glycol (Polyethylene Glycol 3350 17 Gm Powd.Pack) 17 gm PO DAILY [facility] Discontinued Medications Aspirin (Aspirin 81 Mg Chew Tab) 324 mg PO NOW ONE Stop: 06/06/25 09:21 Last Admin: 06/06/25 09:35 Dose: 324 mg Documented By: TORIBIO Clopidogrel Bisulfate (Clopidogrel 75 Mg Tablet) 300 mg PO NOW ONE Stop: 06/06/25 09:21 Last Admin: 06/06/25 09:35 Dose: 300 mg Documented By: TORIBIO Sodium Chloride (Normal Saline 0.9%) 1,000 mls @ 999 mls/hr IV BOLUS ONE Stop: 06/06/25 08:59 Last Admin: 06/06/25 09:11 Dose: 999 mls/hr Documented By: TORIBIO Ceftriaxone Sodium 2,000 mg/ (Sodium Chloride) 100 mls @ 200 mls/hr IV NOW ONE Stop: 06/06/25 08:54 Last Admin: 06/06/25 09:12 Dose: 200 mls/hr Documented By: TORIBIO Doxycycline Hyclate 100 mg/ (Sodium Chloride) 100 mls @ 100 mls/hr IV NOW ONE Stop: 06/06/25 08:54 Vital Signs Vital signs: Vital Signs - 8 hr 06/06/25 08:11 06/06/25 08:12 06/06/25 08:12 Temperature Pulse Rate 90 90 Respiratory Rate 24 22 Blood Pressure 160/80 H Pulse Oximetry Oxygen Delivery Method 06/06/25 08:16 06/06/25 08:30 06/06/25 08:30 Temperature 98.1 F Pulse Rate 90 79 Respiratory Rate 20 Blood Pressure 160/80 H 146/74 H Pulse Oximetry 95 93 Oxygen Delivery Method Room Air 06/06/25 09:00 06/06/25 09:01 06/06/25 09:01 Temperature Pulse Rate 84 81 Respiratory Rate Blood Pressure 152/70 H Pulse Oximetry 95 95 Oxygen Delivery Method MDM - Neuro Symptoms/Deficit Lab Data 06/06/25 07:45 06/06/25 07:45 Labs: Lab Results 06/06/25 Range/Units 07:45 WBC 7.1 (4.5-11.0) X10^3/uL RBC 4.70 (4.5-5.9) X10^6/uL Hgb 15.0 (13.5-17.5) g/dL Hct 43.9 (41-53) % MCV 93.4 (80-100) fL MCH 31.9 (26-34) PG MCHC 34.1 (30-36) % RDW 13.7 (11.6-14.8) % Plt Count 158 (150-400) X10^3/uL Neut % (Auto) 85.9 H (50-75) % Lymph % (Auto) 4.5 L (25-40) % Park % (Auto) 8.9 (3-14) % Eos % (Auto) 0.3 L (2-4) % Baso % (Auto) 0.4 (0-2) % Neut # (Auto) 6100 (9857-5084) /uL Lymph # (Auto) 300 L (8076-6284) /uL Park # (Auto) 600 (0-900) /uL Eos # (Auto) 0 (0-450) /uL Baso # (Auto) 0 (0-100) /uL PT 11.9 (9.4-12.5) SECONDS INR 1.1 (0.9-1.3) APTT 27 (25.1-36.5) SECONDS Sodium 134 L (137-145) mmol/L Potassium 4.0 (3.4-5.1) mmol/L Chloride 102 (98-107) mmol/L Carbon Dioxide 25 (22-32) mmol/L BUN 18 (9-20) mg/dL Creatinine 0.66 (0.66-1.25) mg/dL Estimated GFR > 60 (>60) mL/min BUN/Creatinine Ratio 27.3 H (6-22) Glucose 106 H (70-99) mg/dL Calcium 8.7 (8.4-10.2) mg/dL Total Bilirubin 1.1 (0.2-1.3) mg/dL AST 23 (17-59) IU/L ALT 8 (<50) IU/L Alkaline Phosphatase 81 (38-126) U/L Total Protein 7.0 (6.3-8.2) g/dL Albumin 3.9 (3.5-5.0) g/dL Globulin 3.1 (1.7-4.1) g/dL Albumin/Globulin Ratio 1.3 (1.0-2.8) Imaging Data Chest x-ray: Radiologist's Impression: [address] [address] XRay Report Signed Patient: Raza St MR#: [id number] : 1935 Acct:[id number] Age/Sex: 89 / M Date of Service: 06/06/25 Loc: 90A-1 Accession Number: [id number] Procedure: XR chest 1V Ordering Provider: Barber Villa MD PROCEDURE: XR CHEST 1V INDICATIONS: cough TECHNIQUE: One view of the chest was acquired. COMPARISON: None. FINDINGS: Surgical changes and devices: None. Lungs and pleura: Right mid lung zone and left base opacities. No pleural effusions or pneumothorax. Mediastinum: Mediastinal contours appear normal. Heart size is normal. Bones and chest wall: No suspicious bony lesions. Overlying soft tissues appear unremarkable. IMPRESSION: Right mid lung zone and left base opacities concerning for pneumonia. Consider plain film surveillance to demonstrate resolution. Approved by: Shana Daley M.D.,Ph.D. on 06/06/2025 at 9:10 CT scan - head: Radiologist's Impression: [address] [address] [address] Scan Report Signed Patient: Raza St MR#: [id number] : 1935 Acct:[id number] Age/Sex: 89 / M Date of Service: 06/06/25 Loc: ED Accession Number: [id number] Procedure: CT Stroke Ordering Provider: Barber Villa MD PROCEDURE: CT STROKE INDICATIONS: Right-sided weakness, sudden onset TECHNIQUE: Noncontrast 4.5 mm thick angled axial sections acquired from the foramen magnum to the vertex, with coronal reformats. For radiation dose reduction, the following was used: automated exposure control, adjustment of mA and/or kV according to patient size. COMPARISON: [facility], CT, CT HEAD/BRAIN WO CON, 12/19/2024, 1:52. FINDINGS: Image quality: Diagnostic. CSF spaces: Basal cisterns are patent. No extra-axial fluid collections. The ventricles are symmetric in size and shape. Brain: No intracranial bleeds or mass effect. There is cerebral volume loss, with resultant ventricular and sulcal prominence. There are severe periventricular and deep white matter chronic small vessel ischemic changes. There is intracranial internal carotid artery atherosclerosis. Skull and face: Calvarium and visualized facial bones appear intact, without suspicious lesions. Sinuses: Visualized sinuses and mastoids are clear. IMPRESSION: No acute intracranial pathology. Age-related volume loss and severe small vessel ischemic change. Comment: Findings were discussed with Dr. Villa on 06/06/2025 at 0814 hours This study fulfills neurological imaging criteria for inclusion or exclusion of acute stroke therapies based on available published neurological guidelines. Dictated by: Deng Jimenez M.D. on 06/06/2025 at 8:13 Approved by: Deng Jimenez M.D. on 06/06/2025 at 8:15 CTA - brain/neck: Radiologist's Impression: [place] [address] CT Scan Report Signed Patient: Raza St MR#: [id number] : 1935 Acct:[id number] Age/Sex: 89 / M Date of Service: 06/06/25 Loc: ED Accession Number: [id number] Procedure: CT angio head and neck Ordering Provider: Barber Villa MD PROCEDURE: CT ANGIO HEAD AND NECK INDICATIONS: Right-sided weakness,sudden onset TECHNIQUE: After the administration of intravenous contrast, 1 mm thick sections acquired from the aortic arch through the [place] of Soni. 3-dimensional afqprvp-xattsaxzo-jykvdyohuv (MIP) and/or volume rendering reformats were acquired of the central intracranial vasculature and neck separately. For radiation dose reduction, the following was used: automated exposure control, adjustment of mA and/or kV according to patient size. COMPARISON: [facility], MR, MR HEAD/BRAIN WO CON, 04/10/2023, 9:33. [facility], CT, CT ANGIO HEAD AND NECK, 04/10/2023, 8:01. [facility], CT, CT CHEST ABD PEL W CON, 03/17/2025, 11:28. [facility], CT, CT STROKE, 06/06/2025, 8:01. FINDINGS: Image quality: Diagnostic. Cerebral CT Angiogram: Internal carotid arteries: No acute findings. Intracranial ICA are patent with no significant stenosis. No occlusion. No aneurysm. Anterior cerebral arteries: Unremarkable. No significant stenosis. No occlusion. No aneurysm. Middle cerebral arteries: Unremarkable. No significant stenosis. No occlusion. No aneurysm. Posterior cerebral arteries: Unremarkable. No significant stenosis. No occlusion. No aneurysm. Basilar artery: Unremarkable. No significant stenosis. No occlusion. No aneurysm. Vertebral arteries: Unremarkable as visualized. Dural venous sinuses: Unremarkable given phase of enhancement. Other: Arterial phase appearance of the brain parenchyma is unremarkable. 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 Reference axial image 145 of series 9 and coronal image 112 of series 10. . No dissection or occlusion. Common carotid arteries: Unremarkable. No significant stenosis. No dissection or occlusion. External carotid arteries: Unremarkable. No occlusion. Vertebral arteries: Unremarkable. No significant stenosis. No dissection or occlusion. Aortic Arch and Mediastinum: Partially visualized aortic arch unremarkable without evidence of aneurysm. Mild proximal brachiocephalic artery stenosis secondary to soft plaque. Wall Other: At the inferior aspect of the images there is focal consolidation in the right upper lobe. IMPRESSION: No significant intracranial arterial abnormality is seen. 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 Left internal carotid is widely patent. Focal right upper lobe pneumonia at the inferior aspect of the images. Any quantitative measurements of stenosis were performed using NASCET criteria. Dictated by: Deng Jimenez M.D. on 06/06/2025 at 8:26 Approved by: Deng Jimenez M.D. on 06/06/2025 at 8:34 MDM Narrative Medical decision making narrative: Patient brought in by EMS from assisted living at [facility]. Last well known 9:00 p.m. last night. Blood sugar 116. Patient is DNR DNI with comfort measures only. Patient has right-sided weakness. No prior history of stroke. Has history of chronic lymphocytic leukemia. Prostate cancer skin cancer ophthalmology neoplasm in remission. Patient is awake alert oriented x3. Has clear speech. Does have right-sided weakness. This is new. Patient has history of Parkinson's. 8:10 a.m.. I spoke with daughter, Noelle, she is in [place]. Phone number [phone]. She is [id number]. Patient is DNR DNI with comfort measures only however he is decisional if endovascular procedure needed. She has 2 sisters that she is contacting that live in the [facility]. Primary care Dr. Roth MDM After history and exam, CT head CT angiogram head and neck EKG CBC CMP neurology consult admit versus transfer Differential considered: Includes but not limited to TIA stroke Medical records reviewed: No recent visit for this complaint Lab Test results independently reviewed as above. Pertinent findings: WBC 7.1 hemoglobin 15 INR 1.1 sodium 134 potassium 4.0 BUN 18 creatinine 0.66 GFR greater than 60 glucose 106 Independently reviewed EKG normal sinus rhythm rate [address]-elevation or depression Imaging studies independently reviewed: CT head no acute finding CT angiogram head and neck no acute finding. Chest x-ray right middle lobe pneumonia Consultations: 8:28 a.m.. Spoke with [facility] neurology, Dr. Solis, she has reviewed angiogram and CT head. No transferred no endovascular studies. Recommends admission MRI echo Plavix 300 mg loading and then 75 mg daily. Continue aspirin. 9:18 a.m.. Spoke with primary care, Dr. Garrison, on-call for Dr. Roth, agrees he will admit patient Re-evaluations: 8:35 a.m.. Reviewed results with patient with CAT scan imaging and Neurology conversation and he does agree for admission. He does not want any endovascular studies. No vascular consult I spoke with Noelle, she agrees with his decision Discussion: IV contrast used for CT imaging appropriate for admission for balance workup for stroke. Neurology was consulted. No transfer no TNK no endovascular studies. Family was contacted. Patient agrees for admission. Antibiotics have been started. Incidental finding with pneumonia. Diagnosis: Stroke, pneumonia Stroke Core Measures Exclusion Criteria TPA in CVA: Symptom Onset >3 or 4.5 Hours Discharge Plan Departure Patient Disposition: Admitted as Observation Clinical Impression: Cerebrovascular accident Qualifiers: CVA mechanism: unspecified Qualified Code(s): I63.9 - Cerebral infarction, unspecified Pneumonia Qualifiers: Pneumonia type: due to unspecified organism Laterality: unspecified laterality Lung location: unspecified part of lung Qualified Code(s): J18.9 - Pneumonia, unspecified organism Admit Date/Time: 06/06/25 09:11 Admit Provider: Franco Garrison
[2025-06-06 08:11] LABS: Add Manual Diff / Slide Review NO; Hematocrit 43.9 % (41-53); Hemoglobin 15.0 g/dL (13.5-17.5); Lymphocytes Absolute Auto 300 /uL (1100-4500); Mean Corpuscular HGB Conc 34.1 % (30-36); Mean Corpuscular Hemoglobin 31.9 PG (26-34); Mean Corpuscular Volume 93.4 fL (80-100); Platelet Count 158 X10^3/uL (150-400)
[2025-06-06 08:19] LABS: INR 1.1 (0.9-1.3); Prothrombin Time 11.9 SECONDS (9.4-12.5)
[2025-06-06 08:22] LABS: PTT Partial Thromboplastin Tim 27 SECONDS (25.1-36.5)
[2025-06-06 08:24] LABS: Alanine Aminotransferase 8 IU/L (<50); Albumin 3.9 g/dL (3.5-5.0); Albumin Globulin Ratio 1.3 (1.0-2.8); Alkaline Phosphatase 81 U/L (38-126); Blood Urea Nitrogen 18 mg/dL (9-20); Calcium 8.7 mg/dL (8.4-10.2); Carbon Dioxide 25 mmol/L (22-32); Chloride 102 mmol/L (98-107); Estimated Glomerular Filt Rate > 60 mL/min (>60); Globulin 3.1 g/dL (1.7-4.1); Glucose 106 mg/dL (70-99); HEMOLYSIS < 15 (0-50); Potassium 4.0 mmol/L (3.4-5.1); Sodium 134 mmol/L (137-145); Total Protein 7.0 g/dL (6.3-8.2)
--- NOTE | 2025-06-06 08:26 | PC.NURSE ---
patient also had tongue deviation to the right.
--- NOTE | 2025-06-06 08:34 | EKG_ITS ---
[facility] [address] [place] [address] Test Date: 2025-06-06 Pat Name: Raza tS Department: [facility] Room: Gender: Male Float Remover: : 1935 Requested By: Order Number: [id number] Reading MD: Larry Roth MD Measurements Intervals [place] Rate: 81 P: 22 [place]: 196 QRS: -11 QRSD: 74 T: -21 QT: 358 QTc: 415 Interpretive Statements Normal sinus rhythm with sinus arrhythmia Nonspecific T wave abnormality Electronically Signed On 06-06-2025 9:11:03 PST by Larry Roth MD
--- NOTE | 2025-06-06 08:52 | DI.RAD.S_ITS ---
PROCEDURE: XR CHEST 1V INDICATIONS: cough TECHNIQUE: One view of the chest was acquired. COMPARISON: None. FINDINGS: Surgical changes and devices: None. Lungs and pleura: Right mid lung zone and left base opacities. No pleural effusions or pneumothorax. Mediastinum: Mediastinal contours appear normal. Heart size is normal. Bones and chest wall: No suspicious bony lesions. Overlying soft tissues appear unremarkable. IMPRESSION: Right mid lung zone and left base opacities concerning for pneumonia. Consider plain film surveillance to demonstrate resolution. Approved by: Shaan Daley M.D.,Ph.D. on 06/06/2025 at 9:10
[2025-06-06] MEDS: SODIUM CHLORIDE 0.9% 1,000 ML 999 ML IV (09:11)
[2025-06-06] MEDS: cefTRIAXone 2,000 MG in SODIUM CHLORIDE 0.9% 100 ML 200 MG IV (09:12)
--- NOTE | 2025-06-06 09:26 | P.HP_ITS ---
History of Present Illness History of Present Illness Date Patient Seen: 06/06/25 Time Patient Seen: 09:51 Chief complaint: weekness cough Narrative: Patient is an 89-year-old male who resides at [facility]. Patient has a past medical history of cerebrovascular accident CLL colon cancer prostate cancer Parkinson's disease osteoarthritis GERD polycythemia obstructive sleep apnea patient normally resides at [facility]. He states that home a number of days ago he has increasing secretions from Parkinson's disease which is not been a problem he says he has a cough lots of times. Says 3 or 4 days ago he coughed because of his secretions and thinks that maybe he aspirated. He says that pneumonia is 1 of the major reasons why people and Parkinson's dye is what he told me. He says he continued to have a cough over the last 3 or 4 days yesterday he woke up at 6:00 a.m. his caregiver came in and gave him his medications he went back to sleep until 4:00 a.m. yesterday afternoon. Yesterday afternoon he got up had a little bit of food and went back to sleep. His caregiver came in this morning. To provide his medications again and patient states he was very weak. Patient states he could not sit up and he kept falling over. Said he felt similar to when he had a previous stroke. At that point the caregiver became concerned and patient was transported to the emergency department for further evaluation. On my exam. Patient is a good historian he knows he is at [facility] he lives at [facility] able to relate his history he knows what day of the week it is. He is currently complaining of a little bit of a cough. He says he is weak but every where. Says he has not recently had any problems with bowel movements. He walks very slowly because of his Parkinson's with a cane. 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 He has not aware of having any significant fevers or chills. He is complaining of cough but not particularly short of breath. I reviewed the patient's workup in the emergency department this included Laboratory tests CT scan and x-rays were reviewed. On arrival to the emergency department. He was seen by Dr. Stevenson and ther were intially concerns that he had some right-sided weakness. He had clear speech he was alert and oriented. Patient on an aspirin at home. He did contact the daughter whom confirmed his DNR DNI status. [facility] Medical History Colon cancer Prostate cancer History of Anabel-Murguia virus infection Depression Right inguinal hernia Polycythemia vera Erythrocytosis Osteoarthritis Meningitis GERD (gastroesophageal reflux disease) Hyperlipemia History of nephrolithiasis (~1996) Obstructive sleep apnea (~01/2016) Rotator cuff tear, right (~2008) PTSD (post-traumatic stress disorder) (1967) Malaria (~1940) Cataracts, bilateral (~2009) Hearing loss (Unknown) Urinary incontinence (2008) Colon polyps (2011) Diverticular disease (2014) Hemorrhoids (2014) Skin cancer Lymphoma (2004) Colorectal cancer (~01/2012) Hyperlipemia CLL (chronic lymphocytic leukemia) (2004) Prostate cancer (~2003) Surgical History S/P inguinal hernia repair (08/29/20) Hx of biopsy (~2004) Hx of rotator cuff surgery (02/2009) Hx of cataract surgery (2009) Hx of colectomy (~01/2012) History of tonsillectomy Status post radical cystoprostatectomy (2003) Family History Father Cancer Mother Stroke Hypertension Daughter Breast cancer Social History marital status: household members: none occupational status: previously employed alcohol intake: current substance use type: does not use Meds Home Medications and Allergies Home Medications ?Medication ?Instructions ?Recorded ?Confirmed ?Type polyethylene glycol 3350 17 17 g PO DAILY 08/29/20 History gram/dose oral powder (Miralax) omeprazole 20 mg capsule,delayed 20 mg PO QDAY #90 cap s 09/02/23 04/14/25 Rx release aspirin 325 mg tablet,delayed 325 mg PO DAILY #100 tab s 10/20/23 04/14/25 Rx release ezetimibe 10 mg tablet (Zetia) 10 mg PO QDAY #90 tabs 11/11/23 04/14/25 Rx carbidopa 25 mg-levodopa 100 mg 1.5 tab PO TID 4 04/14/25 History tablet carbidopa ER 50 mg-levodopa 200 mg 1 tab PO BEDTIME 04/14/25 History tablet,extended release brimonidine 0.025 % eye drops 1 drp ophthalmic (eye) D AILY 03/14/25 04/14/25 History Allergies Allergy/AdvReac Type Severity Reaction Status Date / Time enoxaparin (From LOVENOX) Allergy Unknown Major Verified 04/14/25 16:29 Bleed after bowel resection Sulfa (Sulfonamide Allergy Unknown Nose Verified 04/14/25 16:29 Antibiotics) (SULFA turned (SULFONAMIDE ANTIBIOTICS)) bright red Exam Vital Signs (past 8 hours): - 06/06/25 08:16 Temperature 98.1 F Pulse Rate 90 Respiratory Rate 20 Blood Pressure 160/80 H Pulse Oximetry 95 Oxygen Delivery Method Room Air Oxygen Delivery Method Room Air Narrative Exam Narrative: Gen.: Patient is alert good historian. He has Parkinson's related neurological features HEENT: NC/AT pupils equal round and reactive or mucosa is moist neck is supple Cardio: S1-S2 regular rate and rhythm Respiratory: Patient has normal respiratory effort. Lungs show some faint crackles maybe in the right lung compared with the left. Abdomen: Soft nontender no rebound or guarding no liver spleen enlargement no appreciable hernias Extremities: Full range of motion no appreciable weakness no cyanosis or edema. Neurologic: I do not appreciate any focal weakness lateralizing [id number].. No cranial nerve deficits. He has some generalized tremor and rigidity due to the Parkinson's. Objective Labs 06/06/25 07:45 06/06/25 07:45 Labs: Laboratory Results - last 24 hr 06/06/25 07:45 WBC 7.1 RBC 4.70 Hgb 15.0 Hct 43.9 MCV 93.4 MCH 31.9 MCHC 34.1 RDW 13.7 Plt Count 158 Neut % (Auto) 85.9 H Lymph % (Auto) 4.5 L [place] % (Auto) 8.9 Eos % (Auto) 0.3 L Baso % (Auto) 0.4 Neut # (Auto) 6100 Lymph # (Auto) 300 L [place] # (Auto) 600 Eos # (Auto) 0 Baso # (Auto) 0 PT 11.9 INR 1.1 APTT 27 Sodium 134 L Potassium 4.0 Chloride 102 Carbon Dioxide 25 BUN 18 Creatinine 0.66 Estimated GFR > 60 BUN/Creatinine Ratio 27.3 H Glucose 106 H Calcium 8.7 Total Bilirubin 1.1 AST 23 ALT 8 Alkaline Phosphatase 81 Total Protein 7.0 Albumin 3.9 Globulin 3.1 Albumin/Globulin Ratio 1.3 Assessment & Plan Assessment and plan (1) Pneumonia: Qualifiers: Laterality: unspecified laterality Lung location: unspecified part of lung Pneumonia type: due to unspecified organism Qualified Code(s): J18.9 - Pneumonia, unspecified organism Status: Acute (2) TIA (transient ischemic attack): Status: Acute Plan TIA patient with transient right-sided weakness. History of cerebrovascular accident. Patient on aspirin and Zetia. Patient's CT head and CT angiogram of neck shows no acute stroke. He was given aspirin and Plavix in the emergency department. On my examination he has resolution of his weakness. He has generalized Parkinson's features with weakness. We will continue with aspirin and Plavix. And continue with his stroke workup with an MRI. Patient will be monitored for further neurological symptoms in the hospital for 24 hours he will continue with aspirin Plavix and blood pressure management. Pneumonia probable aspiration. Patient has right middle lobe upper lobe pneumonia on chest x-ray also seen incidentally on CT scan of head. Patient describes an event of possible aspiration event 4 days ago outside of the hospital. Patient is susceptible due to his difficulty with the secretions due to Parkinson's. He was started on ceftriaxone in the emergency room we will continue ceftriaxone and doxycycline. His white blood cell count is normal we added a lactate and respiratory PCR panel to rule out viral sources. He will be continued with antibiotics and monitoring closely blood counts and viral status. Parkinson's. Patient's has Parkinson's disease he is on home Parkinson's medications his medications will be continued during his hospital stay. He does walk at home with a cane. And will need some assistance with the ambulation here in the hospital. History of colon cancer prostate cancer and CLL. Currently stable. In observation and maintenance status. Reviewed previous CT scan including CT scan chest abdomen pelvis done earlier this year. Hypertension. Patient's blood pressure is mildly elevated. We will continue to monitor that this is not significantly elevated in lieu of his Parkinson's disease if it becomes aggressively elevated and concerning around his TIA or stroke. We will work on adjusting and maintaining appropriate blood pressure. Hyperlipidemia patient is on Zetia we will continue this medication at this point for cholesterol management he has currently not on a statin. DVT prophylaxis with SCDs due to reported allergy to Lovenox GERD patient on proton pump inhibitor Constipation patient on MiraLax Disposition and plan admit as inpatient due to weakness TIA aspiration pneumonia anticipate hospitalization greater than 2 midnights Time-Based Coding :: [TOTAL MINUTES] spent with patient and on the chart (including review of chart, obtaining history, exam, reviewing outside data, placing orders, documenting exam and treatment plan, and counseling patient) on [DATE]. [employer] Insurance Legal Assistant Document charge(s): Yes Charge Codes Initial inpatient/observation care: 25450
[2025-06-06] MEDS: CLOPIDOGREL 75 MG TABLET 300 MG PO (09:35)
[2025-06-06] MEDS: ASPIRIN 81 MG CHEW TAB 324 MG PO (09:35)
[2025-06-06 09:38] LABS: Lactate (Lactic Acid) 0.8 mmol/L (0.7-2.1)
[2025-06-06] MEDS: DOXYCYCLINE 100 MG in SODIUM CHLORIDE 0.9% 100 ML IV ×2 (10:01→20:39)
[2025-06-06 10:44] LABS: Coronavirus NL 63 Not Detected (Not Detect); SARS- CoV-2 Not Detected (Not Detecte)
[2025-06-06] MEDS: SODIUM CHLORIDE 0.9% 1,000 ML 75 ML IV ×2 (10:50→17:57)
--- NOTE | 2025-06-06 11:22 | DI.MRI.S_ITS ---
PROCEDURE: MR HEAD/BRAIN WO CON INDICATIONS: rt side weekness TIA vs CVA TECHNIQUE: Non-contrast axial T1 spin echo, axial T2 fast spin echo, sagittal and axial FLAIR, coronal T2 fast spin echo, axial gradient echo, axial diffusion and ADC through the brain. COMPARISON: [facility], CT, CT STROKE, 06/06/2025, 8:01. [facility], CT, CT ANGIO HEAD AND NECK, 06/06/2025, 8:01. [facility], MR, MR HEAD/BRAIN WO CON, 04/10/2023, 9:33. FINDINGS: Image quality: Excellent. CSF spaces: Ventricles appear symmetric in size and shape. Basal cisterns are patent. No extra-axial fluid collections. Brain: No intracranial bleeds or mass effects. There is cerebral volume loss for age. There are periventricular and deep white matter chronic small vessel ischemic changes. Brainstem appears normal. Diffusion-weighted images show no acute infarct. No chronic ischemic insults. Age-related volume loss and severe small vessel ischemic change. Normal intravascular flow voids are present. Skull and face: Calvarial bone marrow is normal in signal. Orbits are normal. Sinuses: Chronic sinus disease involving the ethmoids and maxillary sinuses. Partial opacification of the right mastoids. IMPRESSION: 1. No acute intracranial process. 2. Age-related volume loss and severe small vessel ischemic change. Dictated by: Deng Jimenez M.D. on 06/06/2025 at 13:29 Approved by: Deng Jimenez M.D. on 06/06/2025 at 13:32
[2025-06-06] MEDS: CARBIDOPA-LEVODOPA 25/100 TABLET 1.5 EACH PO ×2 (11:25→14:05)
--- NOTE | 2025-06-06 11:54 | PC.NURSE ---
Attempted to call Dr. Garrison about abx timing. Dr. Garrison did not answer his phone. Will continue to monitor patient.
--- NOTE | 2025-06-06 14:09 | PC.NURSE ---
This RN covering lunch break for primary RN. Pt was eating his lunch, drinking iced tea and chatting with staff when this RN entered the room. This RN administered carbidopa/levadopa (1.5 tabs, PO) he consumed the medication with his food/drink.
--- NOTE | 2025-06-06 18:31 | PC.NURSE ---
patient admitted for tia, and he is positive for rsv. He is alert and oriented x3, he was bladder scanned for 545cc of urine in bladder, he voided 100cc of yellow urine. Resting comfortably with ivf ns at 75cc/hr
[2025-06-06] MEDS: CARBIDOPA-LEVODOPA ER 50/200 TABLET 1 EACH PO (20:39)
[2025-06-07 04:00] VITALS: BP 147/74; PULSE 68; RESP 18; TEMP 36.9; O2SAT 97
[2025-06-07] MEDS: SODIUM CHLORIDE 0.9% 1,000 ML 75 ML IV (05:48)
[2025-06-07] MEDS: CARBIDOPA-LEVODOPA 25/100 TABLET 1.5 EACH PO ×3 (05:48→14:11)
[2025-06-07] MEDS: PANTOPRAZOLE DR 20 MG TABLET PO (05:49)
[2025-06-07 06:15] LABS: Add Manual Diff / Slide Review NO; Hematocrit 41.7 % (41-53); Hemoglobin 14.4 g/dL (13.5-17.5); Lymphocytes Absolute Auto 900 /uL (1100-4500); Mean Corpuscular HGB Conc 34.4 % (30-36); Mean Corpuscular Hemoglobin 32.1 PG (26-34); Mean Corpuscular Volume 93.4 fL (80-100); Platelet Count 141 X10^3/uL (150-400)
[2025-06-07 06:35] LABS: Alanine Aminotransferase 5 IU/L (<50); Albumin 3.3 g/dL (3.5-5.0); Albumin Globulin Ratio 1.1 (1.0-2.8); Alkaline Phosphatase 69 U/L (38-126); Blood Urea Nitrogen 12 mg/dL (9-20); Calcium 8.3 mg/dL (8.4-10.2); Carbon Dioxide 25 mmol/L (22-32); Chloride 105 mmol/L (98-107); Estimated Glomerular Filt Rate > 60 mL/min (>60); Globulin 2.9 g/dL (1.7-4.1); Glucose 83 mg/dL (70-99); HEMOLYSIS < 15 (0-50); Potassium 4.0 mmol/L (3.4-5.1); Sodium 135 mmol/L (137-145); Total Protein 6.2 g/dL (6.3-8.2)
[2025-06-07 07:00] VITALS: O2SAT 97
[2025-06-07 07:45] VITALS: BP 135/72; PULSE 68; RESP 15; TEMP 36.6; O2SAT 96
--- NOTE | 2025-06-07 07:49 | DI.RAD.S_ITS ---
PROCEDURE: XR CHEST 2V INDICATIONS: pneumonia TECHNIQUE: 2 views of the chest were acquired. COMPARISON: [facility], CR, XR CHEST 1V, 06/06/2025, 8:48. FINDINGS: Surgical changes and devices: None. Lungs and pleura no significant change in airspace opacity involving the right upper lobe and medial left lower lobe. Lungs otherwise are clear. No pleural effusions or pneumothorax. Mediastinum: Mediastinal contours are normal. Heart size is normal. Bones and chest wall: No suspicious bony abnormalities. Soft tissues appear unremarkable. IMPRESSION: Bilateral airspace opacity similar prior examination most consistent with bilateral pneumonia. Continued radiographic surveillance to resolution is recommended. Dictated by: Marc IBRAHIM Interpreted: Tommy Ramsay MD on 06/07/2025 at 9:44 Transcribed by: MICHI on 06/07/2025 at 13:24 Approved by: Tommy Ramsay M.D. on 06/08/2025 at 15:36
[2025-06-07] MEDS: DOXYCYCLINE 100 MG in SODIUM CHLORIDE 0.9% 100 ML IV ×2 (08:18→20:50)
--- NOTE | 2025-06-07 08:37 | P.PN_ITS ---
Subjective Subjective Date Patient Seen: 06/07/25 Time Patient Seen: 08:37 Interval history: Patient seen and evaluated this morning. Doing well he is sitting up in a chair. He said he had a good night last night does not remember much of it he says because he was sleeping he says sometimes his brain is not functioning super well in the morning. He asks about his MRI. Which was reviewed which shows no acute intracranial injury. Patient is conversant this morning not complaining of any pain he is off of oxygen. He has an intermittent cough. He is eating breakfast. And there is no signs of lateralization of weakness. Although he says he is has some weakness when trying to ambulate. Exam Vital Signs (past 8 hours): - 06/07/25 04:00 Temperature 98.4 F Pulse Rate 68 Respiratory Rate 18 Blood Pressure 147/74 H Pulse Oximetry 97 Oxygen Flow Rate 0 Oxygen Delivery Method Room Air Oxygen Flow Rate 0 Narrative Exam Narrative: Gen.: Alert knows he is at [facility] has some Parkinson's features HEENT: pupils equal round and reactive or mucosa is moist neck is supple Cardio: S1-S2 Respiratory: normal respiratory effort no wheezes or crackles Abdomen: Soft nontender no rebound or guarding no liver spleen enlargement no appreciable hernias Extremities: no edema generalized lower extremity weakness Objective Labs 06/07/25 05:30 06/07/25 05:30 Labs: Laboratory Results - last 24 hr 06/06/25 06/06/25 06/07/25 09:17 09:40 05:30 WBC 4.9 RBC 4.47 L Hgb 14.4 Hct 41.7 MCV 93.4 MCH 32.1 MCHC 34.4 RDW 13.9 Plt Count 141 L Neut % (Auto) 71.4 Lymph % (Auto) 18.3 L [place] % (Auto) 8.6 Eos % (Auto) 1.6 L Baso % (Auto) 0.1 Neut # (Auto) 3500 Lymph # (Auto) 900 L [place] # (Auto) 400 Eos # (Auto) 100 Baso # (Auto) 0 Sodium 135 L Potassium 4.0 Chloride 105 Carbon Dioxide 25 BUN 12 Creatinine 0.59 L Estimated GFR > 60 BUN/Creatinine Ratio 20.3 Glucose 83 Lactate 0.8 Calcium 8.3 L Total Bilirubin 0.8 AST 23 ALT 5 Alkaline Phosphatase 69 Total Protein 6.2 L Albumin 3.3 L Globulin 2.9 Albumin/Globulin Ratio 1.1 Chlamy pneumoniae PCR Not detected Adenovirus (PCR) Not detected B. pertussis DNA (PCR) Not detected B.parapertussis DNA PCR Not detected Coronavirus OC43 (PCR) Not detected Coronavirus HKU1 (PCR) Not detected Coronavirus 229E (PCR) Not detected SARS-CoV-2 (PCR) Not detected Coronavirus NL63 (PCR) Not detected Human Metapneumovir PCR Not detected Influenza Type A (PCR) Not detected Influenza Type B (PCR) Not detected M. pneumoniae (PCR) Not detected Parainfluenza 1 (PCR) Not detected Parainfluenza 2 (PCR) Not detected Parainfluenza 3 (PCR) Not detected Parainfluenza 4 (PCR) Not detected RSV (PCR) Detected H Entero/Rhino (PCR) Not detected PFSH Medical History Colon cancer Prostate cancer History of Anabel-Murguia virus infection Depression Right inguinal hernia Polycythemia vera Erythrocytosis Osteoarthritis Meningitis GERD (gastroesophageal reflux disease) Hyperlipemia History of nephrolithiasis (~1996) Obstructive sleep apnea (~01/2016) Rotator cuff tear, right (~2008) PTSD (post-traumatic stress disorder) (1967) Malaria (~0) Cataracts, bilateral (~2009) Hearing loss (Unknown) Urinary incontinence (2008) Colon polyps (2011) Diverticular disease (2014) Hemorrhoids (2014) Skin cancer Lymphoma (2004) Colorectal cancer (~01/2012) Hyperlipemia CLL (chronic lymphocytic leukemia) (2004) Prostate cancer (~2003) Surgical History S/P inguinal hernia repair (08/29/20) Hx of biopsy (~2004) Hx of rotator cuff surgery (02/2009) Hx of cataract surgery (2009) Hx of colectomy (~01/2012) History of tonsillectomy Status post radical cystoprostatectomy (2003) Family History Father Cancer Mother Stroke Hypertension Daughter Breast cancer Social History marital status: household members: none occupational status: previously employed alcohol intake: current substance use type: does not use Assessment & Plan Assessment and plan (1) TIA (transient ischemic attack): Status: Acute Plan right-sided weakness concerning for TIA CT angiogram CT head and MRI now done. No signs of acute ischemic injury to the brain. Patient on aspirin at home recommended Plavix. He has no further symptoms on physical exam of significant weakness or speech deficits this is compounded a little bit by his Parkinson's disease. Plan will be to continue his good blood pressure control he is not on a statin but on Zetia and we will continue that he will continue on aspirin and Plavix for an additional 30 days. He will work with physical therapy speech therapy and discharge plan will be back to [facility]. Pneumonia aspiration pattern. Patient with pneumonia he also tested positive for RSV. I suspect his pneumonias more related to aspiration. He has no elevation of white blood cell count today he is not hypoxic. We will continue a course of IV antibiotics while here in the hospital. And will be discharged home on oral antibiotics. Parkinson's. Chronic stable will be continued on his home medication. History of colon cancer prostate cancer and CLL. Currently stable. In observation and maintenance status. Reviewed previous CT scan including CT scan chest abdomen pelvis done earlier this year. Hypertension. Blood pressure still a little bit high but improving. Hyperlipidemia patient is on Zetia we will continue this medication at this point for cholesterol management he has currently not on a statin. DVT prophylaxis with SCDs due to reported allergy to Lovenox GERD patient on proton pump inhibitor Constipation patient on MiraLax Disposition and plan. Anticipate discharge home tomorrow may need some ongoing physical therapy which he could get it challenge . Time-Based Coding :: [TOTAL MINUTES] spent with patient and on the chart (including review of chart, obtaining history, exam, reviewing outside data, placing orders, documenting exam and treatment plan, and counseling patient) on [DATE]. PROFEE Product Transfer Pumper Document charge(s): Yes Charge Codes Subsequent inpatient/observation care: [id number]
[2025-06-07] MEDS: EZETIMIBE 10 MG TABLET PO (09:47)
[2025-06-07] MEDS: CLOPIDOGREL 75 MG TABLET PO (09:47)
[2025-06-07] MEDS: ASPIRIN EC 325 MG TABLET PO (09:47)
[2025-06-07 11:30] VITALS: BP 134/75; PULSE 69; RESP 17; TEMP 36.8; O2SAT 97
--- NOTE | 2025-06-07 12:35 | CM.DANOTE ---
Initial DCP Assessment Note. Review EMR and PT Interview. Met with patient at bedside to discuss discharge needs.PT is alert x 4 sitting up in bed.. No acute distress. Dependent on DME. Lives alone at [facility]. patient was participating in [facility] at [facility]. Payor:??ARIANNE PCP: Summary & Plan:?89 y/o male arrived to ED via EMS c/o cough and weakness. Admitted INPT. Dx. PNA. Plan: IV abx and PT eval. Blood Cx. pending. Discharge Planning/Care Management CM Discharge Assessment Start: 06/06/25 09:17 Freq: Status: Active Protocol: Document 06/07/25 12:29 (Rec: 06/07/25 12:35 [id number]) Discharge Planning Assessment Assigned Discharge Nadia Sexton RN CM Processing Tech Provider Dr. Roth Insurance Medicare Advance Directives? Yes: Advance Directive:General POA Advance Directives Yes on File History Provided By Patient,Medical Record Prior Living Assisted Living Arrangements Household Members none Type of Relies on Others transporation used prior to admit Facility Name [facility] Admitted From: Willing to Return to Yes Facility? Independent with ADL Yes 's Is patient alert and Yes oriented? Needs Assistance Managing Medications,Home Chores / Shopping With Comment patient was participating in [facility] at [facility]. Patient is requesting to return to prior living situation. Caregiver for No Another Community Services Physical Therapy used prior to admission: Comment see above. DME Already Rented / Wheelchair,FWW / Walker,Cane Owned Patient/Family Home with Home Health Preference Barriers to No Discharge Comment Return home to [facility] with escalation of care soon into assisted living Discharge Plan Assisted Living Facility Transportation Facility Van Arrangement Referrals Initiated None needed Review Status In Process Please Provide Date 06/07/25 Initial DC Assessment Was Performed Next Review Type Continued Stay Review
[2025-06-07 19:00] VITALS: BP 139/78; PULSE 84; RESP 18; TEMP 36.6; O2SAT 96
[2025-06-07] MEDS: CARBIDOPA-LEVODOPA ER 50/200 TABLET 1 EACH PO (20:50)
[2025-06-08] MEDS: CARBIDOPA-LEVODOPA 25/100 TABLET 1.5 EACH PO ×2 (06:40→11:34)
[2025-06-08] MEDS: PANTOPRAZOLE DR 20 MG TABLET PO (06:40)
[2025-06-08 07:00] VITALS: BP 119/80; PULSE 71; RESP 15; TEMP 36.9; O2SAT 92
--- NOTE | 2025-06-08 07:06 | P.DS_ITS ---
History of Present Illness History of Present Illness Date Patient Seen: 06/08/25 Time Patient Seen: 07:06 Chief complaint: weekness cough Narrative: Patient is an 89-year-old male who resides at [facility]. Patient has a past medical history of cerebrovascular accident CLL colon cancer prostate cancer Parkinson's disease osteoarthritis GERD polycythemia obstructive sleep apnea patient normally resides at [facility]. He states that home a number of days ago he has increasing secretions from Parkinson's disease which is not been a problem he says he has a cough lots of times. Says 3 or 4 days ago he coughed because of his secretions and thinks that maybe he aspirated. He says that pneumonia is 1 of the major reasons why people and Parkinson's dye is what he told me. He says he continued to have a cough over the last 3 or 4 days yesterday he woke up at 6:00 a.m. his caregiver came in and gave him his medications he went back to sleep until 4:00 a.m. yesterday afternoon. Yesterday afternoon he got up had a little bit of food and went back to sleep. His caregiver came in this morning. To provide his medications again and patient states he was very weak. Patient states he could not sit up and he kept falling over. Said he felt similar to when he had a previous stroke. At that point the caregiver became concerned and patient was transported to the emergency department for further evaluation. On my exam. Patient is a good historian he knows he is at [facility] he lives at [facility] able to relate his history he knows what day of the week it is. He is currently complaining of a little bit of a cough. He says he is weak but every where. Says he has not recently had any problems with bowel movements. He walks very slowly because of his Parkinson's with a cane. 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 He has not aware of having any significant fevers or chills. He is complaining of cough but not particularly short of breath. I reviewed the patient's workup in the emergency department this included Laboratory tests CT scan and x-rays were reviewed. On arrival to the emergency department. He was seen by Dr. Stevenson and ther were intially concerns that he had some right-sided weakness. He had clear speech he was alert and oriented. Patient on an aspirin at home. He did contact the daughter whom confirmed his DNR DNI status. [from Dr. Garrison's H&P 06/06/2025} Discharge Providers Provider Date of admission: 06/06/25 09:11 Discharge Date: 06/08/25 Primary care physician: Larry Roth MD Consults: 06/06/25 09:45 Consult to Discharge Planning Routine Comment: Discharge provider: Larry Roth MD Summary Hospital Course Discharge Diagnosis: 1. RSV pneumonia 2. TIA with generalized weakness, in retrospect likely secondary to pneumonia 3. Possible aspiration pneumonia 4. Chronic lymphocytic leukemia 5. Parkinson's disease 6. Polycythemia vera Hospital Course: As above patient presented with generalized weakness felt to him as though perhaps he had had another CVA. However he also had some respiratory symptoms with evidence of possible infiltrate on x-ray subsequent testing positive for RSV with serology. He was not hypoxic however. There was some concern about possible aspiration as he did admit to some difficulty swallowing and eating with maybe some increased coughing perhaps due to his generalized weakness In any event he was hemodynamically and clinically stable during his hospitalization. Did not require supplemental oxygen or additional medications. Was continued on IV and then switched to oral antibiotics He had a stroke workup including CT angiography and MRI of the brain which failed to reveal any new diagnosis. He had Plavix added to his daily aspirin and effort for stroke risk reduction Patient will be discharged home on the Plavix plus doxycycline for the possible aspiration pneumonia Physical therapy services via [facility] will be initiated as well Status at Discharge Cognitive/behavioral status at discharge: at baseline, oriented Functional status at discharge: uses cane/walker Overall status at discharge: patient is progressing back to baseline Time Spent with Patient Time spent: Greater than 30 minutes Exam Vital Signs (past 8 hours): Oxygen Delivery Method Room Air Oxygen Flow Rate 0 Objective Labs 06/07/25 05:30 06/07/25 05:30 [facility] Medical History History of Anabel-Murguia virus infection Depression Right inguinal hernia Polycythemia vera Colon cancer Prostate cancer Erythrocytosis Osteoarthritis Meningitis GERD (gastroesophageal reflux disease) Hyperlipemia History of nephrolithiasis (~1996) Obstructive sleep apnea (~01/2016) Rotator cuff tear, right (~2008) PTSD (post-traumatic stress disorder) (1967) Malaria (~1940) Cataracts, bilateral (~2009) Hearing loss (Unknown) Urinary incontinence (2008) Colon polyps (2011) Diverticular disease (2015) Hemorrhoids (2014) Skin cancer Lymphoma (2004) Colorectal cancer (~01/2012) Hyperlipemia CLL (chronic lymphocytic leukemia) (2004) Prostate cancer (~2003) Surgical History S/P inguinal hernia repair (08/29/20) Hx of biopsy (~2004) Hx of rotator cuff surgery (02/2009) Hx of cataract surgery (2009) Hx of colectomy (~01/2012) History of tonsillectomy Status post radical cystoprostatectomy (2003) Family History Father Cancer Mother Stroke Hypertension Daughter Breast cancer Social History marital status: household members: none occupational status: previously employed alcohol intake: current substance use type: does not use Discharge Plan Discharge Plan Patient Disposition: Assisted Living Other facility: [facility] Discharge orders & Medications Discharge Orders: Discharge (Order); Ordered 06/08/25 Ordered By: Larry Roth Prescriptions: New clopidogrel 75 mg Tablet 75 mg PO DAILY Qty: 30 0RF doxycycline hyclate 100 mg capsule 100 mg PO BID Qty: 10 0RF Continued omeprazole 20 mg capsule,delayed release(DR/EC) 20 mg PO QDAY Qty: 90 3RF aspirin 325 mg tablet,delayed release (DR/EC) 325 mg PO DAILY Qty: 100 3RF ezetimibe [Zetia] 10 mg tablet 10 mg PO QDAY Qty: 90 3RF carbidopa-levodopa 50-200 mg tablet extended release 1 tab PO BEDTIME carbidopa-levodopa 25-100 mg tablet 1.5 tab PO TID brimonidine 0.025 % drops 1 drp ophthalmic (eye) DAILY Rx Instructions: 1 drop both eyes bedtime polyethylene glycol 3350 [Miralax] 17 gram/dose Powder 17 g PO DAILY Follow up/Referrals: Larry Roth MD [Primary Care Provider, Internal Medicine] - 2 Weeks Discharge Health Status Multidrug resistant organism: No MDRO Diet/Activity/Treatments Diet: Diet as Tolerated Activity: Up as able, PT/OT to assist Visit Report/Discharge Packet Stand Alone Forms: Patient Portal/API, Stroke Signs & Symptoms Discharge Data Primary Care Provider: Larry Roth PROFSOTO Charge Codes Discharge inpatient/observation: [id number]
[2025-06-08] MEDS: CLOPIDOGREL 75 MG TABLET PO (08:35)
[2025-06-08] MEDS: ASPIRIN EC 325 MG TABLET PO (08:35)
[2025-06-08] MEDS: EZETIMIBE 10 MG TABLET PO (08:35)
[2025-06-08] MEDS: DOXYCYCLINE HYCLATE 100 MG TABLET PO (08:42)
[2025-06-08 12:16] VITALS: BP 155/82; PULSE 65; RESP 17; TEMP 36.2; O2SAT 99
--- NOTE | 2025-06-08 12:50 | PC.NURSE ---
Addendum entered by Pop Winters RN 06/08/25 13:16: AT 1310* Addendum entered by Pop Winters RN 06/08/25 13:15: PATIENT TAKEN DOWNSTAIRS BY ESAU CASTELLANOS FOR DISCHARGE. [facility] TRANSPORTER/ DAUGHTER WITH PATIENT. Original Note: 1236 DISCHARGE PAPERWORK DISCUSSED AND SIGNED WITH PATIENT/ DAUGHTER. SIG PAGE SIGNED AND PLACED IN CHART. IV D/C'D. PT DRESSED AND WAITING FOR RIDE FROM [facility].
--- NOTE | 2025-06-08 13:12 | CM.DPC ---
DC Summary and Med list sent to [facility]. Per [facility] Lord, [facility] will black pickler patient at 1300 today.
== END 2025-06-08 13:10 | DRG 178 ==
LOC: ED 08:45 → AC 09:56
PROVIDERS: Admitting Provider Family Medicine; Emergency Provider Emergency Medicine; Family Provider Internal Medicine; PCP Internal Medicine; Referring Provider Emergency Medicine; Visit Provider Internal Medicine
DX: J69.0 Pneumonitis due to inhalation of food and vomit (principal); G45.9 Transient cerebral ischemic attack, unspecified; G81.91 Hemiplegia, unspecified affecting right dominant side; G20.A1 Parkinson's disease without dyskinesia, without mention of fluctuations; R53.1 Weakness; I10 Essential (primary) hypertension; E78.5 Hyperlipidemia, unspecified; K21.9 Gastro-esophageal reflux disease without esophagitis; K59.00 Constipation, unspecified; J12.1 Respiratory syncytial virus pneumonia; D45 Polycythemia vera; Z66 Do not resuscitate; Z85.6 Personal history of leukemia; Z86.73 Personal history of transient ischemic attack (TIA), and cerebral infarction without residual deficits; Z85.46 Personal history of malignant neoplasm of prostate; Z85.038 Personal history of other malignant neoplasm of large intestine
CPT/HCPCS: 36415; 70450; 70496; 70498; 70551; 71045; 71046; 80053; 83605; 85025; 85610; 85730; 87040; 87633; 93005; 93010; 96365; 96367; 99284; 99285; J0696; J7030; J7050; Q9967